=== PATIENT | male | born 1975 | race Caucasian/White ===

== ENCOUNTER 2017-06-30 03:14 | Emergency (ER) | payer OTHER, SELFPAY ==
[2017-06-30 03:15] VITALS: BP 129/91; PULSE 132; RESP 16; TEMP 39.4; O2SAT 99; BMI 33.5
[2017-06-30] MEDS: Ibuprofen 200 MG Tablet 400 MG PO (03:45)
--- NOTE | 2017-06-30 04:11 | NURSING ---
TOOK LAB RESULT. THE PT IS FLU A POSITIVE AND STREP POSITIVE.
--- NOTE | 2017-06-30 04:28 | ED.DCSUM_ITS ---
- ER Visit Summary Date of Service: 06/30/17 Chief Complaint: Flu History of Present Illness: The patient is a 42 M with flulike symptoms for 3 days. His family has had similar symptoms. He has been exposed to influenza and strep pharyngitis. His main concern is his difficulty with sleeping. He has a lot of nasal congestion. He tried a humidifier, but continues to be congested. This causes him difficulty with sleeping. He is only slept a couple hours in the last few days. He is requesting something to help him sleep. Physical Examination: Temperature 103. Heart rate 132. Respiratory rate 16. Blood pressure normal. Pulse ox normal. Patient appears ill but not toxic or in distress. Skin appears normal. HEENT exam is fairly unremarkable. He has some oral pharyngeal erythema, but no exudates. Ears normal. No lymphadenopathy. Heart tachycardic but regular. Lungs clear. Abdomen soft. Skin appears normal. Test Results: Strep testing positive. Influenza testing positive. Emergency Department Course and Treatment: I checked a strep and flu test. I suggested nasal decongestants, but because rebound congestion in the patient and he declined. Will also try prednisone. He received a dose here. He also received ibuprofen. I reassessed him, his fever had broke and his temp was 99.3. Heart rate in the low 100s. He looked better objectively. Will treat with azithromycin and Tamiflu. Risks and benefits were discussed. We will also treat with prednisone. He received a dose of Vistaril here to help him sleep. The risks and complications of influenza were discussed. The patient will monitor for worsening signs and symptoms, chest pain, shortness of breath. He will increase his fluid intake. Return if worse. Treatment Plan: As above Disposition: Discharged Impression: 1. Influenza 2. Strep pharyngitis This note was generated with mTraksation software. It may contain incorrect words, spelling, and punctuation that were not noted in review of the chart prior to signing ED Disposition - Plan for ED Patient: Chief Complaint: Cold Sx Referrals: Naheed Cedillo MD [Primary Care Provider] -
--- NOTE | 2017-06-30 04:28 | ED.DEP ---
ED Disposition - Plan for ED Patient: Chief Complaint: Cold Sx Instructions: ED Strep Pharyngitis Conf, ED Flu Prescriptions: Azithromycin [Zithromax Tri-Ben] 500 mg PO DAILY 4 Days #4 tab Prednisone 40 mg PO DAILY 4 Days #16 tab Oseltamivir Phosphate [Tamiflu] 75 mg PO BID 5 Days #9 cap Referrals: Naheed Cedillo MD [Primary Care Provider] -
[2017-06-30] MEDS: Azithromycin 250 MG Tablet 500 MG PO (04:38)
[2017-06-30] MEDS: DiphenhydrAMINE 25 MG Capsule 50 MG PO (04:44)
[2017-06-30 04:48] VITALS: TEMP 38.2
--- NOTE | 2017-06-30 04:48 | ED.RN ---
DISCHARGE INSTRUCTIONS GIVEN TO AND REVIEWED WITH PATIENT, PATIENT DENIES QUESTIONS OR CONCERNS AND VOICES UNDERSTANDING OF DISCHARGE INSTRUCTIONS. PT AMBULATES OUT OF ROOM WITHOUT DIFFICULTY.
== END 2017-06-30 04:49 | disposition home or self-care (01) ==
LOC: ED 03:50
PROVIDERS: Emergency Provider Emergency Medicine; Family Provider Internal Medicine; PCP Internal Medicine
DX: J11.1 Influenza due to unidentified influenza virus with other respiratory manifestations (principal); J02.0 Streptococcal pharyngitis
CPT/HCPCS: 87804; 87880; 99283

== ENCOUNTER → 2017-07-28 17:03 | Outpatient (CLI) | payer OTHER, SELFPAY ==
--- NOTE | 2017-07-28 17:05 | MRI_ITS ---
STUDY: MRI BRAIN WITHOUT CONTRAST REASON FOR EXAM: Male, 42 years old. H/A. alteration of awareness. Symptoms began about 3 weeks ago. TECHNIQUE: Standardized multiplanar fat and water weighted pulse sequences were obtained. COMPARISON: June 26, 2006 FINDINGS: Normal size of the ventricles and extra-axial spaces for the patient's age. Again noted are the multiple nonspecific subcortical white matter hyperintensities most prominent along the frontal lobes and grossly unchanged since prior examination in 2006. Normal bilateral basal ganglia. Normal thalami. There is no extra-axial fluid accumulation. Normal flow voids within the major intracranial circulation suggesting patency by spin echo criteria. Normal sella turcica, pituitary gland, infundibular stalk, optic chiasm and hypothalamus. Normal tectal plate and pineal gland. Normal midbrain, serena and medulla. Normal cerebellum. Normal basal cisterns. Normal bilateral temporal bones. Normal bilateral internal auditory canals. No demonstrated orbital abnormality, within the constraints of a routine brain study. Normal visualized paranasal sinuses. Normal calvarium and skull base. Normal visualized soft tissue structures. Normal visualized upper cervical spine. MRI/Brain without Contrast IMPRESSION: No acute intracranial abnormality. Electronically Signed: Francine Solis MD at 9:18 EST Tel , Service support ,
== END ==
PROVIDERS: Family Provider Internal Medicine; PCP Internal Medicine; Visit Provider Family Medicine
DX: R40.4 Transient alteration of awareness (principal); R51 Headache; H53.9 Unspecified visual disturbance
CPT/HCPCS: 70551

== ENCOUNTER → 2019-01-24 | Outpatient (CLI) | payer OTHER, SELFPAY ==
--- NOTE | 2019-01-24 09:27 | MRI_ITS ---
STUDY: MRA OF THE HEAD WITHOUT CONTRAST REASON FOR EXAM: Male, 43 years old. Headache, vision change and dizziness. TECHNIQUE: 3-D [id number] (TOF) imaging was performed with MIPs. The study was performed unenhanced. COMPARISON: None. FINDINGS: Normal bilateral petrous carotid arteries. Normal right cavernous carotid artery with a normal supraclinoid bifurcation. Normal left cavernous carotid artery with a normal supraclinoid bifurcation. Normal right A1 segments of the anterior cerebral artery. Normal left A1 segments of the anterior cerebral artery. Normal intact anterior communicating artery (ACOM). Normal bilateral A2 segments of the anterior cerebral arteries. Normal right M1 and M2 segments of the middle cerebral arteries, with a normal M1 bifurcation. Normal left M1 and M2 segments of the middle cerebral arteries, with a normal M1 bifurcation. No visible right posterior communicating artery (PCOM). No visible left posterior communicating artery (PCOM). Normal bilateral vertebral arteries. Normal basilar artery with a normal basilar bifurcation. The visualized bilateral superior cerebellar (SCA) arteries are normal. Normal bilateral P1, P2 and visualized P3 segments of the posterior cerebral arteries. There is no demonstrated aneurysm of the [place] of [place]. There is no major vessel occlusion or hemodynamically significant stenosis. There is no demonstrated abnormality of the visualized brain. MRI/MRA Head ONLY without Contrast IMPRESSION: Normal MRA of the head Electronically Signed: Balta Avina MD at 13:07 EDT , Service support ,
== END | disposition home or self-care (01) ==
LOC: MRI 09:14
PROVIDERS: Family Provider Family Medicine; PCP Family Medicine; Referring Provider Family Medicine; Visit Provider Family Medicine
DX: R51 Headache (principal)
CPT/HCPCS: 70544

== ENCOUNTER → 2019-08-07 10:41 | Outpatient (CLI) | payer OTHER, SELFPAY ==
--- NOTE | 2019-08-07 10:44 | RAD_ITS ---
STUDY: X-RAY - PARANASAL SINUSES REASON FOR EXAM: Male, 44 years old. Sinus pain, mid forehead in between eyes, feels it more the more he talks, dizziness TECHNIQUE: 3 view(s) of the paranasal sinuses were obtained. COMPARISON: None. FINDINGS: Normal visualized frontal, maxillary, ethmoidal and sphenoid sinuses. Normal visualized facial bones. Normal soft tissue structures. RAD/Sinuses min 3 Views IMPRESSION: Normal paranasal sinuses Electronically Signed: Tom Salazar DO at 8:40 EDT Tel , Service support ,
== END ==
PROVIDERS: PCP Family Medicine; Referring Provider Family Medicine; Visit Provider Family Medicine
DX: J34.89 Other specified disorders of nose and nasal sinuses (principal)
CPT/HCPCS: 70220

== ENCOUNTER → 2019-08-16 12:42 | Outpatient (CLI) | payer OTHER, SELFPAY ==
--- NOTE | 2019-08-16 12:46 | CT_ITS ---
STUDY: CT FACIAL BONES WITHOUT CONTRAST REASON FOR EXAM: Male, 44 years old. SINUSITIS RADIATION DOSAGE (If Supplied By Facility): CTDIvol = ( 33.06 ) mGy, DLP = ( 788.40 ) mGycm TECHNIQUE: The patient was scanned in a multi detector CT scanner. Sagittal and coronal images were reconstructed. Individualized dose optimization techniques were used for this CT. COMPARISON: None. FINDINGS: Small benign-appearing bilateral submental lymph nodes. Normal orbital trujillo and orbital contents. Normal nasal bones and anterior nasal spine. Normal facial bones. There is no demonstrated fracture. Mild degree of nasal septal deviation towards the right side of the midline. Normal visualized paranasal sinuses. CT/Sinus/Facial Bone IMPRESSION: Mild degree of nasal septal deviation toward the right side of the midline. Electronically Signed: Charlie Duncan, at 14:44 EDT , Service support ,
== END ==
PROVIDERS: PCP Family Medicine; Referring Provider Otolaryngology; Visit Provider Otolaryngology
DX: R51 Headache (principal); R09.81 Nasal congestion
CPT/HCPCS: 70486

== ENCOUNTER → 2019-08-17 07:14 | Outpatient (CLI) | payer OTHER, SELFPAY ==
--- NOTE | 2019-08-17 07:31 | MRI_ITS ---
ACR Level 3 findings have been noted. An addendum which confirms receipt of the report will follow. STUDY: MRI BRAIN WITHOUT CONTRAST REASON FOR EXAM: Male, 44 years old patient with sinus pain, dizziness, and confusion. TECHNIQUE: Standardized multiplanar fat and water weighted pulse sequences were obtained. COMPARISON: MRI of the brain dated July 28, 2017. FINDINGS: There is mild cerebral atrophy with widening of the extra-axial spaces and ventricular dilatation. There tiny foci of abnormal T2 hyperintensity within the subcortical white matter of bilateral frontal lobes, unchanged compared to the previous study. The white matter otherwise has a normal appearance. Sagittal midline structures are within normal limits. There are tiny foci of restricted diffusion present within the left parietal lobe and within the central serena that may represent a sequela of acute infarcts. This is best seen on diffusion weighted imaging #9 and image #19. There is additional focus of restricted diffusion in the right paramedian medulla best seen on diffusion weighted image #7. There is also questionable restricted diffusion present within the posterior right frontal lobe white matter on image #19. Normal T2* images of the brain without demonstrated susceptibility artifact. There is no demonstrated hemosiderin stain. Normal bilateral basal ganglia. Normal thalami. There is no extra-axial fluid accumulation. Normal flow voids within the major intracranial circulation suggesting patency by spin echo criteria. Normal sella turcica, pituitary gland, infundibular stalk, optic chiasm and hypothalamus. Normal tectal plate and pineal gland. Normal midbrain, serena and medulla. Normal cerebellum. Normal basal cisterns. Normal bilateral temporal bones. Normal bilateral internal auditory canals. No demonstrated orbital abnormality, within the constraints of a routine brain study. Normal visualized paranasal sinuses. Normal calvarium and skull base. Normal visualized soft tissue structures. Normal visualized upper cervical spine. MRI/Brain without Contrast IMPRESSION: 1. Multiple foci of restricted diffusion, as described, possibly related either to acute infarcts and/or pontine myelinolysis. 2. Unchanged appearance to scattered foci of abnormal signal within the subcortical white matter of bilateral frontal lobes since previous MRI. Electronically Signed: Keesha Smith MD at 8:48 EDT , Service support ,
[2019-08-17 09:05] LABS: Hematocrit 46.7 % (40-54); Hemoglobin 15.5 g/dL (13.0-16.5); Mean Corp Hgb Conc 33.2 g/dL (32-36); Mean Corpuscular Hgb 31.4 pg (27.0-32.0); Mean Corpuscular Volume 94.5 fL (80-94); Mean Platelet Vol. 11.1 fl (6.2-12.0); Platelet Count 154 K/mm3 (150-450); RBC Distribution Width CV 13.1 % (11.6-14.6); RBC Distribution Width SD 44.6 fl (35.1-43.9); Red Blood Count 4.94 M/mm3 (4.6-6.2); White Blood Count 6.7 K/mm3 (4.4-11.0)
[2019-08-17 09:50] LABS: ALB/GLOB Ratio 0.9 RATIO (0.9-2.4); AST(SGOT) 18 U/L (15-37); Alanine Aminotransfer ALT/SGPT 25 U/L (16-61); Albumin, Serum 3.8 g/dL (3.2-5.0); Alkaline Phosphatase 85 U/L (45-117); Anion Gap 5 (5-15); BUN 16 mg/dL (7-18); BUN/Creat Ratio 15.2 RATIO (10-20); Calcium,Total 8.6 mg/dL (8.5-10.1); Chloride 106 mmol/L (98-107); Cholesterol 128 mg/dL (200); Creatinine, Serum 1.05 mg/dL (0.70-1.30); EST Glomerular Filtration Rate 81 mL/min (>60); Est Glom Filt Rate - Afr Amer 98 mL/min (>60); Ferritin 119 ng/mL (26-388); Globulin 4.3 g/dL (2.2-4.2); Glucose 105 mg/dL (74-106); High Density Lipoprotein 38 mg/dL; Iron 87 ug/dL (65-175); PSA,Total - Annual Screen 0.78 ng/mL (0.00-4.00); Potassium 4.2 mmol/L (3.5-5.1); Prolactin 11.9 ng/mL; Protein, Total 8.1 g/dL (6.4-8.2); Sodium Level 141 mmol/L (136-145); Thyroid Stim Hormone (TSH) 1.78 uIU/mL (0.358-3.74); Triglycerides 186 mg/dL; Very Low Density Lipoprotein 37 mg/dL (5-40)
[2019-08-19 10:39] LABS: Vitamin B12 375 pg/mL (211-911); Vitamin D,25 Hydroxy 10.8 ng/mL
== END ==
PROVIDERS: PCP Family Medicine; Referring Provider Family Medicine; Visit Provider Family Medicine
DX: J34.89 Other specified disorders of nose and nasal sinuses (principal); I10 Essential (primary) hypertension; N48.89 Other specified disorders of penis; R53.83 Other fatigue
CPT/HCPCS: 36415; 70551; 80053; 80061; 82306; 82533; 82607; 82728; 83540; 84146; 84153; 84403; 84443; 85027; G0103

== ENCOUNTER 2019-08-17 09:05 | Emergency (ER) | payer OTHER, SELFPAY ==
[2019-08-17 09:06] VITALS: BP 159/103; PULSE 84; RESP 16; TEMP 36.4; O2SAT 98; BMI 30.5
--- NOTE | 2019-08-17 09:14 | EKG12_ITS ---
Test Reason : HEADACHE Blood Pressure : / mmHG Vent. Rate : 076 BPM Atrial Rate : 076 BPM P-R Int : 148 ms QRS Dur : 084 ms QT Int : 380 ms P-R-T Axes : 026 027 045 degrees QTc Int : 427 ms Normal sinus rhythm Normal ECG Confirmed by LUISA FLETCHER, LUIS ([id number]), script editor DORIAN ZAVALA ([id number]) on 08/20/2019 8:36:35 AM Referred By: GRACE Confirmed By:LUIS MORAN MD
[2019-08-17 09:32] LABS: Hematocrit 46.7 % (40-54); Hemoglobin 15.5 g/dL (13.0-16.5); Mean Corp Hgb Conc 33.2 g/dL (32-36); Mean Corpuscular Hgb 31.4 pg (27.0-32.0); Mean Corpuscular Volume 94.5 fL (80-94); Mean Platelet Vol. 11.1 fl (6.2-12.0); Platelet Count 154 K/mm3 (150-450); RBC Distribution Width CV 13.1 % (11.6-14.6); RBC Distribution Width SD 44.6 fl (35.1-43.9); Red Blood Count 4.94 M/mm3 (4.6-6.2); White Blood Count 6.7 K/mm3 (4.4-11.0)
[2019-08-17 09:33] LABS: Absolute Lymphocyte Count 1.11 X10^3/uL (0.83-4.51); Absolute Neutrophil Count 4.6 X10^3/uL (2.0-7.7); Basophil# 0.02 X10^3/uL; Basophil% 0.3 % (0-1); Eosinophil# 0.05 X10^3/uL; Eosinophils% 0.8 % (0-5); Lymphocyte # 1.11 X10^3/ul (4.0); Lymphocyte % 17.3 % (19-41); Monocyte# 0.62 X10^3/uL; Monocyte% 9.7 % (0-10); Neutrophil # 4.59 X10^3/uL (2.7-7.7); Neutrophil % 71.4 % (47-70)
--- NOTE | 2019-08-17 09:38 | ED.DCSUM_ITS ---
History of Present Illness Chief Complaint: Headache Informant: Patient Onset: - Maximum Severity: Mild - Years Narrative: The patient presents after having MRI scan this morning of brain, Coronavirus/emergency no exposures Patient relates that for the last 2 years he been having a pressure sensation involving the frontal sinus area, he has had extensive evaluation for this including evaluation with MRI CT scan ENT neurology work-up has been nondiagnostic no definitive cause. Symptoms basically improved to almost resolved he intermittently has been having pressure in this area occasional sense of confusion mental cloudiness but for th e most part he has been doing well, he indicates the symptoms are clearly triggered by singing speaking for long time as he feels that the sound resonates in the area of his frontal sinuses he has no history of stroke seizure neurologic disorder, no history of any type of neurologic deficits other than occasional dizziness and blurry vision when the sound is resonating as above About 2 weeks ago had recurrence of the pressure to the central facial area sinuses frontal he had work-up recently with ENT CT scan negative and this morning was scheduled for outpatient MRI of the brain the MRI was done and it showed chronic changes and please see the note Restricted diffusion within the left parietal lobe and within the central serena that may be a sequela of acute infarct the final impression also mention the possibility of acute infarct or pontine myelinolysis, Dr. Truong who was on-call for that service, was contacted this result and sent the patient to the emergency department for evaluation Past Medical History - Allergies and Home Meds Allergies/Adverse Reactions: Allergies amoxicillin Allergy (Verified 08/17/19 09:08) Other prednisone Allergy (Verified 08/17/19 09:08) PT UNSURE OF REACTION Sulfa (Sulfonamide Antibiotics) Allergy (Verified 08/17/19 09:08) Rash caffeine Adverse Reaction (Verified 08/17/19 09:08) Other Primary Care Physician: Brett Thakur MD [Primary Care Provider] - Past Medical History: - - Facial pain pressure as above Smoking Status: Never smoker Review of Systems General: Reports: - - Currently resting comfortably in the bed with no symptoms he basically points to the frontal sinus area as the focus of his pain when he gets that but his physical exam and current negative symptoms. Denies: Chills, Fever, Sweats Eyes: Denies: Visual changes - bilaterally, Diplopia ENT: Denies: Rhinorrhea, Sore throat Cardiovascular: Denies: Chest pain, Palpitations Respiratory: Denies: Dyspnea, Cough, Dyspnea on exertion Gastrointestinal: Denies: Abdominal pain, Nausea, Vomiting, Diarrhea, Melena, Hematochezia Genitourinary: Denies: Dysuria, Hematuria, Frequency Musculoskeletal: Denies: Back pain, Extremity Pain Skin: Denies: Rash, Wounds Neurological: Denies: Headache, Weakness, Numbness Physical Exam Vital Signs/Narrative: Vital Signs Temp Pulse Resp BP Pulse Ox 08/17/19 09:06 97.6 F L 84 16 159/103 H 98 General: Well nourished, Well developed, No Acute Distress Head: Normocephalic, Atraumatic Eyes: Perrl, EOMI ENT: Moist mucous membranes, No rhinorrhea Neck: Supple, Nontender Cardiovascular: Regular rate, Regular rhythm, No murmurs Respiratory: No distress, CTA bilaterally, Chest nontender Abdomen: Soft, Nontender, Nondistended, Normal bowel sounds Back: Nontender, Normal Inspection Extremities: Nontender, No edema Skin: Normal color, No rash Neurological: Alert, Oriented x3, Cranial nerves II-XII grossly intact, Normal Strength, Normal Sensation, - - His HEENT exam is negative his cranial nerve exam is negative, his neurologic exam is negative his NIH is 0 Psychological: Normal affect, Normal Mood Diagnostic/Tx/Re-eval - Medical Decision Making Spoke with his physician Dr. Guerrero, EKG screening labs are obtained these are generally unremarkable EKG shows a sinus rhythm nothing acute, now after long conversation with the patient and Dr. Guerrero the symptoms are ongoing outpatient describes clear exacerbation when he tries to sing or speak for extended period time as he feels that the sound resonates in his frontal sinus area he has no neurologic symptoms he has had these for over 2 years he has had prior evaluation by 2 different neurologists. We discussed with the patient inpatient versus outpatient management given all the above he prefers outpatient management he will follow-up with his outpatient providers for referral to other specialist for further management of the above and return for change in symptoms Home stable Final impression frontal head pain pressure intermittently for a few years etiology unclear ED Disposition - Plan for ED Patient: Diagnosis: Head and face pain Instructions: HEADACHE, Unspecified Referrals: Brett Thakur MD [Primary Care Provider] -
[2019-08-17 09:48] VITALS: O2SAT 97
== END 2019-08-17 10:55 | disposition home or self-care (01) ==
LOC: ED 09:31
PROVIDERS: Emergency Provider Emergency Medicine; PCP Family Medicine
DX: R51 Headache (principal); R41.0 Disorientation, unspecified
CPT/HCPCS: 84484; 85025; 93005; 99283

== ENCOUNTER → 2020-04-14 16:25 | Outpatient (CLI) | payer OTHER, SELFPAY ==
[2020-04-14 18:30] LABS: Anion Gap 7 (5-15); BUN 13 mg/dL (7-18); BUN/Creat Ratio 11.9 RATIO (10-20); Calcium,Total 8.4 mg/dL (8.5-10.1); Chloride 105 mmol/L (98-107); Creatinine, Serum 1.09 mg/dL (0.70-1.30); EST Glomerular Filtration Rate 77 mL/min (>60); Est Glom Filt Rate - Afr Amer 93 mL/min (>60); Glucose 88 mg/dL (74-106); Potassium 3.8 mmol/L (3.5-5.1); Sodium Level 139 mmol/L (136-145)
[2020-04-14 18:31] LABS: Vitamin B12 992 pg/mL (211-911); Vitamin D,25 Hydroxy 59.6 ng/mL
== END ==
PROVIDERS: PCP Family Medicine; Referring Provider Family Medicine; Visit Provider Family Medicine
DX: I10 Essential (primary) hypertension (principal); E53.8 Deficiency of other specified B group vitamins; E55.9 Vitamin D deficiency, unspecified
CPT/HCPCS: 36415; 80048; 82306; 82607

== ENCOUNTER → 2020-11-13 14:55 | Outpatient (CLI) | payer OTHER, SELFPAY ==
--- NOTE | 2020-11-13 15:07 | CT_ITS ---
INDICATION: ABD PAIN EXAMINATION: CT Abdomen And Pelvis W/ Contrast Injection TECHNIQUE: Helically acquired images were obtained of the abdomen and pelvis after IV contrast. A radiation dose optimization technique was used for this scan. IV Contrast dosage and agent: Oral and amp; IV Gastrografin and amp; 100mL Isovue-300 Oral contrast: Yes. COMPARISON: None. FINDINGS: Visualized lung bases: Unremarkable Liver: Unremarkable Gallbladder: Unremarkable Spleen: Unremarkable Pancreas: Unremarkable Adrenal Glands: Unremarkable Kidneys: Unremarkable Vasculature: Unremarkable GI Tract: Unremarkable Lymphadenopathy: None Peritoneum: No ascites. Bladder: Unremarkable Reproductive organs: Unremarkable Bones/Soft tissues: No suspicious osseous or soft tissue lesions CT/Abdomen/Pelvis WITH Contrast IMPRESSION: No acute abnormalities in the abdomen or pelvis. Electronically Signed: Benjamin Barksdale MD at 17:55 EDT Tel , Service support ,
[2020-11-13 15:31] LABS: ALB/GLOB Ratio 1.1 RATIO (0.9-2.4); AST(SGOT) 20 U/L (15-37); Alanine Aminotransfer ALT/SGPT 29 U/L (16-61); Albumin, Serum 3.8 g/dL (3.2-5.0); Alkaline Phosphatase 69 U/L (45-117); Anion Gap 6 (5-15); BUN 12 mg/dL (7-18); BUN/Creat Ratio 11.2 RATIO (10-20); Calcium,Total 8.2 mg/dL (8.5-10.1); Chloride 108 mmol/L (98-107); Creatinine, Serum 1.07 mg/dL (0.70-1.30); EST Glomerular Filtration Rate 79 mL/min (>60); Est Glom Filt Rate - Afr Amer 95 mL/min (>60); Globulin 3.4 g/dL (2.2-4.2); Glucose 88 mg/dL (74-106); Lipase 113 U/L (73-393); Potassium 4.1 mmol/L (3.5-5.1); Protein, Total 7.2 g/dL (6.4-8.2); Sodium Level 143 mmol/L (136-145)
[2020-11-13 15:40] LABS: Absolute Lymphocyte Count 1.53 X10^3/uL (0.83-4.51); Absolute Neutrophil Count 3.1 X10^3/uL (2.0-7.7); Basophil# 0.02 X10^3/uL; Basophil% 0.4 % (0-1); Eosinophil# 0.08 X10^3/uL; Eosinophils% 1.5 % (0-5); Hematocrit 48.2 % (40-54); Hemoglobin 15.6 g/dL (13.0-16.5); Lymphocyte # 1.53 X10^3/ul (0.83-4.51); Mean Corp Hgb Conc 32.4 g/dL (32-36); Mean Corpuscular Volume 95.6 fL (80-94); Mean Platelet Vol. 11.2 fl (6.2-12.0); Monocyte# 0.56 X10^3/uL; Monocyte% 10.6 % (0-10); NRBC Flagged by Analyzer 0 % (0-5); Neutrophil # 3.06 X10^3/uL (2.7-7.7); Neutrophil % 58.1 % (47-70); Platelet Count 177 K/mm3 (150-450); RBC Distribution Width CV 12.9 % (11.6-14.6); RBC Distribution Width SD 45.1 fl (35.1-43.9); Red Blood Count 5.04 M/mm3 (4.6-6.2); White Blood Count 5.3 K/mm3 (4.4-11.0)
== END ==
PROVIDERS: PCP Family Medicine; Referring Provider Family Medicine; Visit Provider Family Medicine
DX: R10.9 Unspecified abdominal pain (principal)
CPT/HCPCS: 36415; 74177; 80053; 83690; 85025; Q9967

== ENCOUNTER → 2020-11-20 09:28 | Outpatient (CLI) | payer OTHER, SELFPAY ==
[2020-11-18 09:17] VITALS: BMI 30.5
--- NOTE | 2020-11-20 09:30 | US_ITS ---
STUDY: ABDOMINAL ULTRASOUND - RIGHT UPPER QUADRANT REASON FOR VISIT: Male, 45 years old right abdominal pain TECHNIQUE: Ultrasound evaluation of the right upper quadrant was performed with real-time and static rod-scale imaging. TECHNICAL QUALITY: Adequate. COMPARISON: None. FINDINGS: Visualized liver parenchyma shows mildly increased echogenicity with no sonographic evidence of a focal lesion. There is no gallbladder stone or polyp. No gallbladder wall thickening or pericholecystic fluid is seen. Sonographic Camarena''s sign has been reported negative. Common bile duct measures 0.3 cm in diameter. Visualized pancreatic head and neck, portal vein, and right kidney are unremarkable. There is no free fluid in the Holcomb''s pouch. US/Gallbladder IMPRESSION: Mild diffuse hepatic steatosis. No cholelithiasis. No biliary dilatation. No right-sided hydronephrosis. Electronically Signed: Kayden Champion MD at 20:58 EDT Tel , Service support ,
== END ==
LOC: US 09:28
PROVIDERS: PCP Family Medicine; Referring Provider Surgery; Visit Provider Surgery
DX: R10.9 Unspecified abdominal pain (principal)
CPT/HCPCS: 76705

== ENCOUNTER 2021-02-08 10:20 | Emergency (ER) | payer OTHER, SELFPAY ==
[2021-02-08] VITALS (11 sets, daily range): BP systolic 123–163; BP diastolic 85–144; PULSE 110–139; RESP 18–23; TEMP 36.4–37.1; O2SAT 88–97; BMI 31.3
--- NOTE | 2021-02-08 10:36 | EKG12_ITS ---
Test Reason : Blood Pressure : / mmHG Vent. Rate : 131 BPM Atrial Rate : 131 BPM P-R Int : 154 ms QRS Dur : 084 ms QT Int : 286 ms P-R-T Axes : 028 030 012 degrees QTc Int : 422 ms Sinus tachycardia Nonspecific T wave abnormality Abnormal ECG Confirmed by PATRICIA FLETCHER, ZACKARY ([id number]), fan mail editor DORIAN ZAVALA ([id number]) on 02/12/2021 7:08:13 AM Referred By: ZAINAB Confirmed By:ZACKARY GOMEZ MD
--- NOTE | 2021-02-08 10:43 | EDS_ITS ---
HPI History of Present Illness Chief Complaint: Shortness of Breath Informant: patient Narrative Narrative: 45-year-old male presenting with shortness of breath. Patient started having Covid symptoms on January 27. His tested positive for Covid. He has not yet been tested. He was initially on doxycycline for possible sinus infection but discontinued use of doxycycline after 5 days. He states he has been monitoring his pulse ox at home and has been running in the 80s. Shortness of breath is worsened with exertion. Denies chest pain. Denies abdominal pain or diarrhea. He is not vaccinated for Covid. Prior similar symptoms: No Recent Illness/Hospitalization: No [facility] Medical History (Updated 02/08/21 @ 16:[address] Lilian Thakkar MD) HTN (hypertension) Sleep apnea Home Medications acetaminophen 500 mg PO Q6H PRN PRN 06/30/17 [History Last Taken 02/06/21] ascorbate calcium (vitamin C) 500 mg tablet 500 mg PO DAILY 11/18/20 [History Last Taken 02/07/21] cholecalciferol (vitamin D3) 25 mcg (1,000 unit) capsule 25 mcg PO DAILY 11/18/20 [History Last Taken 02/06/21] vitamin B12 500 mcg-folic acid 400 mcg tablet 1 tab PO DAILY 11/18/20 [History Last Taken 02/06/21] dexamethasone [Decadron] 6 mg PO DAILY #7 tab 02/08/21 [Rx Last Taken Unknown] Allergy/AdvReac Type Severity Reaction Status Date / Time azithromycin Allergy Mild PT UNSURE Verified 02/08/21 10:21 OF REACTION lorazepam [From Ativan] Allergy Mild Other Verified 02/08/21 10:21 omeprazole [From Prilosec] Allergy Mild Other Verified 02/08/21 10:21 Penicillins Allergy Mild Other Verified 02/08/21 10:21 amoxicillin Allergy Other Verified 02/08/21 10:21 prednisone Allergy PT UNSURE Verified 02/08/21 10:21 OF REACTION Sulfa (Sulfonamide Allergy Rash Verified 02/08/21 10:21 Antibiotics) caffeine AdvReac Other Verified 02/08/21 10:21 doxycycline AdvReac Other Verified 02/08/21 10:21 Family History (Updated 11/18/20 @ 09:13 by Kerrie Curry) Mother Colon cancer CAD (coronary artery disease) Hypertension Diabetes Breast cancer Grandfather CAD (coronary artery disease) Grandmother Colon cancer Uncle Colon cancer Social History (Updated 11/18/20 @ 09:13 by Kerrie Curry) Smoking Status: Never smoker alcohol intake: never ROS ROS ED Constitutional Constitutional ED: Reports fever(s) Eyes Eyes: Denies change in vision ENT ENT ED: Reports rhinorrhea; Denies sore throat Cardiovascular Cardiovascular: Denies chest pain or palpitations Respiratory/Chest Respiratory/Chest: Reports cough and dyspnea Gastrointestinal Gastrointestinal: Denies abdominal pain, diarrhea, nausea or vomiting Genitourinary Genitourinary ED: Denies dysuria Musculoskeletal Musculoskeletal: Reports myalgias Integumentary Denies rash Neurologic Neurologic: Denies headache(s) Psychiatric Psychiatric: Denies suicidal thoughts EXAM Physical Exam Const Vital Signs: 02/08/21 10:21 02/08/21 10:23 02/08/21 11:01 Temperature 97.6 F L 97.6 F L Temperature Source Temporal Temporal Pulse Rate 139 H 139 H Respiratory Rate 23 H 23 H Respiratory Effort Short of Breath Blood Pressure 163/144 H 163/144 H Blood Pressure Mean 150 150 Pulse Ox 88 88 97 Oxygen Delivery Method Room Air Room Air Nasal Cannula Oxygen Flow Rate (L/min) 2 02/08/21 11:23 02/08/21 12:00 02/08/21 12:20 Temperature 97.6 F L 97.6 F L Temperature Source Temporal Temporal Pulse Rate 119 H 119 H 119 H Respiratory Rate 19 H 18 18 Respiratory Effort Blood Pressure 134/91 H 130/94 H 130/94 H Blood Pressure Mean 105 106 106 Pulse Ox 97 97 97 Oxygen Delivery Method Nasal Cannula Nasal Cannula Nasal Cannula Oxygen Flow Rate (L/min) 2 2 2 02/08/21 13:00 02/08/21 15:00 Temperature 98.7 F Temperature Source Temporal Pulse Rate 121 H 112 H Respiratory Rate 20 H 18 Respiratory Effort Blood Pressure 123/95 H 135/95 H Blood Pressure Mean 104 108 Pulse Ox 97 95 Oxygen Delivery Method Nasal Cannula Nasal Cannula Oxygen Flow Rate (L/min) 2 2 Positive well nourished and well developed General Appearance ED: well developed HEENT Reports normocephalic and head/scalp atraumatic Eyes PERRL and EOMs intact bilaterally Neck supple General: Negative for tenderness Chest Wall inspection of chest normal Resp normal respiratory effort Auscultation: diminished lung sounds Cardio regular rate and regular rhythm GI non-tender and non-distended Palpation: soft; Negative for guarding or rebound tenderness present no CVA tenderness Extremity normal to inspection Neuro oriented x3 Sensorium / Orientation: alert Psych mental status grossly normal Skin no rashes or lesions noted MDM MDM MDM Narrative Medical decision making narrative: D-dimer is elevated. CTA chest was obtained and shows no evidence of PE. Bilateral infiltrates. Chemistries unremarkable. AST 139, ALT 162, alk phos 125. Chest x-ray read by myself and radiology shows patchy infiltrates bilateral lungs. Rapid Covid was negative. Patient's symptoms started over 5 days ago. Covid PCR was ordered. Covid PCR is positive. Patient has had side effects with steroids in the past and is unsure if he wants to be treated with steroids. Discussed with hospitalist who recommends discharge on home oxygen. Discussed with social work and home oxygen was arranged. Discussed with Dr. Thakur patient's primary care physician. Anjel griffith will follow-up as an outpatient. Patient is agreeable to this plan. Advised to take Decadron. Patient is unsure if he wants to take steroids. Prescription was sent to his pharmacy. Advised signs and symptoms for which to return to the ED. Lab Data Attestation: I reviewed the patient's lab results. Labs: Laboratory Results - last 24 hr 02/08/21 02/08/21 02/08/21 10:57 10:57 10:57 WBC 6.8 RBC 4.76 Hgb 14.7 Hct 44.9 MCV 94.3 H MCH 30.9 MCHC 32.7 RDW Std Deviation 43.4 RDW Coeff of Tim 12.4 Plt Count 264 MPV 11.0 Immature Gran % (Auto) 2.100 H Neut % (Auto) 72.6 H Lymph % (Auto) 12.4 L [place] % (Auto) 12.4 H Eos % (Auto) 0.1 Baso % (Auto) 0.4 Absolute Neuts (auto) 4.9 Absolute Lymphs (auto) 0.84 Nucleated RBC % 0 Reactive Lymphocytes 1+ D-Dimer Quant (PE/DVT) 0.77 H* Sodium 138 Potassium 3.2 L Chloride 102 Carbon Dioxide 29.0 Anion Gap 7 BUN 12 Creatinine 1.02 Estim Creat Clear Calc 83.71 Est GFR (MDRD) Af Amer 100 Est GFR (MDRD) Non-Af 83 BUN/Creatinine Ratio 11.8 Glucose 123 H Calcium 8.5 Total Bilirubin 0.70 AST 139 H ALT 162 H Alkaline Phosphatase 125 H Troponin I High Sens 6 Total Protein 8.0 Albumin 2.6 L Globulin 5.4 H Albumin/Globulin Ratio 0.5 L COVID-19 (MARC) 02/08/21 11:40 WBC RBC Hgb Hct MCV MCH MCHC RDW Std Deviation RDW Coeff of Tim Plt Count MPV Immature Gran % (Auto) Neut % (Auto) Lymph % (Auto) [place] % (Auto) Eos % (Auto) Baso % (Auto) Absolute Neuts (auto) Absolute Lymphs (auto) Nucleated RBC % Reactive Lymphocytes D-Dimer Quant (PE/DVT) Sodium Potassium Chloride Carbon Dioxide Anion Gap BUN Creatinine Estim Creat Clear Calc Est GFR (MDRD) Af Amer Est GFR (MDRD) Non-Af BUN/Creatinine Ratio Glucose Calcium Total Bilirubin AST ALT Alkaline Phosphatase Troponin I High Sens Total Protein Albumin Globulin Albumin/Globulin Ratio COVID-19 (M[facility]) Detected Radiography Chest X-Ray - ED: 1 View, Read by ED Physician and Read by Radiologist Diagnostic Testing: Radiology Impression Chest X-Ray 02/08/21 10:48 IMPRESSION: Patchy infiltrates in both lungs. Follow-up is recommended. Electronically Signed: Charlie Duncan MD at 11:09 EDT , Service support , Chest CTA 02/08/21 11:43 IMPRESSION: No demonstrated PE, or thoracic aortic aneurysm or dissection Patchy interstitial and airspace opacifications in the periphery of both lung zarco without effusions. Findings most consistent with Covid pneumonia. Electronically Signed: Harish Mclain MD at 12:29 EDT , Service support , Discharge Plan Triage Chief Complaint: Shortness of Breath ED Provider: Lilian Thakkar Dx/Rx/DC Orders Clinical Impression: Pneumonia due to COVID-19 virus Instructions: Coronavirus Disease 2019 (COVID-19): Overview Prescriptions: New dexamethasone [Decadron] 6 mg tablet 6 mg PO DAILY Qty: 7 RF: 0 No Action ascorbate calcium (vitamin C) 500 mg tablet 500 mg PO DAILY RF: 0 vitamin [id number] acid 500-400 mcg tablet 1 tab PO DAILY RF: 0 cholecalciferol (vitamin D3) 25 mcg (1,000 unit) capsule 25 mcg PO DAILY RF: 0 acetaminophen 500 MG tablet 500 mg PO Q6H PRN PRN (Reason: Fever) RF: 0 Primary Care Provider: Brett Thakur Referrals: Brett Thakur MD [Primary Care Provider] - Disposition Disposition: Home, Self Care
--- NOTE | 2021-02-08 10:48 | RAD_ITS ---
STUDY: X-RAY CHEST REASON FOR EXAM: Male, 45 years old. Sob TECHNIQUE: Single AP portable view of the chest. COMPARISON: None. FINDINGS: Focal areas of patchy infiltrates in both lungs. There is no demonstrated pleural abnormality. Normal size heart. Normal mediastinum and ron. Normal visualized pulmonary arteries. Normal visualized aortic arch and descending thoracic aorta. Normal visualized thoracic spine. Normal visualized ribs, clavicles, and shoulders. There is no demonstrated abnormality of the visualized soft tissue structures of the upper abdomen. RAD/Chest 1 View (Portable) IMPRESSION: Patchy infiltrates in both lungs. Follow-up is recommended. Electronically Signed: Charlie Duncan MD at 11:09 EDT , Service support ,
[2021-02-08 11:13] LABS: Absolute Lymphocyte Count 0.84 X10^3/uL (0.83-4.51); Absolute Neutrophil Count 4.9 X10^3/uL (2.0-7.7); Basophil# 0.03 X10^3/uL; Basophil% 0.4 % (0-1); Eosinophil# 0.01 X10^3/uL; Eosinophils% 0.1 % (0-5); Hematocrit 44.9 % (40-54); Hemoglobin 14.7 g/dL (13.0-16.5); Lymphocyte # 0.84 X10^3/ul (0.83-4.51); Lymphocyte % 12.4 % (19-41); Mean Corp Hgb Conc 32.7 g/dL (32-36); Mean Corpuscular Hgb 30.9 pg (27.0-32.0); Mean Corpuscular Volume 94.3 fL (80-94); Monocyte# 0.84 X10^3/uL; Monocyte% 12.4 % (0-10); NRBC Flagged by Analyzer 0 % (0-5); Neutrophil # 4.94 X10^3/uL (2.7-7.7); Neutrophil % 72.6 % (47-70); POSITIVE MORPHOLOGY YES; Platelet Count 264 K/mm3 (150-450); RBC Distribution Width CV 12.4 % (11.6-14.6); RBC Distribution Width SD 43.4 fl (35.1-43.9); Red Blood Count 4.76 M/mm3 (4.6-6.2); White Blood Count 6.8 K/mm3 (4.4-11.0)
[2021-02-08 11:15] LABS: Differential Indicated SCAN CRITERIA MET
[2021-02-08 11:30] LABS: ALB/GLOB Ratio 0.5 RATIO (0.9-2.4); AST(SGOT) 139 U/L (15-37); Alanine Aminotransfer ALT/SGPT 162 U/L (16-61); Albumin, Serum 2.6 g/dL (3.2-5.0); Alkaline Phosphatase 125 U/L (45-117); Anion Gap 7 (5-15); BUN 12 mg/dL (7-18); BUN/Creat Ratio 11.8 RATIO (10-20); Calcium,Total 8.5 mg/dL (8.5-10.1); Chloride 102 mmol/L (98-107); Creatinine, Serum 1.02 mg/dL (0.70-1.30); EST Glomerular Filtration Rate 83 mL/min (>60); Est Glom Filt Rate - Afr Amer 100 mL/min (>60); Estimated Creatinine Clearance 83.71 ml/min; Globulin 5.4 g/dL (2.2-4.2); Glucose 123 mg/dL (74-106); Potassium 3.2 mmol/L (3.5-5.1); Sodium Level 138 mmol/L (136-145); Troponin-I HS 6 pg/mL (3.0-78.0)
[2021-02-08 11:41] LABS: D-Dimer Quantitative (DVT/PE) 0.77 FEU/ug/m (0.27-0.49)
--- NOTE | 2021-02-08 11:43 | CT_ITS ---
STUDY: CTA CHEST REASON FOR EXAM: Male, 45 years old. Chest pain/pressure, elevated d-dimer RADIATION DOSAGE (If Supplied By Facility): CTDIvol = ( 11.35 ) mGy, DLP = ( 517.75 ) mGycm TECHNIQUE: The examination was performed with the intravenous administration of IV 100mL Isovue-370. Post-processing of the angiographic images was performed, with multiplanar reformation and 3D reconstruction. Individualized dose optimization techniques were used for this CT. COMPARISON: None. FINDINGS: Normal enhancement of the main pulmonary artery and right and left pulmonary arteries. Normal enhancement of the bilateral peripheral pulmonary arteries. There is no demonstrated pulmonary embolism. Normal thoracic aorta and visualized great vessels. There is no demonstrated aortic dissection. Normal heart and pericardium. Normal mediastinum. Normal hilar regions. Normal visualized trachea and bronchi. The lungs are well expanded. Patchy interstitial and airspace opacifications predominantly in the periphery of both lung zarco noted without evidence of effusions. This pattern of opacification most consistent with and suspicious for Covid pneumonia. Normal pleura. Normal chest wall structures. Normal osseous structures. Normal visualized upper abdomen. CT/CTA Chest W/WO Contrast IMPRESSION: No demonstrated PE, or thoracic aortic aneurysm or dissection Patchy interstitial and airspace opacifications in the periphery of both lung zarco without effusions. Findings most consistent with Covid pneumonia. Electronically Signed: Harish Mclain MD at 12:29 EDT , Service support ,
[2021-02-08 11:45] LABS: Reactive Lymphocyte 1+
--- NOTE | 2021-02-08 16:30 | CM.ED ---
CLAUDIA Note Referral Source: MD Referral Reason: Home oxygen CLAUDIA faxed [employer], face to face, insurance verification and demographics to [facility]. CLAUDIA spoke to Thuy in customer service and said to send patient home with oxygen tank from the ED. CLAUDIA left 3 messages for Priya advising of patient's discharge from the ED and then advising of his address. CLAUDIA spoke to RN and gave the phone number for [facility]. Advised RN to call [facility] [place] they get home. CLAUDIA called Shelbie at [facility]. Advised patient was sent home with oxygen tank. She will try to provide the hospital with as many tanks as she can. Staff updated. CLAUDIA sent email to group at [facility] advising of discharge with oxygen. Plan: Home with oxygen Frannie OTT
--- NOTE | 2021-02-09 15:15 | CASEMGMT ---
[facility] ED COVID Home O2 Follow-up: This [facility] phone patient to follow-up s/p discharge from the ED with home O2. Pt states he just woke up from a nap and states he has been doing ok. Noted pt to be speaking in short sentences. Pt reports his PO to be 97% and states it maintains in the 90's with light exertion such as standing in the kitchen to prepare lunch but has decreased to 88% with heavier exertion. States the PO does return to the 90's promptly. Pt continues to wear his O2 at 2l/min. Pt states he has been eating and drinking well without difficulty and that his children have been assisting with meal preparation. Pt describes doing deep breathing exercises and stretching his lungs until they itch and elicits a productive cough. Pt states he did not fill the decadron prescription but states that he had a reaction many years ago while taking a steroid and an antibiotic and they were not sure which medication caused the reaction so he is hesitant to try it. Encouraged pt to contact his PCP to discuss. Pt has not scheduled a follow-up appointment with his PCP which he was encouraged to do also. Pt states he has been trying to stay up in the chair but states he did take two naps today. Pt asked if taking naps was ok. Instructed pt that naps are appropriate and also encouraged him to try lying on this stomach (prone position) when doing so. Pt expressed understanding. Pt instructed to contact his doctor or call 911 if an emergency. Pt agreeable to a follow-up call tomorrow. Kalpana Arrieta RN CM
--- NOTE | 2021-02-10 16:04 | CASEMGMT ---
[facility] ED Home O2 Follow-up: This [facility] phoned patient in continued follow-up to home O2. Pt states he is continuing to wear the O2 at 2l/min. States it did come out of his nose overnight and his PO remained 92%. Pt reports his PO to be 98-99% on 2l/min at rest and is currently 96%. Pt states his PO did decrease to 84% after walking downstairs but states he found a leak in his O2 tubing and since fixing that he has not had any further hypoxia. Pt states he is continuing to do deep breathing exercises and eating and drinking without difficulty. Pt states he did fill his prescription for the decadron and has called his PCP Dr. Thakur to discuss whether to take it or not. He has not yet received a return call and is waiting to start the medication. Pt denies any questions or concerns at this time. Kalpana Arrieta RN CM
--- NOTE | 2021-02-12 14:56 | CASEMGMT ---
[facility] ED COVID Home O2 Follow-up: Call placed to pt who states he is doing well. Pt reports to not be wearing his O2 and is maintaining a PO in the 90's. Reports current PO to be 99-100% after going up the stairs to get the phone. Pt does sound SOB on the phone but pt denies difficulty breathing. Pt states he was able to walk a half mile last evening. Pt denies further questions or concerns. Will discontinue follow-up calls at this time. Kalpana Arrieta RN CM
== END 2021-02-08 16:31 | disposition home or self-care (01) ==
PROVIDERS: Emergency Provider Emergency Medicine; PCP Family Medicine
DX: U07.1 COVID-19 (principal); J12.82 Pneumonia due to coronavirus disease 2019; R79.89 Other specified abnormal findings of blood chemistry; I10 Essential (primary) hypertension; Z79.52 Long term (current) use of systemic steroids; Z79.899 Other long term (current) drug therapy
CPT/HCPCS: 71045; 71275; 80053; 84484; 85025; 85379; 87426; 87635; 93005; 99284; Q9967; U0005; A4216; U0003

== ENCOUNTER → 2024-09-04 | Outpatient (CLI) | payer OTHER, SELFPAY ==
[2024-09-04 17:57] LABS: Hematocrit 45.3 % (40-54); Hemoglobin 15.1 g/dL (13.0-16.5); Mean Corp Hgb Conc 33.3 g/dL (32-36); Mean Corpuscular Hgb 31.5 pg (27.0-32.0); Mean Corpuscular Volume 94.6 fL (80-94); Mean Platelet Vol. 11.5 fl (6.2-12.0); Platelet Count 174 K/mm3 (150-450); RBC Distribution Width CV 12.9 % (11.6-14.6); RBC Distribution Width SD 45.1 fl (35.1-43.9); Red Blood Count 4.79 M/mm3 (4.6-6.2); White Blood Count 6.2 K/mm3 (4.4-11.0)
[2024-09-04 18:28] LABS: ALB/GLOB Ratio 1.2 RATIO (0.9-2.4); AST(SGOT) 26 U/L (<=37); Alanine Aminotransfer ALT/SGPT 29 U/L (<=46); Albumin, Serum 4.2 g/dL (3.5-5.0); Alkaline Phosphatase 70 U/L (40-129); Anion Gap 13 (5-15); BUN 16 mg/dL (4-19); BUN/Creat Ratio 12.7 RATIO (10-20); Calcium,Total 8.9 mg/dL (7.6-11.0); Carbon Dioxide 23.8 mmol/L (21.0-32.0); Chloride 99 mmol/L (98-108); Creatinine, Serum 1.26 mg/dL (0.70-1.20); EST Glomerular Filtration Rate 69 (>60); Globulin 3.4 g/dL (2.2-4.2); Glucose 99 mg/dL (70-99); PSA,Total - Annual Screen 1.08 ng/mL (0.02-4.00); Potassium 3.6 mmol/L (3.3-5.1); Protein, Total 7.6 g/dL (5.9-8.4); Sodium Level 136 mmol/L (133-145); Total Bilirubin 0.48 mg/dL (0.00-1.30)
== END | disposition home or self-care (01) ==
LOC: MFPLAB 15:21
PROVIDERS: PCP Family Medicine; Referring Provider Family Medicine; Visit Provider Family Medicine
DX: R10.13 Epigastric pain (principal); Z12.5 Encounter for screening for malignant neoplasm of prostate
CPT/HCPCS: 36415; 80053; 84153; 85027; G0103

== ENCOUNTER → 2024-10-03 | Outpatient (CLI) | payer OTHER, SELFPAY ==
--- NOTE | 2024-10-03 10:00 | RAD_ITS ---
EXAM: Single and double contrast esophagram: CLINICAL HISTORY: Dyspepsia, dysphagia. COMPARISON: None. TECHNIQUE: Single and double contrast esophagram. FINDINGS: A small sliding-type hiatal hernia is noted. No area of persistent narrowing of the esophagus is seen. A widely patent gastroesophageal junction is noted. Gastroesophageal reflux to at least the mid esophagus was noted. Also, intermittent mid to distal esophageal spasm was seen. Limited imaging of the stomach and duodenum demonstrates no abnormality. RAD/Esophagus Dual Contrast IMPRESSION: 1. Small sliding-type hiatal hernia. 2. Gastroesophageal reflux. 3. Intermittent mid to distal esophageal spasm. Reading Location: [place] [id number]
== END | disposition home or self-care (01) ==
LOC: RAD 09:42
PROVIDERS: PCP Family Medicine; Referring Provider Family Medicine; Visit Provider Family Medicine
DX: R13.10 Dysphagia, unspecified (principal); R10.13 Epigastric pain
CPT/HCPCS: 74221

== ENCOUNTER 2024-12-13 10:14 | Emergency (ER) | payer OTHER, SELFPAY ==
[2024-12-13 10:14] VITALS: BP 173/92; PULSE 115; PULSE 117; RESP 20; TEMP 36.7; O2SAT 100; BMI 31.4
[2024-12-13 10:50] LABS: Hematocrit 44.9 % (40-54); Hemoglobin 15.8 g/dL (13.0-16.5); Immature Granulocytes Count 0.020 X10^3/uL (0.0-0.0); Mean Corp Hgb Conc 35.2 g/dL (32-36); Mean Corpuscular Volume 90.3 fL (80-94); Mean Platelet Vol. 11.1 fl (6.2-12.0); NRBC Flagged by Analyzer 0 % (0-5); Platelet Count 152 K/mm3 (150-450); RBC Distribution Width CV 12.2 % (11.6-14.6); RBC Distribution Width SD 40.2 fl (35.1-43.9); Red Blood Count 4.97 M/mm3 (4.6-6.2); White Blood Count 6.2 K/mm3 (4.4-11.0)
[2024-12-13 11:06] LABS: D-Dimer Quantitative (DVT/PE) 0.27 FEU/ug/m (0.27-0.49)
--- NOTE | 2024-12-13 11:06 | EX.ED.DYSGE1 ---
HPI History of Present Illness Chief Complaint: Chest Pain Informant: patient Narrative Narrative: 49-year-old male with history of sleep apnea (previously treated with mouthguard and weight loss, white coat hypertension and reflux presenting for increasing anxiety, shortness of breath and insomnia. Patient notes for the past month that he has noticed that he is having a harder time sleeping and waking up short of breath. He had gained some weight and thought that his sleep apnea was coming back. He started exercising again. He has intermittently felt short of breath. He states about 2 weeks ago with his shortness of breath he was seen at [facility] and observed overnight. He had an echocardiogram which he states was largely normal with an EF of around 70% and EKG as well as cardiac markers trended. He states he has an outpatient stress test and tells like a coronary calcium score ordered. He states that he has not been able to sleep the last few nights and gets discomfort in his chest. Described as a burning sensation. He also notes his heart rate is elevated. He is sleeping with a home pulse oximeter and notes that his oxygen is dropping below 90% when he sleeping. He states he is getting more anxious about this and feels that he is just running on adrenaline at this point. He came in for further evaluation. He also notes that he had been started on Norvasc 10 mg at outside hospital and taking that his blood pressures dropped in the 90s he was getting lightheaded so he stopped taking it. He states he always has high blood pressures in healthcare settings but when he takes his blood pressure at home it is always normal around 120. He denies any swelling of his legs. He denies any history of DVT or PE. Came in for further evaluation. Notes remotely he did have some issues with anxiety and was on a short course of citalopram and that helped and then got off of it. [facility] Medical History HTN (hypertension) Sleep apnea Home Medications ?Medication ?Instructions ?Recorded ?Last Taken ?Type acetaminophen 500 mg tablet 500 mg PO Q6H PRN PRN Fever 06/30/17 02/06/21 History ascorbate calcium (vitamin C) 500 500 mg PO DAILY 11/18/20 02/07/21 History mg tablet cholecalciferol (vitamin D3) 25 25 mcg PO DAILY 11/18/20 02/06/21 History mcg (1,000 unit) capsule vitamin B12 500 mcg-folic acid 400 1 tab PO DAILY 11/18/20 02/06/21 History mcg tablet dexamethasone 6 mg tablet 6 mg PO DAILY #7 tabs 02/08/21 Unknown Rx (Decadron) hydroxyzine HCl 25 mg tablet 25 mg PO TID PRN anxiety or sleep 12/13/24 Unknown Rx #20 tabs Allergy/AdvReac Type Severity Reaction Status Date / Time azithromycin Allergy Mild PT UNSURE Verified 02/08/21 10:21 OF REACTION lorazepam (From Ativan) Allergy Mild Other Verified 02/08/21 10:21 omeprazole (From Prilosec) Allergy Mild Other Verified 02/08/21 10:21 Penicillins Allergy Mild Other Verified 02/08/21 10:21 amoxicillin Allergy Other Verified 02/08/21 10:21 prednisone Allergy PT UNSURE Verified 02/08/21 10:21 OF REACTION Sulfa (Sulfonamide Allergy Rash Verified 02/08/21 10:21 Antibiotics) caffeine AdvReac Other Verified 02/08/21 10:21 doxycycline AdvReac Other Verified 02/08/21 10:21 Family History Mother Colon cancer CAD (coronary artery disease) Hypertension Diabetes Breast cancer Grandfather CAD (coronary artery disease) Grandmother Colon cancer Uncle Colon cancer Social History Smoking Status: Never smoker alcohol intake: never ROS ROS ED Constitutional Constitutional ED: Denies chills or fever(s) ENT ENT ED: Denies rhinorrhea or sore throat Cardiovascular Cardiovascular: Reports chest pain Respiratory/Chest Respiratory/Chest: Reports dyspnea; Denies cough or dyspnea on exertion Gastrointestinal Gastrointestinal: Denies abdominal pain, nausea or vomiting Musculoskeletal Musculoskeletal: Denies arthralgias or myalgias Integumentary Denies rash Neurologic Neurologic: Denies headache(s), paresthesias or weakness Psychiatric Psychiatric: Reports anxiety; Denies suicidal ideation or suicidal thoughts Hematologic/Lymphatic Hematologic/Lymphatic: Denies easy bleeding or easy bruising EXAM Physical Exam Const Vital Signs: 12/13/24 10:14 12/13/24 10:14 12/13/24 10:29 Temperature 98.1 F Temperature Source Temporal Pulse Rate 117 H 115 H Respiratory Rate 20 H Blood Pressure 173/92 H Blood Pressure Mean 119 Pulse Ox 100 Oxygen Delivery Method Room Air Room Air 12/13/24 12:25 12/13/24 14:22 12/13/24 15:06 Temperature 98.0 F Temperature Source Pulse Rate 96 92 53 L Respiratory Rate 18 18 18 Blood Pressure 115/85 H 124/94 H Blood Pressure Mean 95 104 Pulse Ox 98 98 97 Oxygen Delivery Method Room Air Room Air Positive well nourished and well developed General Appearance ED: well developed and NAD HEENT Reports moist mucous membranes Negative for trauma Eyes PERRL and EOMs intact bilaterally General Eye ED: Negative for scleral icterus Neck supple and no JVD Chest Wall inspection of chest normal and palpation of chest normal Resp normal respiratory effort and clear to auscultation bilaterally Cardio regular rhythm and no murmurs Rate: tachycardic GI normal to inspection, nondistended, normoactive bowel sounds, non-tender and non-distended Palpation: soft; Negative for tender or guarding Extremity normal to inspection General Extremety ED: Negative for edema General Extremity: Negative for edema Neuro oriented x3 Sensorium / Orientation: alert Motor Exam: Negative for general weakness Psych mental status grossly normal Mood & Affect: anxious Skin no rashes or lesions noted and no wounds MDM MDM MDM Narrative Medical decision making narrative: Patient evaluated for a substernal chest pain described as a burning sensation as well as difficulty sleeping. Is a lot of associated anxiety. Differential includes is not limited to obstructive sleep apnea, asthma, PE, ACS and anxiety reaction. Patient is tachycardic and hypertensive upon arrival but vital signs normalized without any further intervention while in the emergency room. He is not hypoxic while in the emergency room. CBC is normal with no signs of leukocytosis suggestive of infectious etiology or anemia (low suspicion for acute anemia as a cause of his symptoms). His D-dimer is normal at 0.27. He is low risk for Wells criteria (only risk factor is his tachycardia). I do not think he needs a CTA for workup of PE. High-sensitivity troponin less than 6 and 6 on repeat. Low suspicion for ACS. In addition patient just had an observation stay at outside hospital for chest pain and ultimately discharged home. He had a recent echocardiogram which she states was normal. His CMP shows a mild elevation of his creatinine 1.29 but appears stable compared to earlier this year. TSH is normal so suspicion of acute thyroid abnormality is a cause of his symptoms. Chest x-ray viewed by myself as well as radiology does not show any acute process. Low sufficient for pneumonia, pneumothorax or pleural effusion as a cause of his symptoms. Patient ambulated emergency room with no exertional hypoxia. Discussed it is possible he could have untreated sleep apnea but this is more chronic and does not require admission to the hospital. He will follow-up outpatient with his primary care doctor. I did discuss the case with his PCP, Dr. Almaguer who has an appointment to see him this coming Monday and will discuss further outpatient testing including CT coronary and possible anxiety medicines. Will give the patient a short course of hydroxyzine for anxiety and insomnia to help him get through the weekend. He does not want benzodiazepine as he states he does not like the way he feels on that. Discussed with patient that his 30-day mortality associated with any major cardiac event is less than 1% based on his heart score and I do think he is safe to follow-up. I do not think that he will stop breathing in his sleep and he is safe to sleep. Counseled on return precautions. Discussed that he may also try [id number] ZzzQuil but not to mix with hydroxyzine and he may also try [id number] melatonin. Patient and verbalized agreement understand this plan. Discharged home in stable condition. Lab Data Attestation: I reviewed the patient's lab results. Labs: Laboratory Results - last 24 hr 12/13/24 12/13/24 10:38 12:24 WBC 6.2 RBC 4.97 Hgb 15.8 Hct 44.9 MCV 90.3 MCH 31.8 MCHC 35.2 RDW Std Deviation 40.2 RDW Coeff of Tim 12.2 Plt Count 152 MPV 11.1 Immature Gran % (Auto) 0.300 Neut % (Auto) 71.5 H Lymph % (Auto) 17.1 L [place] % (Auto) 10.4 H Eos % (Auto) 0.5 Baso % (Auto) 0.2 Absolute Neuts (auto) 4.4 Absolute Lymphs (auto) 1.05 Nucleated RBC % 0 D-Dimer Quant (PE/DVT) 0.27 Sodium 139 Potassium 3.9 Chloride 102 Carbon Dioxide 22.5 Anion Gap 14 BUN 16 Creatinine 1.29 H Estim Creat Clear Calc 72.88 Est GFR (MDRD) Non-Af 67 BUN/Creatinine Ratio 12.1 Glucose 113 H Calcium 8.8 Total Bilirubin 0.56 Direct Bilirubin 0.17 AST 29 ALT 27 Alkaline Phosphatase 64 Troponin T High Sens < 6 Troponin T Hi Sens 2 Hr 6 Total Protein 7.7 Albumin 4.4 Globulin 3.3 Lipase 43 TSH 1.550 Radiography Diagnostic Testing: Clinical Impression(s) from Imaging Studies Chest X-Ray 12/13/24 11:12 IMPRESSION: No acute cardiopulmonary process. Reading Location: [facility] Rhythm Strip Rhythm Strip: Sinus Tach Rate: 106 Ectopy: None EKG Initial EKG: Attestation: I personally reviewed and interpreted this EKG as follows: Interpretation: Sinus Tachycardia Comments: Sinus tachycardia rate 106 bpm Normal intervals Normal ST segments with nonspecific changes in lead II, no reciprocal change Prior EKG tracings: available for review Prior: Unchanged Management Discussion w/another healthcare provider: PCP Discharge Plan Triage Chief Complaint: Chest Pain ED Provider: Syeda Blake Dx/Rx/DC Orders Clinical Impression: Sleep apnea, Chest pain Instructions: ED Chest Pain, Uncertain Cause, ED Dyspnea, ED Sleep Apnea, Obstructive Prescriptions: New hydroxyzine HCl 25 mg tablet 25 mg PO TID PRN (Reason: anxiety or sleep) Qty: 20 0RF No Action ascorbate calcium (vitamin C) 500 mg tablet 500 mg PO DAILY vitamin [id number] acid 500-400 mcg tablet 1 tab PO DAILY Rx Instructions: administer with a meal cholecalciferol (vitamin D3) 25 mcg (1,000 unit) capsule 25 mcg PO DAILY acetaminophen 500 MG tablet 500 mg PO Q6H PRN PRN (Reason: Fever) dexamethasone [Decadron] 6 mg tablet 6 mg PO DAILY Qty: 7 0RF Primary Care Provider: Benjamin Thakur Referrals: Benjamin Thakur MD [Primary Care Provider] - Activity Restrictions/Additional Instructions: Your workup today was largely normal and reassuring. There is no signs of any acute cardiac abnormalities on your EKG or troponin. Your D-dimer was normal several low special for pulmonary emboli. The exact cause of your symptoms is not clear but this time I do think it safe for you to continue to follow-up outpatient with your primary care doctor for further outpatient testing. Please discuss your associated insomnia and anxiety with them as well. You were given a prescription for hydroxyzine to take as needed for anxiety and at night before bed. The maximum dose is 50 mg. These, is a 25 mg tablet. If you do not have a good effect with the first pill you may take a second pill or 1 dose of 25 mg Benadryl. Hydroxyzine and Benadryl. You may take are similar medications melatonin as well. You may also try ZzzQuil if you do not want to take the hydroxyzine to help with your sleep. Do not recommend mixing ZzzQuil with Benadryl/hydroxyzine. Print Language: Citizen Of [place] Disposition Disposition: Home, Self Care Discharge Date/Time: 12/13/24 15:31
--- NOTE | 2024-12-13 11:12 | RAD_ITS ---
EXAM: XR Chest, 2 Views CLINICAL INDICATION: CHEST PAIN TECHNIQUE: Frontal and lateral views of the chest. COMPARISON: No relevant prior studies available. FINDINGS: LUNGS AND PLEURAL SPACES: Unremarkable. No consolidation. No pneumothorax. HEART: Unremarkable. No cardiomegaly. MEDIASTINUM: Unremarkable. Normal mediastinal contour. BONES/JOINTS: Unremarkable. No acute fracture. RAD/Chest PA and Lateral IMPRESSION: No acute cardiopulmonary process. Reading Location: [facility]
[2024-12-13 11:14] LABS: Troponin T High Sensitivity < 6 ng/L (<=22)
[2024-12-13 11:22] LABS: Lipase 43 U/L (13-75)
[2024-12-13 11:31] LABS: AST(SGOT) 29 U/L (<=37); Alanine Aminotransfer ALT/SGPT 27 U/L (<=46); Albumin, Serum 4.4 g/dL (3.5-5.0); Alkaline Phosphatase 64 U/L (40-129); Anion Gap 14 (5-15); BUN 16 mg/dL (4-19); BUN/Creat Ratio 12.1 RATIO (10-20); Bilirubin, Direct 0.17 mg/dL (0.00-0.30); Calcium,Total 8.8 mg/dL (7.6-11.0); Carbon Dioxide 22.5 mmol/L (21.0-32.0); Chloride 102 mmol/L (98-108); Estimated Creatinine Clearance 72.88 ml/min (50-250); Globulin 3.3 g/dL (2.2-4.2); Glucose 113 mg/dL (70-99); Potassium 3.9 mmol/L (3.3-5.1)
[2024-12-13 12:25] VITALS: BP 115/85; PULSE 96; RESP 18; O2SAT 98
[2024-12-13 12:52] LABS: Troponin T High Sens 2 HR 6 ng/L (<=22)
[2024-12-13 13:19] VITALS: O2SAT 98
[2024-12-13 14:22] VITALS: PULSE 92; RESP 18; O2SAT 98
[2024-12-13 15:06] VITALS: BP 124/94; PULSE 53; RESP 18; TEMP 36.7; O2SAT 97
--- OUTSIDE RECORDS SUMMARY | 2024-12-13 15:11 | XMS RPT_ITS | CCD ---
Author Organization [facility] Care Team Providers Care Bundle Shaker Name Role Phone Bigg Mcgee Unavailable Unavailable Misty Thakur Unavailable Unavailabl e Misty Thakur Unavailable Unavailable Unavailable Jayy Grant MD Primary Care Provider Misty Thakur MD Unavailable Misty Thakur MD Unavailable LEILANI ROSARIO Referring Unavailable ALANA NOWAK Attending Unavailable JAYY GRANT Primary Care Unavailable LEILANI ROSARIO Attending Unavailable JAYY GRANT Primary Care Unavailable Blaze FLETCHER, Dr. Alexander Primary Care Provider Blaze FLETCHER, Dr. Alexander Attending Provider Blaze FLETCHER, Dr. Alexander Referring Provider Misty Thakur MD Primary Care Provide r MISTY THAKUR Primary Care Unavail able MIKE THOMPSON Referring Unava ilable TONY GALEANA Admitting Unavailable SEJAL HUGGINS Attending Unavailab KACI Schilling Referring Unavailable KACI ADAME Admitting Unavailable MISTY THAKUR Primary Care Unavail able MIKE THOMPSON Attending Unava ilable MISTY THAKUR Primary Care Unavail able Misty Thakur Attending Unavailable Misty Thakur Referring Unavailable Misty Thakur Primary Care Unavailable Tom Benton Attending Unavailable Tom Benton Referring Unavailable Misty Thakur Primary Care Unavailable Misty Thakur Primary Care Unavailable Syeda Blake Attending Unavailable Misty Thakur Primary Care Unavailable Misty Thakur Attending Unavailable Misty Thakur Referring Unavailable Allergies Allergy Classification Reported Allergen(s) Allergy Type Date of Onset Reaction(s) Facility Benzodiazepines (1 source) LORazepam; Translations: [Ativan] Drug Allergy [facility] Work Phone: Caffeine (1 source) Caffeine; Translations: [Caffeine] Drug Allergy [facility] Work Phone: Corticosteroids (1 source) predniSONE; Translations: [predniSONE] Drug Allergy [facility] Work Phone: Penicillins (antibiotic) (1 source) Penicillins; Translations: [Penicillins] Drug Allergy [facility] Work Phone: Proton Pump Inhibitors (1 source) Omeprazole; Translations: [PriLOSEC PACK] Drug Allergy [facility] Work Phone: Sulfonamides (antibiotic) (1 source) Sulfonamides (Antibiotic); Translations: [Sulfa Drugs] Drug Allergy [facility] Work Phone: (8 sources) Caffeine; Translations: [CAFFEINE] Drug Allergy 07-02-19 15 Other: See Comments [facility] Work Phone: (1 source) LORazepam Drug Allergy [facility] Work Phone: (3 sources) Omeprazole Drug Allergy 02-09-20 21 Other [facility] (1 source) Penicillins; Translations: [Penicillins] Allergy to drug (finding) [facility] [employer] Work Phone: (8 sources) predniSONE; Translations: [PREDNISONE] Drug Allergy 10-14-19 18 Other: See Comments [facility] (1 source) Sulfonamides (Antibiotic) Allergy to drug (finding) [facility] [employer] Work Phone: (6 sources) Amoxicillin; Translations: [AMOXICILLIN] Drug Allergy 04-01-20 15 Intolerance [facility] Work Phone: (6 sources) Azithromycin; Translations: [AZITHROMYCIN] Drug Allergy 07-10-19 18 Other: See Comments [facility] Work Phone: (6 sources) LORazepam; Translations: [LORAZEPAM] Drug Allergy 07-02-19 15 Mental Status Change [facility] Work Phone: (4 sources) Omeprazole; Translations: [OMEPRAZOLE MAGNESIUM] Drug Allergy 07-02-19 15 Mental Status Change [facility] Work Phone: (4 sources) Sulfamethoxazole / Trimethoprim; Translations: [SULFAMETHOXAZOLE-T RIMETHOPRIM] Drug Allergy 11-29-19 08 Rash [facility] Work Phone: (2 sources) Doxycycline Drug Allergy 02-09-20 21 Other [facility] (2 sources) Penicillins Allergy to substance 02-09-20 Other [facility] (5 sources) Sulfonamides (Antibiotic); Translations: [SULFA (SULFONAMIDE ANTIBIOTICS)] Allergy to substance 02-09-20 [facility] (4 sources) Glucocorticoid preparation; Translations: [CORTICOSTEROIDS (GLUCOCORTICOIDS)] Propensity to adverse reactions to drug 12-02-19 25 Other (See Comments) [facility] (1 source) Sulfonamides (Antibiotic) Propensity to adverse reactions to drug 12-02-19 25 Other (See Comments) [facility] (1 source) Amoxicillin Drug Allergy 02-09-20 [facility] (1 source) Azithromycin Drug Allergy 02-09-20 [facility] (1 source) Doxycycline Drug Allergy 02-09-20 [facility] (1 source) LORazepam Drug Allergy 02-09-20 [facility] (1 source) Omeprazole Drug Allergy 02-09-20 [facility] (1 source) Penicillins Drug allergy (disorder) 02-09-20 [facility] (1 source) Sulfonamides (Antibiotic) Drug allergy (disorder) 02-09-20 [facility] Medications Current Medications Medication Drug Class(es) Dates Sig (Normalized) Sig (Original) amLODIPine 10 mg oral tablet (3 sources) Dihydropyridine Calcium Channel Kalyn Start: 12-03-2024 End: 01-02-2025 take 1 tablet by mouth once daily in the evening amLODIPine (NORVASC) 10 MG tablet Take 1 (one) tablet (10 mg total) by mouth daily Start: 12/03/24. 30 tablet 12/02/2024 3:16 PM EDT 12/03/2024 01/02/2025 Active Start: 12-01-2024 End: 12-02-2024 take 10 mg by mouth once daily 10 mg, Oral, Daily, Fir st dose on 12/01/24 at 2200 calcium ascorbate 500 mg oral tablet (2 sources) Start: 11-18-2020 take 1 tablet by mouth once daily Ascorbate Calcium (Vitamin C) 500 mg tablet Active 500 mg PO DAILY November 18, 2020 12:00am cholecalciferol 0.025 mg oral capsule (2 sources) Vitamin D Start: 11-18-2020 take 1 capsule by mouth once daily Cholecalciferol (Vitamin D3) 25 mcg (1,000 unit) capsule Active 25 ug PO DAILY November 18, 2020 12:00am dexamethasone 6 mg oral tablet (2 sources) Corticosteroid Start: 02-08-2021 take 1 tablet by mouth once daily Dexamethasone (Decadron) 6 mg tablet Active 6 mg PO DAILY February 08, 2021 12:00am folic acid 0.4 mg / vitamin b12 0.5 mg oral tablet (2 sources) Vitamin B12 Start: 11-18-2020 Vitamin G24-Fuwca Acid 500-400 mcg tablet Active 1 {tbl} PO DAILY November 18, 2020 12:00am administer with a meal Completed/Discontinued Medications Medication Drug Class(es) Dates Sig (Normalized) Sig (Original) acetaminophen 325 mg oral tablet (4 sources) Start: 12-01-2024 End: 12-02-2024 take 1 tablet by mouth every four hours as needed for pain and headache Start: 06-30-2017 End: 03-22-2023 take 1 tablet by mouth every six hours as needed for fever Acetaminophen 500 MG tablet Active 500 mg PO EVERY 6 HOURS NEEDED as needed for Fever June 30, 2017 1:00am Comment on above: 500 mg as needed. aluminum hydroxide 40 mg/ml / magnesium hydroxide 40 mg/ml / simethicone 4 mg/ml oral suspension (1 source) Start : 12-01 End: 12-02 take 30 mL by mouth every four hours as needed ascorbic acid 500 mg oral capsule (2 sources) Vitamin C Start : 07-01 take 1 capsule by mouth once daily Vitamin C 500 MG Oral Capsule TAKE 1 CAPSULE BY MOUTH DAILY. Quantity: 0 Refills: 0 Ordered: 01-Jul-2020 DO Start : 01-Jul-2020 Active azithromycin 500 mg oral tablet (2 sources) Macrolide Antimicrobial Start : 06-30 End: 11-18 take 1 tablet by mouth once daily Azithromycin 500 MG tablet Discontinued 500 mg PO DAILY 4 4 June 30, 2017 1:00am November 18, 2020 9:15am calcium carbonate 500 mg chewable tablet (1 source) Start : 12-01 End: 12-02 take 500 mg by mouth once daily as needed for gastroesophageal reflux disease 500 mg, Oral, Daily PRN, indigestion, heartburn, Starting on 12/01/24 at 2330, Give with Food diphenhydrAMINE hydrochloride 25 mg oral capsule (2 sources) Histamine-1 Receptor Antagonist Start : 06-30 End: 11-18 take 1 capsule by mouth twice daily as needed for congestion Diphenhydramine Hcl (Benadryl) 25 MG capsule Discontinued 25 mg PO TWICE DAILY NEEDED as needed for Congestion June 30, 2017 1:00am November 18, 2020 9:15am 1 ml heparin sodium, porcine 5000 unt/ml injection (1 source) Unfractionated Heparin, Anti-coagulant Start : 12-01 End: 12-02 oseltamivir 75 mg oral capsule (2 sources) Neuraminidase Inhibitor Start : 06-30 End: 11-18 take 1 capsule by mouth twice daily Oseltamivir 75 MG capsule Discontinued 75 mg PO TWICE A DAY 9 5 June 30, 2017 1:00am November 18, 2020 9:15am perflutren lipid microspheres (DEFINITY) 0.143 mg/mL solution 0-10 mL of mixture (1 source) Start : 12-01 End: 12-02 0-10 mL of mixture, Intravenous, Once in imaging, contrast, IF suboptimal echo, Starting on 12/01/24 at 2109, For 48 hours, Prepare syringe by withdrawing 1.3 mL of perflutren (DEFINITY) from the 2ml vial. Further dilute the 1.3 mL of perflutren with Sodium Chloride (NS) 0.9% to total volume of 10 ml. Chart total ML OF MIXTURE given to patient. polyethylene glycol 3350 374320 mg / potassium chloride 2970 mg / sodium bicarbonate 6740 mg / sodium chloride 5860 mg / sodium sulfate 12875 mg powder for oral solution (1 source) Osmotic Laxative Start : 03-21 End: 03-21 peg 3350-Electrolytes (GOLYTELY) 236-22.74-6.74 -5.86 gram suspension Take 4,000 mL by mouth one time only for 1 dose. 1 Each 0 03/21/2023 03/21/2023 Comment on above: Take 4,000 mL by ronan th one time only for 1 dose. predniSONE 10 mg oral tablet (2 sources) Start : 06-30 End: 11-18 take 4 tablets by mouth once daily Prednisone 10 MG tablet Discontinued 40 mg PO DAILY 16 4 June 30, 2017 1:00am November 18, 2020 9:15am vitamin b12 0.5 mg oral tablet (2 sources) Vitamin B12 Start : 07-01 take 1 tablet by mouth once daily Vitamin B 12 500 MCG Oral Tablet TAKE 1 TABLET DAILY. Quantity: 0 Refills: 0 Ordered: 01-Jul-2020 DO Start : 01-Jul-2020 Active Problems Active Problems Problem Classification Problem Date Documented Da te Episodic/Chronic Abdominal pain (8 sources) Right lower quadrant pain; Translations: [Right lower quadrant pain] Onset: 8 04-03-2008 Episodic Anxiety disorders (3 sources) Panic disorder without agoraphobia; Translations: [Panic disorder [episodic paroxysmal anxiety]] Onset: 7 12-13-2006 Chronic Esophageal disorders (3 sources) Gastroesophageal reflux disease; Translations: [Gastro-esophageal reflux disease without esophagitis] Onset: 9 03-04-2009 Chronic Essential hypertension (2 sources) Hypertensive disorder; Translations: [Essential (primary) hypertension] 11-18-2020 Chronic Headache; including migraine (4 sources) Headache; Translations: [Headache] 08-18-2019 Episodic Nonspecific chest pain (14 sources) Chest pain; Translations: [Chest pain, unspecified] Onset: 7 12-13-2006 Episodic Other gastrointestinal disorders (2 sources) H/O: colitis; Translations: [Personal history of other diseases of the digestive system] 03-22-2023 Episodic Other gastrointestinal disorders (1 source) Altered bowel function; Translations: [Change in bowel habit] 04-25-2023 Episodic Other gastrointestinal disorders (1 source) Personal history of other diseases of the digestive system; Translations: [History of colitis] Onset: 3 Episodic Other gastrointestinal disorders (1 source) Change in bowel habit; Translations: [Change in bowel habits] Onset: 3 Episodic Other gastrointestinal disorders (1 source) Dysphagia, unspecified; Translations: [Dysphagia, unspecified] Onset: 5 Episodic Other lower respiratory disease (1 source) Shortness of breath; Translations: [Shortness of breath] Onset: 5 Episodic Other nervous system disorders (1 source) Cerebrospinal fluid rhinorrhea; Translations: [Cerebrospinal fluid rhinorrhea] Episodic Other screening for suspected conditions (not mental disorders or infectious disease) (2 sources) Patient encounter status; Translations: [Encounter for screening for malignant neoplasm of colon] Onset: 3 04-25-2023 Episodic Residual codes; unclassified (2 sources) Sleep apnea; Translations: [Sleep apnea, unspecified] 11-18-2020 Chronic Residual codes; unclassified (1 source) Family history of cancer of colon; Translations: [Family history of malignant neoplasm of digestive organs] 03-22-2023 Episodic Residual codes; unclassified (1 source) Family history of malignant neoplasm of digestive organs; Translations: [Family history of colon cancer] Onset: 3 Episodic Viral infection (2 sources) COVID-19; Translations: [Pneumonia due to COVID-19 virus] 02-08-2021 Episodic Past or Other Problems Problem Classification Problem Date Documented Date Episodic/Chronic Abdominal hernia (3 sources) Diaphragmatic hernia; Translations: [Diaphragmatic hernia without obstruction or gangrene] Onset: 07-14-2011 07-14-2011 Episodic Cardiac dysrhythmias (3 sources) Palpitations; Translations: [Palpitations] Onset: 12-23-2006 12-23-2006 Episodic Conditions associated with dizziness or vertigo (3 sources) Vertigo; Translations: [Dizziness and giddiness] Onset: 10-13-2017 10-13-2017 Episodic Esophageal disorders (3 sources) Esophagitis; Translations: [Esophagitis, unspecified] Onset: 07-14-2011 07-14-2011 Episodic Hemorrhoids (3 sources) Internal hemorrhoids; Translations: [Other hemorrhoids] Onset: 04-03-2008 04-03-2008 Episodic Other diseases of veins and lymphatics (3 sources) Varicocele; Translations: [Scrotal varices] Onset: 01-22-2008 01-22-2008 Episodic Other nervous system disorders (3 sources) Skin sensation disturbance; Translations: [Unspecified disturbances of skin sensation] Onset: 12-13-2006 12-13-2006 Episodic Residual codes; unclassified (3 sources) Memory impairment; Translations: [Other amnesia] Onset: 10-13-2017 10-13-2017 Episodic NEGATED: Highlighted row has not occurred!Residual codes; unclassified (2 sources) Disease Episodic Results Test Name Value Interpretation Reference Range Facility CBC Auto Differentialon Basophils (Bld) [#/Vol] 0.02 10*3/uL [facility] Basophils/100 WBC (Bld) 0.3 % [facility] Eosinophils (Bld) [#/Vol] 0.07 10*3/uL [facility] Eosinophils/100 WBC (Bld) 1 % [facility] Erythrocyte distribution width (RBC) [Entitic vol] 12.5 % 11.6 - 14.8 % [facility] Hematocrit (Bld) [Volume fraction] 44.3 % 41.0 - 53.0 % [facility] Hemoglobin (Bld) [Mass/Vol] 14.8 g/dL 13.5 - 17.5 g/dL [facility] Immature granulocytes (Bld) [#/Vol] 0.01 10*3/uL [facility] Immature granulocytes/100 WBC (Bld) 0.1 % [facility] Comment on above: The IG parameter is the percentage of metamyelocytes, myelocytes and promyelocytes. An immature granulocyte count (IG) of 1% or more suggests the possibility of infection, an IG count of 3% is very likely related to an infection. Lymphocytes (Bld) [#/Vol] 1.6 10*3/uL [facility] Lymphocytes/100 WBC (Bld) 23.3 % [facility] MCH (RBC) [Entitic mass] 31.5 pg 26.0 - 34.0 pg [facility] MCHC (RBC) [Mass/Vol] 33.4 g/dL 31.0 - 37.0 g/dL [facility] MCV (RBC) [Entitic vol] 94.3 fL 80.0 - 100.0 fL [facility] Monocytes (Bld) [#/Vol] 0.84 10*3/uL [facility] Monocytes/100 WBC (Bld) 12.2 % [facility] Neutrophils (Bld) [#/Vol] 4.34 10*3/uL [facility] Neutrophils/100 WBC (Bld) 63.1 % [facility] Nucleated RBC (Bld) [#/Vol] 0 10*3/uL [facility] Nucleated RBC/100 WBC (Bld) [Ratio] 0 % [facility] Platelet mean volume (Bld) [Entitic vol] 11.6 fL 9.4 - 12.4 fL [facility] Platelets (Bld) [#/Vol] 158 10*3/uL [facility] RBC (Bld) [#/Vol] 4.7 10*6/uL [facility] WBC (Bld) [#/Vol] 6.88 10*3/uL [facility] CBC WITH AUTO DIFFERENTIALon 12-02-2024 AUTO NRBC 0.0 % [facility] Comment on above: Performed By: #### L [id number] #### LAB [address] [address] Jaime Smith M.D. [id number] AUTO NRBC ABS COUNT 0.00 K/mcL Normal 0.00-0.00 [facility] Comment on above: Performed By: #### L [id number] #### LAB [address] [place], [place] [address] Jaime Smith M.D. [id number] BASOPHILS ABSOLUTE COUNT 0.02 K/mcL Normal 0.00-0.30 [facility] Comment on above: Performed By: #### L [id number] #### LAB [address] [place], [place] [address] Jaime Smith M.D. [id number] Basophils/100 WBC (Bld) 0.3 % [facility] Comment on above: Performed By: #### L [id number] #### LAB [address] [address] Jaime Smith M.D. [id number] Eosinophils (Bld) [#/Vol] 0.07 10*3/uL Normal 0.00-0.50 [facility] Comment on above: Performed By: #### L [id number] #### LAB [address] [address] Jaime Smith M.D. [id number] Eosinophils/100 WBC (Bld) 1.0 % Normal [facility] Comment on above: Performed By: #### L [id number] #### LAB [address] [address] Jaime Smith M.D. [id number] Erythrocyte distribution width (RBC) [Ratio] 12.5 % Normal 11.6-14.8 [facility] Comment on above: Performed By: #### L [id number] #### LAB [address] [address] Jaime Smith M.D. [id number] Hematocrit (Bld) [Volume fraction] 44.3 % Normal 41.0-53.0 [facility] Comment on above: Performed By: #### L [id number] #### LAB [address] [place] [address] Jaime Smith M.D. [id number] Hemoglobin (Bld) [Mass/Vol] 14.8 g/dL Normal 13.5-17.5 [facility] Comment on above: Performed By: #### L [id number] #### LAB [address] [place] [address] Jaime Smith M.D. [id number] IG ABSOLUTE 0.01 K/mcL Normal 0.00-0.30 [facility] Comment on above: Performed By: #### L [id number] #### LAB [address] [place] [address] Jaime Smith M.D. [id number] IG PERCENT 0.10 % Normal [facility] Comment on above: Result Comment: The IG parameter is the percentage of metamyelocytes, myelocytes and promyelocytes. An immature granulocyte count (IG) of 1% or more suggests the possibility of infection, an IG count of 3% is very likely related to an infection. Performed By: #### L [id number] #### LAB [address] [address] Jaime Smith M.D. [id number] Lymphocytes (Bld) [#/Vol] 1.60 10*3/uL Normal 0.90-4.00 [facility] Comment on above: Performed By: #### L [id number] #### LAB [address] [address] Jaime Smith M.D. [id number] Lymphocytes/100 WBC (Bld) 23.3 % Normal [facility] Comment on above: Performed By: #### L [id number] #### LAB [address] [address] Jaime Smith M.D. [id number] MCH (RBC) [Entitic mass] 31.5 pg Normal 26.0-34.0 [facility] Comment on above: Performed By: #### L [id number] #### LAB [address] [address] Jaime Smith M.D. [id number] MCV (RBC) [Entitic vol] 94.3 fL Normal 80.0-100.0 [facility] Comment on above: Performed By: #### L [id number] #### LAB [address] [place] [address] Jaime Smith M.D. [id number] MEAN CORPUSCULAR HEMOGLOBIN CONC 33.4 g/dL Normal 31.0-37.0 [facility] Comment on above: Performed By: #### L [id number] #### LAB [address] [place] [address] Jaime Smith M.D. [id number] Monocytes (Bld) [#/Vol] 0.84 10*3/uL Normal 0.30-0.90 [facility] Comment on above: Performed By: #### L [id number] #### LAB [address] [address] Jaime Smith M.D. [id number] Monocytes/100 WBC (Bld) 12.2 % Normal [facility] Comment on above: Performed By: #### L [id number] #### LAB [address] [address] Jaime Smith M.D. [id number] NEUTROPHILS ABSOLUTE COUNT 4.34 K/mcL Normal 1.70-7.00 [facility] Comment on above: Performed By: #### L [id number] #### LAB [address] [address] Jaime Smith M.D. [id number] Neutrophils/100 WBC (Bld) 63.1 % Normal [facility] Comment on above: Performed By: #### L [id number] #### LAB [address] [address] Jaime Smith M.D. [id number] Platelet mean volume (Bld) [Entitic vol] 11.6 fL Normal 9.4-12.4 [facility] Comment on above: Performed By: #### L [id number] #### LAB [address] [address] Jaime Smith M.D. [id number] Platelets (Bld) [#/Vol] 158 10*3/uL Normal 150-400 [facility] Comment on above: Performed By: #### L [id number] #### LAB [address] [address] Jaime Smith M.D. [id number] RBC (Bld) [#/Vol] 4.70 10*6/uL Normal 4.50-5.90 [facility] Comment on above: Performed By: #### L [id number] #### LAB [address] [address] Jaime Smith M.D. [id number] WBC (Bld) [#/Vol] 6.88 10*3/uL Normal 4.50-11.00 [facility] Comment on above: Performed By: #### L [id number] #### LAB [address] [place], [place] [address] Jaime Smith M.D. [id number] COMPREHENSIVE METABOLIC PANE [place] 12-02-2024 Albumin [Mass/Vol] 4.1 g/dL Normal 3.2-5.2 [facility] Comment on above: Order Comment: [facility] has implemented the eGFR calculation approach that does not have a coefficient for race that conforms to the NKF-ASN Task Force Recommendations. Performed By: #### [id number] #### LAB [address] [address] Jaime mSith M.D. [id number] ALP [Catalytic activity/Vol] 54 U/L Normal 40-150 [facility] Comment on above: Order Comment: [facility] has implemented the eGFR calculation approach that does not have a coefficient for race that conforms to the NKF-ASN Task Force Recommendations. Performed By: #### [id number] #### LAB [address] [address] Jaime Smith M.D. [id number] ALT [Catalytic activity/Vol] 19 U/L Normal 0-50 U/L [facility] Comment on above: Order Comment: [facility] has implemented the eGFR calculation approach that does not have a coefficient for race that conforms to the NKF-ASN Task Force Recommendations. Performed By: #### [id number] #### LAB [address] [address] Jaime Smith M.D. [id number] Anion gap [Moles/Vol] 16 mmol/L Normal 10-20 [facility] Comment on above: Order Comment: [facility] has implemented the eGFR calculation approach that does not have a coefficient for race that conforms to the NKF-ASN Task Force Recommendations. Performed By: #### [id number] #### LAB [address] [id number] Jaime Smith M.D. [id number] AST [Catalytic activity/Vol] 24 U/L Normal 0-50 U/L [facility] Comment on above: Order Comment: [facility] has implemented the eGFR calculation approach that does not have a coefficient for race that conforms to the NKF-ASN Task Force Recommendations. Performed By: #### [id number] #### LAB [address] [address] Jaime Smith M.D. [id number] Bilirubin [Mass/Vol] 0.4 mg/dL Normal 0.0-1.3 [facility] Comment on above: Order Comment: [facility] has implemented the eGFR calculation approach that does not have a coefficient for race that conforms to the NKF-ASN Task Force Recommendations. Performed By: #### [id number] #### LAB [address] [address] Jaime Smith M.D. [id number] Calcium [Mass/Vol] 9.0 mg/dL Normal 8.4-10.2 [facility] Comment on above: Order Comment: [facility] has implemented the eGFR calculation approach that does not have a coefficient for race that conforms to the NKF-ASN Task Force Recommendations. Performed By: #### [id number] #### LAB [address] [address] aJime Smith M.D. [id number] Chloride [Moles/Vol] 105 mmol/L Normal 98-108 [facility] Comment on above: Order Comment: [facility] has implemented the eGFR calculation approach that does not have a coefficient for race that conforms to the NKF-ASN Task Force Recommendations. Performed By: #### [id number] #### LAB [address] [address] Jaime Smith M.D. [id number] Creatinine [Mass/Vol] 1.28 mg/dL Normal 0.50-1.30 [facility] Comment on above: Order Comment: [facility] has implemented the eGFR calculation approach that does not have a coefficient for race that conforms to the NKF-ASN Task Force Recommendations. Performed By: #### [id number] #### LAB [address] [address] Jaime Smith M.D. [id number] EGFR 68 mL/min/1.73 m2 Normal >=60 [facility] Comment on above: Order Comment: [facility] has implemented the eGFR calculation approach that does not have a coefficient for race that conforms to the NKF-ASN Task Force Recommendations. Result Comment: Alison mated GFR was calculated using the 2020 CKD-EPI creatinine equation. Performed By: #### [id number] #### LAB [address] [address] Jaime Smith M.D. [id number] Glucose [Mass/Vol] 96 mg/dL Normal 65-99 [facility] Comment on above: Order Comment: [facility] has implemented the eGFR calculation approach that does not have a coefficient for race that conforms to the NKF-ASN Task Force Recommendations. Performed By: #### [id number] #### LAB [address] [address] Jaime Smith M.D. [id number] HCO3 (Bld) [Moles/Vol] 24 mmol/L Normal 21-32 [facility] Comment on above: Order Comment: [facility] has implemented the eGFR calculation approach that does not have a coefficient for race that conforms to the NKF-ASN Task Force Recommendations. Performed By: #### [id number] #### LAB [address] [address] Jaime Smith M.D. [id number] Potassium [Moles/Vol] 4.2 mmol/L Normal 3.5-5.1 [facility] Comment on above: Order Comment: [facility] has implemented the eGFR calculation approach that does not have a coefficient for race that conforms to the NKF-ASN Task Force Recommendations. Performed By: #### [id number] #### LAB [address] [address] Jaime Smith M.D. [id number] Protein [Mass/Vol] 7.1 g/dL Normal 6.0-8.0 [facility] Comment on above: Order Comment: [facility] has implemented the eGFR calculation approach that does not have a coefficient for race that conforms to the NKF-ASN Task Force Recommendations. Performed By: #### [id number] #### LAB [address] [place], [place] [address] Jaime Smith M.D. [id number] Sodium [Moles/Vol] 141 mmol/L Normal 135-145 [facility] Comment on above: Order Comment: [facility] has implemented the eGFR calculation approach that does not have a coefficient for race that conforms to the NKF-ASN Task Force Recommendations. Performed By: #### [id number] #### LAB [address] [place], [place] [address] Jaime Smith M.D. [id number] Urea nitrogen [Mass/Vol] 13 mg/dL Normal 8-25 [facility] Comment on above: Order Comment: [facility] has implemented the eGFR calculation approach that does not have a coefficient for race that conforms to the NKF-ASN Task Force Recommendations. Performed By: #### 4 [id number] #### LAB [address] [place], [place] [address] Jaime Smith M.D. [id number] Urea nitrogen/Creatinine [Mass ratio] 10.2 mg/mg Normal 10.0-20.0 [facility] Comment on above: Order Comment: [facility] has implemented the eGFR calculation approach that does not have a coefficient for race that conforms to the NKF-ASN Task Force Recommendations. Performed By: #### [id number] #### LAB [address] [place], [place] [address] Jaime Smith M.D. [id number] Comprehensive metabolic 2000 panelon 12-02-2024 Albumin [Mass/Vol] 4.1 g/dL 3.2 - 5.2 g/dL [facility] ALP [Catalytic activity/Vol] 54 U/L 40 - 150 U/L [facility] ALT [Catalytic activity/Vol] 19 U/L 0 - 50 U/L [facility] Anion gap [Moles/Vol] 16 mmol/L 10 - 2 0 mmol/L [facility] AST [Catalytic activity/Vol] 24 U/L 0 - 50 U/L [facility] Bilirubin [Mass/Vol] 0.4 mg/dL 0.0 - 1 .3 mg/dL [facility] Calcium [Mass/Vol] 9 mg/dL 8.4 - 10. 2 mg/dL [facility] Chloride [Moles/Vol] 105 mmol/L 98 - 10 8 mmol/L [facility] Creatinine [Mass/Vol] 1.28 mg/dL 0.50 - 1.30 mg/dL [facility] GFR/1.73 sq M.predicted CKD-EPI (S/P/Bld) [Vol rate/Area] 68 - PINF [facility] Comment on above: Estimated GFR was ca lculated using the 2020 CKD-EPI creatinine equation. Glucose [Mass/Vol] 96 mg/dL 65 - 99 mg/dL [facility] HCO3 [Moles/Vol] 24 mmol/L 21 - 32 mmol/L [facility] Potassium [Moles/Vol] 4.2 mmol/L 3.5 - 5.1 mmol/L [facility] Protein [Mass/Vol] 7.1 g/dL 6.0 - 8.0 g/dL [facility] Sodium [Moles/Vol] 141 mmol/L 135 - 145 mmol/L [facility] Urea nitrogen [Mass/Vol] 13 mg/dL 8 - 25 mg/dL [facility] Urea nitrogen/Creatinine [Mass ratio] 10.2 mg/mg 10.0 - 20.0 [facility] has implemented the eGFR calculation approach that does not have a coefficient for race that conforms to the NKF-ASN Task Force Recommendations. [facility] ECHOCARDIOGRAM COMPLETE W CO NTRASTon 12-02-2024 ECHOCARDIOGRAM COMPLETE W CONTRAST Patient Info Name: CARLOS MAHER Age: 49 years : 1975 Gender: Male Ht: 170 cm Wt: 96 kg BSA: 2.17 m2 HR: 96 bpm BP: 130 / 79 mmHg Heart Rhythm: Sinus Rhythm Technical Quality: Fair Exam Date: 12/02/2024 8:55 AM Patient Status: Inpatient Laborer General: Shadi Mahan RCDS Exam Type: ECHOCARDIOGRAM COMPLETE W CONTRAST Study Info Indications - Chest pain R07.9 - Chest pain, unspecified Referring Physician: MIKE THOMPSON ; [id number] BMI: 33.20 kg/m2 Summary 1. This study was technically limited, Definity IV contrast was used to enhance endocardial definition. 2. Left ventricular systolic function is normal with an ejection fraction by Biplane Method of Discs of 67 %. 3. Right ventricular size and systolic function are normal. 4. The left ventricular diastolic function is normal. 5. No hemodynamically significant valvular disease. History/Risk Factors Tobacco Use: Never Procedure(s): Complete two-dimensional, color flow and Doppler transthoracic echocardiogram is performed with contrast. Definity explained to patient. Patient verbalizes understanding and agrees to proceed. Definity 1.3ml/8.7ml normal sterile saline 2 ml total given IV over 30-60 seconds. Left Ventricle Left ventricular chamber dimension is normal. Left ventricular systolic function is normal with an ejection fraction by Biplane Method of Discs of 67 %. Normal left ventricular mass. Left ventricular segmental wall motion is normal. The left ventricular diastolic function is normal. Right Ventricle Right ventricular size and systolic function are normal. Left Atria Left atrial chamber is normal with a left atrial volume index of 13 ml/m2 by BP MOD. Right Atria Right atrial chamber dimension is normal. Aortic Valve The aortic valve is trileaflet. There is no aortic valve sclerosis. There is no aortic valve stenosis. There is no aortic valve regurgitation. Pulmonic Valve The pulmonic valve is normal. There is no pulmonic valve stenosis. There is trace pulmonic regurgitation. Mitral Valve The mitral valve has normal leaflets. There is no mitral valve stenosis. There is no mitral valve regurgitation. Tricuspid Valve The tricuspid valve leaflets are normal. There is no significant tricuspid valve stenosis. There is trace tricuspid valve regurgitation. There is no pulmonary hypertension, estimated right ventricle systolic pressure is 31 mmHg. Pericardium/Pleural There is no pericardial effusion. Inferior Vena Cava Normal inferior vena cava with >50% collapse upon inspiration consistent with normal right atrial pressure. Aorta The aortic measurements are indexed to age and body surface area. The aortic root is normal measuring 3.4 cm with an index of 1.6 cm/m2. The proximal ascending aorta is normal measuring 3.6 cm with an index of 1.7 cm/m2. Wall Motion Scoring Wall Motion Scoring Index: 1.00 Left Ventricular Outflow Tract Name Value Normal LVOT 2D LVOT Diameter 2.5 cm LVOT Doppler LVOT Peak Velocity 0.9 m/s LVOT Peak Gradient 3 mmHg LVOT Mean Gradient 2 mmHg LVOT VTI 16 cm LVOT VTI/AV VTI Ratio 0.8 LVOT Stroke Volume 74 ml LVOT Stroke Index 33.99 ml/m2 Pulmonic Valve Name Value Normal RVOT Doppler RVOT Peak Velocity 84 cm/s RVOT Peak Gradient 2 mmHg RVOT Mean Gradient 1 mmHg RVOT VTI 16 cm PV Doppler PV Peak Velocity 1.10 m/s PV Peak Gradient 5 mmHg PV Mean Gradient 2 mmHg PV VTI 20 cm Mitral Valve Name Value Normal MV Doppler MV Peak Velocity 0.92 m/s MV Peak Gradient 4 mmHg MV Mean Gradient 2 mmHg MV VTI 22 cm MV Decel Travis 332 cm/s2 MV PHT 49 ms MV Area (PHT) 4.5 cm2 4.0-5.0 MV Area (Cont Eq VTI) 3.4 cm2 MV Area Index (Cont Eq VTI) 1.57 cm2/m2 MV DVI 1.39 MV Diastolic Function MV E Peak Velocity 0.72 m/s MV A Peak Velocity 0.92 m/s MV E/A 0.8 MV Decel Time 169 ms MV Annular TDI MV Septal e' Velocity 7.3 c (more content not included)... Normal [facility] Echocardiogram complete w co ntrastOrdered By: Kaci Victor on 12-02-2024 Aortic valve area 3.64156 cm [facility] Work Phone: AV mean gradient 2 mmHg [facility] Work Phone: [phone] AV peak gradient 3.17353 mmHg [facility] Work Phone: EF 67.4054 % [facility] Work Phone: [facility] Work Phone: Echocardiogram complete w co ntraston 12-02-2024 Patient Info Name: CARLOS MAHER Age: 49 years : 1975 Gender: Male Ht: 170 cm Wt: 96 kg BSA: 2.17 m2 HR: 96 bpm BP: 130 / 79 mmHg Heart Rhythm: Sinus Rhythm Technical Quality: Fair Exam Date: 12/02/2024 8:55 AM Patient Status: Inpatient Laborer General: Shadi Mahan RCDS Exam Type: ECHOCARDIOGRAM COMPLETE W CONTRAST Study Info Indications - Chest pain R07.9 - Chest pain, unspecified Referring Physician: MIKE THOMPSON ; [id number] BMI: 33.20 kg/m2 Summary 1. This study was technically limited, Definity IV contrast was used to enhance endocardial definition. 2. Left ventricular systolic function is normal with an ejection fraction by Biplane Method of Discs of 67 %. 3. Right ventricular size and systolic function are normal. 4. The left ventricular diastolic function is normal. 5. No hemodynamically significant valvular disease. History/Risk Factors Tobacco Use: Never Procedure(s): Complete two-dimensional, color flow and Doppler transthoracic echocardiogram is performed with contrast. Definity explained to patient. Patient verbalizes understanding and agrees to proceed. Definity 1.3ml/8.7ml normal sterile saline 2 ml total given IV over 30-60 seconds. Left Ventricle Left ventricular chamber dimension is normal. Left ventricular systolic function is normal with an ejection fraction by Biplane Method of Discs of 67 %. Normal left ventricular mass. Left ventricular segmental wall motion is normal. The left ventricular diastolic function is normal. Right Ventricle Right ventricular size and systolic function are normal. Left Atria Left atrial chamber is normal with a left atrial volume index of 13 ml/m2 by BP MOD. Right Atria Right atrial chamber dimension is normal. Aortic Valve The aortic valve is trileaflet. There is no aortic valve sclerosis. There is no aortic valve stenosis. There is no aortic valve regurgitation. Pulmonic Valve The pulmonic valve is normal. There is no pulmonic valve stenosis. There is trace pulmonic regurgitation. Mitral Valve The mitral valve has normal leaflets. There is no mitral valve stenosis. There is no mitral valve regurgitation. Tricuspid Valve The tricuspid valve leaflets are normal. There is no significant tricuspid valve stenosis. There is trace tricuspid valve regurgitation. There is no pulmonary hypertension, estimated right ventricle systolic pressure is 31 mmHg. Pericardium/Pleural There is no pericardial effusion. Inferior Vena Cava Normal inferior vena cava with >50% collapse upon inspiration consistent with normal right atrial pressure. Aorta The aortic measurements are indexed to age and body surface area. The aortic root is normal measuring 3.4 cm with an index of 1.6 cm/m2. The proximal ascending aorta is normal measuring 3.6 cm with an index of 1.7 cm/m2. Wall Motion Scoring Wall Motion Scoring Index: 1.00 Left Ventricular Outflow Tract Name Value Normal LVOT 2D LVOT Diameter 2.5 cm LVOT Doppler LVOT Peak Velocity 0.9 m/s LVOT Peak Gradient 3 mmHg LVOT Mean Gradient 2 mmHg LVOT VTI 16 cm LVOT VTI/AV VTI Ratio 0.8 LVOT Stroke Volume 74 ml LVOT Stroke Index 33.99 ml/m2 Pulmonic Valve Name Value Normal RVOT Doppler RVOT Peak Velocity 84 cm/s RVOT Peak Gradient 2 mmHg RVOT Mean Gradient 1 mmHg RVOT VTI 16 cm PV Doppler PV Peak Velocity 1.10 m/s PV Peak Gradient 5 mmHg PV Mean Gradient 2 mmHg PV VTI 20 cm Mitral Valve (more content not included)... FUJI SYNAPSE CV Kaci Victor MD - 12/02/2024 Patient Info Name: CARLOS MAHER Age: 49 years : 1975 Gender: Male Ht: 170 cm Wt: 96 kg BSA: 2.17 m2 HR: 96 bpm BP: 130 / 79 mmHg Heart Rhythm: Sinus Rhythm Technical Quality: Fair Exam Date: 12/02/2024 8:55 AM Patient Status: Inpatient Laborer General: Shadi Mahan RCDS Exam Type: ECHOCARDIOGRAM COMPLETE W CONTRAST Study Info Indications - Chest pain R07.9 - Chest pain, unspecified Referring Physician: MIKE THOMPSON ; [id number] BMI: 33.20 kg/m2 Summary 1. This study was technically limited, Definity IV contrast was used to enhance endocardial definition. 2. Left ventricular systolic function is normal with an ejection fraction by Biplane Method of Discs of 67 %. 3. Right ventricular size and systolic function are normal. 4. The left ventricular diastolic function is normal. 5. No hemodynamically significant valvular disease. History/Risk Factors Tobacco Use: Never Procedure(s): Complete two-dimensional, color flow and Doppler transthoracic echocardiogram is performed with contrast. Definity explained to patient. Patient verbalizes understanding and agrees to proceed. Definity 1.3ml/8.7ml normal sterile saline 2 ml total given IV over 30-60 seconds. Left Ventricle Left ventricular chamber dimension is normal. Left ventricular systolic function is normal with an ejection fraction by Biplane Method of Discs of 67 %. Normal left ventricular mass. Left ventricular segmental wall motion is normal. The left ventricular diastolic function is normal. Right Ventricle Right ventricular size and systolic function are normal. Left Atria Left atrial chamber is normal with a left atrial volume index of 13 ml/m2 by BP MOD. Right Atria Right atrial chamber dimension is normal. Aortic Valve The aortic valve is trileaflet. There is no aortic valve sclerosis. There is no aortic valve stenosis. There is no aortic valve regurgitation. Pulmonic Valve The pulmonic valve is normal. There is no pulmonic valve stenosis. There is trace pulmonic regurgitation. Mitral Valve The mitral valve has normal leaflets. There is no mitral valve stenosis. There is no mitral valve regurgitation. Tricuspid Valve The tricuspid valve leaflets are normal. There is no significant tricuspid valve stenosis. There is trace tricuspid valve regurgitation. There is no pulmonary hypertension, estimated right ventricle systolic pressure is 31 mmHg. Pericardium/Pleural There is no pericardial effusion. Inferior Vena Cava Normal inferior vena cava with >50% collapse upon inspiration consistent with normal right atrial pressure. Aorta The aortic measurements are indexed to age and body surface area. The aortic root is normal measuring 3.4 cm with an index of 1.6 cm/m2. The proximal ascending aorta is normal measuring 3.6 cm with an index of 1.7 cm/m2. Wall Motion Scoring Wall Motion Scoring Index: 1.00 Left Ventricular Outflow Tract Name Value Normal LVOT 2D LVOT Diameter 2.5 cm LVOT Doppler LVOT Peak Velocity 0.9 m/s LVOT Peak Gradient 3 mmHg LVOT Mean Gradient 2 mmHg LVOT VTI 16 cm LVOT VTI/AV VTI Ratio 0.8 LVOT Stroke Volume 74 ml LVOT Stroke Index 33.99 ml/m2 Pulmonic Valve Name Value Normal RVOT Doppler RVOT Peak Velocity 84 cm/s RVOT Peak Gradient 2 mmHg RVOT Mean Gradient 1 mmHg RVOT VTI 16 cm PV Doppler PV Peak Velocity 1.10 m/s PV Peak Gradient 5 mmHg PV Mean Gradient 2 mmHg PV VTI 20 cm Mitral Valve Name Value Normal MV Doppler MV Peak Velocity 0.92 m/s MV Peak Gradient 4 mmHg MV Mean Gradient 2 mmHg MV VTI 22 cm MV Decel Travis 332 cm/s2 MV PHT 49 ms MV Area (PHT) 4.5 cm2 4.0-5.0 MV Area (Cont Eq VTI) 3.4 cm2 MV Area Index (Cont Eq VTI) 1.57 cm2/m2 MV DVI 1.39 MV Diastolic Function MV E Peak Velocity 0.72 m/s MV A Peak Velocity 0.92 m/s MV E/A 0.8 MV Decel Time (more content not included)... [facility] MAGNESIUM LEVELon 12-02-2024 Magnesium [Mass/Vol] 2.1 mg/dL Normal 1.6-2.4 [facility] Comment on above: Performed By: #### [id number] #### [address] [address] [place] [id number] Jaime Smith M.D. [id number] Magnesiumon 12-02-2024 Magnesium [Mass/Vol] 2.1 mg/dL 1.6 - 2 .4 mg/dL [facility] NT PRO BNPon 12-02-2024 NT-PRO BNP < Normal 0-300 [facility] Comment on above: Order Comment: [facility] has implemented the eGFR calculation approach that does not have a coefficient for race that conforms to the NKF-ASN Task Force Recommendations. Performed By: #### [id number] #### LAB [address] [address] Jaime Smith M.D. [id number] NT Pro BNPon 12-02-2024 Natriuretic peptide.B prohormone N-Terminal [Mass/Vol] pg/mL 0 - 300 pg/mL [facility] Natriuretic peptide.B prohor elisha N-Terminal [Mass/Vol]on 12-02-2024 Interpretation and review of laboratory results Normal [facility] Pride Study Cut-offs Rule In: < /= 50 Years >450 pg/mL 51 Years - 75 Years >900 pg/mL 76 Years - 99 Years >1800 pg/mL Rule Out: All patients <300 pg/mL [facility] No Panel Informationon 12-02 Interpretation and review of laboratory results Normal [facility] PHOSPHORUSon 12-02-2024 Phosphate [Mass/Vol] 4.4 mg/dL Normal 2.7-4.5 [facility] Comment on above: Performed By: #### [id number] #### LAB [address] [address] Jaime Smith M.D. [id number] Phosphoruson 12-02-2024 Phosphate [Mass/Vol] 4.4 mg/dL 2.7 - 4 .5 mg/dL [facility] Troponin x 2 (Now and Repeat in 2 Hours)on 12-02-2024 Interp Troponin T Delta Change No biomarker evidence of cardiac injury. [facility] Troponin T.cardiac High sensitivity method [Mass/Vol] ng/L NINF - 22 ng/L [facility] CBC Auto Differentialon Basophils (Bld) [#/Vol] 0.01 10*3/uL [facility] Basophils/100 WBC (Bld) 0.2 % [facility] Eosinophils (Bld) [#/Vol] 0.01 10*3/uL [facility] Eosinophils/100 WBC (Bld) 0.2 % [facility] Erythrocyte distribution width (RBC) [Entitic vol] 12.7 % 11.6 - 14.8 % [facility] Hematocrit (Bld) [Volume fraction] 47.3 % 41.0 - 53.0 % [facility] Hemoglobin (Bld) [Mass/Vol] 15.7 g/dL 13.5 - 17.5 g/dL [facility] Immature granulocytes (Bld) [#/Vol] 0.03 10*3/uL [facility] Immature granulocytes/100 WBC (Bld) 0.5 % [facility] Comment on above: The IG parameter is the percentage of metamyelocytes, myelocytes and promyelocytes. An immature granulocyte count (IG) of 1% or more suggests the possibility of infection, an IG count of 3% is very likely related to an infection. Lymphocytes (Bld) [#/Vol] 0.9 10*3/uL [facility] Lymphocytes/100 WBC (Bld) 14.3 % [facility] MCH (RBC) [Entitic mass] 31.1 pg 26.0 - 34.0 pg [facility] MCHC (RBC) [Mass/Vol] 33.2 g/dL 31.0 - 37.0 g/dL [facility] MCV (RBC) [Entitic vol] 93.7 fL 80.0 - 100.0 fL [facility] Monocytes (Bld) [#/Vol] 0.56 10*3/uL [facility] Monocytes/100 WBC (Bld) 8.9 % [facility] Neutrophils (Bld) [#/Vol] 4.77 10*3/uL [facility] Neutrophils/100 WBC (Bld) 75.9 % [facility] Nucleated RBC (Bld) [#/Vol] 0 10*3/uL [facility] Nucleated RBC/100 WBC (Bld) [Ratio] 0 % [facility] Platelet mean volume (Bld) [Entitic vol] 11.1 fL 9.4 - 12.4 fL [facility] Platelets (Bld) [#/Vol] 162 10*3/uL [facility] RBC (Bld) [#/Vol] 5.05 10*6/uL [facility] WBC (Bld) [#/Vol] 6.28 10*3/uL [facility] CBC WITH AUTO DIFFERENTIALon 12-01-2024 AUTO NRBC 0.0 % Normal [facility] Comment on above: Performed By: #### L [id number] #### LAB [address] [place] [address] Jaime Smith M.D. [id number] AUTO NRBC ABS COUNT 0.00 K/mcL Normal 0.00-0.00 [facility] Comment on above: Performed By: #### L [id number] #### LAB [address] [address] Jaime Smith M.D. [id number] BASOPHILS ABSOLUTE COUNT 0.01 K/mcL Normal 0.00-0.30 [facility] Comment on above: Performed By: #### L [id number] #### LAB [address] [place] [address] Jaime Smith M.D. [id number] Basophils/100 WBC (Bld) 0.2 % Normal [facility] Comment on above: Performed By: #### L [id number] #### LAB [address] [place] [address] Jaime Smith M.D. [id number] Eosinophils (Bld) [#/Vol] 0.01 10*3/uL Normal 0.00-0.50 [facility] Comment on above: Performed By: #### L [id number] #### LAB [address] [place] [address] Jaime Smith M.D. [id number] Eosinophils/100 WBC (Bld) 0.2 % [facility] Comment on above: Performed By: #### L [id number] #### LAB [address] [place] [address] Jaime Smith M.D. [id number] Erythrocyte distribution width (RBC) [Ratio] 12.7 % Normal 11.6-14.8 [facility] Comment on above: Performed By: #### L [id number] #### LAB [address] [address] Jaime Smith M.D. [id number] Hematocrit (Bld) [Volume fraction] 47.3 % Normal 41.0-53.0 [facility] Comment on above: Performed By: #### L [id number] #### LAB [address] [address] Jaime Smith M.D. [id number] Hemoglobin (Bld) [Mass/Vol] 15.7 g/dL Normal 13.5-17.5 [facility] Comment on above: Performed By: #### L [id number] #### LAB [address] [address] Jaime Smith M.D. [id number] IG ABSOLUTE 0.03 K/mcL Normal 0.00-0.30 [facility] Comment on above: Performed By: #### L [id number] #### LAB [address] [place] [address] Jaime Smith M.D. [id number] IG PERCENT 0.50 % Normal [facility] Comment on above: Result Comment: The IG parameter is the percentage of metamyelocytes, myelocytes and promyelocytes. An immature granulocyte count (IG) of 1% or more suggests the possibility of infection, an IG count of 3% is very likely related to an infection. Performed By: #### L [id number] #### LAB [address] [place] [address] Jaime Smith M.D. [id number] Lymphocytes (Bld) [#/Vol] 0.90 10*3/uL Normal 0.90-4.00 [facility] Comment on above: Performed By: #### L [id number] #### LAB [address] [place] [address] Jaime Smith M.D. [id number] Lymphocytes/100 WBC (Bld) 14.3 % Normal [facility] Comment on above: Performed By: #### L [id number] #### LAB [address] [place] [address] Jaime Smith M.D. [id number] MCH (RBC) [Entitic mass] 31.1 pg Normal 26.0-34.0 [facility] Comment on above: Performed By: #### L [id number] #### LAB [address] [address] Jaime Smith M.D. [id number] MCV (RBC) [Entitic vol] 93.7 fL Normal 80.0-100.0 [facility] Comment on above: Performed By: #### L [id number] #### LAB [address] [address] Jaime Smith M.D. [id number] MEAN CORPUSCULAR HEMOGLOBIN CONC 33.2 g/dL Normal 31.0-37.0 [facility] Comment on above: Performed By: #### L [id number] #### LAB [address] [address] Jaime Smith M.D. [id number] Monocytes (Bld) [#/Vol] 0.56 10*3/uL Normal 0.30-0.90 [facility] Comment on above: Performed By: #### L [id number] #### LAB [address] [address] Jaime Smith M.D. [id number] Monocytes/100 WBC (Bld) 8.9 % Normal [facility] Comment on above: Performed By: #### L [id number] #### LAB [address] [address] Jaime Smith M.D. [id number] NEUTROPHILS ABSOLUTE COUNT 4.77 K/mcL Normal 1.70-7.00 [facility] Comment on above: Performed By: #### L [id number] #### LAB [address] [address] Jaime Smith M.D. [id number] Neutrophils/100 WBC (Bld) 75.9 % Normal [facility] Comment on above: Performed By: #### L [id number] #### LAB [address] [address] Jaime Smith M.D. [id number] Platelet mean volume (Bld) [Entitic vol] 11.1 fL Normal 9.4-12.4 [facility] Comment on above: Performed By: #### L [id number] #### MH LAB [address] [address] Jaime Smith M.D. [id number] Platelets (Bld) [#/Vol] 162 10*3/uL Normal 150-400 [facility] Comment on above: Performed By: #### L [id number] #### MH LAB [address] [address] Jaime Smith M.D. [id number] RBC (Bld) [#/Vol] 5.05 10*6/uL Normal 4.50-5.90 [facility] Comment on above: Performed By: #### L [id number] #### MH LAB [address] [address] Jaime Smith M.D. [id number] WBC (Bld) [#/Vol] 6.28 10*3/uL Normal 4.50-11.00 [facility] Comment on above: Performed By: #### L [id number] #### LAB [address] [address] Jaime Smith M.D. [id number] COMPREHENSIVE METABOLIC PANE [place] 12-01-2024 Albumin [Mass/Vol] 4.3 g/dL Normal 3.2-5.2 [facility] Comment on above: Order Comment: [facility] has implemented the eGFR calculation approach that does not have a coefficient for race that conforms to the NKF-ASN Task Force Recommendations. Performed By: #### 4 [id number] #### MH LAB [address] [address] Jaime Smith M.D. [id number] ALP [Catalytic activity/Vol] 59 U/L Normal 40-150 [facility] Comment on above: Order Comment: [facility] has implemented the eGFR calculation approach that does not have a coefficient for race that conforms to the NKF-ASN Task Force Recommendations. Performed By: #### 4 [id number] #### LAB [address] [address] Jaime Smith M.D. [id number] ALT [Catalytic activity/Vol] 21 U/L Normal 0-50 U/L [facility] Comment on above: Order Comment: [facility] has implemented the eGFR calculation approach that does not have a coefficient for race that conforms to the NKF-ASN Task Force Recommendations. Performed By: #### 4 [id number] #### LAB [address] [address] Jaime Smith M.D. [id number] Anion gap [Moles/Vol] 19 mmol/L Normal 10-20 [facility] Comment on above: Order Comment: [facility] has implemented the eGFR calculation approach that does not have a coefficient for race that conforms to the NKF-ASN Task Force Recommendations. Performed By: #### 4 [id number] #### LAB [address] [address] Jaime Smith M.D. [id number] AST [Catalytic activity/Vol] 27 U/L Normal 0-50 U/L [facility] Comment on above: Order Comment: [facility] has implemented the eGFR calculation approach that does not have a coefficient for race that conforms to the NKF-ASN Task Force Recommendations. Performed By: #### 4 [id number] #### LAB [address] [address] Jaime Smith M.D. [id number] Bilirubin [Mass/Vol] 0.4 mg/dL Normal 0.0-1.3 [facility] Comment on above: Order Comment: [facility] has implemented the eGFR calculation approach that does not have a coefficient for race that conforms to the NKF-ASN Task Force Recommendations. Performed By: #### 4 [id number] #### LAB [address] [address] Jaime Smith M.D. [id number] Calcium [Mass/Vol] 9.3 mg/dL Normal 8.4-10.2 [facility] Comment on above: Order Comment: [facility] has implemented the eGFR calculation approach that does not have a coefficient for race that conforms to the NKF-ASN Task Force Recommendations. Performed By: #### 4 6126 #### LAB [address] [place], [place] [address] Jaime Smith M.D. [id number] Chloride [Moles/Vol] 102 mmol/L Normal 98-108 [facility] Comment on above: Order Comment: [facility] has implemented the eGFR calculation approach that does not have a coefficient for race that conforms to the NKF-ASN Task Force Recommendations. Performed By: #### 4 6126 #### MH LAB [address] [address] Jaime Smith M.D. [id number] Creatinine [Mass/Vol] 1.26 mg/dL Normal 0.50-1.30 [facility] Comment on above: Order Comment: [facility] has implemented the eGFR calculation approach that does not have a coefficient for race that conforms to the NKF-ASN Task Force Recommendations. Performed By: #### 4 [id number] #### LAB [address] [address] Jaime Smith M.D. [id number] EGFR 69 mL/min/1.73 m2 Normal >=60 [facility] Comment on above: Order Comment: [facility] has implemented the eGFR calculation approach that does not have a coefficient for race that conforms to the NKF-ASN Task Force Recommendations. Result Comment: Alison mated GFR was calculated using the 2020 CKD-EPI creatinine equation. Performed By: #### 4 6140 #### MH LAB [address] [place], [place] [address] Jaime Smith M.D. [id number] Glucose [Mass/Vol] 104 mg/dL High 65-99 [facility] Comment on above: Order Comment: [facility] has implemented the eGFR calculation approach that does not have a coefficient for race that conforms to the NKF-ASN Task Force Recommendations. Performed By: #### 4 6126 #### MH LAB [address] [address] Jaime Smith M.D. [id number] HCO3 (Bld) [Moles/Vol] 22 mmol/L Normal 21-32 [facility] Comment on above: Order Comment: [facility] has implemented the eGFR calculation approach that does not have a coefficient for race that conforms to the NKF-ASN Task Force Recommendations. Performed By: #### 4 [id number] #### LAB [address] [address] Jaime Smith M.D. [id number] Potassium [Moles/Vol] 4.3 mmol/L Normal 3.5-5.1 [facility] Comment on above: Order Comment: [facility] has implemented the eGFR calculation approach that does not have a coefficient for race that conforms to the NKF-ASN Task Force Recommendations. Performed By: #### 4 [id number] #### LAB [address] [address] Jaime Smith M.D. [id number] Protein [Mass/Vol] 7.6 g/dL Normal 6.0-8.0 [facility] Comment on above: Order Comment: [facility] has implemented the eGFR calculation approach that does not have a coefficient for race that conforms to the NKF-ASN Task Force Recommendations. Performed By: #### 4 6126 #### LAB [address] [address] Jaime Smith M.D. [id number] Sodium [Moles/Vol] 139 mmol/L Normal 135-145 [facility] Comment on above: Order Comment: [facility] has implemented the eGFR calculation approach that does not have a coefficient for race that conforms to the NKF-ASN Task Force Recommendations. Performed By: #### 4 [id number] #### LAB [address] [address] Jaime Smith M.D. [id number] Urea nitrogen [Mass/Vol] 14 mg/dL Normal 8-25 [facility] Comment on above: Order Comment: [facility] has implemented the eGFR calculation approach that does not have a coefficient for race that conforms to the NKF-ASN Task Force Recommendations. Performed By: #### 4 6126 #### LAB [address] [place], [place] [address] Jaime Smith M.D. [id number] Urea nitrogen/Creatinine [Mass ratio] 11.1 mg/mg Normal 10.0-20.0 [facility] Comment on above: Order Comment: [facility] has implemented the eGFR calculation approach that does not have a coefficient for race that conforms to the NKF-ASN Task Force Recommendations. Performed By: #### 4 [id number] #### LAB [address] [place], [place] [address] Jaime Smith M.D. [id number] Comprehensive metabolic 2000 panelon 12-01-2024 Albumin [Mass/Vol] 4.3 g/dL 3.2 - 5.2 g/dL [facility] ALP [Catalytic activity/Vol] 59 U/L 40 - 150 U/L [facility] ALT [Catalytic activity/Vol] 21 U/L 0 - 50 U/L [facility] Anion gap [Moles/Vol] 19 mmol/L 10 - 2 0 mmol/L [facility] AST [Catalytic activity/Vol] 27 U/L 0 - 50 U/L [facility] Bilirubin [Mass/Vol] 0.4 mg/dL 0.0 - 1 .3 mg/dL [facility] Calcium [Mass/Vol] 9.3 mg/dL 8.4 - 10. 2 mg/dL [facility] Chloride [Moles/Vol] 102 mmol/L 98 - 10 8 mmol/L [facility] Creatinine [Mass/Vol] 1.26 mg/dL 0.50 - 1.30 mg/dL [facility] GFR/1.73 sq M.predicted CKD-EPI (S/P/Bld) [Vol rate/Area] 69 - PINF [facility] Comment on above: Estimated GFR was ca lculated using the 2020 CKD-EPI creatinine equation. Glucose [Mass/Vol] 104 mg/dL High 65 - 99 mg/dL [facility] HCO3 [Moles/Vol] 22 mmol/L 21 - 32 mmol/L [facility] Interpretation and review of laboratory results Abnormal [facility] Potassium [Moles/Vol] 4.3 mmol/L 3.5 - 5.1 mmol/L [facility] Protein [Mass/Vol] 7.6 g/dL 6.0 - 8.0 g/dL [facility] Sodium [Moles/Vol] 139 mmol/L 135 - 145 mmol/L [facility] Urea nitrogen [Mass/Vol] 14 mg/dL 8 - 25 mg/dL [facility] Urea nitrogen/Creatinine [Mass ratio] 11.1 mg/mg 10.0 - 20.0 [facility] has implemented the eGFR calculation approach that does not have a coefficient for race that conforms to the NKF-ASN Task Force Recommendations. [facility] ED Prov Noteon 12-01-2024 ED Prov Note ED PROVIDER NOTE [facility] NAME: Carlos Maher AGE: 49 y.o. : 1975 VISIT DATE: 12/01/2024 CSN: [id number] PCP: Misty Thakur MD Chief Complaint Patient presents with Shortness of Breath Patient is a 49-year-old male with no known significant past medical history who presents today for concern of shortness of breath shoulder and jaw pain. Patient states last 2 weeks he has had an intermittent episodes of shortness of breath chest pressure with intermittent episodes of right jaw pain and left shoulder pain. Patient states his symptoms are worse with exertion. Patient states today he was pushing a grocery cart at the store when he developed shortness of breath with mild pressure and difficulty breathing and presented to the emergency department. Patient denies any previous history of cardiac evaluation or stress test. Patient states he recently switched to a healthy diet and is exercising more. Patient states frequently while he exercises he gets significant shortness of breath and chest pressure which he did not previously get before the last 2 weeks. Patient [place] any previous history of heart failure, history of IN, history of DVT/PE, lightheadedness, dizziness or syncope. Patient denies any fevers productive cough No past medical history on file. No past surgical history on file. No family history on file. Social History [1] No current outpatient medications on file prior to encounter. Allergies[2] Review of Systems Constitutional: Negative for chills and fever. Eyes: Negative for pain. Respiratory: Positive for chest tightness and shortness of breath. Negative for cough. Cardiovascular: Positive for chest pain. Negative for palpitations. Gastrointestinal: Negative for abdominal pain, nausea and vomiting. Genitourinary: Negative for flank pain. Musculoskeletal: Negative for arthralgias and myalgias. Jaw and shoulder pain Skin: Negative for rash. Neurological: Negative for dizziness, syncope, light-headedness and headaches. Psychiatric/Behavioral: Negative for agitation. All other systems reviewed and are negative. Patient Vitals for the past 24 hrs: BP Temp Temp src Pulse Resp SpO2 Height Weight 12/01/24 1615 (!) 154/97 -- -- 93 13 98 % -- -- 12/01/24 1539 (!) 150/84 97.7 degrees F (36.5 degrees C) Temporal (!) 113 18 98 % 5' 7 95.3 kg (210 lb) Physical Exam Vitals and nursing note reviewed. Constitutional: Appearance: Normal appearance. Interventions: He is not intubated. HENT: Head: Normocephalic. Eyes: Pupils: Pupils are equal, round, and reactive to light. Cardiovascular: Rate and Rhythm: Normal rate and regular rhythm. Pulses: Normal pulses. Heart sounds: Normal heart sounds. Musculoskeletal: Cervical back: Normal range of motion. Pulmonary: Effort: Pulmonary effort is normal. No tachypnea or accessory muscle usage. He is not intubated. Breath sounds: Normal breath sounds. No decreased breath sounds, wheezing, rhonchi or rales. Chest: Chest wall: No mass, tenderness or edema. Abdominal: Palpations: Abdomen is soft. There is no hepatomegaly or mass. Tenderness: There is no guarding. Skin: General: Skin is warm. Capillary Refill: Capillary refill takes less than 2 seconds. Neurological: General: No focal deficit present. Mental Status: He is alert. Psychiatric: Mood and Affect: Mood normal. Laboratory & Radiographic Imaging (if done): Results for orders placed or performed during the hospital encounter of 12/01/24 POC CBC and Differential Result Value Ref Range WBC 5.83 4.50 - 11.00 K/mcL RBC 4.89 4.50 - 5.90 M/mcL Hemoglobin 15.4 13.5 - 17.5 g/dL Hematocrit 45.2 41.0 - 53.0 % MCV 92.4 80.0 - 100.0 fL MCH 31.5 26.0 - 34.0 pg MCHC 34.1 31.0 - 37.0 g/dL RDW - CV 12.6 11.6 - 14.8 % Platelets 156 150 - 400 K/mcL MPV 11.1 9.4 - 12.4 fL Neutrophils 54.9 % Lymphocytes 30.4 % Monocytes 13.6 % Eosinophils 0.7 % Basophils 0.2 % IG Percent 0.20 % Neutrophils Abs 3.21 1.70 - 7.00 K/mcL Lymphocytes Abs 1.77 0.90 - 4.00 K/mcL Monocytes Abs 0.79 0.30 - 0.90 K/mcL Eosinophils Abs 0.04 0.00 - 0.50 K/mcL Basophils Abs 0.01 0.00 - 0.30 K/mcL IG Absolute 0.01 0.00 - 0.30 K/mcL POC Basic Metabolic Panel Result Value Ref Range Glucose 128 (H) 65 - 99 mg/dL BUN 15 8 - 25 mg/dL Creatinine 1.34 (H) 0.50 - 1.30 mg/dL GFR 64 >=60 mL/min/1.73 m2 Sodium 141 135 - 145 mmol/L Potassium 3.6 3.5 - 5.1 mmol/L Chloride 104 98 - 108 mmol/L TCO2 25 21 - 32 mmol/L Ionized Calcium 4.8 4.5 - 5.3 mg/dL POC Troponin I Result Value Ref Range Troponin I <0.05 <0.05 ng/mL POC D-dimer Result Value Ref Range POC D-Dimer 166 <350 ng/mL DDU XR Chest 1 View Final Result No active disease. Workstation ID: [id number] Procedures Medical Decision Making Patient seen and evaluated for concern of shortness of breath. Patient with 324 chewab (more content not included)... Normal [facility] HEMOGLOBIN A1Con 12-01-2024 Glucose [Mass/Vol] 111 mg/dL Normal 74-114 [facility] Comment on above: Performed By: #### 4 [id number] #### MH LAB [address] [place], [place] [address] Jaime Smith M.D. [id number] HbA1c (Bld) [Mass fraction] 5.5 % Normal 4.2-5.6 [facility] Comment on above: Performed By: #### 4 8202 #### MH LAB [address] [place], [place] [address] Jaime Smith M.D. [id number] HbA1c (Bld) [Mass fraction]o n 12-01-2024 Average glucose Estimated from glycated hemoglobin (Bld) [Mass/Vol] 111 mg/dL 74 - 114 mg/dL [facility] Interpretation and review of laboratory results Normal [facility] Hemoglobin A1con 12-01-2024 HbA1c (Bld) [Mass fraction] 5.5 % 4.2 - 5.6 % [facility] LIPID PANELon 12-01-2024 Cholesterol [Mass/Vol] 130 mg/dL Normal 100-199 [facility] Comment on above: Performed By: #### 4 [id number] #### MH LAB [address] [address] Jaime Smith M.D. [id number] Cholesterol in HDL [Mass/Vol] 41 mg/dL Normal 40-59 [facility] Comment on above: Performed By: #### 4 6087 #### LAB [address] [address] Jaime Smith M.D. [id number] Cholesterol.total/Chol esterol in HDL [Mass ratio] 3.2 {ratio} [facility] Comment on above: Result Comment: Male s Cholesterol/HDL Ratio: Average risk: 5.0 1/2 average risk: 3.4 2 x average risk: 9.6 Performed By: #### 4 6087 #### LAB [address] [address] Jaime Smith M.D. [id number] LDL CHOLESTEROL CALCULATED 70 mg/dL Normal 10-130 [facility] Comment on above: Result Comment: [place] Cholesterol Education Program Guidelines: LDL Cholesterol Optimal: <100 mg/dL Near Optimal/above Optimal: 100-129 mg/dL Borderline High: 130-159 mg/dL High: 160-189 mg/dL Very High: greater than or equal to 190 mg/dL Performed By: #### 4 6096 #### MH LAB [address] [address] Jaime Smith M.D. [id number] NON HDL CHOL 89 mg/dL [facility] Comment on above: Result Comment: [place] [employer] [employer]olesterol Education [employer] Guidelines: NON HDL Cholesterol Desirable: <130 mg/dL Borderline High: 130-159 mg/dL High: 160-189 mg/dL Very High: > or = 190 mg/dL Performed By: #### 4 [id number] #### LAB [address] [place], [place] [address] Jaime Smith M.D. [id number] Triglyceride [Mass/Vol] 94 mg/dL Normal 30-150 [facility] Comment on above: Performed By: #### 4 6087 #### LAB [address] [place], [place] [address] Jaime Smith M.D. [id number] Lipid 1996 panelon Cholesterol [Mass/Vol] 130 mg/dL 100 - 199 mg/dL [facility] Cholesterol in HDL [Mass/Vol] 41 mg/dL 40 - 59 mg/dL [facility] Cholesterol in LDL [Mass/Vol] 70 mg/dL 10 - 130 mg/dL [facility] Comment on above: National Cholesterol Education Program Guidelines: LDL Cholesterol Optimal: <100 mg/dL Near Optimal/above Optimal: 100-129 mg/dL Borderline High: 130-159 mg/dL High: 160-189 mg/dL Very High: greater than or equal to 190 mg/dL Cholesterol non HDL [Mass/Vol] 89 mg/dL [facility] Comment on above: National Cholesterol Education Program Guidelines: NON HDL Cholesterol Desirable: <130 mg/dL Borderline High: 130-159 mg/dL High: 160-189 mg/dL Very High: > or = 190 mg/dL Cholesterol.total/Chol esterol in HDL [Mass ratio] 3.2 {ratio} ratio [facility] Comment on above: Males Cholesterol/HD L Ratio: Average risk: 5.0 1/2 average risk: 3.4 2 x average risk: 9.6 Triglyceride [Mass/Vol] 94 mg/dL 30 - 150 mg/dL [facility] MAGNESIUM LEVELon 12-01-2024 Magnesium [Mass/Vol] 1.9 mg/dL Normal 1.6-2.4 [facility] Comment on above: Performed By: #### 4 6109 #### LAB [address] [place], [place] [address] Jaiem Smith M.D. [id number] Magnesiumon 12-01-2024 Magnesium [Mass/Vol] 1.9 mg/dL 1.6 - 2 .4 mg/dL [facility] No Panel Informationon 12-01 Interpretation and review of laboratory results Normal [facility] PHOSPHORUSon 12-01-2024 Phosphate [Mass/Vol] 3.5 mg/dL Normal 2.7-4.5 [facility] Comment on above: Performed By: #### 4 [id number] #### LAB [address] [place] [address] Jaime Smith M.D. [id number] POC BASIC METABOLIC PANEL - [facility] 12-01-2024 Chloride [Moles/Vol] 104 mmol/L Normal 98-108 [facility] Comment on above: Order Comment: [facility] has implemented the eGFR calculation approach that does not have a coefficient for race that conforms to the NKF-ASN Task Force Recommendations. CO2 [Moles/Vol] 25 mmol/L Normal 21-32 [facility] Comment on above: Order Comment: [facility] has implemented the eGFR calculation approach that does not have a coefficient for race that conforms to the NKF-ASN Task Force Recommendations. Creatinine [Mass/Vol] 1.34 mg/dL High 0.50-1.30 [facility] Comment on above: Order Comment: [facility] has implemented the eGFR calculation approach that does not have a coefficient for race that conforms to the NKF-ASN Task Force Recommendations. Glucose [Mass/Vol] 128 mg/dL High 65-99 [facility] Comment on above: Order Comment: [facility] has implemented the eGFR calculation approach that does not have a coefficient for race that conforms to the NKF-ASN Task Force Recommendations. POC GFR 64 mL/min/1.73 m2 Normal >=60 [facility] Comment on above: Order Comment: [facility] has implemented the eGFR calculation approach that does not have a coefficient for race that conforms to the NKF-ASN Task Force Recommendations. Result Comment: Alison mated GFR was calculated using the 2020 CKD-EPI creatinine equation. POC IONIZED CALCIUM 4.8 mg/dL Normal 4.5-5.3 [facility] Comment on above: Order Comment: [facility] has implemented the eGFR calculation approach that does not have a coefficient for race that conforms to the NKF-ASN Task Force Recommendations. Potassium [Moles/Vol] 3.6 mmol/L Normal 3.5-5.1 [facility] Comment on above: Order Comment: [facility] has implemented the eGFR calculation approach that does not have a coefficient for race that conforms to the NKF-ASN Task Force Recommendations. Sodium [Moles/Vol] 141 mmol/L Normal 135-145 [facility] Comment on above: Order Comment: [facility] has implemented the eGFR calculation approach that does not have a coefficient for race that conforms to the NKF-ASN Task Force Recommendations. Urea nitrogen [Mass/Vol] 15 mg/dL Normal 8-25 [facility] Comment on above: Order Comment: [facility] has implemented the eGFR calculation approach that does not have a coefficient for race that conforms to the NKF-ASN Task Force Recommendations. POC CBC AND DIFFERENTIALon 0 12-01-2024 BASOPHILS ABSOLUTE COUNT 0.01 K/mcL Normal 0.00-0.30 [facility] Basophils/100 WBC (Bld) 0.2 % Normal [facility] Eosinophils (Bld) [#/Vol] 0.04 10*3/uL Normal 0.00-0.50 [facility] Eosinophils/100 WBC (Bld) 0.7 % Normal [facility] Erythrocyte distribution width (RBC) [Ratio] 12.6 % Normal 11.6-14.8 [facility] Hematocrit (Bld) [Volume fraction] 45.2 % Normal 41.0-53.0 [facility] Hemoglobin (Bld) [Mass/Vol] 15.4 g/dL Normal 13.5-17.5 [facility] IG ABSOLUTE 0.01 K/mcL Normal 0.00-0.30 [facility] IG PERCENT 0.20 % Normal [facility] Comment on above: Result Comment: The IG parameter is the percentage of metamyelocytes, myelocytes and promyelocytes. An immature granulocyte count (IG) of 1% or more suggests the possibility of infection, an IG count of 3% is very likely related to an infection. Lymphocytes (Bld) [#/Vol] 1.77 10*3/uL Normal 0.90-4.00 [facility] Lymphocytes/100 WBC (Bld) 30.4 % Normal [facility] MCH (RBC) [Entitic mass] 31.5 pg Normal 26.0-34.0 [facility] MCV (RBC) [Entitic vol] 92.4 fL Normal 80.0-100.0 [facility] MEAN CORPUSCULAR HEMOGLOBIN CONC 34.1 g/dL Normal 31.0-37.0 [facility] Monocytes (Bld) [#/Vol] 0.79 10*3/uL Normal 0.30-0.90 [facility] Monocytes/100 WBC (Bld) 13.6 % Normal [facility] NEUTROPHILS ABSOLUTE COUNT 3.21 K/mcL Normal 1.70-7.00 [facility] Neutrophils/100 WBC (Bld) 54.9 % Normal [facility] Platelet mean volume (Bld) [Entitic vol] 11.1 fL Normal 9.4-12.4 [facility] Platelets (Bld) [#/Vol] 156 10*3/uL Normal 150-400 [facility] RBC (Bld) [#/Vol] 4.89 10*6/uL Normal 4.50-5.90 [facility] WBC (Bld) [#/Vol] 5.83 10*3/uL Normal 4.50-11.00 [facility] POC D-DIMER [facility] 5 POC D-DIMER 166 ng/mL DDU Normal <350 [facility] Comment on above: Order Comment: A D-D jocy concentration of <350 ng/mL DDU is considered a low probability for pulmonary embolism (PE) and deep venous thrombosis (DVT). Results of this test should always be interpreted in conjunction with the patient's medical history, clinical presentation, and other findings. Clinical diagnosis should not be based on the results of the D-dimer alone. The above D-dimer cutoff pertains to its use for the exclusion of DVT or PE. The range associated with other clinical conditions (e.g. sepsis) has not been validated for this method. 90% of normal patients are less than 400 ng/ml. POC TROPONIN I [facility] 2024 POC TROPONIN I < Normal <0.05 [facility] Phosphoruson 12-01-2024 Phosphate [Mass/Vol] 3.5 mg/dL 2.7 - 4 .5 mg/dL [facility] TROPONIN X 2 (NOW AND REPEAT IN 2 HOURS)on 12-01-2024 TROPONIN T DELTA CHANGE INTERPRETATION No biomarker evidence of cardiac injury. Normal [facility] Comment on above: Performed By: #### [id number] #### LAB [address] [address] Jaime Smith M.D. [id number] TROPONIN T NG/L < Normal <=22 [facility] Comment on above: Performed By: #### 4 [id number] #### LAB [address] [address] Jaime Smith M.D. [id number] BASELINE TROPONIN T NG/L < Normal <=22 [facility] Comment on above: Performed By: #### 4 [id number] #### LAB [address] [address] Jaime Smith M.D. [id number] TROPONIN T INTERPRETATION Normal Normal [facility] Comment on above: Performed By: #### 4 [id number] #### LAB [address] [address] Jaime Smith M.D. [id number] TSH DL <= 0.005 mIU/L Qnon 0 12-01-2024 TSH Qn 1.23 m[IU]/L [facility] TSH WITH REFLEX FREE T4on TSH Qn 1.23 m[IU]/L Normal 0.27-4.20 [facility] Comment on above: Performed By: #### 4 [id number] #### LAB [address] [address] Jaime Smith M.D. [id number] Troponin x 2 (Now and Repeat in 2 Hours)on 12-01-2024 Troponin T ng/L NINF - 22 ng/L [facility] Troponin T Interpretation Normal [facility] XR CHEST PA/APon 12-01-2024 XR CHEST PA/AP EXAMINATION: XR CHEST PA/AP 12/01/2024 4:21 pm HISTORY: ORDERING SYSTEM PROVIDED HISTORY: short of breath, TECHNOLOGIST PROVIDED HISTORY: Illness/Other Reason for exam: short of breath Cancer History: n Surgery, RadiationHistory: n Encounter Type: Initial Additional signs and symptoms: none ORDERING SYSTEM PROVIDED DIAGNOSIS CODES: COMPARISON: None FINDINGS: Heart size and pulmonary vasculature are normal. The lungs are clear. No pleural fluid or pneumothorax. No bony abnormality. IMPRESSION: No active disease. Workstation ID: [id number] Dictated by: TOMMY VENTURA on [place] Dec 01, 2024 4:29:03 PM EDT Transcribed by: TOMMY VENTURA on [place] Dec 01, 2024 4:29:03 PM EDT Finalized by: TOMMY VENTURA on [place] Dec 01, 2024 4:29:03 PM EDT [facility] Comment on above: Order Comment: Injur y/Trauma or Illness?:Illness/Other How long have you had these symptoms (acute/chronic)?:Acute Reason for exam?:short of breath History of cancer?:n Surgeries, chemotherapy, or radiation?:n Type of Exam?:Initial Additional signs and symptoms?:none Esophagus Dual Contraston Esophagus Dual Contrast [facility] [address] [place] [address] [id number] Esophagus Dual Contrast MR#: [id number] Acct: [id number] Name: CARLOS MAHER Rep #: [id number] : 1975 M 49 From: Tommy Owusu PCP: Dr. Misty Thakur MD Status: REG CLI Study: Esophagus Dual Contrast Date of Exam: 10/03/24 Exam# [id number] Ordering Dr: Misty Thakur EXAM: Single and double contrast esophagram: CLINICAL HISTORY: Dyspepsia, dysphagia. COMPARISON: None. TECHNIQUE: Single and double contrast esophagram. FINDINGS: A small sliding-type hiatal hernia is noted. No area of persistent narrowing of the esophagus is seen. A widely patent gastroesophageal junction is noted. Gastroesophageal reflux to at least the mid esophagus was noted. Also, intermittent mid to distal esophageal spasm was seen. Limited imaging of the stomach and duodenum demonstrates no abnormality. RAD/Esophagus Dual Contrast IMPRESSION: 1. Small sliding-type hiatal hernia. 2. Gastroesophageal reflux. 3. Intermittent mid to distal esophageal spasm. Reading Location: [place] [address] CC: Dr. Misty Thakur MD Team Assembler: Signed Normal [facility] Anion gap in Serum or Plasma Ordered By: Misty Thakur on 09-04-2024 Anion gap [Moles/Vol] 13 mmol/L 5-15 [facility] BUN/creatinine ratioOrdered By: Misty Thakur on 09-04-2024 Urea nitrogen/Creatinine [Mass ratio] 12.7 mg/mg 10-20 [facility] Bilirubin, totalOrdered By: Misty Thakur on 09-04-2024 Bilirubin [Mass/Vol] 0.48 mg/dL 0.00-1.30 [facility] CBC-Complete Blood Cnt No Di ffon 09-04-2024 Erythrocyte distribution width (RBC) [Ratio] 12.9 % Normal 11.6-14.6 [facility] Comment on above: Order Comment: Order Date: 09/04/24 Order Info: [id number] - CBC Performed By: #### L 500.4050, L100.0500, L501.9910 #### [facility] [address] [place], [address] Hematocrit (Bld) [Volume fraction] 45.3 % Normal 40-54 [facility] Comment on above: Order Comment: Order Date: 09/04/24 Order Info: [id number] - CBC Performed By: #### L 500.4050, L100.0500, L501.9910 #### [facility] [address] [place], [address] Hemoglobin (Bld) [Mass/Vol] 15.1 g/dL Normal 13.0-16.5 [facility] Comment on above: Order Comment: Order Date: 09/04/24 Order Info: [id number] - CBC Performed By: #### L 500.4050, L100.0500, L501.9910 #### [facility] [address] [place], [address] MCH (RBC) [Entitic mass] 31.5 pg Normal 27.0-32.0 [facility] Comment on above: Order Comment: Order Date: 09/04/24 Order Info: [id number] - CBC Performed By: #### L 500.4050, L100.0500, L501.9910 #### [facility] [address] [place], [address] MCHC (RBC) [Mass/Vol] 33.3 g/dL Normal 32-36 [facility] Comment on above: Order Comment: Order Date: 09/04/24 Order Info: [id number] - CBC Performed By: #### L 500.4050, L100.0500, L501.9910 #### [facility] [address] [place], [address] MCV (RBC) [Entitic vol] 94.6 fL High 80-94 [facility] Comment on above: Order Comment: Order Date: 09/04/24 Order Info: [id number] - CBC Performed By: #### L 500.4050, L100.0500, L501.9910 #### [facility] [address] [place], [address] Platelet mean volume (Bld) [Entitic vol] 11.5 fL Normal 6.2-12.0 [facility] Comment on above: Order Comment: Order Date: 09/04/24 Order Info: [id number] - CBC Performed By: #### L 500.4050, L100.0500, L501.9910 #### [facility] [address] [place], [address] Platelets (Bld) [#/Vol] 174 10*3/uL Normal 150-450 [facility] Comment on above: Order Comment: Order Date: 09/04/24 Order Info: [id number] - CBC Performed By: #### L 500.4050, L100.0500, L501.9910 #### [facility] [address] [place], [address] RBC (Bld) [#/Vol] 4.79 10*6/uL Normal 4.6-6.2 [facility] Comment on above: Order Comment: Order Date: 09/04/24 Order Info: [id number] - CBC Performed By: #### L 500.4050, L100.0500, L501.9910 #### [facility] [address] [place], [address] RDW SD 45.1 fl High 35.1-43.9 [facility] Comment on above: Order Comment: Order Date: 09/04/24 Order Info: [id number] - CBC Performed By: #### L 500.4050, L100.0500, L501.9910 #### [facility] [address] [place], [address] WBC (Bld) [#/Vol] 6.2 10*3/uL Normal 4.4-11.0 [facility] Comment on above: Order Comment: Order Date: 09/04/24 Order Info: [id number] - CBC Performed By: #### L 500.4050, L100.0500, L501.9910 #### [facility] [address] [place], [address] Carbon dioxide, total [Moles /volume] in Central venous bloodOrdered By: Misty Thakur on 09-04-2024 CO2 [Moles/Vol] 23.8 mmol/L 21.0-32.0 [facility] Chloride assayOrdered By: Sidney Thakur on 09-04-2024 Chloride [Moles/Vol] 99 mmol/L 98-108 [facility] Comprehensive Metabolic Prof ilon 09-04-2024 Albumin [Mass/Vol] 4.2 g/dL Normal 3.5-5.0 [facility] Comment on above: Order Comment: Order Date: 09/04/24 Order Info: [id number] - CMP Order Info: [id number] - PSA Performed By: #### L 500.4050, L100.0500, L501.9910 #### [facility] [address] [place], [address] Albumin/Globulin [Mass ratio] 1.2 {ratio} Normal 0.9-2.4 [facility] Comment on above: Order Comment: Order Date: 09/04/24 Order Info: [id number] - CMP Order Info: 285-1 - PSA Performed By: #### L 500.4050, L100.0500, L501.9910 #### [facility] [address] [place], [address] ALK PHOS 70 U/L Normal 40-129 [facility] Comment on above: Order Comment: Order Date: 09/04/24 Order Info: [id number] - CMP Order Info: 285- - PSA Performed By: #### L 500.4050, L100.0500, L501.9910 #### [facility] [address] [place], [address] ALT [Catalytic activity/Vol] 29 U/L Normal <=46 [facility] Comment on above: Order Comment: Order Date: 09/04/24 Order Info: [id number] - CMP Order Info: 285- - PSA Performed By: #### L 500.4050, L100.0500, L501.9910 #### [facility] [address] [place], [address] AST [Catalytic activity/Vol] 26 U/L Normal <=37 [facility] Comment on above: Order Comment: Order Date: 09/04/24 Order Info: [id number] - CMP Order Info: [id number] - PSA Performed By: #### L 500.4050, L100.0500, L501.9910 #### [facility] [address] [place], [address] Bilirubin [Mass/Vol] 0.48 mg/dL Normal 0.00-1.30 [facility] Comment on above: Order Comment: Order Date: 09/04/24 Order Info: [id number] - CMP Order Info: [id number] - PSA Performed By: #### L 500.4050, L100.0500, L501.9910 #### [facility] [address] [place], [address] BUN/CRE 12.7 RATIO Normal 10-20 [facility] Comment on above: Order Comment: Order Date: 09/04/24 Order Info: 785-1 - CMP Order Info: [id number] - PSA Performed By: #### L 500.4050, L100.0500, L501.9910 #### [facility] [address] [place], [address] Calcium [Mass/Vol] 8.9 mg/dL Normal 7.6-11.0 [facility] Comment on above: Order Comment: Order Date: 09/04/24 Order Info: 07 - CMP Order Info: [id number] - PSA Performed By: #### L 500.4050, L100.0500, L501.9910 #### [facility] [address] [place], [address] Chloride [Moles/Vol] 99 mmol/L Normal 98-108 [facility] Comment on above: Order Comment: Order Date: 09/04/24 Order Info: 0786- - CMP Order Info: [id number] - PSA Performed By: #### L 500.4050, L100.0500, L501.9910 #### [facility] [address] [place], [address] CO2 [Moles/Vol] 23.8 mmol/L Normal 21.0-32.0 [facility] Comment on above: Order Comment: Order Date: 09/04/24 Order Info: [id number] - CMP Order Info: [id number] - PSA Performed By: #### L 500.4050, L100.0500, L501.9910 #### [facility] [address] [place], [address] Creatinine [Mass/Vol] 1.26 mg/dL High 0.70-1.20 [facility] Comment on above: Order Comment: Order Date: 09/04/24 Order Info: 0786-1 - CMP Order Info: [id number] - PSA Performed By: #### L 500.4050, L100.0500, L501.9910 #### [facility] [address] [place], [address] GAP 13 Normal 5-15 [facility] Comment on above: Order Comment: Order Date: 09/04/24 Order Info: 0786-1 - CMP Order Info: [id number] - PSA Performed By: #### L 500.4050, L100.0500, L501.9910 #### [facility] [address] [place], [address] GFR/1.73 sq M.predicted among non-blacks MDRD (S/P/Bld) [Vol rate/Area] 69 mL/min/{1.73_m2} Normal >60 [facility] Comment on above: Order Comment: Order Date: 09/04/24 Order Info: 0786- - CMP Order Info: [id number] - PSA Result Comment: mL/m in/1.73m2 CKD-EPI Creatinine Equation (2020) Performed By: #### L 500.4050, L100.0500, L501.9910 #### [facility] [address] [place], [address] Globulin (S) [Mass/Vol] 3.4 g/dL Normal 2.2-4.2 [facility] Comment on above: Order Comment: Order Date: 09/04/24 Order Info: 0786-1 - CMP Order Info: [id number] - PSA Performed By: #### L 500.4050, L100.0500, L501.9910 #### [facility] [address] [place], [address] Glucose [Mass/Vol] 99 mg/dL Normal 70-99 [facility] Comment on above: Order Comment: Order Date: 09/04/24 Order Info: 0786-1 - CMP Order Info: 2857-1 - PSA Performed By: #### L 500.4050, L100.0500, L501.9910 #### [facility] [address] [place], [address] Potassium [Moles/Vol] 3.6 mmol/L Normal 3.3-5.1 [facility] Comment on above: Order Comment: Order Date: 09/04/24 Order Info: 0786-1 - CMP Order Info: 285-1 - PSA Performed By: #### L 500.4050, L100.0500, L501.9910 #### [facility] [address] [place], [address] Sodium [Moles/Vol] 136 mmol/L Normal 133-145 [facility] Comment on above: Order Comment: Order Date: 09/04/24 Order Info: 0786-1 - CMP Order Info: [id number] - PSA Performed By: #### L 500.4050, L100.0500, L501.9910 #### [facility] [address] [place], [address] T PROT 7.6 g/dL Normal 5.9-8.4 [facility] Comment on above: Order Comment: Order Date: 09/04/24 Order Info: 0786-1 - CMP Order Info: [id number] - PSA Performed By: #### L 500.4050, L100.0500, L501.9910 #### [facility] [address] [place], [address] Urea nitrogen [Mass/Vol] 16 mg/dL Normal 4-19 [facility] Comment on above: Order Comment: Order Date: 09/04/24 Order Info: 0786-1 - CMP Order Info: 2857-1 - PSA Performed By: #### L 500.4050, L100.0500, L501.9910 #### [facility] [address] [place], [address] Erythrocyte distribution wid th (RBC) [Ratio]Ordered By: Misty Thakur on 09-04-2024 Erythrocyte distribution width (RBC) [Entitic vol] 45.1 fL High 35.1-43.9 [facility] Erythrocyte distribution wid th ratioOrdered By: Misty Thakur on 09-04-2024 Erythrocyte distribution width (RBC) [Ratio] 12.9 % 11.6-14.6 [facility] Erythrocyte distribution wid th standard deviationOrdered By: Misty Thakur on 09-04-2024 Erythrocyte distribution width (RBC) [Ratio] 45.1 fl High 35.1-43.9 [facility] GFR/1.73 sq M.predicted abraham g non-blacks MDRD (S/P/Bld) [Vol rate/Area]Ordered By: Misty Thakur on 09-04-2024 Estimated GFR (MDRD) Non-Af Amer 69 >60 [facility] Comment on above: mL/min/1.73m2 CKD-EP I Creatinine Equation (2020) Glomerular filtration rate ( GFR) estimation/1.73 sq m using serum, plasma, or whole bOrdered By: Misty Thakur on 09-04-2024 GFR/1.73 sq M.predicted among non-blacks MDRD (S/P/Bld) [Vol rate/Area] 69 mL/min/{1.73_m2} >60 [facility] Comment on above: mL/min/1.73m2 CKD-EP I Creatinine Equation (2020) Hematocrit Auto (Bld) [Volum e fraction]Ordered By: Misty Thakur on 09-04-2024 Hematocrit (Bld) [Volume fraction] 45.3 % 40-54 [facility] Hemoglobin measurementOrdere d By: Misty Thakur on 09-04-2024 Hemoglobin (Bld) [Mass/Vol] 15.1 g/dL 13.0-16.5 [facility] - Chemistry and C hemistry - challengeOrdered By: Misty Thakur on 09-04-2024 AST [Catalytic activity/Vol] 26 U/L <38 [facility] MCV (mean corpuscular volume ) determinationOrdered By: Misty Thakur on 09-04-2024 MCV (RBC) [Entitic vol] 94.6 fL High 80-94 [facility] Mean corpuscular hemoglobin (MCH) determinationOrdered By: Misty Thakur on 09-04-2024 MCH (RBC) [Entitic mass] 31.5 pg 27.0-32.0 [facility] Mean corpuscular hemoglobin concentration (MCHC) determinationOrdered By: Misty Thakur on 09-04-2024 MCHC (RBC) [Mass/Vol] 33.3 g/dL 32-36 [facility] Mean platelet volume determi nationOrdered By: Misty Thakur on 09-04-2024 Platelet mean volume (Bld) [Entitic vol] 11.5 fL 6.2-12.0 [facility] PSA, total screeningOrdered By: Misty Thakur on 09-04-2024 Prostate Specific Antigen Screen 1.08 ng/mL 0.02-4.00 [facility] Comment on above: This test was perfor med using the [employer] tPSA method. Measured values of a patient sample can vary depending on the testing procedure used. PSA values determined on patient samples by different testing procedures cannot be used interchangeably. If there is a change in PSA assays while monitoring therapy, sequential testing should be performed to confirm baseline values. PSA,Total - Annual Screenon 09-04-2024 PSA,TOT SCREEN 1.08 ng/mL Normal 0.02-4.00 [facility] Comment on above: Order Comment: Order Date: 09/04/24 Order Info: [id number] - CMP Order Info: [id number] - PSA Result Comment: This test was performed using the [employer] tPSA method. Measured values of a patient??sample can vary depending on the testing procedure used. PSA values determined on patient samples by different testing procedures cannot be used interchangeably. If there is a change in PSA assays while monitoring therapy, sequential testing should be performed to confirm baseline values. Performed By: #### L 500.4050, L100.0500, L501.9910 #### [facility] [place], [address] Platelet countOrdered By: Sidney Thakur on 09-04-2024 Platelets (Bld) [#/Vol] 174 10*3/uL 150-450 [facility] Potassium (Unsp spec) [Mass/ Vol]Ordered By: Misty Thakur on 09-04-2024 Potassium [Moles/Vol] 3.6 mmol/L 3.3-5.1 [facility] Potassium measurement (mass/ volume)Ordered By: Misty Thakur on 09-04-2024 Potassium (Unsp spec) [Mass/Vol] 3.6 mmol/L 3.3-5.1 [facility] RBC Auto (Bld) [#/Vol]Ordere d By: Misty Thakur on 09-04-2024 RBC (Bld) [#/Vol] 4.79 10*6/uL 4.6-6.2 [facility] Serum creatinine measurement (mass/volume)Ordered By: Misty Thakur on 09-04-2024 Creatinine [Mass/Vol] 1.26 mg/dL High 0.70-1.20 [facility] Serum globulin measurementOr dered By: Misty Thakur on 09-04-2024 Globulin (S) [Mass/Vol] 3.4 g/dL 2.2-4.2 [facility] Serum glucose measurement (m ass/volume)Ordered By: Misty Thakur on 09-04-2024 Glucose [Mass/Vol] 99 mg/dL 70-99 [facility] Serum or plasma alanine ayala otransferase (ALT) measurementOrdered By: Misty Thakur on 09-04-2024 ALT [Catalytic activity/Vol] 29 U/L <47 [facility] Serum or plasma albumin oralia urement (mass/volume)Ordered By: Misty Thakur on 09-04-2024 Albumin [Mass/Vol] 4.2 g/dL 3.5-5.0 [facility] Serum or plasma albumin/glob ulin mass ratioOrdered By: Misty Thakur on 09-04-2024 Albumin/Globulin [Mass ratio] 1.2 {ratio} 0.9-2.4 [facility] Serum or plasma alkaline batsheva sphatase measurementOrdered By: Misty Thakur on 09-04-2024 ALP [Catalytic activity/Vol] 70 U/L 40-129 [facility] Serum or plasma calcium oralia urement (mass/volume)Ordered By: Misty Thakur on 09-04-2024 Calcium [Mass/Vol] 8.9 mg/dL 7.6-11.0 [facility] Serum or plasma urea nitroge n measurement (mass/volume)Ordered By: Misty Thakur on 09-04-2024 Urea nitrogen [Mass/Vol] 16 mg/dL 4-19 [facility] Sodium levelOrdered By: Regisludy ridley Blaze on 09-04-2024 Sodium [Moles/Vol] 136 mmol/L 133-145 [facility] Total proteinOrdered By: Regis prateektop Blaze on 09-04-2024 Protein [Mass/Vol] 7.6 g/dL 5.9-8.4 [facility] White blood cell (WBC) count Ordered By: Misty Thakur on 09-04-2024 WBC (Bld) [#/Vol] 6.2 10*3/uL 4.4-11.0 [facility] CNPNon 04-28-2023 CNPN Telephone (MEPRAD) CARLOS MAHER ([id number]) 1975 Date Time Provider Department 04/28/23 ALANA NOWAK MEPGUILLERMO During your visit today, we recorded the following information about you: Alana Nowak MD 04/28/2023 4:01 PM Signed FOLLOW UP ENDOSCOPY - RESULTS AND RECOMMENDATIONS NAME: Carlos Maher CLINIC NO.: [id number] : 1975 DATE: April 28, 2023 PRIMARY CARE PROVIDER: Jayy Grant MD REFERRING PHYSICIAN: Leilani Rosario Carlos Maher is a patient referred for endoscopy for a family history of colon cancer. I performed lower endoscopy on April 25, 2023. The patient was found to have: Lower Endoscopy Impression: - One 12 mm polyp at the hepatic flexure, removed with a cold snare. Resected and retrieved. - The entire examined colon is normal. Biopsied. - The examination was otherwise normal on direct and retroflexion views. Pathology demonstrated: FINAL DIAGNOSIS A. Colon, ascending, random, biopsy: -Colonic mucosa with no significant histologic abnormality -Negative for granulomas or dysplasia B. Colon, hepatic flexure, polypectomy: -Tubular adenoma C. Colon, descending, random, biopsy: -Colonic mucosa with no significant histologic abnormality -Negative for granulomas or dysplasia IMPRESSION: Solitary adenomatous polyp, negative random colon biopsies PLAN: INSTRUCTIONS FOLLOWING A POLYP FOUND AT COLONOSCOPY You were found to have an adenomatous colon polyp. I recommend you undergo repeat endoscopy in 5 years. If you note bleeding, change in bowel habits, or other suspicious colon related symptoms before that time, those symptoms should be evaluated as necessary. If you have any difficulties or concerns, you should contact our office immediately. The patient is instructed to follow-up with your primary care provider as needed I have instructed my staff to forward the above information to the patient and to the appropriate providers Lanny Huddleston LPN 05/01/2023 12:04 PM Signed Patient updated via [employer]. History, HM and recall letter done. Lanny Huddleston LPN Allergies As of Date: 04/28/2023 Noted Allergy Reaction AMOXICILLIN 04/01/2015 5 - Intolerance Comments: nasal swelling AZITHROMYCIN 07/10/2017 14 - Other: See Comments Comments: Fatigue, dizziness, felt like in a fog BACTRIM (SULFAMETHOXAZOLE-TRIMETH*0 11/29/2007 2 - Rash CAFFEINE 07/02/2014 14 - Other: See Comments Comments: palpitations LORAZEPAM 07/02/2014 1 - Mental Status Change Comments: major anxiety PREDNISONE 10/13/2017 14 - Other: See Comments Comments: Dizziness, pain AND burning in head, trouble concentrating AND confusion PRILOSEC (OMEPRAZOLE MAGNESIUM) 07/02/2014 1 - Mental Status Change Comments: anxiety Date Reviewed: 04/25/2023 Reviewed by: Peggy Eason RN - Fully Assessed Reason for Visit: Results [95] Problem List As Of Date 04/28/2023 Noted Resolved PANIC DISORDER WITHOUT AGORAPHOBIA [F41.0] 12/13/2006 CHEST PAIN NOS [R07.9] 12/13/2006 Numbness [R20.9] 12/13/2006 PALPITATIONS [R00.2] 12/23/2006 SCROTAL VARICES [I86.1] 01/22/2008 ABDOMINAL PAIN RLQ [R10.31] 04/03/2008 INT HEMORRHOID W/O COMPL [K64.8] 04/03/2008 GERD (Gastroesophageal Reflux Disease) [K21.9] 03/04/2009 Esophagitis, unspecified [K20.90] 07/14/2011 Diaphragmatic hernia without mention of obstruc*07/14/2011 Other and unspecified noninfectious gastroenter*07/02/2014 07/02/2014 Vertigo [R42] 10/13/2017 Memory changes [R41.3] 10/13/2017 Encounter Status:Closed by ALANA NOWAK on 04/28/23 [facility]COPY [facility] Colonoscopyon 04-25-2023 Colonoscopy [place] [facility] Gastrointestinal Endoscopy Patient Name: Carlos Maher Procedure Date: 04/25/2023 11:26 AM Date of : 1975 Admit Type: Outpatient Age: 47 Gender: Male Note Status: Finalized Procedure: Colonoscopy Indications: Screening in patient at increased risk: Family history of 1st-degree relative with colorectal cancer Providers: Alana Nowak MD Patient Profile: This is a 47 year old male. Refer to note in patient chart for documentation of history and physical. Last Colonoscopy: several years ago. Referring Physician: Leilani Rosario (pa) (Referring MD) Dr Sauer Medicines: Midazolam 8 mg IV, Fentanyl 100 micrograms IV, Diphenhydramine 50 mg IV Complications: No immediate complications. Requesting Provider: Procedure: Pre-Anesthesia Assessment: - Prior to the procedure, a History and Physical was performed, and patient medications and allergies were reviewed. The patient is competent. The risks and benefits of the procedure and the sedation options and risks were discussed with the patient. All questions were answered and informed consent was obtained. Patient identification and proposed procedure were verified by the physician and the nurse in the procedure room. Mental Status Examination: alert and oriented. Respiratory Examination: clear to auscultation. Prophylactic Antibiotics: The patient does not require prophylactic antibiotics. Prior Anticoagulants: The patient has taken no anticoagulant or antiplatelet agents. ASA Grade Assessment: II - A patient with mild systemic disease. After reviewing the risks and benefits, the patient was deemed in satisfactory condition to undergo the procedure. The anesthesia plan was to use moderate sedation / analgesia (conscious sedation). Immediately prior to administration of medications, the patient was re-assessed for adequacy to receive sedatives. The heart rate, respiratory rate, oxygen saturations, blood pressure, adequacy of pulmonary ventilation, and response to care were monitored throughout the procedure. The physical status of the patient was re-assessed after the procedure. After I obtained informed consent, the scope was passed under direct vision. Throughout the procedure, the patient's blood pressure, pulse, and oxygen saturations were monitored continuously. The Colonoscope was introduced through the anus and advanced to the cecum, identified by the appendiceal orifice, ileocecal valve and palpation. The colonoscopy was performed without difficulty. The patient tolerated the procedure well. The quality of the bowel preparation was adequate to identify polyps. The ileocecal valve, appendiceal orifice, and rectum were photographed. Moderate Sedation: Moderate (conscious) sedation was personally administered by the endoscopist. The following parameters were monitored: oxygen saturation, heart rate, blood pressure, and response to care. Total physician intraservice time was 25 minutes. The administration of moderate sedation was initiated at 11:42 AM. Findings: The perianal and digital rectal examinations were normal. A 12 mm polyp was found in the hepatic flexure. The polyp was sessile. The polyp was removed with a cold snare. Resection and retrieval were complete. The colon (entire examined portion) appeared normal. Biopsies for histology were taken with a cold forceps from the ascending colon and descending colon for evaluation of microscopic colitis. The exam was otherwise without abnormality on direct and retroflexion views. Impression: - One 12 mm polyp at the hepatic flexure, removed with a cold snare. Resected and retrieved. - The entire examined colon is normal. Biopsied. - The examination was otherwise normal on direct and retroflexion views. Recommendation: - Discharge patient to home. - Resume previous diet. - Continue present medications. - Repeat colonoscopy for surveillance based on pathology results. - Telephone my office for pathology results in 1 week. - Patient has a contact number available for emergencies. The signs and symptoms of potential delayed complications were discussed with the patient. Return to normal activities tomorrow. Written discharge instructions were provided to the patient. Procedure Code(s): --- Professional --- 80230, Colonoscopy, flexible; with removal of tumor(s), polyp(s), or other lesion(s) by snare technique 84855, 59, Colonoscopy, flexible; with biopsy, single or multiple 29311, Moderate sedation; each additional 15 minutes intraservice time G0500, Moderate sedation services provided by the same physician or other qualified health health care coach performing a gastrointestinal endoscopic service that sedation supports, requiring the presence of an independent trained observer to assist in the monitoring of the patient's level of consciousness and physiological (more content not included)... [facility] HISTORY PHYSICALon HISTORY PHYSICAL HNO ID: [id number] Author: Alana Nowak MD Service: General Surgery Author Type: Physician Type: HANDP Filed: 04/25/2023 10:37 AM Note Text: HISTORY AND PHYSICAL Carlos Maher 1975 REFERRING PHYSICIAN: No ref. provider found CHIEF COMPLAINT: Consult (Colonoscopy consult.) HPI: The patient is a 47 year old male referred for endoscopy. Carlos notes a history of intermittent colitis episodes, most recently around a month ago. States will get some pelvic pressure and lower back discomfort when these episodes occur. Patient reports has also been diagnosed with pelvic floor dysfunction. Denies fever or chills. Denies history of diverticulitis. Notes episodes brought on more with stress. Notes multiple family members with colon cancer. Patient denies any blood in stools or black tarry stools. The patient notes no upper GI complaints. Denies any upper abdominal discomfort, nausea or vomiting. Carlos has undergone prior endoscopy, last in [address] Pitt with no concerning findings and no active colitis at that time. Patient has had prior procedures under both conscious sedation and Monitored Anesthetic Care and states has tolerated both without issue. PAST MEDICAL HISTORY PAST MEDICAL HISTORY Diagnosis Date Abdominal pain, unspecified site Diaphragmatic hernia without mention of obstruction or gangrene Esophagitis, unspecified Other forms of migraine Palpitations 12/23/2006 Panic disorder without agoraphobia 12/13/2006 Prediabetes PAST SURGICAL HISTORY PAST SURGICAL HISTORY Procedure Laterality Date COLONOSCOPY FLX DX W/COLLJ SPEC WHEN PFRMD 04/03/2008 Colonoscopy COLONOSCOPY FLX DX W/COLLJ SPEC WHEN PFRMD 07/02/14 Colonoscopy ESOPHAGOGASTRODUODENOSCOPY TRANSORAL DIAGNOSTIC 07/14/2011 EGD CURRENT MEDICATIONS Current Outpatient Medications Medication Sig acetaminophen (TYLENOL) 500 mg tablet 500 mg as needed. No current facility-administered medications for this visit. ALLERGIES: Amoxicillin, Azithromycin, Bactrim [Sulfamethoxazole-Trimethop rim], Caffeine, Lorazepam, Prednisone, and Prilosec [Omeprazole Magnesium] PERSONAL HISTORY: SOCIAL HISTORY Social History Tobacco Use Smoking status: Never Smokeless tobacco: Never Substance Use Topics Alcohol use: No Comment: every few months- couple times Drug use: No FAMILY HISTORY: FAMILY HISTORY FAMILY HISTORY Problem Relation Age of Onset Emphysema Father Heart Father 3 years ago at 58 yo (was a heavy smoker other (Panic disorder) Father Diabetes Mother Alzheimer's Disease Maternal Grandmother Cancer Maternal Grandmother Cancer Maternal Uncle Seizures Sister epileptic Heart Maternal Grandfather in his 50's from IN REVIEW OF SYMPTOMS: The review of systems data was entered by the nurse and reviewed by ct Nursing Notes: Micaela Cespedes RN 03/21/2023 2:45 PM Signed REVIEW OF SYSTEMS: General: The patient denies fatigue, denies weight loss, denies weight gain, denies feeling hot, and denies feelings of cold. Eyes: The patient denies glaucoma, denies eye injury/surgery, does not wear glasses or contacts. Ear/Nose/Throat: The patient NOTES allergies, denies hayfever, denies ear infections, and denies bloody noses. Cardiovascular: The patient denies chest pain, denies heart disease, NOTES high blood pressure,denies cardiac stent, denies prior heart attack, denies irregular heart beat, denies high cholesterol, denies poor circulation, denies heart failure, other cardiac issues, denies claudication, denies cold feet, denies peripheral arterial stent. Respiratory: The patient denies tuberculosis, denies pneumonia, denies frequent cough, denies pulmonary embolism, denies shortness of breath, and denies coughing up blood. Gastrointestinal: The patient denies difficulty swallowing, NOTES acid reflux, denies ulcers, denies vomiting, denies jaundice/hepatitis, denies gallbladder problems, denies black or tarry stools, NOTES hemorrhoids, NOTES bleeding from rectum, denies diverticulitis, denies constipation, denies diarrhea, denies loss of stool control, denies hernias and NOTES colitis. Kidney/Bladder: The patient denies kidney stones, denies urine infections, and denies bloody urine. Skin: The patient denies a history of skin cancer, denies bleeding/changing moles, and denies a history of skin rash. Neurologic: The patient denies a history of epilepsy/convulsions, NOTES headaches, denies head/spinal injuries, and denies stroke/TIA. Psychiatric: The patient denies psychiatric medications, denies depression, and denies voices, denies substance abuse. Endocrine: The patient denies thyroid disorders, denies diabetes, and denies hormonal problems. Hematologic: The patient denies a history of bruising, denies bleeding, and denies anemia, denies blood clots. Infections: The patient NOTES a history of measles and mumps, denies rheumatic fever, (more content not included)... [facility] NURSING PROGon 04-25-2023 NURSING PROG HNO ID: [id number] Author: Peggy Eason RN Service: ? Author Type: Registered Nurse Type: Nursing Progress Note Filed: 04/25/2023 1:14 PM Note Text: Arrived in phase II via cart. Left lateral position. Sedated, but responds to verbal stimuli. Color normal; skin warm and dry. Respirations wnl and unlabored. Abdomen soft and with + bowel sounds in quads X 4. Patient resting comfortably. Family at bedside. Dr. Nowak at bedside to review procedure and recommendations. Peggy Eason RN [facility] SURGICAL PATHOLOGYon 023 CASE REPORT [facility] Comment on above: Order Comment: Speci men Type: TISSUE SPECIMEN Ordering Facility: [facility] Address: [address] [place] [address] Result Comment: Surg ica Pathology Report Case: [id number] Authorizing Provider: Alana Nowak MD Collected: 04/25/2023 12:02 PM Ordering Location: Ambulatory Surgery Received: 04/25/2023 01:24 PM Pathologist: Kris Regalado MD Specimens: A) - ASCENDING COLON BIOPSY, RANDOM bx's of the ascending colon B) - HEPATIC FLEXURE POLYP C) - DESCENDING COLON BIOPSY, RANDOM bx's of the descending colon Performed By: #### S #### [facility] CLIA [id number] [address] [place] [address] [place] [facility] CLIA [id number] [facility] [place] FINAL DIAGNOSIS [facility] Comment on above: Order Comment: Speci men Type: TISSUE SPECIMEN Ordering Facility: [facility] Address: [address] [place] [address] Result Comment: A. C olon, ascending, random, biopsy: -Colonic mucosa with no significant histologic abnormality -Negative for granulomas or dysplasia B. Colon, hepatic flexure, polypectomy: -Tubular adenoma C. Colon, descending, random, biopsy: -Colonic mucosa with no significant histologic abnormality -Negative for granulomas or dysplasia Performed By: #### S #### [facility] CLIA [id number] [address] [place] [address] [place] [facility] CLIA [id number] [address] [place] [address] [place] [facility] Comment on above: Order Comment: Speci men Type: TISSUE SPECIMEN Ordering Facility: [facility] Address: [address] [place] [address] Result Comment: Diag nostic interpretation performed at [facility], [address] [place] [address] CLIA# [id number] Vrt Mechanic: aCrisa Fernando M.D. Performed By: #### S #### [facility] CLIA [id number] [address] [place] [address] [place] [facility] CLIA [id number] [address] [place] [address] [place] GROSS DESCRIPTION [facility] Comment on above: Order Comment: Speci men Type: TISSUE SPECIMEN Ordering Facility: [facility] Address: [address] [place] [address] Result Comment: A. A SCENDING COLON BIOPSY Received in formalin are multiple pieces of smith, soft tissue aggregating to 1.0 x 0.2 x 0.2 cm. Totally submitted in one cassette. B. HEPATIC FLEXURE POLYP Received in formalin is one smith polypoid segment of tissue measuring 0.4 x 0.4 x 0.3 cm. No stalk is present. The line of resection is noted. The specimen is bisected and totally submitted in one cassette. C. DESCENDING COLON BIOPSY Received in formalin are multiple pieces of smith, soft tissue aggregating to 1.1 x 0.2 x 0.1 cm. Totally submitted in one cassette. Gross examination performed at [facility], [address] [place] [address] 04/25/2023 9:53 PM Performed By: #### S #### [facility] CLIA [id number] [place] [address] [facility] CLIA [id number] [address] [place] [address] [id number] [place] [address] CNOVon 03-21-2023 CNOV Office Visit (GENSWS ) CARLOS MAHER ([id number]) 1975 M Date Time Provider Department 03/21/23 2:30 PM LEILANI ROSARIO During your visit today, we recorded the following information about you: Temperature Pulse Blood pressure Weight 97.9 degrees 119/minute 136/88 97.2 kg Height 1.702 m Leilani Rosario PA-C 03/22/2023 2:16 PM Signed HISTORY AND PHYSICAL Carlos Maher 1975 REFERRING PHYSICIAN: No ref. provider found CHIEF COMPLAINT: Consult (Colonoscopy consult.) HPI: The patient is a 47 year old male referred for endoscopy. Carlos notes a history of intermittent colitis episodes, most recently around a month ago. States will get some pelvic pressure and lower back discomfort when these episodes occur. Patient reports has also been diagnosed with pelvic floor dysfunction. Denies fever or chills. Denies history of diverticulitis. Notes episodes brought on more with stress. Notes multiple family members with colon cancer. Patient denies any blood in stools or black tarry stools. The patient notes no upper GI complaints. Denies any upper abdominal discomfort, nausea or vomiting. Carlos has undergone prior endoscopy, last in [address] Pitt with no concerning findings and no active colitis at that time. Patient has had prior procedures under both conscious sedation and Monitored Anesthetic Care and states has tolerated both without issue. PAST MEDICAL HISTORY Diagnosis Date Abdominal pain, unspecified site Diaphragmatic hernia without mention of obstruction or gangrene Esophagitis, unspecified Other forms of migraine Palpitations 12/23/2006 Panic disorder without agoraphobia 12/13/2006 Prediabetes PAST SURGICAL HISTORY Procedure Laterality Date COLONOSCOPY FLX DX W/COLLJ SPEC WHEN PFRMD 04/03/2008 Colonoscopy COLONOSCOPY FLX DX W/COLLJ SPEC WHEN PFRMD 07/02/14 Colonoscopy ESOPHAGOGASTRODUODENOSCOPY TRANSORAL DIAGNOSTIC 07/14/2011 EGD Current Outpatient Medications Medication Sig acetaminophen (TYLENOL) 500 mg tablet 500 mg as needed. No current facility-administered medications for this visit. ALLERGIES: Amoxicillin, Azithromycin, Bactrim [Sulfamethoxazole-Trimethop rim], Caffeine, Lorazepam, Prednisone, and Prilosec [Omeprazole Magnesium] PERSONAL HISTORY: Social History Tobacco Use Smoking status: Never Smokeless tobacco: Never Substance Use Topics Alcohol use: No Comment: every few months- couple times Drug use: No FAMILY HISTORY: FAMILY HISTORY Problem Relation Age of Onset Emphysema Father Heart Father 3 years ago at 58 yo (was a heavy smoker other (Panic disorder) Father Diabetes Mother Alzheimer's Disease Maternal Grandmother Cancer Maternal Grandmother Cancer Maternal Uncle Seizures Sister epileptic Heart Maternal Grandfather in his 50's from IN REVIEW OF SYMPTOMS: The review of systems data was entered by the nurse and reviewed by ct Nursing Notes: Micaela Cespedes RN 03/21/2023 2:45 PM Signed REVIEW OF SYSTEMS: General: The patient denies fatigue, denies weight loss, denies weight gain, denies feeling hot, and denies feelings of cold. Eyes: The patient denies glaucoma, denies eye injury/surgery, does not wear glasses or contacts. Ear/Nose/Throat: The patient NOTES allergies, denies hayfever, denies ear infections, and denies bloody noses. Cardiovascular: The patient denies chest pain, denies heart disease, NOTES high blood pressure,denies cardiac stent, denies prior heart attack, denies irregular heart beat, denies high cholesterol, denies poor circulation, denies heart failure, other cardiac issues, denies claudication, denies cold feet, denies peripheral arterial stent. Respiratory: The patient denies tuberculosis, denies pneumonia, denies frequent cough, denies pulmonary embolism, denies shortness of breath, and denies coughing up blood. Gastrointestinal: The patient denies difficulty swallowing, NOTES acid reflux, denies ulcers, denies vomiting, denies jaundice/hepatitis, denies gallbladder problems, denies black or tarry stools, NOTES hemorrhoids, NOTES bleeding from rectum, denies diverticulitis, denies constipation, denies diarrhea, denies loss of stool control, denies hernias and NOTES colitis. Kidney/Bladder: The patient denies kidney stones, denies urine infections, and denies bloody urine. Skin: The patient denies a history of skin cancer, denies bleeding/changing moles, and denies a history of skin rash. Neurologic: The patient denies a history of epilepsy/convulsions, NOTES headaches, denies head/spinal injuries, and denies stroke/TIA. Psychiatric: The patient denies psychiatric medications, denies depression, and denies voices, denies substance abuse. Endocrine: The patient denies thyroid disorders, denies diabetes, and denies hormonal problems. Hematologic: The patient den (more content not included)... [facility] CT SINUS WO CONTRASTon 10-14 CT SINUS WO CONTRAST Patient Name: CARLOS MAHER STUDY: CT SINUS WO CONTRAST; 10/14/2020 3:30 pm INDICATION: rhinnorhea. COMPARISON: MRI brain dated 08/17/2019. ACCESSION NUMBER(S): [id number] ORDERING CLINICIAN: NAY RASHID TECHNIQUE: Axial noncontrast CT images of the paranasal sinuses were obtained and reconstructed in the coronal plane. FINDINGS: Frontal sinuses: Clear. Ethmoid sinuses: Clear. Maxillary sinuses: Clear. Sphenoid sinuses: Clear. Frontoethmoidal recesses: Patent. Ostiomeatal complexes: Patent. Sphenoethmoid foramina: Patent. Nasal septum: Rightward deviated nasal septum. Mastoid Air Cells: Clear. Additional findings: Visualized portions of the brain demonstrates no acute intracranial process. No evidence of anterior skull base defect/encephalocele. IMPRESSION: Clear paranasal sinuses. Rightward deviated nasal septum. No evidence of anterior skull base defect/encephalocele. Electronically signed by: MARIANO WORKMAN MD [facility] CT Sinus without Contraston 10-14-2020 CT Sinuses WO contrast [facility] Office Visit (Neuro-General) on 08-19-2020 Follow-up visit Provider Impressions You have an unusual presentation: you have the intermittent sensation of fluid coming out from the right eye, and along the right forehead and faith, less often from the nose- which is clear colored. The fluid used to have a metallic taste. As discussed, I think a spinal fluid leak needs to be ruled out. I will contact a neurosurgeon in , and see if I can order a diagnostic test to rule out a spinal fluid leak, or if I need to refer you to a neurosurgeon. I will ask for copies of the MRI studies of the brain performed at [facility]- 1 and 3 years ago. Will be in touch with you and discuss results. Afterwards, will discuss any other possible treatments. 60 minutes was spent with the patient and his significant other, >50% of the time was spent counseling and/or coordination of care. Patient Discussion/Summary You have an unusual presentation: you have the intermittent sensation of fluid coming out from the right eye, and along the right forehead and faith, less often from the nose- which is clear colored. The fluid used to have a metallic taste. As discussed, I think a spinal fluid leak needs to be ruled out. I will contact a neurosurgeon in , and see if I can order a diagnostic test to rule out a spinal fluid leak, or if I need to refer you to a neurosurgeon. I will ask for copies of the MRI studies of the brain performed at [facility]- 1 and 3 years ago. Will be in touch with you and discuss results. Afterwards, will discuss any other possible treatments. Orders SocHx: Never a smoker Tobacco Use Screening; Status:Complete; Done: 19Aug2020 Chief Complaint Neurologic Evaluation. Referred for headaches History of Present Illness The patient is being seen for an initial evaluation of. Headache History: Current Headache Information: Currently the pain is behind eyes, brow and bridge of nose, radiates to the neck and radiates to the eye, but does not radiate to the ears, does not radiate to the jaw and does not radiate to the teeth. It is described as pressure, but not as a tight band, not throbbing, not aching, not stabbing, not burning and not increasing throughout the day and occurs daily during various time of the day and is continuously present. On a scale of 0-10, the pain severity is a 5. The preceding event to the onset of the headaches is stress and strenuous activity, but not drinking alcohol, not caffeine use, not eating certain foods, not chocolate and not cheese. Symptoms include blurred vision, but no vomiting, no nausea, no dizziness, no photophobia, no weakness and no numbness. Associated symptoms include vertigo, difficulty speaking, fatigue, tension, tinnitus and nasal congestion, but no unsteady gait, no anxiety, no depression, no myalgias, no diarrhea and no fever. The pain is made worse by bending over, exertion and stress, but not by noise, not by light, not by teeth clenching, not by chewing and not by changes in the weather and relieved by sleeping and lying down, but not by darkness, not by eating, not by caffeine, not by medications and not by massage. This is a 45 year old right handed man referred by Dr. Bigg Mcgee, Psychiatry, for headaches, with a 3 year history of pressure, feels like runs, like fluid lateral to the right eye, and faith. If he does not exert himself, speak, etc. then he has less severity and frequency. It has slowly improved. Please see the MORRISON history. He previously was evaluated at [facility]- perhaps 2-3 years ago, including by Dr. Cruz Armstrong. He has had normal MRI studies of the brain 3 and 1 year ago. He believes the test results were normal. He is working remotely from home. His prior occupation was at work, in a loud, stressful environment. He is not on any current prescription medications for his head pressures. He has had some episodes of clear fluid dripping from his nose. This seemed to resolve with steroid pulse treatment. He was seen by Dr. Bigg Mcgee, 07/11/20 for possible cognitive impairment. He had a normal MOCA screening (29/30 score), and he concluded that the patient did not have cognitive impairment. He was noted to have remote anxiety, which resolved by cutting out caffeine. He was felt to have medically unexplained symptoms. PMH and PSH are unremarkable SH: , lives with his , no alcohol use, non-smoker. FH: Only significant for fibromyalgia. Review of Systems Constitutional: no fever, no unexplained weight gain, no unexplained weight loss, not feeling tired, no chills and appetite is not poor. Eyes: blurred vision and eye pain, but no diplopia, no eyesight problems, no purulent discharge from the eyes, eyes not red, no dryness of the eyes and no itching of the eyes. ENT: tinnitus and vertigo, but no hearing loss, no earache, no sore throat, no hoarseness, no swollen glands in the neck and no nosebleeds. Cardiovascular: no chest pain, no shortness of breath, no palpitations, no lower extremity edema, no dyspnea at rest, no intermittent leg claudicat (more content not included)... Normal [employer] Chart Updateon 07-24-2020 Chart Update Chart Update Reviewed records from [facility]: Dr. 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 (Note to be scanned in chart). Signatures Electronically signed by : Bigg Mcgee MD; Jul 24 2020 2:29PM EST (Author) Normal [employer] Office Visit (Neuro-Cognitiv e)on 07-01-2020 Follow-up visit Provider Impressions Mr. Carlos Maher is a 45-year-old man who is here for evaluation of cognitive changes and unexplained physical symptoms. He was referred by his PCP Dr. Misty Thakur. Seen in office for an evaluation today. He has a history of onset of physical symptoms and sensations in his head/neck area which started after taking antibiotics and steroids. He also had, based on his report, severe cognitive impairment at that time, which has since improved significantly. He has had fairly extensive workup including general neurologist, neuro-ophthalmology, ENT, MRI/MRA brain, CT head without any clear etiology for his symptoms. He has a remote history of anxiety but apparently improved after stopping caffeine during the first episode and stopping prilosec during the second episode. Neurological exam today was normal. MoCA: 07/01/2020 - (1 point lost for abstraction). Diagnoses: Cognitive complaints Headache Medically unexplained symptoms. Plan: - He has intact cognitive performance and intact functioning from cognitive standpoint. No further workup indicated from cognitive standpoint. - His main focus currently is sense of pressure and pain in head and face area, currently on nasal bridge. Since he has not seen a headache specialist, I recommend that he see one for evaluation and management. He has not had CT myelogram. I defer to headache neurology regarding whether CT myelogram or an LP might be indicated to rule out CSF leak or increased intracranial pressure. - Discussed diagnoses like illness anxiety disorder and functional neurological disorder. I advised that even though these diagnoses can be difficult to ascertain, especially when the symptoms are subjective (like pain), it might be beneficial for him to review some information in this area. I provided online resource for this. - I will request his records and review previous evaluations. - No follow up with me needed unless there are any concerns for new cognitive problems. Patient Discussion/Summary Plan: - Recommend seeing a headache specialist. - You can find more information about managing neurological symptoms without clear cause at [email or web address]. - I will request records from [facility] and [facility]. I will let you know if I have any further recommendations after reviewing your records. - Follow up only as needed. - Call if you have any questions. Brain healthy lifestyle: - Make sure your medical conditions (if any) such as diabetes, high blood pressure, high cholesterol, thyroid disease sleep apnea are optimally controlled. - Use eyeglasses or hearing aids appropriately if needed. - Eat a heart healthy diet (like a Mediterranean diet; lots of fruits and vegetables, fish; low fat;) - Exercise regularly as tolerated. - Maintain good sleep hygiene; avoid daytime naps; try to get 7 to 8 hours of continuous sleep at night. - Stay mentally active - puzzles, word searches, books, playing cards. - Stay socially active and engaged. Diagnoses/Problems Assessed Headache (784.0) (R51.9) Orders Headache Neurology - Headache Referral Evaluation and Treatment Evaluate AND Treat. Chronic headaches and pressure in face/head area. Status: Hold For - Scheduling Requested for: [id number] Chief Complaint Cognitive evaluation Adult Risk Screening There are no spiritual/cultural practices/values/needs that are important to know Initial Fall Risk Screening: CARLOS has not fallen in the last 6 months. His fall did not result in injury. CARLOS does not have a fear of falling. He does not need assistance with sitting, standing or walking. Does not need assistance walking in his home. He does not need assistance in an unfamiliar setting. The patient is not using an assistive device. Please identify location of pain: forehead nose are. Pain Quality: pressure and makes it hard to speak. History of Present Illness Mr. Carlos Maher is a 45-year-old man who is here for evaluation of cognitive changes and unexplained physical symptoms. He was referred by his PCP Dr. Misty Thakur. Seen in office for an evaluation today. Seen with Eros. HPI: About 3 years ago, he was diagnosed with strep throat and flu. He was prescribed amoxicillin and steroid. After he took those medications, he started feeling a pressure in his head. Soon after that, his mental abilities started to decline, had pressure behind his eyes. He felt like he had a lot of drainage into his throat, out from his eyes. He says that in hindsight, the fluid had a metallic taste. He reports that during this time, he had severe cognitive difficulties - he was in bed, had difficulty recognizing his children. He says he slowly recovered from that. He has had pressure and pain in the bridge of his nose when speaking. He then started speaking less so he had to take another position at work. He even had to use apps to communicate. He did better w (more content not included)... Normal [employer] Office Visit (Social Work)on 07-01-2020 Follow-up visit Encounter Visit Type: This is a consult visit. Accompanied by: Family Member: , Eros. Reason for Referral: consult. Reference Documentation See scanned note GDS. Screening Screening data is being provided by the patient. Screening data is being provided by . Social History College graduate Assessed By: Frannie Stevenson; Last Assessed: 01 Jul 2020 Graduate of [employer] in [employer]. Employed Assessed By: Frannie Stevenson; Last Assessed: 01 Jul 2020 Works full-time for [employer], where he has worked for 16 yrs. 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 After he developed recent problems, he could not keep up and resigned, but [employer] wanted to retain him. 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 He feels better able lately to keep up with his workload and is glad they allowed him to keep his job. Lives with significant other Assessed By: Frannie Stevenson; Last Assessed: 01 Jul 2020 Lives in [facility] home for 11 yrs with , Eros and their 5 children: Moriah, age 18, Zeb, age 16, Josef, age 14, Manny, age 12 and Cruz, age 8. Kids are in school 4 days/week and home on Wednesdays. 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 They feel safe in their home. No formal supports. Patient has older and younger sisters and keeps in touch. His mother is 71 and has colon CA, but doing alright. Assessed By: Frannie Stevenson; Last Assessed: 01 Jul 2020 to , Eros, for 21 yrs. No advance directives (V49.89) (Z78.9) Assessed By: Frannie Stevenson; Last Assessed: 01 Jul 2020 No POA. Pt does the family finances without issues. Current Affect /Mental Health History Mental Health Status: Current Affect/Mood/Loss: Says mood has been alright, especially now that he is feeling a bit better. Said he has had anxiety in the past, but attributed it to drinking lots of caffeine and then to prilosec. Does not use either now. Does not drink alcohol. Was treated with lorazapam, which made him crazy, and then cytalopram, but not taking anything currently. Activity/Interests/Daily Routine: Works full-time and has 5 children at home, so very busy. Does keep in touch with his mother and 2 sisters. Has been very active in [employer], but since covid, just attending virtually. Energy (Changes?): Had problems falling asleep for a time, but better now and feels he has adequate energy. Suicidal Thoughts/Plan (?): none. Impression/Plan Assessment during this visit identified the following: adjustment to illness and advanced directives . appears to be very supportive. Seems to have positive relationships through work and with his sisters, mom and kids. No formal supports. works part-time, but very involved with kids and is helping with driving any longer distances. Patient still drives around town. Education Materials/ Community Resources: Did discuss and recommend POA. The history provided during this session was provided by patient and . Plan: Review of testing and impressions. Perhaps referral to appropriate specialty, to try to ascertain the nature of patient's symptoms. His cognitive testing was good and mood appears fairly stable. Offer any resources, prn, that may assist patient in coping with changes. Seems relatively stable, although some symptoms persist. Scores and Scales GDS [id number] 03:04PM Geriatric Depression Scale, Total Score1 Time Time Stamp_UH: Prep time on date of the patient encounter: 5 minutes minutes. Time spent directly with patient/family/caregiver: 50 minutes minutes. Patient Care Team Care Team MemberRoleSpecialtyOffice Number Blaze FLETCHER, Misty [phone] Signatures Electronically signed by : YADY Harp; Jul 01 2020 3:05PM EST (Author) Normal [employer] Vital Signs Date Time Vital Sign Value Performing Clinician Facility 12-02-2024 14:47-0400 Body temperature 98.1 [degF] Sejal Huggins MD Work Phone: [facility] 12-02-2024 14:47-0400 Diastolic blood pressure 81 mm[Hg] Sejal Huggins MD Work Phone: [facility] 12-02-2024 14:47-0400 Heart rate 95 /min Sejal Huggins MD Work Phone: [facility] 12-02-2024 14:47-0400 Respiratory rate 16 /min Sejal Huggins MD Work Phone: [facility] 12-02-2024 14:47-0400 SaO2% (BldA) [Mass fraction] 95 % Sejal Huggins MD Work Phone: [facility] 12-02-2024 14:47-0400 Systolic blood pressure 146 mm[Hg] Sejal Huggins MD Work Phone: [facility] 12-01-2024 20:50-0400 Body height 170.2 cm Sejal Huggins MD Work Phone: [facility] 12-01-2024 20:50-0400 Body mass index (BMI) [Ratio] 33.35 kg/m2 Sejal Huggins MD Work Phone: [facility] 12-01-2024 20:50-0400 Body weight 96.6 kg Sejal Huggins MD Work Phone: [facility] 04-25-2023 12:45-0500 Diastolic blood pressure 90 mm[Hg] Alana Nowak MD Work Phone: [facility] 04-25-2023 12:45-0500 Heart rate 100 /min Alana Nowak MD Work Phone: [facility] 04-25-2023 12:45-0500 Respiratory rate 16 /min Alana Nowak MD Work Phone: [facility] 04-25-2023 12:45-0500 SaO2% (BldA) [Mass fraction] 98 % Alana Nowak MD Work Phone: [facility] 04-25-2023 12:45-0500 Systolic blood pressure 135 mm[Hg] Alana Nowak MD Work Phone: [facility] 04-25-2023 10:11-0500 Body temperature 97.81 [degF] Alana Nowak MD Work Phone: [facility] 03-21-2023 14:28-0400 Body height 170.2 cm Leilani Rosario PA-C Work Phone: [facility] 03-21-2023 14:28-0400 Body temperature 97.9 [degF] Leilani Rosario PA-C Work Phone: [facility] 03-21-2023 14:28-0400 Body weight 97.16 kg Leilani Luciof PA-C Work Phone: [facility] 03-21-2023 14:28-0400 Diastolic blood pressure 88 mm[Hg] Leilaniangelic Luciof PA-C Work Phone: [facility] 03-21-2023 14:28-0400 Heart rate 119 /min Leilani Luciof PA-C Work Phone: [facility] 03-21-2023 14:28-0400 SaO2% (BldA) [Mass fraction] 96 % Leilani Luciof PA-C Work Phone: [facility] 03-21-2023 14:28-0400 Systolic blood pressure 136 mm[Hg] Leilani Luciof PA-C Work Phone: [facility] 07-01-2020 17:04-0500 1 1 [facility] Work Phone: Comment on above: Geriatric Depression Scale, Total Score 07-01-2020 14:01-0500 BMI (Body Mass Index) 33.42 kg/m2 [facility] Work Phone: 07-01-2020 14:01-0500 Body Temperature 95.7 [degF] [facility] Work Phone: 07-01-2020 14:01-0500 Body weight 96.8 kg [facility] Work Phone: 07-01-2020 14:01-0500 BSA (Body Surface Area) 2.08 m2 [facility] Work Phone: 07-01-2020 14:01-0500 diastolic 108 mm[Hg] [facility] Work Phone: Comment on above: Diastolic Sitting 07-01-2020 14:01-0500 Height 170.18 cm [facility] Work Phone: 07-01-2020 14:01-0500 Respiratory Rate 18 /min [facility] Work Phone: 07-01-2020 14:01-0500 systolic 157 mm[Hg] [facility] Work Phone: Comment on above: Systolic Sitting 07-01-2020 14:010500 78 1 [facility] Work Phone: Comment on above: Heart Rate Sitting 07-01-2020 14:01-0500 1 1 [facility] Work Phone: Comment on above: Pain Scale Encounters Encounter Date Encounter Type Care Provider Facility Start: 12-17-2024 ambulatory Tom Benton Facility:[facility] Start: 12-13-2024 ambulatory Misty Lowry lity:[facility] Start: 12-02-2024 End: 12-06-2024 ambulatory KACI MCCORD [facility] Start: 12-01-2024 End: 12-02-20[facility]: 12-01-2024 End: 12-02-2024 Evaluation and management of inpatient [facility] Work Phone: [facility] Start: 12-01-2024 End: 12-01-2024 Emergency department patient visit MIKE HARMON [facility] Start: 10-03-2024 End: 10-03-[address] Misty Thakur MD Work Phone: [facility] Work Phone: Start: 10-03-2024 End: 10-03-[address] Misty Thakur MD -Radiology, [facility] Work Phone: Start: 10-03-2024 End: 10-03-2024 ambulatory Misty Thakur Facility:[facility] Start: 09-04-2024 End: 09-04-[address] Misty Thakur MD Work Phone: [facility] Work Phone: Start: 09-04-2024 End: 09-04-[address] Misty Thakur MD -Laboratory, [facility] Start: 09-04-2024 End: 09-04-2024 ambulatory Misty Thakur Facility:[facility] Start: 04-28-2023 Telephone encounter Alana Nowak MD Work Phone: [place] Provider Adult Comment on above: Results Start: 04-25-2023 End: 04-25-2023 ambulatory [facility] Facility:[facility] Start: 04-25-2023 End: 04-25-2023 Subsequent hospital visit by physician Alana Nowak MD Work Phone: Ambulatory Surgery Comment on above: History of colitis [ Z87.19] Start: 03-21-2023 End: 03-22-2023 ambulatory [facility] Facility:[facility] Start: 03-21-2023 End: 03-21-2023 Patient encounter procedure Leilani Graf COLBERT Work Phone: General Surgery Comment on above: Family history of co barron cancer (Primary Dx); History of colitis Start: 11-08-2020 Chart Update Misty Thakur Work Phone: [facility] Work Phone: Start: 07-01-2020 Patient encounter procedure [facility] Work Phone: Procedures Date Procedure Procedure Detail Performing Clinician Start: 12-02-2024 TTE w or wo fol wcon,Doppler Tony Gerprateek DO Work Phone: Start: 12-02-2024 Complete blood count with white cell differential, manual Tony Galeana DO Work Phone: Start: 12-02-2024 Comprehensive metabo lic panel Tony Galeana DO Work Phone: Start: 12-01-2024 Assay of troponin quantitative Tony Galeana DO Work Phone: Start: 12-01-2024 Complete blood count with white cell differential, manual Tony Galeana DO Work Phone: Start: 12-01-2024 Comprehensive metabo lic panel Tony Galeana DO Work Phone: Start: 12-01-2024 Lipid panel Tony shankar DO Work Phone: Start: 10-03-2024 X-ray of esophagus w ith double contrast Dr. Misty Thakur MD Work Phone: Start: 09-04-2024 Prostate specific an tigen measurement Dr. Misty Thakur MD Work Phone: Comment on above: This test was perfor med using the [employer] tPSA method. Measured values of a patient sample can vary depending on the testing procedure used. PSA values determined on patient samples by different testing procedures cannot be used interchangeably. If there is a change in PSA assays while monitoring therapy, sequential testing should be performed to confirm baseline values. Start: 04-25-2023 Colonoscopy flx dx w /collj spec when pfrmd Leilani Rosario PA-C Work Phone: Start: 04-25-2023 Colonoscopy Alana andrew MD Work Phone: Start: 09-04-2017 Lipid 1996 panel - S matt or Plasma Leilani Rosario PA-C Work Phone: Start: 07-02-2014 Colonoscopy Leilani perry PA-C Work Phone: No history of surgery Usama Thakur Work Phone: Plan of Treatment Date Care Activity Detail Author Start: 04-25-2028 Colonoscopy Colonoscopy [facility] Start: 04-25-2028 Colorectal Cancer Screening Colorectal Cancer Screening [facility] Start: 12-09-2024 End: 12-02-2025 CT Heart and Coronary arteries for calcium scoring WO contrast CT CALCIUM SCORE SCREENING Imaging Routine Chest pain, unspecified type Expected: 12/09/2024, Expires: 12/02/2025 [facility] Work Phone: Comment on above: Expected: 12/09/2024 , Expires: 12/02/2025 Start: 12-09-2024 End: 02-02-2026 Stress test only, exercise Stress test only, exercise Cardiac Services Routine Chest pain, unspecified type Expected: 12/09/2024, Expires: 02/02/2026 [facility] Comment on above: Expected: 12/09/2024 , Expires: 02/02/2026 Start: 04-25-2024 Colonoscopy Colonoscopy [facility] Start: 04-25-2024 Colorectal Cancer Screening Colorectal Cancer Screening [facility] Start: 01-27-2023 Influenza vaccination Influenza Vacc ine (#1) [facility] Start: 09-04-2022 Lipid 1996 panel - S matt or Plasma Lipid Screening [facility] Start: 05-29-2022 Depression Assessment Depression Ass essment [facility] Start: 09-04-2020 Diabetes Screening Diabetes Screenin g [facility] Start: 2018 Cologuard (FIT-DNA) Cologuard (FIT-D NA) [facility] Start: 2018 Colonoscopy Colonoscopy [facility] Start: 2018 Colorectal Cancer Screening Colorectal Cancer Screening [facility] Start: [address] Colonography [facility] Start: 2018 Fecal Occult Blood Fecal Occult Bloo d [facility] Start: 2018 Sigmoidoscopy Sigmoidoscopy [facility] Start: 1991 Hepatitis C Screening Hepatitis C Sc reening [facility] Start: 1991 HIV Screening HIV Screening [facility] Start: 11-25-1987 Urine microalbumin profile DTaP,Tdap,Td Vaccine (6 - Tdap) [facility] Start: 1973 Covid-19 Vaccine (#1) Covid-19 Vacci ne (#1) [facility] Start: 1973 Hepatitis B Vaccine (1 of 3 - 3-dose series) Hepatitis B Vaccine (1 of 3 - 3-dose series) [facility] Ambulatory ECG Event Monitor Ambulatory ECG Event Monitor Cardiac Services Routine Chest pain, unspecified type Ordered: 12/02/2024 [facility] Comment on above: Ordered: 12/02/2024 SURGICAL PATHOLOGY [facility] Work Phone: Comment on above: Release Upon Jannette yap for 1 Occurrences starting 04/25/2023, 1 completed [facility] c Immunizations Immunization Date Immunization Notes Care Provider Mykel lei 10-12-1989 measles, mumps and rubella virus vaccine Leilani Hume PA-C Work Phone: [facility] Work Phone: 11-24-1987 tetanus and diphther ia toxoids, adsorbed, preservative free, for adult use (2 Lf of tetanus toxoid and 2 Lf of diphtheria toxoid) Leilani Charisse PA-C Work Phone: [facility] Work Phone: 02-02-1979 diphtheria, tetanus toxoids and pertussis vaccine Leilani Hume PA-C Work Phone: [facility] Work Phone: 02-02-1979 trivalent poliovirus vaccine, live, oral Leilani Hume PA-C Work Phone: [facility] Work Phone: 01-03-1975 diphtheria, tetanus toxoids and pertussis vaccine Leilani Hume PA-C Work Phone: [facility] Work Phone: 01-03-1975 trivalent poliovirus vaccine, live, oral Leilani Hume PA-C Work Phone: [facility] Work Phone: 08-17-1974 measles, mumps and rubella virus vaccine Leilani Charisse PA-C Work Phone: [facility] Work Phone: 1973 diphtheria, tetanus toxoids and pertussis vaccine Leilani Hume PA-C Work Phone: [facility] Work Phone: 1973 trivalent poliovirus vaccine, live, oral Leilani Charisse PA-C Work Phone: [facility] Work Phone: 1973 diphtheria, tetanus toxoids and pertussis vaccine Leilani Hume PA-C Work Phone: [facility] Work Phone: 1973 trivalent poliovirus vaccine, live, oral Leilani Hume PA-C Work Phone: [facility] Work Phone: 1973 diphtheria, tetanus toxoids and pertussis vaccine Leilani Rosario PA-C Work Phone: [facility] Work Phone: 1973 trivalent poliovirus vaccine, live, oral Leilani Rosario BETHANYSheri Work Phone: [facility] Work Phone: Payers Date Payer Category Payer Self-pay 2021 Managed Care PPO (unspecified) MED [facility] PPO .[id number] 2021 Unknown 2021 Unknown [id number] 1973 Unknown [id number] 1973 Unknown [id number] 1973 Unknown [id number] Self-pay SELF PAY INSURANCE [id number] Unknown [id number] Unknown [id number] Unknown [id number] Unknown [id number] Social History Date Type Detail Facility Assertion Tobacco smoking consumption unknown (finding) [facility] Work Phone: Start: 03-21-2023 End: 12-02-2024 College graduate College graduate [employer] Work Phone: Comment on above: Graduate of [employer] in [employer] sciences.; Lives in [place] [facility] for 11 yrs with , Eros and their 5 children: Moriah, age 18, Zeb, age 16, Josef, age 14, Manny, age 12 and Cruz, age 8. Kids are in school 4 days/week and home on Wednesdays. 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 They feel safe in their home. No formal supports. Patient has older and younger sisters and keeps in touch. His mother is 71 and has colon CA, but doing alright.; to , [employer], for 21 yrs.; Works full-time for [employer], where he has worked for 16 yrs. 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 After he developed recent problems, he could not keep up and resigned, but [facility] wanted to retain him. 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 He feels better able lately to keep up with his workload and is glad they allowed him to keep his job.; No POA. Pt does the family finances without issues.; Start: 11-22-2010 End: 12-02-2024 Tobacco smoking status NHIS Never smoked tobacco [facility] Work Phone: Start: 11-22-2010 End: 12-02-2024 Tobacco use and exposure Smokeless tobacco non-user [facility] Work Phone: Start: 03-21-2023 End: 04-25-2023 Alcohol intake Current non-drinker of alcohol (finding) [facility] Start: 03-21-2023 End: 12-02-2024 Tobacco use panel [facility] National Score (1-10 0), lower number is lower risk 53 [facility] Start: 06-27-2014 Alcohol Comment every few mayank hs- couple times [facility] Start: 1975 Sex Assigned At Male [facility] Start: 09-25-2019 Gender identity Identifies as male gender (finding) [facility] Start: 09-25-2019 Sexual orientation Heterosexual (katey carrizales) [facility] Start: 09-09-2024 Sex Male (finding) [facility] Start: 12-02-2024 Alcoholic beverage intake Lifetime non-drinker (finding) [facility] Has the [employer], [employer], or water [employer] threatened to shut off services in your home in past 12Mo No [facility] (I/We) worried wheth er (my/our) food would run out before (I/we) got money to buy more. Never true [facility] Start: 1975 [facility] Status Date Assessment Result Facility NEGATED: Highlighted row Functional performance Functional status health issues are not documented Disease [facility] Work Phone: Mental Status Date Assessment Result Facility NEGATED: Highlighted row Cognitive function [Interpretation] Cognitive status health issues are not documented Disease [facility] Work Phone: Clinical Notes 07-02-2014 to 12-02-2024 Kaci Adame CNP - 12/02/2024 3:14 PM EDTPlan of Danny Damico RN - 12/02/2024 11:18 AM EDTPlan of Danny Damico RN - 12/02/2024 11:18 AM EDT Note Date & Type Note Facility 12-02-2024 Hospital course Narrative [facility] [place] DISCHARGE SUMMARY -- [facility] Carlos Maher : 1975 Admitted: 12/01/2024 Discharge Date: 12/02/24 PCP Handoff Recommended Outpatient Testing 7 days of cardiac event monitor, cardiac CT, stress test, cardiology appt to review results, manage blood pressure Sleep apnea study for day time sleepiness, and apnea at night Results Pending At Discharge none Clinical Summary Carlos Maher is a 49 y.o. male patient of Misty Thakur MD with history of no significant past medical history presented to [facility] on 12/01/2024 with chest pain. Patient transferred from [place] ER. Acute chest pain, rule out ACS EKG reviewed showed sinus tachycardia with HR of 110, no significant ST or T wave normalities CXR nonacute Troponin negative x 2 Continue cardiac monitoring Trend troponin Echo : normal with EF of 67% Control pain with Tylenol and nitro as needed Check A1c 5.5 TSH 1.23 lipid panel Cholesterol 130, HDL 41, Chol/hdl ratio 3.2 Replete electrolyte as needed keep k>4, Phos > 3, Mag >2 BNP <50 Plan 7 days event monitor, stress test, cardiac ct, and follow up with cardiology to review results, discussed follow up plans with patient and spouse Sleep apnea Daytime drowsiness Snoring Recommend sleep study Follow up with PCP for referral Elevated blood pressure without diagnosis of hypertension BP was elevated 154/97, 176/97 No history of hypertension, patient is not taking medication Previously diagnosed with whitecoat syndrome by his PCP Will start amlodipine 10 mg Follow up with cardiology QUOC on top of CKD stage II resolved Creatinine admission 1.34 >1.28 Avoid nephrotoxic agent Better control of BP Discharge Medications Discharge Medications New Medications Details amLODIPine 10 MG tablet Commonly known as: NORVASC Start taking on: December 03, 2024 Take 1 (one) tablet (10 mg total) by mouth daily Start: 12/03/24. Quantity: 30 tablet Physician(s) Follow Up: No follow-up provider specified. Condition at Discharge: Stable Disposition: Home I reviewed discharge recommendations with the patient in person. Patient instructions, including activity, were given to the patient/family at discharge. On day of discharge I saw Carlos Maher and spent: > 30 minutes on discharge. Completed by: Kaci Adame CNP on 12/02/24, 3:14 PM documented in this encounter [facility] 12-02-2024 Note HMS DISCHARGE SUMMAR Y -- [facility] Carlos Maher : 1975 Admitted: 12/01/2024 Discharge Date: 12/02/24 PCP Handoff Recommended Outpatient Testing 7 days of cardiac event monitor, cardiac CT, stress test, cardiology appt to review results, manage blood pressure Sleep apnea study for day time sleepiness, and apnea at night Results Pending At Discharge none Clinical Summary Carlos Maher is a 49 y.o. male patient of Misty Thakur MD with history of no significant past medical history presented to [facility] on 12/01/2024 with chest pain. Patient transferred from [place] ER. Acute chest pain, rule out ACS EKG reviewed showed sinus tachycardia with HR of 110, no significant ST or T wave normalities CXR nonacute Troponin negative x 2 Continue cardiac monitoring Trend troponin Echo : normal with EF of 67% Control pain with Tylenol and nitro as needed Check A1c 5.5 TSH 1.23 lipid panel Cholesterol 130, HDL 41, Chol/hdl ratio 3.2 Replete electrolyte as needed keep k>4, Phos > 3, Mag >2 BNP <50 Plan 7 days event monitor, stress test, cardiac ct, and follow up with cardiology to review results, discussed follow up plans with patient and spouse Sleep apnea Daytime drowsiness Snoring Recommend sleep study Follow up with PCP for referral Elevated blood pressure without diagnosis of hypertension BP was elevated 154/97, 176/97 No history of hypertension, patient is not taking medication Previously diagnosed with whitecoat syndrome by his PCP Will start amlodipine 10 mg Follow up with cardiology QUOC on top of CKD stage II resolved Creatinine admission 1.34 >1.28 Avoid nephrotoxic agent Better control of BP Discharge Medications Discharge Medications New Medications Details amLODIPine 10 MG tablet Commonly known as: NORVASC Start taking on: December 03, 2024 Take 1 (one) tablet (10 mg total) by mouth daily Start: 12/03/24. Quantity: 30 tablet Physician(s) Follow Up: No follow-up provider specified. Condition at Discharge: Stable Disposition: Home I reviewed discharge recommendations with the patient in person. Patient instructions, including activity, were given to the patient/family at discharge. On day of discharge I saw Carlos Maher and spent: > 30 minutes on discharge. Completed by: Kaci Adame CNP on 12/02/24, 3:14 PM AUTHENTICATED BY KACI ADAME, ON 12/02/2024 15:25:34 [facility] 12-02-2024 Plan of care note POC reviewed and continued Problem: Actual or potential alteration in health Goal: Absence of healthcare acquired conditions Outcome: Partially Met Goal: Knowledge of Interdisciplinary Plan of Care Outcome: Partially Met Goal: Knowledge of Enviroment Outcome: Partially Met [facility] 12-02-2024 Miscellaneous Notes POC reviewed and continued Problem: Actual or potential alteration in health Goal: Absence of healthcare acquired conditions Outcome: Partially Met Goal: Knowledge of Interdisciplinary Plan of Care Outcome: Partially Met Goal: Knowledge of Enviroment Outcome: Partially Met POC initiated documented in this encounter [facility] 12-02-2024 Plan of care note POC initiated [facility] 12-01-2024 History and physical note [facility] [place] HISTORY AND PHYSICAL -- [facility] Patient Name: Carlos Maher : 1975 MR #: [id number] Admit Date: 12/01/2024 Physicians: Misty Thakur MD (Family); Mike Thompson (Referring) Carlos Maher is a 49 y.o. male patient of Misty Thakur MD with history of no significant past medical history presented to [facility] on 12/01/2024 with chest pain. Patient transferred from [place] ER. Acute chest pain, rule out ACS EKG reviewed showed sinus tachycardia with HR of 110, no significant ST or T wave normalities CXR nonacute Troponin negative x 1 Admit to [facility] with telemetry Continue cardiac monitoring Trend troponin Follow-up echo Control pain with Tylenol and nitro as needed May need stress test as an outpatient if chest pain did not improve Check A1c, lipid panel, TSH Replete electrolyte as needed keep k>4, Phos > 3, Mag >2 Elevated blood pressure without diagnosis of hypertension BP was elevated 154/97, 176/97 No history of hypertension, patient is not taking medication Previously diagnosed with whitecoat syndrome by his PCP Will start amlodipine 10 mg Trend BP QUOC on top of CKD stage II Creatinine admission 1.34, no baseline Avoid nephrotoxic agent Repeat BMP in the morning Better control of BP Residence prior to admission: house or apartment Was patient transferred from outlying hospital or ED yes -- care site [place] [facility] Quality Measures DVT Prophylaxis: heparin subcutaneous Yeager Catheter: absent Medication Reconciliation: Verified Admitted with these risk variables:None. Please see assessment and plan for further details. Estimated Date of Discharge less than 2 midnights Code Status Full Code; code status verified on 12/01/2024 with patient (capacity intact) Chief Complaint chest pain History of Present Illness Carlos Maher is a 49 y.o. male patient of Misty Thakur MD with history of no significant past medical history presented to [facility] on 12/01/2024 with chest pain. Patient transferred from [place] ER. Patient states that 2 weeks ago she had an intermittent episode of SOB and chest pressure radiating to the right jaw and left shoulder. She also endorsed that VEGA. Patient describes her pain as pressure on the chest. Denies any previous episode of similar pain. At baseline patient is eating healthy and exercising but recently started to have some exercise intolerance. She denied any fever chills headache dizziness abdominal pain diarrhea constipation lightheadedness syncope, cough, urinary symptoms recent travel or recent weight loss or sick contacts at home. In the ER in [place], blood pressure was elevated, troponin was negative, CXR nonsignificant, EKG showed sinus tachycardia with rate of 110, no significant ST or T wave abnormalities. Patient received aspirin 324 show while in the ED. And transferred to [place] for cardiac evaluation Bedside evaluation, patient was sitting in the chair comfortably with very mild SOB on exertion, denied any fever headache or dizziness. But he stated that he had SOB on exertion especially in the last 3 months. He drinks alcohol occasionally, no smoking or illicit drugs. He said that he was diagnosed with whitecoat syndrome by his PCP. But never started any medication for high blood pressure Past Medical History No past medical history on file. Past Surgical History No past surgical history on file. Family History No family history on file. Social History Tobacco Use History[1] Social History Substance and Sexual Activity Alcohol Use Not on file Social History Substance and Sexual Activity Drug Use Not on file Allergy Information I have reviewed the patient's allergies. Corticosteroids (glucocorticoids) and Sulfa (sulfonamide antibiotics) Home Medications Home medications were reviewed. Review Of Systems All relevant systems have been reviewed and are negative except as noted in HPI or below Physical Examination There were no vitals taken for this visit. General Appearance: alert; well appearing; in no acute distress HEENT: Head- normocephalic; Eyes- EOMI, sclera anicteric; Throat- mucous membranes moist Cardiovascular: regular rate and rhythm; normal S1, S2; no murmurs, rubs, clicks or gallops; peripheral edema absent Respiratory: lungs clear to auscultation; without wheezes, rales or rhonchi; on room air Abdomen: soft, non-tender, non-distended Neurological: oriented x 3; normal speech; no focal findings or movement disorder noted Musculoskeletal: no significant deformity or tenderness to palpation Skin: normal coloration Psych: normal mood and affect [1] Social History Tobacco Use Smoking Status Not on file Smokeless Tobacco Not on file [facility] 12-01-2024 Note HMS HISTORY AND PHYS ICAL -- [facility] Patient Name: Carlos Maher : 1975 MR #: [id number] Admit Date: 12/01/2024 Physicians: Misty Thakur MD (Family); Mike Thompson (Referring) Carlos Maher is a 49 y.o. male patient of Misty Thakur MD with history of no significant past medical history presented to [facility] on 12/01/2024 with chest pain. Patient transferred from [place] ER. Acute chest pain, rule out ACS EKG reviewed showed sinus tachycardia with HR of 110, no significant ST or T wave normalities CXR nonacute Troponin negative x 1 Admit to [facility] with telemetry Continue cardiac monitoring Trend troponin Follow-up echo Control pain with Tylenol and nitro as needed May need stress test as an outpatient if chest pain did not improve Check A1c, lipid panel, TSH Replete electrolyte as needed keep k>4, Phos > 3, Mag >2 Elevated blood pressure without diagnosis of hypertension BP was elevated 154/97, 176/97 No history of hypertension, patient is not taking medication Previously diagnosed with whitecoat syndrome by his PCP Will start amlodipine 10 mg Trend BP QUOC on top of CKD stage II Creatinine admission 1.34, no baseline Avoid nephrotoxic agent Repeat BMP in the morning Better control of BP Residence prior to admission: house or apartment Was patient transferred from outlying hospital or ED yes -- care site [place] [facility] Quality Measures DVT Prophylaxis: heparin subcutaneous Yeager Catheter: absent Medication Reconciliation: Verified Admitted with these risk variables:None. Please see assessment and plan for further details. Estimated Date of Discharge less than 2 midnights Code Status Full Code; code status verified on 12/01/2024 with patient (capacity intact) Chief Complaint chest pain History of Present Illness Carlos Maher is a 49 y.o. male patient of Misty Thakur MD with history of no significant past medical history presented to [facility] on 12/01/2024 with chest pain. Patient transferred from [place] ER. Patient states that 2 weeks ago she had an intermittent episode of SOB and chest pressure radiating to the right jaw and left shoulder. She also endorsed that VEGA. Patient describes her pain as pressure on the chest. Denies any previous episode of similar pain. At baseline patient is eating healthy and exercising but recently started to have some exercise intolerance. She denied any fever chills headache dizziness abdominal pain diarrhea constipation lightheadedness syncope, cough, urinary symptoms recent travel or recent weight loss or sick contacts at home. In the ER in [place], blood pressure was elevated, troponin was negative, CXR nonsignificant, EKG showed sinus tachycardia with rate of 110, no significant ST or T wave abnormalities. Patient received aspirin 324 show while in the ED. And transferred to [place] for cardiac evaluation Bedside evaluation, patient was sitting in the chair comfortably with very mild SOB on exertion, denied any fever headache or dizziness. But he stated that he had SOB on exertion especially in the last 3 months. He drinks alcohol occasionally, no smoking or illicit drugs. He said that he was diagnosed with whitecoat syndrome by his PCP. But never started any medication for high blood pressure Past Medical History No past medical history on file. Past Surgical History No past surgical history on file. Family History No family history on file. Social History Tobacco Use History[1] Social History Substance and Sexual Activity Alcohol Use Not on file Social History Substance and Sexual Activity Drug Use Not on file Allergy Information I have reviewed the patient's allergies. Corticosteroids (glucocorticoids) and Sulfa (sulfonamide antibiotics) Home Medications Home medications were reviewed. Review Of Systems All relevant systems have been reviewed and are negative except as noted in HPI or below Physical Examination There were no vitals taken for this visit. General Appearance: alert; well appearing; in no acute distress HEENT: Head- normocephalic; Eyes- EOMI, sclera anicteric; Throat- mucous membranes moist Cardiovascular: regular rate and rhythm; normal S1, S2; no murmurs, rubs, clicks or gallops; peripheral edema absent Respiratory: lungs clear to auscultation; without wheezes, rales or rhonchi; on room air Abdomen: soft, non-tender, non-distended Neurological: oriented x 3; normal speech; no focal findings or movement disorder noted Musculoskeletal: no significant deformity or tenderness to palpation Skin: normal coloration Psych: normal mood and affect [1] Social History Tobacco Use Smoking Status Not on file Smokeless Tobacco Not on file AUTHENTICATED BY TONY GALEANA ON 12/01/2024 22:02:16 [facility] 12-01-2024 History and physical note [facility] [place] HISTORY AND PHYSICAL -- [facility] Patient Name: Carlos Maher : 1975 MR #: [id number] Admit Date: 12/01/2024 Physicians: Misty Thakur MD (Family); Mike Thompson (Referring) Carlos Maher is a 49 y.o. male patient of Misty Thakur MD with history of no significant past medical history presented to [facility] on 12/01/2024 with chest pain. Patient transferred from [place] ER. Acute chest pain, rule out ACS EKG reviewed showed sinus tachycardia with HR of 110, no significant ST or T wave normalities CXR nonacute Troponin negative x 1 Admit to [facility] with telemetry Continue cardiac monitoring Trend troponin Follow-up echo Control pain with Tylenol and nitro as needed May need stress test as an outpatient if chest pain did not improve Check A1c, lipid panel, TSH Replete electrolyte as needed keep k>4, Phos > 3, Mag >2 Elevated blood pressure without diagnosis of hypertension BP was elevated 154/97, 176/97 No history of hypertension, patient is not taking medication Previously diagnosed with whitecoat syndrome by his PCP Will start amlodipine 10 mg Trend BP QUOC on top of CKD stage II Creatinine admission 1.34, no baseline Avoid nephrotoxic agent Repeat BMP in the morning Better control of BP Residence prior to admission: house or apartment Was patient transferred from outlying hospital or ED yes -- care site [place] [facility] Quality Measures DVT Prophylaxis: heparin subcutaneous Yeager Catheter: absent Medication Reconciliation: Verified Admitted with these risk variables:None. Please see assessment and plan for further details. Estimated Date of Discharge less than 2 midnights Code Status Full Code; code status verified on 12/01/2024 with patient (capacity intact) Chief Complaint chest pain History of Present Illness Carlos Maher is a 49 y.o. male patient of Misty Thakur MD with history of no significant past medical history presented to [facility] on 12/01/2024 with chest pain. Patient transferred from [place] ER. Patient states that 2 weeks ago she had an intermittent episode of SOB and chest pressure radiating to the right jaw and left shoulder. She also endorsed that VEGA. Patient describes her pain as pressure on the chest. Denies any previous episode of similar pain. At baseline patient is eating healthy and exercising but recently started to have some exercise intolerance. She denied any fever chills headache dizziness abdominal pain diarrhea constipation lightheadedness syncope, cough, urinary symptoms recent travel or recent weight loss or sick contacts at home. In the ER in [place], blood pressure was elevated, troponin was negative, CXR nonsignificant, EKG showed sinus tachycardia with rate of 110, no significant ST or T wave abnormalities. Patient received aspirin 324 show while in the ED. And transferred to [place] for cardiac evaluation Bedside evaluation, patient was sitting in the chair comfortably with very mild SOB on exertion, denied any fever headache or dizziness. But he stated that he had SOB on exertion especially in the last 3 months. He drinks alcohol occasionally, no smoking or illicit drugs. He said that he was diagnosed with whitecoat syndrome by his PCP. But never started any medication for high blood pressure Past Medical History No past medical history on file. Past Surgical History No past surgical history on file. Family History No family history on file. Social History Tobacco Use History[1] Social History Substance and Sexual Activity Alcohol Use Not on file Social History Substance and Sexual Activity Drug Use Not on file Allergy Information I have reviewed the patient's allergies. Corticosteroids (glucocorticoids) and Sulfa (sulfonamide antibiotics) Home Medications Home medications were reviewed. Review Of Systems All relevant systems have been reviewed and are negative except as noted in HPI or below Physical Examination There were no vitals taken for this visit. General Appearance: alert; well appearing; in no acute distress HEENT: Head- normocephalic; Eyes- EOMI, sclera anicteric; Throat- mucous membranes moist Cardiovascular: regular rate and rhythm; normal S1, S2; no murmurs, rubs, clicks or gallops; peripheral edema absent Respiratory: lungs clear to auscultation; without wheezes, rales or rhonchi; on room air Abdomen: soft, non-tender, non-distended Neurological: oriented x 3; normal speech; no focal findings or movement disorder noted Musculoskeletal: no significant deformity or tenderness to palpation Skin: normal coloration Psych: normal mood and affect [1] Social History Tobacco Use Smoking Status Not on file Smokeless Tobacco Not on file documented in this encounter [facility] 10-03-2024 Radiology Diagnostic study note [facility] [address] [place] [address] Esophagus Dual Contrast MR#: [id number] Acct: [id number] Name: CARLOS MAHER Rep #: [id number] : 1975 M 49 From: Jose Armando Gaviria MD PCP: Dr. Misty Thakur MD Status: REG CLI Study:Esophagus Dual Contrast Date of Exam: 10/03/24 Exam# [id number] Ordering Dr: Hermelinda Thakur MD EXAM: Single and double contrast esophagram: CLINICAL HISTORY: Dyspepsia, dysphagia. COMPARISON: None. TECHNIQUE: Single and double contrast esophagram. FINDINGS: A small sliding-type hiatal hernia is noted. No area of persistent narrowing of the esophagus is seen. A widely patent gastroesophageal junction is noted. Gastroesophageal reflux to at least the mid esophagus was noted. Also, intermittent mid to distal esophageal spasm was seen. Limited imaging of the stomach and duodenum demonstrates no abnormality. RAD/Esophagus Dual Contrast IMPRESSION: 1. Small sliding-type hiatal hernia. 2. Gastroesophageal reflux. 3. Intermittent mid to distal esophageal spasm. Reading Location: [place] [address] CC: Dr. Misty Thakur MD ~ Team Assembler: Signed [facility] 04-28-2023 Miscellaneous Notes FOLLOW UP ENDOSCOPY - RESULTS AND RECOMMENDATIONS NAME: Carlos Maher CLINIC NO.: [id number] : 1975 DATE: April 28, 2023 PRIMARY CARE PROVIDER: Jayy Grant MD REFERRING PHYSICIAN: Leilani Rosario Carlos Maher is a patient referred for endoscopy for a family history of colon cancer. I performed lower endoscopy on April 25, 2023. The patient was found to have: Lower Endoscopy Impression: - One 12 mm polyp at the hepatic flexure, removed with a cold snare. Resected and retrieved. - The entire examined colon is normal. Biopsied. - The examination was otherwise normal on direct and retroflexion views. Pathology demonstrated: FINAL DIAGNOSIS A. Colon, ascending, random, biopsy: -Colonic mucosa with no significant histologic abnormality -Negative for granulomas or dysplasia B. Colon, hepatic flexure, polypectomy: -Tubular adenoma C. Colon, descending, random, biopsy: -Colonic mucosa with no significant histologic abnormality -Negative for granulomas or dysplasia IMPRESSION: Solitary adenomatous polyp, negative random colon biopsies PLAN: INSTRUCTIONS FOLLOWING A POLYP FOUND AT COLONOSCOPY You were found to have an adenomatous colon polyp. I recommend you undergo repeat endoscopy in 5 years. If you note bleeding, change in bowel habits, or other suspicious colon related symptoms before that time, those symptoms should be evaluated as necessary. If you have any difficulties or concerns, you should contact our office immediately. The patient is instructed to follow-up with your primary care provider as needed I have instructed my staff to forward the above information to the patient and to the appropriate providers documented in this encounter [facility] 04-25-2023 Nurse Note Arrived in phase II via cart. Left lateral position. Sedated, but responds to verbal stimuli. Color normal; skin warm and dry. Respirations wnl and unlabored. Abdomen soft and with + bowel sounds in quads X 4. Patient resting comfortably. Family at bedside. Dr. Nowak at bedside to review procedure and recommendations. Peggy Eason RN documented in this encounter [facility] 04-25-2023 History and physical note UPDATED PROCEDURAL SEDATION HISTORY AND PHYSICAL EXAMINATION SERVICE DATE: 04/25/2023 SERVICE TIME: 11:23 AM PHYSICAL EXAM MUST BE COMPLETED ON ADMISSION PROCEDURE: Procedure Indications: The History and Physical (completed in the past 30 days) has been reviewed and the patient has been examined. The contents accurately reflect the patient's condition with the following additions or revisions since the H&P was completed. ASA Class: ASA Class:: Patient with mild systemic disease Examination indicates no changes. AIRWAY: Airway Visualization of Uvula: Yes Mouth opening greater than 2 fingerbreadths: Yes Neck Full Range of Motion: Yes LUNGS: Lungs clear to auscultation CARDIAC: Regular rhythm,Regular rate Provisional Diagnosis/Treatment Plan: family history of colon cancer, =/- history of colitis - Colonoscopy SEDATION GOAL: Moderate This H&P can be found in the attached. SIGNATURE: Alana Nowak MD PATIENT NAME: Carlos Maher DATE: April 25, 2023 TIME: 11:23 AM Source Note - Alana Nowak MD - 04/25/2023 10:30 AM EST HISTORY AND PHYSICAL Carlos Hernandezncer 1975 REFERRING PHYSICIAN: No ref. provider found CHIEF COMPLAINT: Consult (Colonoscopy consult.) HPI: The patient is a 47 year old male referred for endoscopy. Carlos notes a history of intermittent colitis episodes, most recently around a month ago. States will get some pelvic pressure and lower back discomfort when these episodes occur. Patient reports has also been diagnosed with pelvic floor dysfunction. Denies fever or chills. Denies history of diverticulitis. Notes episodes brought on more with stress. Notes multiple family members with colon cancer. Patient denies any blood in stools or black tarry stools. The patient notes no upper GI complaints. Denies any upper abdominal discomfort, nausea or vomiting. Carlos has undergone prior endoscopy, last in [address] Pitt with no concerning findings and no active colitis at that time. Patient has had prior procedures under both conscious sedation and Monitored Anesthetic Care and states has tolerated both without issue. PAST MEDICAL HISTORY PAST MEDICAL HISTORY Diagnosis Date Abdominal pain, unspecified site Diaphragmatic hernia without mention of obstruction or gangrene Esophagitis, unspecified Other forms of migraine Palpitations 12/23/2006 Panic disorder without agoraphobia 12/13/2006 Prediabetes PAST SURGICAL HISTORY PAST SURGICAL HISTORY Procedure Laterality Date COLONOSCOPY FLX DX W/COLLJ SPEC WHEN PFRMD 04/03/2008 Colonoscopy COLONOSCOPY FLX DX W/COLLJ SPEC WHEN PFRMD 07/02/14 Colonoscopy ESOPHAGOGASTRODUODENOSCOPY TRANSORAL DIAGNOSTIC 07/14/2011 EGD CURRENT MEDICATIONS Current Outpatient Medications Medication Sig acetaminophen (TYLENOL) 500 mg tablet 500 mg as needed. No current facility-administered medications for this visit. ALLERGIES: Amoxicillin, Azithromycin, Bactrim [Sulfamethoxazole-Trimethoprim], Caffeine, Lorazepam, Prednisone, and Prilosec [Omeprazole Magnesium] PERSONAL HISTORY: SOCIAL HISTORY Social History Tobacco Use Smoking status: Never Smokeless tobacco: Never Substance Use Topics Alcohol use: No Comment: every few months- couple times Drug use: No FAMILY HISTORY: FAMILY HISTORY FAMILY HISTORY Problem Relation Age of Onset Emphysema Father Heart Father 3 years ago at 58 yo (was a heavy smoker other (Panic disorder) Father Diabetes Mother Alzheimer's Disease Maternal Grandmother Cancer Maternal Grandmother Cancer Maternal Uncle Seizures Sister epileptic Heart Maternal Grandfather in his 50's from IN REVIEW OF SYMPTOMS: The review of systems data was entered by the nurse and reviewed by ct Nursing Notes: Micaela Cespedes RN 03/21/2023 2:45 PM Signed REVIEW OF SYSTEMS: General: The patient denies fatigue, denies weight loss, denies weight gain, denies feeling hot, and denies feelings of cold. Eyes: The patient denies glaucoma, denies eye injury/surgery, does not wear glasses or contacts. Ear/Nose/Throat: The patient NOTES allergies, denies hayfever, denies ear infections, and denies bloody noses. Cardiovascular: The patient denies chest pain, denies heart disease, NOTES high blood pressure,denies cardiac stent, denies prior heart attack, denies irregular heart beat, denies high cholesterol, denies poor circulation, denies heart failure, other cardiac issues, denies claudication, denies cold feet, denies peripheral arterial stent. Respiratory: The patient denies tuberculosis, denies pneumonia, denies frequent cough, denies pulmonary embolism, denies shortness of breath, and denies coughing up blood. Gastrointestinal: The patient denies difficulty swallowing, NOTES acid reflux, denies ulcers, denies vomiting, denies jaundice/hepatitis, denies gallbladder problems, denies black or tarry stools, NOTES hemorrhoids, NOTES bleeding from rectum, denies diverticulitis, denies constipation, denies diarrhea, denies loss of stool control, denies hernias and NOTES colitis. Kidney/Bladder: The patient denies kidney stones, denies urine infections, and denies bloody urine. Skin: The patient denies a history of skin cancer, denies bleeding/changing moles, and denies a history of skin rash. Neurologic: The patient denies a history of epilepsy/convulsions, NOTES headaches, denies head/spinal injuries, and denies stroke/TIA. Psychiatric: The patient denies psychiatric medications, denies depression, and denies voices, denies substance abuse. Endocrine: The patient denies thyroid disorders, denies diabetes, and denies hormonal problems. Hematologic: The patient denies a history of bruising, denies bleeding, and denies anemia, denies blood clots. Infections: The patient NOTES a history of measles and mumps, denies rheumatic fever, and denies sexually transmitted diseases. Musculoskeletal: The patient NOTES back pain/injury, denies back problems, denies sciatica, denies knee/foot trouble, denies arthritis, or denies gout. When was patient's last Mammogram screening? N/A Last Colonoscopy: 07/02/2014 Micaela Cespedes RN I have confirmed and edited as necessary, the PFSH and ROS obtained by others. Leilani Rosario PA-C PHYSICAL EXAMINATION: General: The patient is 47 year old male, well nourished, well hydrated in no acute distress. The patient is oriented to time, place, and person. VITALS: Blood pressure 136/88, pulse 119, temperature 36.6 C (97.9 F), height 170.2 cm (5' 7), weight 97.2 kg (214 lb 3.2 oz), SpO2 96 %. Body mass index is 33.55 kg/m . HEENT: Normal cephalic, ataumatic, pupils are equally round, sclera are anicteric, mucous membranes are moist, oropharynx is clear. Neck has no masses, asymmetry or lymphadenopathy. Respiratory: Clear to auscultation and percussion. Normal respiratory excursion and pattern. Cardiac: Examination is regular rate and rhythm. Normal S1/S2 Abdominal exam: Soft, nontender, with no palpable masses. No hepatosplenomegaly. No palpable hernias. Extremities: no clubbing, cyanosis or edema. No adenopathy. LABORATORY VALUES: As Noted RADIOLOGIC STUDIES: As Noted Assessment IMPRESSION: history of colitis, lower abdominal discomfort, family history of colon cancer PLAN: I have reviewed my findings with the surgeon. Will plan for lower endoscopy with biopsies. We discussed the risks and benefits of the planned endoscopy. I have informed the patient that complications can occur including failure to complete the endoscopy and perforation. The patient had the opportunity to ask questions concerning the planned endoscopy. My staff has also explained the procedure to the patient in understandable terms and has given the patient printed material concerning the procedure. The patient freely consents to surgery. I plan to use Golytely bowel preparation Diagnoses: No diagnosis found. I spent a total of 33 minutes on the date of the service which included preparing to see the patient, [id number] patient care, completing clinical documentation, obtaining and/or reviewing separately obtained history, performing a medically appropriate examination, counseling and educating the patient/family/caregiver, and ordering medications, tests, or procedures. Leilani Rosario PA-C HISTORY AND PHYSICAL Carlos Maher 1975 REFERRING PHYSICIAN: No ref. provider found CHIEF COMPLAINT: Consult (Colonoscopy consult.) HPI: The patient is a 47 year old male referred for endoscopy. Carlos notes a history of intermittent colitis episodes, most recently around a month ago. States will get some pelvic pressure and lower back discomfort when these episodes occur. Patient reports has also been diagnosed with pelvic floor dysfunction. Denies fever or chills. Denies history of diverticulitis. Notes episodes brought on more with stress. Notes multiple family members with colon cancer. Patient denies any blood in stools or black tarry stools. The patient notes no upper GI complaints. Denies any upper abdominal discomfort, nausea or vomiting. Carlos has undergone prior endoscopy, last in [address] Pitt with no concerning findings and no active colitis at that time. Patient has had prior procedures under both conscious sedation and Monitored Anesthetic Care and states has tolerated both without issue. PAST MEDICAL HISTORY PAST MEDICAL HISTORY Diagnosis Date Abdominal pain, unspecified site Diaphragmatic hernia without mention of obstruction or gangrene Esophagitis, unspecified Other forms of migraine Palpitations 12/23/2006 Panic disorder without agoraphobia 12/13/2006 Prediabetes PAST SURGICAL HISTORY PAST SURGICAL HISTORY Procedure Laterality Date COLONOSCOPY FLX DX W/COLLJ SPEC WHEN PFRMD 04/03/2008 Colonoscopy COLONOSCOPY FLX DX W/COLLJ SPEC WHEN PFRMD 07/02/14 Colonoscopy ESOPHAGOGASTRODUODENOSCOPY TRANSORAL DIAGNOSTIC 07/14/2011 EGD CURRENT MEDICATIONS Current Outpatient Medications Medication Sig acetaminophen (TYLENOL) 500 mg tablet 500 mg as needed. No current facility-administered medications for this visit. ALLERGIES: Amoxicillin, Azithromycin, Bactrim [Sulfamethoxazole-Trimethoprim], Caffeine, Lorazepam, Prednisone, and Prilosec [Omeprazole Magnesium] PERSONAL HISTORY: SOCIAL HISTORY Social History Tobacco Use Smoking status: Never Smokeless tobacco: Never Substance Use Topics Alcohol use: No Comment: every few months- couple times Drug use: No FAMILY HISTORY: FAMILY HISTORY FAMILY HISTORY Problem Relation Age of Onset Emphysema Father Heart Father 3 years ago at 58 yo (was a heavy smoker other (Panic disorder) Father Diabetes Mother Alzheimer's Disease Maternal Grandmother Cancer Maternal Grandmother Cancer Maternal Uncle Seizures Sister epileptic Heart Maternal Grandfather in his 50's from IN REVIEW OF SYMPTOMS: The review of systems data was entered by the nurse and reviewed by me Nursing Notes: Micaela Cespedes RN 03/21/2023 2:45 PM Signed REVIEW OF SYSTEMS: General: The patient denies fatigue, denies weight loss, denies weight gain, denies feeling hot, and denies feelings of cold. Eyes: The patient denies glaucoma, denies eye injury/surgery, does not wear glasses or contacts. Ear/Nose/Throat: The patient NOTES allergies, denies hayfever, denies ear infections, and denies bloody noses. Cardiovascular: The patient denies chest pain, denies heart disease, NOTES high blood pressure,denies cardiac stent, denies prior heart attack, denies irregular heart beat, denies high cholesterol, denies poor circulation, denies heart failure, other cardiac issues, denies claudication, denies cold feet, denies peripheral arterial stent. Respiratory: The patient denies tuberculosis, denies pneumonia, denies frequent cough, denies pulmonary embolism, denies shortness of breath, and denies coughing up blood. Gastrointestinal: The patient denies difficulty swallowing, NOTES acid reflux, denies ulcers, denies vomiting, denies jaundice/hepatitis, denies gallbladder problems, denies black or tarry stools, NOTES hemorrhoids, NOTES bleeding from rectum, denies diverticulitis, denies constipation, denies diarrhea, denies loss of stool control, denies hernias and NOTES colitis. Kidney/Bladder: The patient denies kidney stones, denies urine infections, and denies bloody urine. Skin: The patient denies a history of skin cancer, denies bleeding/changing moles, and denies a history of skin rash. Neurologic: The patient denies a history of epilepsy/convulsions, NOTES headaches, denies head/spinal injuries, and denies stroke/TIA. Psychiatric: The patient denies psychiatric medications, denies depression, and denies voices, denies substance abuse. Endocrine: The patient denies thyroid disorders, denies diabetes, and denies hormonal problems. Hematologic: The patient denies a history of bruising, denies bleeding, and denies anemia, denies blood clots. Infections: The patient NOTES a history of measles and mumps, denies rheumatic fever, and denies sexually transmitted diseases. Musculoskeletal: The patient NOTES back pain/injury, denies back problems, denies sciatica, denies knee/foot trouble, denies arthritis, or denies gout. When was patient's last Mammogram screening? N/A Last Colonoscopy: 07/02/2014 Micaela Cespedes RN I have confirmed and edited as necessary, the PFSH and ROS obtained by others. Leilani Rosario PA-C PHYSICAL EXAMINATION: General: The patient is 47 year old male, well nourished, well hydrated in no acute distress. The patient is oriented to time, place, and person. VITALS: Blood pressure 136/88, pulse 119, temperature 36.6 C (97.9 F), height 170.2 cm (5' 7), weight 97.2 kg (214 lb 3.2 oz), SpO2 96 %. Body mass index is 33.55 kg/m . HEENT: Normal cephalic, ataumatic, pupils are equally round, sclera are anicteric, mucous membranes are moist, oropharynx is clear. Neck has no masses, asymmetry or lymphadenopathy. Respiratory: Clear to auscultation and percussion. Normal respiratory excursion and pattern. Cardiac: Examination is regular rate and rhythm. Normal S1/S2 Abdominal exam: Soft, nontender, with no palpable masses. No hepatosplenomegaly. No palpable hernias. Extremities: no clubbing, cyanosis or edema. No adenopathy. LABORATORY VALUES: As Noted RADIOLOGIC STUDIES: As Noted Assessment IMPRESSION: history of colitis, lower abdominal discomfort, family history of colon cancer PLAN: I have reviewed my findings with the surgeon. Will plan for lower endoscopy with biopsies. We discussed the risks and benefits of the planned endoscopy. I have informed the patient that complications can occur including failure to complete the endoscopy and perforation. The patient had the opportunity to ask questions concerning the planned endoscopy. My staff has also explained the procedure to the patient in understandable terms and has given the patient printed material concerning the procedure. The patient freely consents to surgery. I plan to use Golytely bowel preparation Diagnoses: No diagnosis found. I spent a total of 33 minutes on the date of the service which included preparing to see the patient, [id number] patient care, completing clinical documentation, obtaining and/or reviewing separately obtained history, performing a medically appropriate examination, counseling and educating the patient/family/caregiver, and ordering medications, tests, or procedures. Leilani Rosario PA-C documented in this encounter [facility] 03-21-2023 Note HNO ID: [id number] Author: Leilani Rosario PA-C Service: ? Author Type: Physician Concrete Finisher Apprentice Type: Progress Notes Filed: 03/22/2023 2:16 PM Note Text: HISTORY AND PHYSICAL Carlos Maher 1975 REFERRING PHYSICIAN: No ref. provider found CHIEF COMPLAINT: Consult (Colonoscopy consult.) HPI: The patient is a 47 year old male referred for endoscopy. Carlos notes a history of intermittent colitis episodes, most recently around a month ago. States will get some pelvic pressure and lower back discomfort when these episodes occur. Patient reports has also been diagnosed with pelvic floor dysfunction. Denies fever or chills. Denies history of diverticulitis. Notes episodes brought on more with stress. Notes multiple family members with colon cancer. Patient denies any blood in stools or black tarry stools. The patient notes no upper GI complaints. Denies any upper abdominal discomfort, nausea or vomiting. Carlos has undergone prior endoscopy, last in [address] Pitt with no concerning findings and no active colitis at that time. Patient has had prior procedures under both conscious sedation and Monitored Anesthetic Care and states has tolerated both without issue. PAST MEDICAL HISTORY Diagnosis Date Abdominal pain, unspecified site Diaphragmatic hernia without mention of obstruction or gangrene Esophagitis, unspecified Other forms of migraine Palpitations 12/23/2006 Panic disorder without agoraphobia 12/13/2006 Prediabetes PAST SURGICAL HISTORY Procedure Laterality Date COLONOSCOPY FLX DX W/COLLJ SPEC WHEN PFRMD 04/03/2008 Colonoscopy COLONOSCOPY FLX DX W/COLLJ SPEC WHEN PFRMD 07/02/14 Colonoscopy ESOPHAGOGASTRODUODENOSCOPY TRANSORAL DIAGNOSTIC 07/14/2011 EGD Current Outpatient Medications Medication Sig acetaminophen (TYLENOL) 500 mg tablet 500 mg as needed. No current facility-administered medications for this visit. ALLERGIES: Amoxicillin, Azithromycin, Bactrim [Sulfamethoxazole-Trimethoprim], Caffeine, Lorazepam, Prednisone, and Prilosec [Omeprazole Magnesium] PERSONAL HISTORY: Social History Tobacco Use Smoking status: Never Smokeless tobacco: Never Substance Use Topics Alcohol use: No Comment: every few months- couple times Drug use: No FAMILY HISTORY: FAMILY HISTORY Problem Relation Age of Onset Emphysema Father Heart Father 3 years ago at 58 yo (was a heavy smoker other (Panic disorder) Father Diabetes Mother Alzheimer's Disease Maternal Grandmother Cancer Maternal Grandmother Cancer Maternal Uncle Seizures Sister epileptic Heart Maternal Grandfather in his 50's from IN REVIEW OF SYMPTOMS: The review of systems data was entered by the nurse and reviewed by ct Nursing Notes: Micaela Cespedes RN 03/21/2023 2:45 PM Signed REVIEW OF SYSTEMS: General: The patient denies fatigue, denies weight loss, denies weight gain, denies feeling hot, and denies feelings of cold. Eyes: The patient denies glaucoma, denies eye injury/surgery, does not wear glasses or contacts. Ear/Nose/Throat: The patient NOTES allergies, denies hayfever, denies ear infections, and denies bloody noses. Cardiovascular: The patient denies chest pain, denies heart disease, NOTES high blood pressure,denies cardiac stent, denies prior heart attack, denies irregular heart beat, denies high cholesterol, denies poor circulation, denies heart failure, other cardiac issues, denies claudication, denies cold feet, denies peripheral arterial stent. Respiratory: The patient denies tuberculosis, denies pneumonia, denies frequent cough, denies pulmonary embolism, denies shortness of breath, and denies coughing up blood. Gastrointestinal: The patient denies difficulty swallowing, NOTES acid reflux, denies ulcers, denies vomiting, denies jaundice/hepatitis, denies gallbladder problems, denies black or tarry stools, NOTES hemorrhoids, NOTES bleeding from rectum, denies diverticulitis, denies constipation, denies diarrhea, denies loss of stool control, denies hernias and NOTES colitis. Kidney/Bladder: The patient denies kidney stones, denies urine infections, and denies bloody urine. Skin: The patient denies a history of skin cancer, denies bleeding/changing moles, and denies a history of skin rash. Neurologic: The patient denies a history of epilepsy/convulsions, NOTES headaches, denies head/spinal injuries, and denies stroke/TIA. Psychiatric: The patient denies psychiatric medications, denies depression, and denies voices, denies substance abuse. Endocrine: The patient denies thyroid disorders, denies diabetes, and denies hormonal problems. Hematologic: The patient denies a history of bruising, denies bleeding, and denies anemia, denies blood clots. Infections: The patient NOTES a history of measles and mumps, denies rheumatic fever, and denies sexually transmitted diseases. Musculoskeletal: The patient NOTES back pain/injury, denie (more content not included)... [facility] 03-21-2023 Nurse Note REVIEW OF SYSTEMS: General: The patient denies fatigue, denies weight loss, denies weight gain, denies feeling hot, and denies feelings of cold. Eyes: The patient denies glaucoma, denies eye injury/surgery, does not wear glasses or contacts. Ear/Nose/Throat: The patient NOTES allergies, denies hayfever, denies ear infections, and denies bloody noses. Cardiovascular: The patient denies chest pain, denies heart disease, NOTES high blood pressure,denies cardiac stent, denies prior heart attack, denies irregular heart beat, denies high cholesterol, denies poor circulation, denies heart failure, other cardiac issues, denies claudication, denies cold feet, denies peripheral arterial stent. Respiratory: The patient denies tuberculosis, denies pneumonia, denies frequent cough, denies pulmonary embolism, denies shortness of breath, and denies coughing up blood. Gastrointestinal: The patient denies difficulty swallowing, NOTES acid reflux, denies ulcers, denies vomiting, denies jaundice/hepatitis, denies gallbladder problems, denies black or tarry stools, NOTES hemorrhoids, NOTES bleeding from rectum, denies diverticulitis, denies constipation, denies diarrhea, denies loss of stool control, denies hernias and NOTES colitis. Kidney/Bladder: The patient denies kidney stones, denies urine infections, and denies bloody urine. Skin: The patient denies a history of skin cancer, denies bleeding/changing moles, and denies a history of skin rash. Neurologic: The patient denies a history of epilepsy/convulsions, NOTES headaches, denies head/spinal injuries, and denies stroke/TIA. Psychiatric: The patient denies psychiatric medications, denies depression, and denies voices, denies substance abuse. Endocrine: The patient denies thyroid disorders, denies diabetes, and denies hormonal problems. Hematologic: The patient denies a history of bruising, denies bleeding, and denies anemia, denies blood clots. Infections: The patient NOTES a history of measles and mumps, denies rheumatic fever, and denies sexually transmitted diseases. Musculoskeletal: The patient NOTES back pain/injury, denies back problems, denies sciatica, denies knee/foot trouble, denies arthritis, or denies gout. When was patient's last Mammogram screening? N/A Last Colonoscopy: 07/02/2014 Micaela Cespedes RN documented in this encounter [facility] 03-21-2023 History of Present illness Narrative HISTORY AND PHYSICAL Carlos Shannon Pete 1975 REFERRING PHYSICIAN: No ref. provider found CHIEF COMPLAINT: Consult (Colonoscopy consult.) HPI: The patient is a 47 year old male referred for endoscopy. Carlos notes a history of intermittent colitis episodes, most recently around a month ago. States will get some pelvic pressure and lower back discomfort when these episodes occur. Patient reports has also been diagnosed with pelvic floor dysfunction. Denies fever or chills. Denies history of diverticulitis. Notes episodes brought on more with stress. Notes multiple family members with colon cancer. Patient denies any blood in stools or black tarry stools. The patient notes no upper GI complaints. Denies any upper abdominal discomfort, nausea or vomiting. Carlos has undergone prior endoscopy, last in [address] Pitt with no concerning findings and no active colitis at that time. Patient has had prior procedures under both conscious sedation and Monitored Anesthetic Care and states has tolerated both without issue. PAST MEDICAL HISTORY Diagnosis Date Abdominal pain, unspecified site Diaphragmatic hernia without mention of obstruction or gangrene Esophagitis, unspecified Other forms of migraine Palpitations 12/23/2006 Panic disorder without agoraphobia 12/13/2006 Prediabetes PAST SURGICAL HISTORY Procedure Laterality Date COLONOSCOPY FLX DX W/COLLJ SPEC WHEN PFRMD 04/03/2008 Colonoscopy COLONOSCOPY FLX DX W/COLLJ SPEC WHEN PFRMD 07/02/14 Colonoscopy ESOPHAGOGASTRODUODENOSCOPY TRANSORAL DIAGNOSTIC 07/14/2011 EGD Current Outpatient Medications Medication Sig acetaminophen (TYLENOL) 500 mg tablet 500 mg as needed. No current facility-administered medications for this visit. ALLERGIES: Amoxicillin, Azithromycin, Bactrim [Sulfamethoxazole-Trimethoprim], Caffeine, Lorazepam, Prednisone, and Prilosec [Omeprazole Magnesium] PERSONAL HISTORY: Social History Tobacco Use Smoking status: Never Smokeless tobacco: Never Substance Use Topics Alcohol use: No Comment: every few months- couple times Drug use: No FAMILY HISTORY: FAMILY HISTORY Problem Relation Age of Onset Emphysema Father Heart Father 3 years ago at 58 yo (was a heavy smoker other (Panic disorder) Father Diabetes Mother Alzheimer's Disease Maternal Grandmother Cancer Maternal Grandmother Cancer Maternal Uncle Seizures Sister epileptic Heart Maternal Grandfather in his 50's from IN REVIEW OF SYMPTOMS: The review of systems data was entered by the nurse and reviewed by ct Nursing Notes: Micaela Cespedes RN 03/21/2023 2:45 PM Signed REVIEW OF SYSTEMS: General: The patient denies fatigue, denies weight loss, denies weight gain, denies feeling hot, and denies feelings of cold. Eyes: The patient denies glaucoma, denies eye injury/surgery, does not wear glasses or contacts. Ear/Nose/Throat: The patient NOTES allergies, denies hayfever, denies ear infections, and denies bloody noses. Cardiovascular: The patient denies chest pain, denies heart disease, NOTES high blood pressure,denies cardiac stent, denies prior heart attack, denies irregular heart beat, denies high cholesterol, denies poor circulation, denies heart failure, other cardiac issues, denies claudication, denies cold feet, denies peripheral arterial stent. Respiratory: The patient denies tuberculosis, denies pneumonia, denies frequent cough, denies pulmonary embolism, denies shortness of breath, and denies coughing up blood. Gastrointestinal: The patient denies difficulty swallowing, NOTES acid reflux, denies ulcers, denies vomiting, denies jaundice/hepatitis, denies gallbladder problems, denies black or tarry stools, NOTES hemorrhoids, NOTES bleeding from rectum, denies diverticulitis, denies constipation, denies diarrhea, denies loss of stool control, denies hernias and NOTES colitis. Kidney/Bladder: The patient denies kidney stones, denies urine infections, and denies bloody urine. Skin: The patient denies a history of skin cancer, denies bleeding/changing moles, and denies a history of skin rash. Neurologic: The patient denies a history of epilepsy/convulsions, NOTES headaches, denies head/spinal injuries, and denies stroke/TIA. Psychiatric: The patient denies psychiatric medications, denies depression, and denies voices, denies substance abuse. Endocrine: The patient denies thyroid disorders, denies diabetes, and denies hormonal problems. Hematologic: The patient denies a history of bruising, denies bleeding, and denies anemia, denies blood clots. Infections: The patient NOTES a history of measles and mumps, denies rheumatic fever, and denies sexually transmitted diseases. Musculoskeletal: The patient NOTES back pain/injury, denies back problems, denies sciatica, denies knee/foot trouble, denies arthritis, or denies gout. When was patient's last Mammogram screening? N/A Last Colonoscopy: 07/02/2014 Micaela Cespedes RN I have confirmed and edited as necessary, the PFSH and ROS obtained by others. Leilani Rosario PA-C PHYSICAL EXAMINATION: General: The patient is 47 year old male, well nourished, well hydrated in no acute distress. The patient is oriented to time, place, and person. VITALS: Blood pressure 136/88, pulse 119, temperature 36.6 C (97.9 F), height 170.2 cm (5' 7), weight 97.2 kg (214 lb 3.2 oz), SpO2 96 %. Body mass index is 33.55 kg/m . HEENT: Normal cephalic, ataumatic, pupils are equally round, sclera are anicteric, mucous membranes are moist, oropharynx is clear. Neck has no masses, asymmetry or lymphadenopathy. Respiratory: Clear to auscultation and percussion. Normal respiratory excursion and pattern. Cardiac: Examination is regular rate and rhythm. Normal S1/S2 Abdominal exam: Soft, nontender, with no palpable masses. No hepatosplenomegaly. No palpable hernias. Extremities: no clubbing, cyanosis or edema. No adenopathy. LABORATORY VALUES: As Noted RADIOLOGIC STUDIES: As Noted Assessment IMPRESSION: history of colitis, lower abdominal discomfort, family history of colon cancer PLAN: I have reviewed my findings with the surgeon. Will plan for lower endoscopy with biopsies. We discussed the risks and benefits of the planned endoscopy. I have informed the patient that complications can occur including failure to complete the endoscopy and perforation. The patient had the opportunity to ask questions concerning the planned endoscopy. My staff has also explained the procedure to the patient in understandable terms and has given the patient printed material concerning the procedure. The patient freely consents to surgery. I plan to use Golytely bowel preparation Diagnoses: No diagnosis found. I spent a total of 33 minutes on the date of the service which included preparing to see the patient, [id number] patient care, completing clinical documentation, obtaining and/or reviewing separately obtained history, performing a medically appropriate examination, counseling and educating the patient/family/caregiver, and ordering medications, tests, or procedures. Leilani Rosario PA-C documented in this encounter [facility] 09-22-2020 Note Orders CSF (cerebrospinal rhinorrhea) Otolaryngology - General Referral Evaluation and Treatment Evaluate AND Treat Status: Hold For - Scheduling,Retrospective By Protocol Authorization Requested for: [id number] CT Sinus without Contrast; Status:Hold For - Scheduling,Retrospective Authorization; Requested for:[id number]; Patient taking Metformin or Derivatives? : Unknown Radiologist to Determine Optimal Study : Y What are the patient's signs and symptoms? : rhinnorhea Provider Impressions I personally reviewed MRI and MRA of the head which is grossly unremarkable without any evidence of ethmoid/sphenoid region encephalocele. I am encouraged by the fact that his symptoms have actually improved over the last year and he does not have any active CSF rhinorrhea. I ordered CT sinus and referred him to my colleague in rhinology, Dr. Larwence Gonzalez. I explained that we may have to do a CT cisternogram as well. Chief Complaint Mr. CARLOS MAHER is a 45 year old man here for Three year history of unusual symptoms right side of Head possible spinal fluid leak , referred by Mina Dodson . This HANDP is partly from review of the patient's previous chart. History of Present Illness Mr. MAHER is a very nice 45 year year old man with a history of headache and strange fluid flowing sensation in his periorbital and temporal regions for 3 years now after having the flu. He used to have clear rhinorrhea and metallic taste down the back of his throat. He has had beta-2 transferrin testing which was negative. Over the last year, this has actually gotten a little better. He will still have occasionally headache that is worse with stress and activity but actually gets better with this sense of release of fluid in the periorbital and temporal regions. He has had some mild drainage out of his right eye, but it is really more of a sensation than it is true drainage. Review of Systems All other systems have been reviewed and are negative for complaint other than what is already stated. Active Problems Headache (784.0) (R51.9) Surgical History No history of surgery Family History Family history of diabetes mellitus (V18.0) (Z83.3) Family history of fibromyalgia (V17.89) (Z82.69) Family history of malignant neoplasm of breast (V16.3) (Z80.3) Family history of malignant neoplasm of colon (V16.0) (Z80.0) Family history of chronic obstructive pulmonary disease (V17.6) (Z82.5) Social History College graduate Graduate of [employer] in [employer] sciences. Employed Works full-time for [employer], where he has worked for 16 yrs. 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 After he developed recent problems, he could not keep up and resigned, but [employer] wanted to retain him. 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 He feels better able lately to keep up with his workload and is glad they allowed him to keep his job. Lives with significant other Lives in [facility] home for 11 yrs with , Eros and their 5 children: Moriah, age 18, Zeb, age 16, Josef, age 14, Manny, age 12 and Cruz, age 8. Kids are in school 4 days/week and home on Wednesdays. 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 They feel safe in their home. No formal supports. Patient has older and younger sisters and keeps in touch. His mother is 71 and has colon CA, but doing alright. to , Eros, for 21 yrs. Never a smoker History of No advance directives (V49.89) (Z78.9) No POA. Pt does the family finances without issues. No alcohol use Allergies Ativan Recorded By: Josie Escobar; 07/01/2020 12:00:10 PM Caffeine Recorded By: Josie Escobar; 07/01/2020 12:00:10 PM Penicillins Recorded By: Josie Escobar; 07/01/2020 12:00:10 PM predniSONE Recorded By: Josie Escobar; 07/01/2020 12:00:10 PM PriLOSEC PACK Recorded By: Josie Escobar; 07/01/2020 12:00:10 PM Sulfa Drugs Recorded By: Josie Escobar; 07/01/2020 12:00:10 PM Current Meds Medication NameInstruction Vitamin B 12 500 MCG Oral TabletTAKE 1 TABLET DAILY. Vitamin C 500 MG Oral CapsuleTAKE 1 CAPSULE BY MOUTH DAILY. Vitals Vital Signs Recorded: 22Sep2020 11:55AM Heart Rate94 Mwhqmirstvq40 Qcuxejdt349 Ewcgqkvxy98 Height5 ft 7 in Ntbtot496 lb BMI Ltnyctkugt46.2 BSA Calculated2.07 Tobacco Useb) No Fall Screeninga) No falls within the last year Pain Scale0 Physical Exam no acute distress, well developed man appearing His stated age normal sclera moist mucus membranes no peripheral edema symmetric chest rise nondistended abdomen alert and oriented, pupils equal and round, extraocular movements intact, full strength in all extremities, normal sensation to light touch throughout, normal symmetric reflexes, no dysmetria normal mood Signatures Electronically signed by : Nay Rashid MD; Sep 25 2020 3:58PM EST (Author) Reviewed by : Mina Conrad MD; Sep 27 2020 12:16PM EST [facility] 07-02-2014 History of Past i llness Narrative Problem Noted Date Diagnosed Date Resolved Date Other and unspecified noninf ectious gastroenteritis and colitis(558.9) 07/02/201407/02 documented as of this encounter (statuses as of 03/22/2023) [facility] History of Past illness Narrative* Problem Noted Date Diagnosed Date Resolved Date Other and unspecified noninf ectious gastroenteritis and colitis(558.9) 07/02/201407/02 documented as of this encounter (statuses as of 04/26/2023) [facility] History of Past illness Narrative* Problem Noted Date Diagnosed Date Resolved Date Other and unspecified noninf ectious gastroenteritis and colitis(558.9) 07/02/201407/02 documented as of this encounter (statuses as of 04/28/2023) [facility] note* Diagnosis Family history of colon cancer- Primary Family history of malignant neoplasm of gastrointestinal tract History of colitis Personal history of other diseases of digestive system documented in this encounter [facility] note* Diagnosis Special screening for malignant neoplasms, colon- Primary History of colitis Personal history of other diseases of digestive system Change in bowel habits Other symptoms involving digestive system Lower abdominal pain Abdominal pain, other specified site documented in this encounter [facility] noteNo assessment information availableWMartins Ferry Hospital Work Phone: Evaluation note* Diagnosis Chest pain- Primary Unspecified chest pain Chest pain, unspecified type documented in this encounter [facility] Discharge instructions* Attachments The following attachments cannot be sent through Care Everywhere. * Chest [facility]) [facility] ([facility] Outpatient Procedure (Routine) - Closed Specialty Diagnoses / Procedures Referred By Haleigh blair Referred To Contact [facility] Diagnoses History of colitis Change in bowel habits Lower abdominal pain Procedures COLONOSCOPY DIAGNOSTIC COLONOSCOPY FLX DX W/COLLJ SPEC WHEN PFRMD Leilani Rosario PA-C [address] [place] [address] [facility] [address] [place] [address] Referral ID Status Reason Start Date Expiration Date V isits Requested Visits Authorized [id number] Closed Auto-Generate d Referral 03/22/2023 03/21/2024 1 [facility]No reason for referral information availableWMartins Ferry Hospital Work Phone: Reason for visit Narrative* Outpatient Procedure (Routine) - Closed Specialty Diagnoses / Procedures Referred By Haleigh blair Referred To Contact [facility] Diagnoses History of colitis Change in bowel habits Lower abdominal pain Procedures COLONOSCOPY DIAGNOSTIC COLONOSCOPY FLX DX W/COLLJ SPEC WHEN PFRMD Leilani Rosario PA-C [address] [place] [address] [facility] [address] [place] [address] Referral ID Status Reason Start Date Expiration Date V isits Requested Visits Authorized [id number] Closed Auto-Generate d Referral 03/22/2023 03/21/2024 1 1 [facility] Narrative* Auth/Cert (Routine) Specialty Diagnoses / Procedures Referred By Haleigh blair Referred To Contact Diagnoses Chest pain Chest pain Referral ID Status Reason Start Date Expiration Date Visits Re quested Visits Authorized [id number] 1 1 [facility] Summary Purpose Family History No Family History Records FoundUnknown Family Member Name Dates Details Family history of malignant neoplasm of breast: Mother(V16.3, Z80.3) Status:Active Family history of malignant neoplasm of colon: Mother(V16.0, Z80.0) Status:Active Family history of diabetes m ellitus: Mother(V18.0, Z83.3) Status:Active Family history of fibromyalg ia: Mother(V17.89, Z82.69) Status:Active Family history of chronic ob structive pulmonary disease: Father(V17.6, Z82.5) Status:Active Relationship Condition Age at Onset Recorded Date/T nilsa mother Malignant neoplasm of colon Unknown Coronary artery disease Unknown Hypertension Unknown Diabetes mellitus Unknown Malignant neoplasm of breast Unknown grandfather Coronary artery disease Unknown grandmother Malignant neoplasm of colon Unknown uncle Malignant neoplasm of colon Unknown Advance Directives No Advanced Directives Records Found Date Activated Date Inactivated Comments 12/01/2024 9:08 PM 12/02/2024 7:31 PM Medications Administered Section Inactive Administered Medications - up to 3 most recent administrations Medication Order MAR Action Action Date Dose Rate Site diphenhydrAMINE 12.5-50 mg injection (BENADRYL) 12.5-50 mg, INTRAVENOUS, DIRECTED, Starting on Mon04/25/23 at 1200, Until Mon04/25/23 at 1559, DOSING DIRECTED BY PHYSICIAN FOR PROCEDURAL SEDATION ONLY, Intraprocedure Given 04/25/2023 11:47 AM EST 50 mg fentaNYL 50 mcg/mL 25-100 mcg injection (SUBLIMAZE) 25-100 mcg, INTRAVENOUS, DIRECTED, Starting on Mon04/25/23 at 1200, Until Mon04/25/23 at 1559, DOSING DIRECTED BY PHYSICIAN FOR PROCEDURAL SEDATION ONLY, Intraprocedure Given by LIP 04/25/2023 11:44 AM EST 50 mcg Given by LIP 04/25/2023 11:42 AM EST 50 mcg lactated ringers iv infusion 30 mL/hr, INTRAVENOUS, CONTINUOUS, Starting on Mon04/25/23 at 1030, Until Mon04/25/23 at 1215, Preprocedure New Bag/Syringe/Bottle 04/25/2023 10:20 AM EST 30 mL/hr 30 mL/hr midazolam 1-5 mg injection (VERSED) 1-5 mg, INTRAVENOUS, DIRECTED, Starting on Mon04/25/23 at 1200, Until Mon04/25/23 at 1559, DOSING DIRECTED BY PHYSICIAN FOR PROCEDURAL SEDATION ONLY, Intraprocedure Given 04/25/2023 11:56 AM EST 1 mg Given 04/25/2023 11:52 AM EST 1 mg Given 04/25/2023 11:50 AM EST 1 mg Chief Complaint and Reason for Visit Chief Complaint Admit Date DYSPEPSIA, DYSPHAGIA October 03, 2024 9:41a m Additional Source Comments (unrecognized sect ion and content) No Status Records FoundNo Status Records FoundNo Status Records FoundNo Status Records FoundNo Status Records FoundNo Status Records FoundNo Status Records FoundNo Status Records Found INFORMATION SOURCE (unrecogn ized section and content) DATE CREATED AUTHOR 09/28/2020 [employer] DATE CREATED AUTHOR AUTHOR'S ORGANIZ ATION 10/21/2020 [facility] DATE CREATED AUTHOR AUTHOR'S ORGANIZ ATION 04/29/2023 [facility] DATE CREATED AUTHOR AUTHOR'S ORGANIZ ATION 05/01/2023 [facility] DATE CREATED AUTHOR AUTHOR'S ORGANIZ ATION 12/04/2024 [facility] DATE CREATED AUTHOR AUTHOR'S ORGANIZ ATION 12/06/2024 [facility] DATE CREATED AUTHOR AUTHOR'S ORGANIZ ATION 12/11/2024 [facility] DATE CREATED AUTHOR AUTHOR'S ORGANIZ ATION 12/13/2024 [facility] Source Comments (unrecognize d section and content) In the event this informatio n is protected by the Federal Confidentiality of Alcohol and Drug Abuse Patient Records regulations: The Federal rules restrict any use of the information to criminally investigate or prosecute any alcohol or drug abuse patient.[facility] the event this information is protected by the Federal Confidentiality of Alcohol and Drug Abuse Patient Records regulations: The Federal rules restrict any use of the information to criminally investigate or prosecute any alcohol or drug abuse patient.[facility] Center[facility] the event this information is protected by the Federal Confidentiality of Alcohol and Drug Abuse Patient Records regulations: The Federal rules restrict any use of the information to criminally investigate or prosecute any alcohol or drug abuse patient.[facility] Reason for Visit (unrecogniz ed section and content) Reason Comments Consult Colonoscopy consult. Reason Comments Results Care Teams (unrecognized sec tion and content) Bundle Shaker Relationship Specialty Start Date End Date Jayy Grant MD [address] [place] [address] PCP - General 12/22/06 Misty Thakur MD [address] [place] [address] [id number] Referring Family Medicine 09/02/19 Bundle Shaker Relationship Specialty Start Date End Date Jayy Grant MD [address] [facility], [place] [id number] PCP - General 12/22/06 Misty Thakur MD [address] [place] [address] [id number] Referring Family Medicine 09/02/19 Bundle Shaker Relationship Specialty Start Date End Date Jayy Grant MD [address] [facility], [place] [id number] PCP - General 12/22/06 Misty Thakur MD [address] [place] [address] [phone] Referring Family Medicine 09/02/19 Team Status: Active Member Role Status Dates Dr. Misty Thakur MD Primary Care Provider Acti ve Team Status: Inactive Member Role Status Dates Dr. Misty Thakur MD Primary Care Provider Acti ve Start: September 04, 2024 End: September 04, 2024 Dr. Misty Thakur MD Attending Provider Active Start: September 04, 2024 End: September 04, 2024 Dr. Misty Thakur MD Referring Provider Active Start: September 04, 2024 End: September 04, 2024 Team Status: Inactive Member Role Status Dates Dr. Misty Thakur MD Primary Care Provider Acti ve Start: October 03, 2024 End: October 03, 2024 Dr. Misty Thakur MD Attending Provider Active Start: October 03, 2024 End: October 03, 2024 Dr. Misty Thakur MD Referring Provider Active Start: October 03, 2024 End: October 03, 2024 Bundle Shaker Relationship Specialty Start Date End Date Misty Thakur MD [address] [facility] [address] [place] [address] PCP - General Family Medicine 12/01/24 Goals (unrecognized section and content) Goals may be documented in a n alternate sectionGoals may be documented in an alternate section Scheduled Active and Recently Administ ered Medications (unrecognized section and content) Medication Order 11/30/2024 12/01/2024 12/02/2024 amLODIPine (NORVASC) tablet 10 mg 10 mg, Oral, Daily, First dose on 12/01/24 at 2200 2206 (Given - Provider: Gisselle Keane RN) 0834 (Given - Provider: Danny Jaramillo, DEMARIO) heparin (porcine) injection 5,000 Units 5,000 Units, Subcutaneous, Every 8 hours scheduled, First dose on 12/01/24 at 2200, Notify physician if patient refuses. 2200 (Not Given - Provider: Gisselle Keane RN - Reason: Patient/family refused - Comment: pt getting up to ambulate in the hallway and room) 0600 (Not Given - Provider: Gisselle Keane RN - Reason: Patient/family refused)1400 (Not Given - Provider: Danny Jaramillo RN - Reason: Patient/family refused - Comment: pt is up walking in room and hallway.) PRN Medication Order 11/30/2024 12/01/2024 12/02/2024 acetaminophen (TYLENOL) tablet 650 mg 650 mg, Oral, Every 4 hours PRN, mild pain, fever 100.4 F or greater, headaches, Starting on 12/01/24 at 2108 aluminum-magnesium hydroxide-simethicone (MAALOX PLUS) 200-200-20 mg/5 mL suspension 30 mL 30 mL, Oral, Every 4 hours PRN, indigestion, Starting on 12/01/24 at 2108 calcium carbonate (TUMS) chewable tablet 500 mg 500 mg, Oral, Daily PRN, indigestion, heartburn, Starting on 12/01/24 at 2330, Give with Food 0021 (Given - Provid er: Gisselle Keane RN) perflutren lipid microspheres (DEFINITY) 0.143 mg/mL solution 0-10 mL of mixture 0-10 mL of mixture, Intravenous, Once in imaging, contrast, IF suboptimal echo, Starting on 12/01/24 at 2109, For 48 hours, Prepare syringe by withdrawing 1.3 mL of perflutren (DEFINITY) from the 2ml vial. Further dilute the 1.3 mL of perflutren with Sodium Chloride (NS) 0.9% to total volume of 10 ml. Chart total ML OF MIXTURE given to patient. 09 (Given - Provid er: Uday Sorenson) FOR RECORDS PERTAINING TO PATIENTS WHO ARE OR HAVE BEEN ENROLLED IN A CHEMICAL DEPENDENCY/SUBSTANCEABUSE PROGRAM, SOME INFORMATION MAY BE OMITTED. This clinical summary was aggregated from multiple sources. Caution should be exercised in using it in the provision of clinical care. This summary normalizes information from multiple sources, and as a consequence, information in this document may materially change the coding, format and clinical context of patient data. In addition, data may be omitted in some cases. CLINICAL DECISIONS SHOULD BE BASED ON THE PRIMARY CLINICAL RECORDS. [employer] provides no warranty or guarantee of the accuracy or completeness of information in this document.
== END 2024-12-13 15:31 | disposition home or self-care (01) ==
PROVIDERS: Emergency Provider Emergency Medicine; PCP Family Medicine; Visit Provider Emergency Medicine
DX: R07.9 Chest pain, unspecified (principal); G47.30 Sleep apnea, unspecified; F41.9 Anxiety disorder, unspecified; G47.00 Insomnia, unspecified; I10 Essential (primary) hypertension; K21.9 Gastro-esophageal reflux disease without esophagitis; Z79.899 Other long term (current) drug therapy
CPT/HCPCS: 71046; 80048; 80076; 83690; 84443; 84484; 85025; 85379; 93005; 99284; A4216

== ENCOUNTER → 2024-12-17 | Outpatient (CLI) | payer OTHER, SELFPAY ==
--- NOTE | 2024-12-17 12:54 | CT_ITS ---
PROCEDURE: LIMITED CHEST CT CARDIAC ONLY 12/17/2024 REASON FOR EXAM: DYSLIPIDEMIA, SHORTNESS OF BREATH TECHNIQUE: LIMITED CHEST CT CARDIAC ONLY. Axial CT images obtained from the aortic arch to the upper abdomen without the use of contrast.. One or more dose reduction techniques were used (e.g., Automated exposure control, adjustment of the mA and/or kV according to patient size, use of iterative reconstruction technique). RADIATION DOSE SUMMARY: CTDlvol: 12.19 mGy DLP: 195.04 mGycm COMPARISON: CTA Pulmonary w/ Contrast, 02/08/2021 FINDINGS: LUNGS: Scattered fibrotic-like changes bilaterally with thin parenchymal bands mainly at the periphery. No pulmonary mass. No focal airspace consolidation. PLEURAL SPACES: No pleural effusion. No pneumothorax. HEART: No cardiomegaly. No significant pericardial effusion. MEDIASTINUM/HILUM: No significant lymphadenopathy. AORTA: No aneurysm. ESOPHAGUS: Unremarkable. CHEST WALL: The chest wall is unremarkable. BONES: No acute osseous abnormality. UPPER ABDOMEN: The upper abdominal solid organs are unremarkable. CT/Limited Chest CT Cardiac Only IMPRESSION: 1. No acute intrathoracic abnormality. 2. Fibrotic-like lung changes bilaterally, suggesting interstitial lung diseas e. Consider post-COVID interstitial lung disease (ILD) with the appropriate past medical history. Reading Location: [id number]
--- NOTE | 2024-12-17 16:44 | CA.SCORE ---
Calcium Scoring Date of Study:: 12/17/24 Indications Indications: HLD Coronary Calcium Scoring: High-resolution Computed Tomographic imaging of the chest was performed on [ 12/17/24], with particular attention paid to the coronary arteries. Images from the examination were analyzed for the presence and extent of coronary artery calcification , using coronary calcium quantification software. The patient tolerated the procedure well and there were no complications. The results of the coronary calcification analysis are provided below. Findings Coronary Artery Left Main (LM): 0 Left Anterior Descending (LAD): 0 Left Circumflex (LCX): 0 Right Coronary Artery (RCA): 0 Total Agatston Score: 0 Percentile Rankin Calcium Scoring Interpretation: Different methods to categorize the overall amount of coronary plaque. Overall amount CAC SIS Visual of coronary plaque P1 Mild -100 <2 1-2 vessels with mild amount of plaque P2 Moderate 101-300 3-4 1-2 vessels with moderate amount, 3 vessels with mild amount of plaque P3 Severe 301-999 5-7 3 vessels with moderate amount, 1 vessel with severe amount of plaque P4 Extensive >1000 >8 2-3 vessels with severe amount of plaque Conclusion: No atherosclerotic plaque noted
== END | disposition home or self-care (01) ==
LOC: CT 12:46
PROVIDERS: PCP Family Medicine; Referring Provider Family Medicine; Visit Provider Family Medicine
DX: R06.02 Shortness of breath (principal); E78.5 Hyperlipidemia, unspecified
CPT/HCPCS: 75571; 76380

== ENCOUNTER → 2025-02-17 | Outpatient (CLI) | payer OTHER, SELFPAY ==
[2025-02-17 18:07] LABS: Hematocrit 44.2 % (40-54); Hemoglobin 14.7 g/dL (13.0-16.5); Mean Corp Hgb Conc 33.3 g/dL (32-36); Mean Corpuscular Volume 94.0 fL (80-94); Mean Platelet Vol. 10.7 fl (6.2-12.0); Platelet Count 166 K/mm3 (150-450); RBC Distribution Width CV 13.0 % (11.6-14.6); RBC Distribution Width SD 44.8 fl (35.1-43.9); Red Blood Count 4.70 M/mm3 (4.6-6.2); White Blood Count 6.8 K/mm3 (4.4-11.0)
--- OUTSIDE RECORDS SUMMARY | 2025-02-17 18:21 | XMS RPT_ITS | CCD ---
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 Misty Thakur MD Primary Care Provider Dr. Misty Thakur MD Attending Provider Dr. Misty Thakur MD Referring Provider Misty Thakur MD Primary Care Provide r Dr. Syeda Blake DO Emergency Provider Dr. Syeda Blake DO Attending Provider Dr. Tom Benton MD Attending Provider [phone] Dr. Tom Benton MD Referring Provider Dr. Tom Benton MD Other Provider [phone] Fritz Guerra MD Attending Provider MIKE THOMPSON Attending Unava ilable MISTY THAKUR Primary Care Unavail able KACI ADAME Referring Unavailable KACI ADAME Attending Unavailable [facility] Primary Care Unavail able [facility], [facility] Primary Care Unavail able MIKE THOMPSON Referring Unava ilable TONY GALEANA Admitting Unavailable SEJAL HUGGINS Attending Unavailab le Misty Thakur Referring Unavailable Blaze, Misty Attending Unavailable [facility], [facility] Primary [facility] Unavailable [facility] Referring Unavailable Ranpaul, Misty Attending Unavailable [facility] Primary Care Unavailable [facility], [facility] Primary Care Unavailable Syeda Blake Attending Unavailable [facility] Care Unavailable Fritz Guerra Attending Unavailable Tom Benton Referring Unavailable Tom Benton Consulting Unavailable [facility] Care Unavailable Tom Benton Referring Unavailable Tom Benton Attending Unavailable KACI ADAME Referring Unavailable KACI ADAME Admitting Unavailable [facility], [facility] Care Unavail able RAIZA MURRAY Attending Unavailable [facility], [facility] Primary Care Unavail able Allergies Allergy Classification Reported Allergen(s) Allergy Type Date of Onset Reaction(s) Facility Benzodiazepines (1 source) LORazepam; Translations: [Ativan] Drug Allergy [facility] Work Phone: Caffeine (1 source) Caffeine; Translations: [Caffeine] Drug Allergy [facility] Work Phone: Corticosteroids (1 source) predniSONE; Translations: [predniSONE] Drug Allergy [facility] Work Phone: Penicillins (antibiotic) (1 source) Penicillins; Translations: [Penicillins] Drug Allergy [facility] Work Phone: Proton Pump Inhibitors (1 source) Omeprazole; Translations: [PriLOSEC PACK] Drug Allergy [facility] Work Phone: Sulfonamides (antibiotic) (1 source) Sulfonamides (Antibiotic); Translations: [Sulfa Drugs] Drug Allergy [facility] Work Phone: (10 sources) Caffeine; Translations: [CAFFEINE] Drug Allergy 02-04-20 15 Other: See Comments [facility] Work Phone: (1 source) LORazepam Drug Allergy [facility] Work Phone: (5 sources) Omeprazole Drug Allergy 02-09-20 21 Other [facility] (1 source) Penicillins; Translations: [Penicillins] Allergy to drug (finding) [facility] Work Phone: (10 sources) predniSONE; Translations: [PREDNISONE] Drug Allergy 10-14-19 18 Other: See Comments [facility] (1 source) Sulfonamides (Antibiotic) Allergy to drug (finding) [facility] Work Phone: (8 sources) Amoxicillin; Translations: [AMOXICILLIN] Drug Allergy 04-01-20 15 Intolerance [facility] Work Phone: (8 sources) Azithromycin; Translations: [AZITHROMYCIN] Drug Allergy 07-10-19 18 Other: See Comments [facility] Work Phone: (8 sources) LORazepam; Translations: [LORAZEPAM] Drug Allergy 07-02-19 15 Mental Status Change [facility] Work Phone: (4 sources) Omeprazole; Translations: [OMEPRAZOLE MAGNESIUM] Drug Allergy 07-02-19 15 Mental Status Change [facility] Work Phone: (4 sources) Sulfamethoxazole / Trimethoprim; Translations: [SULFAMETHOXAZOLE-T RIMETHOPRIM] Drug Allergy 11-29-19 08 Rash [facility] Work Phone: (4 sources) Doxycycline Drug Allergy 02-09-20 21 Other [facility] (4 sources) Penicillins Allergy to substance 02-09-20 21 Other [facility] (7 sources) Sulfonamides (Antibiotic); Translations: [SULFA (SULFONAMIDE ANTIBIOTICS)] Allergy to substance 02-09-20 21 Rash [facility] (4 sources) Glucocorticoid preparation; Translations: [CORTICOSTEROIDS (GLUCOCORTICOIDS)] Propensity to adverse reactions to drug 12-02-19 25 Other (See Comments) [facility] (1 source) Sulfonamides (Antibiotic) Propensity to adverse reactions to drug 12-02-19 25 Other (See Comments) [facility] (1 source) Amoxicillin Drug Allergy 02-09-20 [facility] (1 source) Azithromycin Drug Allergy 02-09-20 [facility] (1 source) Doxycycline Drug Allergy 02-09-20 [facility] (1 source) LORazepam Drug Allergy 02-09-20 [facility] (1 source) Omeprazole Drug Allergy 02-09-20 [facility] (1 source) Penicillins Drug allergy (disorder) 02-09-20 [facility] (1 source) Sulfonamides (Antibiotic) Drug allergy (disorder) 02-09-20 [facility] Medications Current Medications Medication Drug [...] 2200 calcium ascorbate 500 mg oral tablet (4 sources) Start: 11-18-2020 take 1 tablet by mouth once daily Ascorbate Calcium (Vitamin C) 500 mg tablet Active 500 mg PO DAILY November 18, 2020 12:00am cholecalciferol 0.025 mg oral capsule (4 sources) Vitamin D Start: 11-18-2020 take 1 capsule by mouth once daily Cholecalciferol (Vitamin D3) 25 mcg (1,000 unit) capsule Active 25 ug PO DAILY November 18, 2020 12:00am dexamethasone 6 mg oral tablet (4 sources) Corticosteroid Start: 02-08-2021 take 1 tablet by mouth once daily Dexamethasone (Decadron) 6 mg tablet Active 6 mg PO DAILY 7 0 February 08, 2021 12:00am folic acid 0.4 mg / vitamin b12 0.5 mg oral tablet (4 sources) Vitamin B12 Start: 11-18-2020 Vitamin M39-Pdeob Acid 500-400 mcg tablet Active 1 {tbl} PO DAILY November 18, 2020 12:00am administer with a meal hydrOXYzine hydrochloride 25 mg oral tablet (2 sources) Antihistamine Start: 12-13-2024 take 1 tablet by mouth three times daily as needed for anxiety Hydroxyzine Hcl 25 mg tablet Active 25 mg PO THREE TIMES A DAY as needed for anxiety or sleep 20 0 December 13, 2024 12:00am Completed/Discontinued Medications Medication Drug Class(es) Dates Sig (Normalized) Sig (Original) acetaminophen 325 mg oral tablet (6 sources) Start: 12-01-2024 End: 12-02-2024 take 1 [...] 01-Jul-2020 Active azithromycin 500 mg oral tablet (4 sources) Macrolide Antimicrobial Start : 06-30 End: 11-18 take 1 tablet by mouth once daily Azithromycin 500 MG tablet Discontinued 500 mg PO DAILY 4 4 0 June 30, 2017 1:00am November 18, 2020 9:15am calcium carbonate 500 mg chewable tablet (1 source) Start : 12-01 End: 12-02 take 500 mg by mouth once daily as needed for gastroesophageal reflux disease 500 mg, Oral, Daily PRN, indigestion, heartburn, Starting on 12/01/24 at 2330, Give with Food diphenhydrAMINE hydrochloride 25 mg oral capsule (4 sources) Histamine-1 Receptor Antagonist Start : 06-30 [...] End: 12-02 oseltamivir 75 mg oral capsule (4 sources) Neuraminidase Inhibitor Start : 06-30 End: 11-18 take 1 capsule by mouth twice daily Oseltamivir 75 MG capsule Discontinued 75 mg PO TWICE A DAY 9 5 0 June 30, 2017 1:00am November 18, 2020 9:15am perflutren lipid microspheres (DEFINITY) 0.143 mg/mL solution 0-10 mL of mixture (1 source) Start : 12-01 End: 12-02 0-10 mL of mixture, Intravenous, Once in imaging, contrast, IF suboptimal echo, Starting on Mon12/01/24 at 2109, For 48 hours, Prepare syringe by withdrawing 1.3 mL of perflutren (DEFINITY) from the 2ml vial. Further dilute the 1.3 mL of perflutren with Sodium Chloride (NS) 0.9% to total volume of 10 ml. Chart total ML OF MIXTURE given to patient. polyethylene glycol 3350 441600 mg / potassium chloride 2970 mg / sodium bicarbonate 6740 mg / sodium chloride 5860 mg / sodium sulfate 91908 mg powder for oral solution (1 source) Osmotic Laxative Start : 03-21 End: 03-21 peg 3350-Electrolytes (GOLYTELY) 236-22.74-6.74 -5.86 gram suspension Take 4,000 mL by mouth one time only for 1 dose. 1 Each 0 03/21/2023 03/21/2023 Comment on above: Take 4,000 mL by ronan one time only for 1 dose. predniSONE 10 mg oral tablet (4 sources) Start : 06-30 End: 11-18 take 4 tablets by mouth once daily Prednisone 10 MG tablet Discontinued 40 mg PO DAILY 16 4 0 June 30, 2017 1:00am November 18, 2020 9:15am vitamin b12 0.5 mg oral tablet (2 sources) Vitamin B12 Start : 07-01 take 1 tablet by mouth once daily Vitamin B 12 500 MCG Oral Tablet TAKE 1 TABLET DAILY. Quantity: 0 Refills: 0 Ordered: 01-Jul-2020 DO Start : 01-Jul-2020 Active Problems Active Problems Problem Classification Problem Date Documented Da te Episodic/Chronic Abdominal pain (10 sources) Right lower quadrant pain; Translations: [Right lower quadrant pain] Onset: 8 04-03-2008 Episodic Anxiety disorders (3 sources) Panic disorder without agoraphobia; Translations: [Panic disorder [episodic paroxysmal anxiety]] Onset: 7 12-13-2006 Chronic Disorders of lipid metabolism (1 source) Hyperlipidemia, unspecified; Translations: [Hyperlipidemia, unspecified] Onset: 5 Chronic Esophageal disorders (3 sources) Gastroesophageal reflux disease; Translations: [Gastro-esophageal reflux disease without esophagitis] Onset: 9 03-04-2009 Chronic Essential hypertension (4 sources) Hypertensive disorder; Translations: [Essential (primary) hypertension] 11-18-2020 Chronic Headache; including migraine (6 sources) Headache; Translations: [Headache] 08-18-2019 Episodic Nonspecific chest pain (17 sources) Chest pain; Translations: [Chest pain, unspecified] [...] Onset: 5 Episodic Other lower respiratory disease (2 sources) Shortness of breath; Translations: [Shortness of breath] Onset: 5 Episodic Other nervous system disorders (1 source) Cerebrospinal fluid rhinorrhea; Translations: [Cerebrospinal fluid rhinorrhea] Episodic Other screening for suspected conditions (not mental disorders or infectious disease) (2 sources) Patient encounter status; Translations: [Encounter for screening for malignant neoplasm of colon] Onset: 3 04-25-2023 Episodic Residual codes; unclassified (4 sources) Sleep apnea; Translations: [Sleep apnea, unspecified] 11-18-2020 Chronic Residual codes; unclassified (1 source) Family history of cancer of colon; Translations: [Family history of malignant neoplasm of digestive organs] 03-22-2023 Episodic Residual codes; unclassified (1 source) Family history of malignant neoplasm of digestive organs; Translations: [Family history of colon cancer] Onset: Episodic Viral infection (4 sources) COVID-19; Translations: [Pneumonia due to COVID-19 [...] Test Name Value Interpretation Reference Range Facility STRESS TEST ONLY, EXERCISEon 12-27-2024 STRESS TEST ONLY, EXERCISE Patient Info Name: Carlos Maher Age: 49 years : 1975 Gender: Male Ht: 170 cm Wt: 97 kg BSA: 2.17 m2 HR: 86 bpm BP: 143 / 92 mmHg Heart Rhythm: Sinus Rhythm Exam Date: 12/27/2024 11:30 AM Patient Status: OUTPATIENT Site Location: Exam Location: [facility] [place] Exam Type: STRESS TEST ONLY, EXERCISE Study Info Indications R07.9 - Chest pain, unspecified [id number] BMI: 33.35 kg/m2 Ordering Physician: Kaci Adame Referring Physician: Kaci Adame Reading Physician: Kaci Victor MD Supervising Stress Physician: Kaci Victor MD Primary Nurse: Renuka Mcrae RN Summary 1. Normal exercise stress EKG. No inducible ischemia was identified at the achieved workload. 2. Above average exercise capacity for age and gender. 3. There was chest pain noted during exercise. 4. There were no ischemic EKG changes noted. 5. The blood pressure response was normal and the heart rate response was normal. 6. Overall low risk study based on Soto score. Stress Summary Normal stress electrocardiogram. History/Risk Factors Hypertension: No Dyslipidemia: No Diabetes Mellitus: No COPD: No Tobacco Use: Never History/Risk Factors PT TAKES NO MEDS. Report Signatures Finalized by Kaci Victor MD on 12/27/2024 01:39 PM Protocol: SUDARSHAN Stress ECG Details --- Stage: PRETEST SUPINE Duration (min): 1 min : 26 sec Speed (mph): 0.0 Grade (%): 0 HR (bpm): 109 SBP (mmHg): 143 DBP (mmHg): 92 METS: 1.0 Comments: BASELINE CHEST TIGHTNESS 06/07 --- Stage: PRETEST STANDING Duration (min): 1 min : 38 sec Speed (mph): 0.0 Grade (%): 0 HR (bpm): 96 SBP (mmHg): 138 DBP (mmHg): 94 METS: 1.0 --- Stage: EXERCISE STAGE 1 Duration (min): 3 min : 0 sec Speed (mph): 1.7 Grade (%): 10 HR (bpm): 109 SBP (mmHg): 162 DBP (mmHg): 100 METS: 4.6 Comments: RPE 110, BASELINE CHEST TIGHTNESS 1/0, CHEST TIGHT 110 --- Stage: EXERCISE STAGE 2 Duration (min): 3 min : 0 sec Speed (mph): 2.5 Grade (%): 12 HR (bpm): 129 SBP (mmHg): 164 DBP (mmHg): 90 METS: 7.0 Comments: RPE 310, TIGHTNESS 110 --- Stage: EXERCISE STAGE 3 Duration (min): 3 min : 0 sec Speed (mph): 3.4 Grade (%): 14 HR (bpm): 153 SBP (mmHg): 164 DBP (mmHg): 90 METS: 10.1 Comments: CH TIGHTNESS 110, RPE 4/10, CH TIGHTNESS 0/10 --- Stage: EXERCISE STAGE 4 Duration (min): 1 min : 1 sec Speed (mph): 4.1 Grade (%): 16 HR (bpm): 166 SBP (mmHg): 172 DBP (mmHg): 88 METS: 11.6 Comments: REP 11/05, NO CHEST TIGHTNESS --- Stage: RECOVERY Duration (min): 1 min : 0 sec Speed (mph): 0.0 Grade (%): 0 HR (bpm): 153 SBP (mmHg): 145 DBP (mmHg): 67 METS: 6.4 --- Stage: RECOVERY 1 min Duration (min): 1 min : 0 sec Speed (mph): 0.0 Grade (%): 0 HR (bpm): 139 SBP (mmHg): 156 DBP (mmHg): 74 METS: 3.8 --- Stage: RECOVERY 2 min Duration (min): 1 min : 0 sec Speed (mph): 0.0 Grade (%): 0 HR (bpm): 127 SBP (mmHg): 156 DBP (mmHg): 74 METS: 2.5 --- Stage: RECOVERY 3 min Duration (min): 1 min : 0 sec Speed (mph): 0.0 Grade (%): 0 HR (bpm): 123 SBP (mmHg): 138 DBP (mmHg): 90 METS: 1.8 --- Stage: RECOVERY 4 min Duration (min): 1 min : 0 sec Speed (mph): 0.0 Grade (%): 0 HR (bpm): 112 SBP (mmHg): 138 DBP (mmHg): 90 METS: 1.5 --- Stage: RECOVERY 5 min Duration (min): 1 min : 0 sec Speed (mph): 0.0 Grade (%): 0 HR (bpm): 116 SBP (mmHg): 139 DBP (mmHg): 91 METS: 1.3 --- Stage: RECOVERY 6 min Duration (min): 1 min : 0 sec Speed (mph): 0.0 Grade (%): 0 HR (bpm): 121 SBP (mmHg): 139 DBP (mmHg): 91 METS: 1.2 --- Stage: RECOVERY 7 min Duration (min): 1 min : 0 sec Speed (mph): 0.0 Grade (%): 0 HR (bpm): 116 SBP (mmHg): 137 DBP (mmHg): 90 METS: 1.2 --- Stage: RECOVERY 8 min Duration (min): 0 min : 9 sec Speed (mph): 0.0 Grade (%): 0 HR (bpm): 118 SBP (mmHg): 137 DBP (mmHg): 90 METS: 1.2 Rest HR: 86 bpm Peak HR: 166 bpm Rest Sys BP: 143 mmHg Peak Sys BP: 172 mmHg Max Pred HR: 169 bpm % Max Pred HR: 98 % Target HR: 144 bpm Max RPP: 28,552 bpm*mmHg Soto Score: 6 Target HR Summary: Patient's target heart rate was achieved BP Response: normal resting BP - appropriate response Termination Reason: FATIGUE Cardiac Symptoms: None Max ST Seg Deviation: 0.0 mm Total Time: 10 min : 0 sec Rest Macario BP: 92 mmHg Peak Macario BP: 88 mmHg Angina Score: Nonlimiting Total METS: 11.6 (more content not included)... Normal [facility] Coronary Angiography [facility] Coronary Angiography [facility] Imaging Services [address] [place] [address] 12/17/24 1644 MR#: [id number] Acct: [id number] Name: CARLOS MAHER Rep #: [id number] : 1975 49 From: Fritz Guerra MD PCP: Dr. Misty Thakur MD Status:REG CLI Y Location: CT Calcium Scoring Date of Study:: 12/17/24 Indications Indications: HLD Coronary Calcium Scoring: High-resolution Computed Tomographic imaging of the chest was performed on [ 12/17/24], with particular attention paid to the coronary arteries. Images from the examination were analyzed for the presence and extent of coronary artery calcification , using coronary calcium quantification software. The patient tolerated the procedure well and there were no complications. The results of the coronary calcification analysis are provided below. Findings Coronary Artery Left Main (LM): 0 Left Anterior Descending (LAD): 0 Left Circumflex (LCX): 0 Right Coronary Artery (RCA): 0 Total Agatston Score: 0 Percentile Rankin Calcium Scoring Interpretation: Different methods to categorize the overall amount of coronary plaque. Overall amount CAC SIS Visual of coronary plaque P1 Mild -100 <2 1-2 vessels with mild amount of plaque P2 Moderate 101-300 3-4 1-2 vessels with moderate amount, 3 vessels with mild amount of plaque P3 Severe 301-999 5-7 3 vessels with moderate amount, 1 vessel with severe amount of plaque P4 Extensive >1000 >8 2-3 vessels with severe amount of plaque Conclusion: No atherosclerotic plaque noted 12/17/24 1645 Date Fritz Guerra MD Cosigner Signature (if applicable): Date CC: Dr. Misty Thakur MD; Dr. Fritz Guerra MD; Dr. Tom Benton MD Signed Normal [facility] Limited Chest CT Cardiac Onl yon 12-17-[address] Cardiac Only [facility] Imaging Services [address] [place] [id number] Cardiac Only MR#: [id number] Acct: [id number] Name: CARLOS MAHER Rep #: [id number] : 1975 M Beth From: Lakshmi Yan MD PCP: Dr. Misty Thakur MD Status: [facility] Study: Limited Chest CT Cardiac Only Date of Exam: Exam# [id number] Ordering Dr: Misty Thakur PROCEDURE: LIMITED CHEST CT CARDIAC ONLY 12/17/2024 REASON FOR EXAM: DYSLIPIDEMIA, SHORTNESS OF BREATH TECHNIQUE: LIMITED CHEST CT CARDIAC ONLY. Axial CT images obtained from the aortic arch to the upper abdomen without the use of contrast.. One or more dose reduction techniques were used (e.g., Automated exposure control, adjustment of the mA and/or kV according to patient size, use of iterative reconstruction technique). RADIATION DOSE SUMMARY: CTDlvol: 12.19 mGy DLP: 195.04 mGycm COMPARISON: CTA Pulmonary w/ Contrast, 02/08/2021 FINDINGS: LUNGS: Scattered fibrotic-like changes bilaterally with thin parenchymal bands mainly at the periphery. No pulmonary mass. No focal airspace consolidation. PLEURAL SPACES: No pleural effusion. No pneumothorax. HEART: No cardiomegaly. No significant pericardial effusion. MEDIASTINUM/HILUM: No significant lymphadenopathy. AORTA: No aneurysm. ESOPHAGUS: Unremarkable. CHEST WALL: The chest wall is unremarkable. BONES: No acute osseous abnormality. UPPER ABDOMEN: The upper abdominal solid organs are unremarkable. CT/Limited Chest CT Cardiac Only IMPRESSION: 1. No acute intrathoracic abnormality. 2. Fibrotic-like lung changes bilaterally, suggesting interstitial lung disease. Consider post- COVID interstitial lung disease (ILD) with the appropriate past medical history. Reading Location: [facility] CC: Dr. Misty Thakur MD Scorer Helper: Signed Normal [facility] Absolute lymphocyte countOrd ered By: Syeda Blake on 12-13-2024 Lymphocytes Auto (Unsp spec) [#/Vol] 1.05 10*3/uL 0.83-4.51 [facility] Absolute neutrophil countOrd ered By: Syeda Blake on 12-13-2024 Neutrophils (Bld) [#/Vol] 4.4 10*3/uL 2.0-7.7 [facility] Anion gap in Serum or Plasma Ordered By: Syeda Blake on 12-13-2024 Anion gap [Moles/Vol] 14 mmol/L 5-15 [facility] Automated lymphocyte count a s percentage of total leukocytesOrdered By: Syeda Blake on 12-13-2024 Lymphocytes/100 WBC Auto (Unsp spec) 17.1 % Low 19-41 [facility] BUN/creatinine ratioOrdered By: Syeda Blake on 12-13-2024 Urea nitrogen/Creatinine [Mass ratio] 12.1 mg/mg 10-20 [facility] Basic Metabolic Profile (BMP )on 12-13-2024 BUN/CRE 12.1 RATIO Normal 10-20 [facility] Comment on above: Performed By: #### L 100.0500, L501.9910, L500.4050 #### [facility] [address] [place], [address] Calcium [Mass/Vol] 8.8 mg/dL Normal 7.6-11.0 [facility] Comment on above: Performed By: #### L 100.0500, L501.9910, L500.4050 #### [facility] [address] [place], [address] Chloride [Moles/Vol] 102 mmol/L Normal 98-108 [facility] Comment on above: Performed By: #### L 100.0500, L501.9910, L500.4050 #### [facility] [address] [place], [address] CO2 [Moles/Vol] 22.5 mmol/L Normal 21.0-32.0 [facility] Comment on above: Performed By: #### L 100.0500, L501.9910, L500.4050 #### [facility] [address] [place], [address] Creatinine [Mass/Vol] 1.29 mg/dL High 0.70-1.20 [facility] Comment on above: Performed By: #### L 100.0500, L501.9910, L500.4050 #### [facility] [address] [place], [address] ECRCL 72.88 ml/min Normal 50-250 [facility] Comment on above: Performed By: #### L 100.0500, L501.9910, L500.4050 #### [facility] [address] [place], [address] GAP 14 Normal 5-15 [facility] Comment on above: Performed By: #### L 100.0500, L501.9910, L500.4050 #### [facility] [address] [place], [address] GFR/1.73 sq M.predicted among non-blacks MDRD (S/P/Bld) [Vol rate/Area] 67 mL/min/{1.73_m2} Normal >60 [facility] Comment on above: Result Comment: mL/m in/1.73m2 CKD-EPI Creatinine Equation (2020) Performed By: #### L 100.0500, L501.9910, L500.4050 #### [facility] [address] [place], [address] Glucose [Mass/Vol] 113 mg/dL High 70-99 [facility] Comment on above: Performed By: #### L 100.0500, L501.9910, L500.4050 #### [facility] [address] [place], [address] Potassium [Moles/Vol] 3.9 mmol/L Normal 3.3-5.1 [facility] Comment on above: Result Comment: Hemo lysis present, Results??could be affected. ?? Performed By: #### L 100.0500, L501.9910, L500.4050 #### [facility] [address] [place], [address] Sodium [Moles/Vol] 139 mmol/L Normal 133-145 [facility] Comment on above: Performed By: #### L 100.0500, L501.9910, L500.4050 #### [facility] [address] [place], [address] Urea nitrogen [Mass/Vol] 16 mg/dL Normal 4-19 [facility] Comment on above: Performed By: #### L 100.0500, L501.9910, L500.4050 #### [facility] [address] [place], [address] Basophil percentageOrdered B y: Syedadulce Blake on 12-13-2024 Basophils/100 WBC (Bld) 0.2 % 0-1 [facility] Bilirubin directOrdered By: Syeda Blake on 12-13-2024 Bilirubin.direct [Mass/Vol] 0.17 mg/dL 0.00-0.30 [facility] Comment on above: Hemolysis present, R esults could be affected. Bilirubin, totalOrdered By: Syeda Lou on 12-13-2024 Bilirubin [Mass/Vol] 0.56 mg/dL 0.00-1.30 [facility] CBC W/Diff, Automatedon 11-26 Absolute Lymph 1.05 X10 3/uL Normal 0.83-4.51 [facility] Comment on above: Performed By: #### L 501.4021, L100.0100, L300.8000 #### [facility] [address] [place], [address] Absolute Neut 4.4 X10 3/uL Normal 2.0-7.7 [facility] Comment on above: Performed By: #### L 501.4021, L100.0100, L300.8000 #### [facility] [address] [place], [address] Basophils/100 WBC (Bld) 0.2 % Normal 0-1 [facility] Comment on above: Performed By: #### L 501.4021, L100.0100, L300.8000 #### [facility] [address] [place], [address] Eosinophils/100 WBC (Bld) 0.5 % Normal 0-5 [facility] Comment on above: Performed By: #### L 501.4021, L100.0100, L300.8000 #### [facility] [address] [place], [address] Erythrocyte distribution width (RBC) [Ratio] 12.2 % Normal 11.6-14.6 [facility] Comment on above: Performed By: #### L 501.4021, L100.0100, L300.8000 #### [facility] [address] [place], [address] Hematocrit (Bld) [Volume fraction] 44.9 % Normal 40-54 [facility] Comment on above: Performed By: #### L 501.4021, L100.0100, L300.8000 #### [facility] [address] [place], [address] Hemoglobin (Bld) [Mass/Vol] 15.8 g/dL Normal 13.0-16.5 [facility] Comment on above: Performed By: #### L 501.4021, L100.0100, L300.8000 #### [facility] [address] [place], [address] IG% 0.300 Normal 0.0-0.9 [facility] Comment on above: Result Comment: IG% - Immature Granulocytes (promyelocytes, myelocytes and metamyelocytes) > 1% indicates that a LEFT SHIFT is Present. Performed By: #### L 501.4021, L100.0100, L300.8000 #### [facility] [address] [place], [address] Lymphocytes/100 WBC (Bld) 17.1 % Low 19-41 [facility] Comment on above: Performed By: #### L 501.4021, L100.0100, L300.8000 #### [facility] [address] [place], [address] MCH (RBC) [Entitic mass] 31.8 pg Normal 27.0-32.0 [facility] Comment on above: Performed By: #### L 501.4021, L100.0100, L300.8000 #### [facility] [address] [place], [address] MCHC (RBC) [Mass/Vol] 35.2 g/dL Normal 32-36 [facility] Comment on above: Performed By: #### L 501.4021, L100.0100, L300.8000 #### [facility] [address] [place], [address] MCV (RBC) [Entitic vol] 90.3 fL Normal 80-94 [facility] Comment on above: Performed By: #### L 501.4021, L100.0100, L300.8000 #### [facility] [address] [place], [address] Monocytes/100 WBC (Bld) 10.4 % High 0-10 [facility] Comment on above: Performed By: #### L 501.4021, L100.0100, L300.8000 #### [facility] [address] [place], [address] Neutrophils/100 WBC (Bld) 71.5 % High 47-70 [facility] Comment on above: Performed By: #### L 501.4021, L100.0100, L300.8000 #### [facility] [address] [place], [address] Nucleated RBC (Bld) [#/Vol] 0 10*3/uL Normal 0-5 [facility] Comment on above: Performed By: #### L 501.4021, L100.0100, L300.8000 #### [facility] [address] [place], [address] Platelet mean volume (Bld) [Entitic vol] 11.1 fL Normal 6.2-12.0 [facility] Comment on above: Performed By: #### L 501.4021, L100.0100, L300.8000 #### [facility] [address] [place], [address] Platelets (Bld) [#/Vol] 152 10*3/uL Normal 150-450 [facility] Comment on above: Performed By: #### L 501.4021, L100.0100, L300.8000 #### [facility] [address] [place], [address] RBC (Bld) [#/Vol] 4.97 10*6/uL Normal 4.6-6.2 [facility] Comment on above: Performed By: #### L 501.4021, L100.0100, L300.8000 #### [facility] [address] [place], [address] RDW SD 40.2 fl Normal 35.1-43.9 [facility] Comment on above: Performed By: #### L 501.4021, L100.0100, L300.8000 #### [facility] [address] [place], [address] WBC (Bld) [#/Vol] 6.2 10*3/uL Normal 4.4-11.0 [facility] Comment on above: Performed By: #### L 501.4021, L100.0100, L300.8000 #### [facility] [address] [place], [address] Carbon dioxide, total [Moles /volume] in Central venous bloodOrdered By: Syeda Blake on 12-13-2024 CO2 [Moles/Vol] 22.5 mmol/L 21.0-32.0 [facility] Chest PA and Lateralon 12-13 Chest PA and Lateral [facility] [address] [place] [address] Chest PA and Lateral MR#: [id number] Acct: [id number] Name: CARLOS MAHER Rep #: [id number] : 1975 M 49 From: Mina Hurley MD PCP: Dr. Misty Thakur MD Status: [facility] ER Study: Chest PA and Lateral Date of Exam: 12/13/24 Exam# [id number] Ordering Dr: Syeda Blake DO EXAM: XR Chest, 2 Views CLINICAL INDICATION: CHEST PAIN TECHNIQUE: Frontal and lateral views of the chest. COMPARISON: No relevant prior studies available. FINDINGS: LUNGS AND PLEURAL SPACES: Unremarkable. No consolidation. No pneumothorax. HEART: Unremarkable. No cardiomegaly. MEDIASTINUM: Unremarkable. Normal mediastinal contour. BONES/JOINTS: Unremarkable. No acute fracture. RAD/Chest PA and Lateral IMPRESSION: No acute cardiopulmonary process. Reading [facility] CC: Dr. Misty Thakur MD; Dr. Syeda Blake DO Scorer Helper: Signed Normal [facility] Chloride assayOrdered By: Hema Blake on 12-13-2024 Chloride [Moles/Vol] 102 mmol/L 98-108 [facility] D-Dimer Quantitative (DVT/PE )on 12-13-2024 D-DIMER QUANT 0.27 FEU/ug/m Normal 0.27-0.49 [facility] Comment on above: Result Comment: NORM AL D-Dimer level (<0.50) indicates no DVT or PE. Performed By: #### L 100.0500, L501.9910, L500.4050 #### [facility] [address] [facility] [place], [address] Emergency Department Summary on 12-13-2024 Emergency Department Summary [facility] Medical Records Department [address] [place] [address] Emergency Department Summary 12/13/24 MR#: [id number] Acct: [id number] Name: CARLOS MAHER Rep #: [id number] : 1975 49 From: Syeda Blake DO PCP: Dr. Misty Thakur MD Status:DEP ER Location: ED HPI History of Present Illness Chief Complaint: Chest Pain Informant: patient Narrative Narrative: 49-year-old male with history of sleep apnea (previously treated with mouthguard and weight loss, white coat hypertension and reflux presenting for increasing anxiety, shortness of breath and insomnia. Patient notes for the past month that he has noticed that he is having a harder time sleeping and waking up short of breath. He had gained some weight and thought that his sleep apnea was coming back. He started exercising again. He has intermittently felt short of breath. He states about 2 weeks ago with his shortness of breath he was seen at [facility] and observed overnight. He had an echocardiogram which he states was largely normal with an EF of around 70% and EKG as well as cardiac markers trended. He states he has an outpatient stress test and tells like a coronary calcium score ordered. He states that he has not been able to sleep the last few nights and gets discomfort in his chest. Described as a burning sensation. He also notes his heart rate is elevated. He is sleeping with a home pulse oximeter and notes that his oxygen is dropping below 90% when he sleeping. He states he is getting more anxious about this and feels that he is just running on adrenaline at this point. He came in for further evaluation. He also notes that he had been started on Norvasc 10 mg at outside hospital and taking that his blood pressures dropped in the 90s he was getting lightheaded so he stopped taking it. He states he always has high blood pressures in healthcare settings but when he takes his blood pressure at home it is always normal around 120. He denies any swelling of his legs. He denies any history of DVT or PE. Came in for further evaluation. Notes remotely he did have some issues with anxiety and was on a short course of citalopram and that helped and then got off of it. [facility] Medical History HTN (hypertension) Sleep apnea Home Medications ???Medication ???Instructions ???Recorded ???Last Taken ???Type acetaminophen 500 mg tablet 500 mg PO Q6H PRN PRN Fever 02/06/21 History ascorbate calcium (vitamin C) 500 500 mg PO DAILY 11/18/20 02/07/21 History mg tablet cholecalciferol (vitamin D3) 25 25 mcg PO DAILY 11/18/20 02/06/21 History mcg (1,000 unit) capsule vitamin B12 500 mcg-folic acid 400 1 tab PO DAILY 06/23/21 09/11/21 History mcg tablet dexamethasone 6 mg tablet 6 mg PO DAILY #7 tabs 02/08/21 Unk nown Rx (Decadron) hydroxyzine HCl 25 mg tablet 25 mg PO TID PRN anxiety or sleep 12/13/24 Unknown Rx #20 tabs Allergy/AdvReac Type Severity Reaction Status Date / Time azithromycin Allergy Mild PT UNSURE Verified 02/08/21 10:21 OF REACTION lorazepam (From Ativan) Allergy Mild Other Verified 02/08/21 10:21 omeprazole (From Prilosec) Allergy Mild Other Verified 02/08/21 10:21 Penicillins Allergy Mild Other Verified 02/08/21 10:21 amoxicillin Allergy Other Verified 02/08/21 10:21 prednisone Allergy PT UNSURE Verified 02/08/21 10:21 OF REACTION Sulfa (Sulfonamide Allergy Rash Verified 02/08/21 10:21 Antibiotics) caffeine AdvReac Other Verified 02/08/21 10:21 doxycycline AdvReac Other Verified 02/08/21 10:21 Family History Mother Colon cancer CAD (coronary artery disease) Hypertension Diabetes Breast cancer Grandfather CAD (coronary artery disease) Grandmother Colon cancer Uncle Colon cancer Social History Smoking Status: Never smoker alcohol intake: never ROS ROS ED Constitutional Constitutional ED: Denies chills or fever(s) ENT ENT ED: Denies rhinorrhea or sore throat Cardiovascular Cardiovascular: Reports chest pain Respiratory/Chest Respiratory/Chest: Reports dyspnea; Denies cough or dyspnea on exertion Gastrointestinal Gastrointestinal: Denies abdominal pain, nausea or vomiting Musculoskeletal Musculoskeletal: Denies arthralgias or myalgias Integumentary Denies rash Neurologic Neurologic: Denies headache(s), paresthesias or weakness Psychiatric Psychiatric: Reports anxiety; Denies suicidal ideation or suicidal thoughts Hematologic/Lymphatic Hematologic/Lymphatic: Denies easy bleeding or easy bruising EXAM Physical Exam Const Vital Signs: 12/13/24 10:14 12/13/24 10:14 12/13/24 10:29 Tem (more content not included)... Normal [facility] Eosinophil percentageOrdered By: Syeda Blake on 12-13-2024 Eosinophils/100 WBC (Bld) 0.5 % 0-5 [facility] Erythrocyte distribution wid th ratioOrdered By: Syeda Blake on 12-13-2024 Erythrocyte distribution width (RBC) [Ratio] 12.2 % 11.6-14.6 [facility] Erythrocyte distribution wid th standard deviationOrdered By: Syeda Blake on 12-13-2024 Erythrocyte distribution width (RBC) [Ratio] 40.2 fl 35.1-43.9 [facility] Glomerular filtration rate ( GFR) estimation/1.73 sq m using serum, plasma, or whole bOrdered By: Syeda Blake on 12-13-2024 GFR/1.73 sq M.predicted among non-blacks MDRD (S/P/Bld) [Vol rate/Area] 67 mL/min/{1.73_m2} >60 [facility] Comment on above: mL/min/1.73m2 CKD-EP I Creatinine Equation (2020) Hematocrit Auto (Bld) [Volum e fraction]Ordered By: Syeda Blake on 12-13-2024 Hematocrit (Bld) [Volume fraction] 44.9 % 40-54 [facility] Hemoglobin measurementOrdere d By: Syeda Blake on 12-13-2024 Hemoglobin (Bld) [Mass/Vol] 15.8 g/dL 13.0-16.5 [facility] Immature granulocytes/100 WB C Auto (Bld)Ordered By: Syeda Blake on 12-13-2024 Immature granulocytes/100 WBC (Bld) 0.300 % 0.0-0.9 [facility] Comment on above: IG% - Immature Granu locytes (promyelocytes, myelocytes and metamyelocytes) > 1% indicates that a LEFT SHIFT is Present. L499.0042on 12-13-2024 Trop T High Sen 6 ng/L Normal <=22 [facility] Comment on above: Performed By: #### L 100.0500, L501.9910, L500.4050 #### [facility] [address] [place], [address] L499.0043on 12-13-2024 Trop T High Sen Normal <=22 [facility] Comment on above: Result Comment: [facility] DEPARTED ER. Performed By: #### L 499.0043 #### [facility] [address] [place], [address] L501.4021on 12-13-2024 Trop T High Sen < 6 Normal <=22 [facility] Comment on above: Performed By: #### L 100.0500, L501.9910, L500.4050 #### [facility] [address] [place], [address] Laboratory - Chemistry and C hemistry - challengeOrdered By: Syeda Blake on 12-13-2024 AST [Catalytic activity/Vol] 29 U/L <38 [facility] Comment on above: Hemolysis present, R esults could be affected. Lipaseon 12-13-2024 Lipase [Catalytic activity/Vol] 43 U/L Normal 13-75 [facility] Comment on above: Result Comment: Plea se note: LIPASE revised reference range effective 22. New Lipase methodology. Expected to produce lower values than the previous assay method. NEW Reference Range: 13 - 75 U/L Performed By: #### L 100.0500, L501.9910, L500.4050 #### [facility] [address] [place], [address] Lipase measurementOrdered By : Syeda Blake on 12-13-2024 Lipase [Catalytic activity/Vol] 43 U/L 13-75 [facility] Comment on above: Please note:LIPASE r evised reference range effective 22. New Lipase methodology. Expected to produce lower values than the previous assay method. NEW Reference Range: 13 - 75 U/L Liver Profileon 12-13-2024 Albumin [Mass/Vol] 4.4 g/dL Normal 3.5-5.0 [facility] Comment on above: Performed By: #### L 100.0500, L501.9910, L500.4050 #### [facility] [address] [place], [address] ALK PHOS 64 U/L Normal 40-129 [facility] Comment on above: Performed By: #### L 100.0500, L501.9910, L500.4050 #### [facility] [address] [place], [address] ALT [Catalytic activity/Vol] 27 U/L Normal <=46 [facility] Comment on above: Performed By: #### L 100.0500, L501.9910, L500.4050 #### [facility] [address] [place], [address] AST [Catalytic activity/Vol] 29 U/L Normal <=37 [facility] Comment on above: Result Comment: Hemo lysis present, Results??could be affected. ?? Performed By: #### L 100.0500, L501.9910, L500.4050 #### [facility] [address] [place], [address] Bilirubin [Mass/Vol] 0.56 mg/dL Normal 0.00-1.30 [facility] Comment on above: Performed By: #### L 100.0500, L501.9910, L500.4050 #### [facility] [address] [place], [address] Bilirubin.direct [Mass/Vol] 0.17 mg/dL Normal 0.00-0.30 [facility] Comment on above: Result Comment: Hemo lysis present, Results??could be affected. ?? Performed By: #### L 100.0500, L501.9910, L500.4050 #### [facility] [address] [place], [address] Globulin (S) [Mass/Vol] 3.3 g/dL Normal 2.2-4.2 [facility] Comment on above: Performed By: #### L 100.0500, L501.9910, L500.4050 #### [facility] [address] [place], [place], [address] T PROT 7.7 g/dL Normal 5.9-8.4 [facility] Comment on above: Performed By: #### L 100.0500, L501.9910, L500.4050 #### [facility] [address] [place], [place], [address] MCV (mean corpuscular volume ) determinationOrdered By: Syeda Blake on 12-13-2024 MCV (RBC) [Entitic vol] 90.3 fL 80-94 [facility] Mean corpuscular hemoglobin (MCH) determinationOrdered By: Syeda Blake on 12-13-2024 MCH (RBC) [Entitic mass] 31.8 pg 27.0-32.0 [facility] Mean corpuscular hemoglobin concentration (MCHC) determinationOrdered By: Syeda Blake on 12-13-2024 MCHC (RBC) [Mass/Vol] 35.2 g/dL 32-36 [facility] Mean platelet volume determi nationOrdered By: Syeda Blake on 12-13-2024 Platelet mean volume (Bld) [Entitic vol] 11.1 fL 6.2-12.0 [facility] Monocyte percentageOrdered B y: Syeda Blake on 12-13-2024 Monocytes/100 WBC (Bld) 10.4 % High 0-10 [facility] Neutrophil percentageOrdered By: Syeda Blake on 12-13-2024 Neutrophils/100 WBC (Bld) 71.5 % High 47-70 [facility] Nucleated red blood cell per centageOrdered By: Syeda Blake on 12-13-2024 Nucleated RBC/100 WBC (Bld) [Ratio] 0 % 0-5 [facility] Platelet countOrdered By: Hema Blake on 12-13-2024 Platelets (Bld) [#/Vol] 152 10*3/uL 150-450 [facility] Potassium measurement (mass/ volume)Ordered By: Syeda Blake on 12-13-2024 Potassium (Unsp spec) [Mass/Vol] 3.9 mmol/L 3.3-5.1 [facility] Comment on above: Hemolysis present, R esults could be affected. RBC Auto (Bld) [#/Vol]Ordere d By: Syeda Blake on 12-13-2024 RBC (Bld) [#/Vol] 4.97 10*6/uL 4.6-6.2 [facility] Serum creatinine measurement (mass/volume)Ordered By: Syeda Blake on 12-13-2024 Creatinine [Mass/Vol] 1.29 mg/dL High 0.70-1.20 [facility] Serum globulin measurementOr dered By: Syeda Blake on 12-13-2024 Globulin (S) [Mass/Vol] 3.3 g/dL 2.2-4.2 [facility] Serum glucose measurement (m ass/volume)Ordered By: Syeda Blake on 12-13-2024 Glucose [Mass/Vol] 113 mg/dL High 70-99 [facility] Serum or plasma alanine ayala otransferase (ALT) measurementOrdered By: Syeda Blake on 12-13-2024 ALT [Catalytic activity/Vol] 27 U/L <47 [facility] Serum or plasma albumin oralia urement (mass/volume)Ordered By: Syeda Blake on 12-13-2024 Albumin [Mass/Vol] 4.4 g/dL 3.5-5.0 [facility] Serum or plasma alkaline batsheva sphatase measurementOrdered By: Syeda Blake on 12-13-2024 ALP [Catalytic activity/Vol] 64 U/L 40-129 [facility] Serum or plasma calcium oralia urement (mass/volume)Ordered By: Syeda Blake on 12-13-2024 Calcium [Mass/Vol] 8.8 mg/dL 7.6-11.0 [facility] Serum or plasma urea nitroge n measurement (mass/volume)Ordered By: Syeda Blake on 12-13-2024 Urea nitrogen [Mass/Vol] 16 mg/dL 4-19 [facility] Sodium levelOrdered By: Jose Blake on 12-13-2024 Sodium [Moles/Vol] 139 mmol/L 133-145 [facility] TSH DL <= 0.005 mIU/L QnOrde red By: Syeda Blake on 12-13-2024 TSH Qn 1.550 uIU/mL 0.300-4.20 0 [facility] Thyroid Stim Hormone (TSH)on 12-13-2024 TSH 1.550 uIU/mL Normal 0.300-4.20 0 [facility] Comment on above: Performed By: #### L 100.0500, L501.9910, L500.4050 #### [facility] [place], [address] Total proteinOrdered By: Lu Blake on 12-13-2024 Protein [Mass/Vol] 7.7 g/dL 5.9-8.4 [facility] Troponin T.cardiac [Mass/vol ume] in Serum or Plasma by High sensitivity methodOrdered By: Syeda Blake on 12-13-2024 Troponin T.cardiac High sensitivity method [Mass/Vol] 6 ng/L <22 [facility] Troponin T.cardiac High sensitivity method [Mass/Vol] < 6 ng/L <22 [facility] White blood cell (WBC) count Ordered By: Syeda Blake on 12-13-2024 WBC (Bld) [#/Vol] 6.2 10*3/uL 4.4-11.0 [facility] CBC Auto Differentialon Basophils (Bld) [#/Vol] 0.02 10*3/uL [facility] Basophils/100 WBC (Bld) 0.3 % [facility] Eosinophils (Bld) [#/Vol] 0.07 10*3/uL [facility] Eosinophils/100 WBC (Bld) 1 % [facility] Erythrocyte distribution width (RBC) [Entitic vol] 12.5 % 11.6 - 14.8 % [facility] Hematocrit (Bld) [Volume fraction] 44.3 % 41.0 - 53.0 % [facility] Hemoglobin (Bld) [Mass/Vol] 14.8 g/dL 13.5 - 17.5 g/dL [facility] Immature granulocytes (Bld) [#/Vol] 0.01 10*3/uL [facility] Immature granulocytes/100 WBC (Bld) 0.1 % [facility] Comment on above: The IG parameter is the percentage of metamyelocytes, myelocytes and promyelocytes. An immature granulocyte count (IG) of 1% or more suggests the possibility of infection, an IG count of 3% is very likely related to an infection. Lymphocytes (Bld) [#/Vol] 1.6 10*3/uL [facility] Lymphocytes/100 WBC (Bld) 23.3 % [facility] MCH (RBC) [Entitic mass] 31.5 pg 26.0 - 34.0 pg [facility] MCHC (RBC) [Mass/Vol] 33.4 g/dL 31.0 - 37.0 g/dL [facility] MCV (RBC) [Entitic vol] 94.3 fL 80.0 - 100.0 fL [facility] Monocytes (Bld) [#/Vol] 0.84 10*3/uL [facility] Monocytes/100 WBC (Bld) 12.2 % [facility] Neutrophils (Bld) [#/Vol] 4.34 10*3/uL [facility] Neutrophils/100 WBC (Bld) 63.1 % [facility] Nucleated RBC (Bld) [#/Vol] 0 10*3/uL [facility] Nucleated RBC/100 WBC (Bld) [Ratio] 0 % [facility] Platelet mean volume (Bld) [Entitic vol] 11.6 fL 9.4 - 12.4 fL [facility] Platelets (Bld) [#/Vol] 158 10*3/uL [facility] RBC (Bld) [#/Vol] 4.7 10*6/uL [facility] alth WBC (Bld) [#/Vol] 6.88 10*3/uL [facility] WITH AUTO DIFFERENTIALon 12-02-2024 AUTO NRBC 0.0 % Normal [facility] Comment on above: Performed By: #### L [id number] #### [facility] [address] [place], [place] [address] Jaime Smith M.D. [id number] AUTO NRBC ABS COUNT 0.00 K/mcL Normal 0.00-0.00 [facility] Comment on above: Performed By: #### L [id number] #### [facility] [address] [place], [place] [address] Jaime Smith M.D. [id number] BASOPHILS ABSOLUTE COUNT 0.02 K/mcL Normal 0.00-0.30 [facility] Comment on above: Performed By: #### L [id number] #### LAB [address] [place] [address] Jaime Smith M.D. [id number] Basophils/100 WBC (Bld) 0.3 % Normal [facility] Comment on above: Performed By: #### L [id number] #### LAB [address] [place] [address] Jaime Smith M.D. [id number] Eosinophils (Bld) [#/Vol] 0.07 10*3/uL Normal 0.00-0.50 [facility] Comment on above: Performed By: #### L [id number] #### LAB [address] [place] [address] Jaime Smith M.D. [id number] Eosinophils/100 WBC (Bld) 1.0 % Normal [facility] Comment on above: Performed By: #### L [id number] #### LAB [address] [place] [address] Jaime Smith M.D. [id number] Erythrocyte distribution width (RBC) [Ratio] 12.5 % Normal 11.6-14.8 [facility] Comment on above: Performed By: #### L [id number] #### LAB [address] [address] Jaime Smith M.D. [id number] Hematocrit (Bld) [Volume fraction] 44.3 % Normal 41.0-53.0 [facility] Comment on above: Performed By: #### L [id number] #### LAB [address] [address] Jaime Smith M.D. [id number] Hemoglobin (Bld) [Mass/Vol] 14.8 g/dL Normal 13.5-17.5 [facility] Comment on above: Performed By: #### L [id number] #### LAB [address] [place] [address] Jaime Smith M.D. [id number] IG ABSOLUTE 0.01 K/mcL Normal 0.00-0.30 [facility] Comment on above: Performed By: #### L [id number] #### LAB [address] [place] [address] Jaime Smith M.D. [id number] IG PERCENT 0.10 % Normal [facility] Comment on above: Result Comment: The IG parameter is the percentage of metamyelocytes, myelocytes and promyelocytes. An immature granulocyte count (IG) of 1% or more suggests the possibility of infection, an IG count of 3% is very likely related to an infection. Performed By: #### L [id number] #### LAB [address] [place] [address] Jaime Smith M.D. [id number] Lymphocytes (Bld) [#/Vol] 1.60 10*3/uL Normal 0.90-4.00 [facility] Comment on above: Performed By: #### L [id number] #### LAB [address] [address] Jaime Smith M.D. [id number] Lymphocytes/100 WBC (Bld) 23.3 % Normal [facility] Comment on above: Performed By: #### L [id number] #### LAB [address] [place] [address] Jaime Smith M.D. [id number] MCH (RBC) [Entitic mass] 31.5 pg Normal 26.0-34.0 [facility] Comment on above: Performed By: #### L [id number] #### LAB [address] [address] Jaime Smith M.D. [id number] MCV (RBC) [Entitic vol] 94.3 fL Normal 80.0-100.0 [facility] Comment on above: Performed By: #### L [id number] #### LAB [address] [place] [address] Jaime Smith M.D. [id number] MEAN CORPUSCULAR HEMOGLOBIN CONC 33.4 g/dL Normal 31.0-37.0 [facility] Comment on above: Performed By: #### L [id number] #### LAB [address] [address] Jaime Smith M.D. [id number] Monocytes (Bld) [#/Vol] 0.84 10*3/uL Normal 0.30-0.90 [facility] Comment on above: Performed By: #### L [id number] #### LAB [address] [address] Jaime Smith M.D. [id number] Monocytes/100 WBC (Bld) 12.2 % Normal [facility] Comment on above: Performed By: #### L [id number] #### LAB [address] [address] Jaime Smith M.D. [id number] NEUTROPHILS ABSOLUTE COUNT 4.34 K/mcL Normal 1.70-7.00 [facility] Comment on above: Performed By: #### L [id number] #### LAB [address] [address] Jaime Smith M.D. [id number] Neutrophils/100 WBC (Bld) 63.1 % Normal [facility] Comment on above: Performed By: #### L [id number] #### LAB [address] [address] Jaime Smith M.D. [id number] Platelet mean volume (Bld) [Entitic vol] 11.6 fL Normal 9.4-12.4 [facility] Comment on above: Performed By: #### L [id number] #### LAB [address] [address] Jaime Smith M.D. [id number] Platelets (Bld) [#/Vol] 158 10*3/uL Normal 150-400 [facility] Comment on above: Performed By: #### L [id number] #### LAB [address] [place] [address] Jaime Smith M.D. [id number] RBC (Bld) [#/Vol] 4.70 10*6/uL Normal 4.50-5.90 [facility] Comment on above: Performed By: #### L [id number] #### MH LAB [address] [id number] Jaime Smith M.D. [id number] WBC (Bld) [#/Vol] 6.88 10*3/uL Normal 4.50-11.00 [facility] Comment on above: Performed By: #### L [id number] #### MH LAB [address] [address] Jaime Smith M.D. [id number] COMPREHENSIVE METABOLIC PANE Barron 12-02-2024 Albumin [Mass/Vol] 4.1 g/dL Normal 3.2-5.2 [facility] Comment on above: Order Comment: [facility] has implemented the eGFR calculation approach that does not have a coefficient for race that conforms to the NKF-ASN Task Force Recommendations. Performed By: #### 4 [id number] #### LAB [address] [address] Jaime Smith M.D. [id number] ALP [Catalytic activity/Vol] 54 U/L Normal 40-150 [facility] Comment on above: Order Comment: [facility] has implemented the eGFR calculation approach that does not have a coefficient for race that conforms to the NKF-ASN Task Force Recommendations. Performed By: #### 4 [id number] #### MH LAB [address] [address] Jaime Smith M.D. [id number] ALT [Catalytic activity/Vol] 19 U/L Normal 0-50 U/L [facility] Comment on above: Order Comment: [facility] has implemented the eGFR calculation approach that does not have a coefficient for race that conforms to the NKF-ASN Task Force Recommendations. Performed By: #### 4 [id number] #### MH LAB [address] [address] Jaime Smith M.D. [id number] Anion gap [Moles/Vol] 16 mmol/L Normal 10-20 [facility] Comment on above: Order Comment: [facility] has implemented the eGFR calculation approach that does not have a coefficient for race that conforms to the NKF-ASN Task Force Recommendations. Performed By: #### 4 [id number] #### LAB [address] [id number] Jaime Smith M.D. [id number] AST [Catalytic activity/Vol] 24 U/L Normal 0-50 U/L [facility] Comment on above: Order Comment: [facility] has implemented the eGFR calculation approach that does not have a coefficient for race that conforms to the NKF-ASN Task Force Recommendations. Performed By: #### 4 [id number] #### LAB [address] [address] Jaime Smith M.D. [id number] Bilirubin [Mass/Vol] 0.4 mg/dL Normal 0.0-1.3 [facility] Comment on above: Order Comment: [facility] has implemented the eGFR calculation approach that does not have a coefficient for race that conforms to the NKF-ASN Task Force Recommendations. Performed By: #### 4 [id number] #### LAB [address] [address] Jaime Smith M.D. [id number] Calcium [Mass/Vol] 9.0 mg/dL Normal 8.4-10.2 [facility] Comment on above: Order Comment: [facility] has implemented the eGFR calculation approach that does not have a coefficient for race that conforms to the NKF-ASN Task Force Recommendations. Performed By: #### 4 [id number] #### LAB [address] [address] Jaime Smith M.D. [id number] Chloride [Moles/Vol] 105 mmol/L Normal 98-108 [facility] Comment on above: Order Comment: [facility] has implemented the eGFR calculation approach that does not have a coefficient for race that conforms to the NKF-ASN Task Force Recommendations. Performed By: #### 4 [id number] #### LAB [address] [address] Jaime Smith M.D. [id number] Creatinine [Mass/Vol] 1.28 mg/dL Normal 0.50-1.30 [facility] Comment on above: Order Comment: [facility] has implemented the eGFR calculation approach that does not have a coefficient for race that conforms to the NKF-ASN Task Force Recommendations. Performed By: #### 4 [id number] #### LAB [address] [address] Jaime Smith M.D. [id number] EGFR 68 mL/min/1.73 m2 Normal >=60 [facility] Comment on above: Order Comment: [facility] has implemented the eGFR calculation approach that does not have a coefficient for race that conforms to the NKF-ASN Task Force Recommendations. Result Comment: Alison mated GFR was calculated using the 2020 CKD-EPI creatinine equation. Performed By: #### 4 [id number] #### LAB [address] [address] Jaime Smith M.D. [id number] Glucose [Mass/Vol] 96 mg/dL Normal 65-99 [facility] Comment on above: Order Comment: [facility] has implemented the eGFR calculation approach that does not have a coefficient for race that conforms to the NKF-ASN Task Force Recommendations. Performed By: #### 4 [id number] #### LAB [address] [address] Jaime Smith M.D. [id number] HCO3 (Bld) [Moles/Vol] 24 mmol/L Normal 21-32 [facility] Comment on above: Order Comment: [facility] has implemented the eGFR calculation approach that does not have a coefficient for race that conforms to the NKF-ASN Task Force Recommendations. Performed By: #### 4 6126 #### LAB [address] [address] Jaime Smith M.D. [id number] Potassium [Moles/Vol] 4.2 mmol/L Normal 3.5-5.1 [facility] Comment on above: Order Comment: [facility] has implemented the eGFR calculation approach that does not have a coefficient for race that conforms to the NKF-ASN Task Force Recommendations. Performed By: #### 4 6126 #### LAB [address] [address] Jaime Smith M.D. [id number] Protein [Mass/Vol] 7.1 g/dL Normal 6.0-8.0 [facility] Comment on above: Order Comment: [facility] has implemented the eGFR calculation approach that does not have a coefficient for race that conforms to the NKF-ASN Task Force Recommendations. Performed By: #### 4 [id number] #### LAB [address] [address] Jaime Smith M.D. [id number] Sodium [Moles/Vol] 141 mmol/L Normal 135-145 [facility] Comment on above: Order Comment: [facility] has implemented the eGFR calculation approach that does not have a coefficient for race that conforms to the NKF-ASN Task Force Recommendations. Performed By: #### 4 6126 #### LAB [address] [address] Jaime Smith M.D. [id number] Urea nitrogen [Mass/Vol] 13 mg/dL Normal 8-25 [facility] Comment on above: Order Comment: [facility] has implemented the eGFR calculation approach that does not have a coefficient for race that conforms to the NKF-ASN Task Force Recommendations. Performed By: #### 4 6126 #### LAB [address] [address] Jaime Smith M.D. [id number] Urea nitrogen/Creatinine [Mass ratio] 10.2 mg/mg Normal 10.0-20.0 [facility] Comment on above: Order Comment: [facility] has implemented the eGFR calculation approach that does not have a coefficient for race that conforms to the NKF-ASN Task Force Recommendations. Performed By: #### 4 6126 #### LAB [address] [address] Jaime Smith M.D. [id number] Comprehensive metabolic 2000 panelon 12-02-2024 Albumin [Mass/Vol] 4.1 g/dL 3.2 - 5.2 g/dL [facility] ALP [Catalytic activity/Vol] 54 U/L 40 - 150 U/L [facility] ALT [Catalytic activity/Vol] 19 U/L 0 - 50 U/L [facility] Anion gap [Moles/Vol] 16 mmol/L 10 - 2 0 mmol/L [facility] AST [Catalytic activity/Vol] 24 U/L 0 - 50 U/L [facility] Bilirubin [Mass/Vol] 0.4 mg/dL 0.0 - 1 .3 mg/dL [facility] Calcium [Mass/Vol] 9 mg/dL 8.4 - 10. 2 mg/dL [facility] Chloride [Moles/Vol] 105 mmol/L 98 - 10 8 mmol/L [facility] Creatinine [Mass/Vol] 1.28 mg/dL 0.50 - 1.30 mg/dL [facility] GFR/1.73 sq M.predicted CKD-EPI (S/P/Bld) [Vol rate/Area] 68 - PINF [facility] Comment on above: Estimated GFR was ca lculated using the 2020 CKD-EPI creatinine equation. Glucose [Mass/Vol] 96 mg/dL 65 - 99 mg/dL [facility] HCO3 [Moles/Vol] 24 mmol/L 21 - 32 mmol/L [facility] Potassium [Moles/Vol] 4.2 mmol/L 3.5 - 5.1 mmol/L [facility] Protein [Mass/Vol] 7.1 g/dL 6.0 - 8.0 g/dL [facility] Sodium [Moles/Vol] 141 mmol/L 135 - 145 mmol/L [facility] Urea nitrogen [Mass/Vol] 13 mg/dL 8 - 25 mg/dL [facility] Urea nitrogen/Creatinine [Mass ratio] 10.2 mg/mg 10.0 - 20.0 [facility] has implemented the eGFR calculation approach that does not have a coefficient for race that conforms to the NKF-ASN Task Force Recommendations. [facility] ECHOCARDIOGRAM COMPLETE W CO NTRASTon 12-02-2024 ECHOCARDIOGRAM COMPLETE W CONTRAST Patient Info Name: CARLOS MAHER Age: 49 years : 1975 Gender: Male Ht: 170 cm Wt: 96 kg BSA: 2.17 m2 HR: 96 bpm BP: 130 / 79 mmHg Heart Rhythm: Sinus Rhythm Technical Quality: Fair Exam Date: 12/02/2024 8:55 AM Patient Status: Inpatient Obgyn Nurse: Shadi Mahan RCDS Exam Type: ECHOCARDIOGRAM COMPLETE W CONTRAST Study Info Indications - Chest pain R07.9 - Chest pain, unspecified Referring Physician: MIKE THOMPSON ; [id number] BMI: 33.20 kg/m2 Summary 1. This study [...] mmHg MV VTI 22 cm MV Decel Dickey 332 cm/s2 MV PHT 49 ms MV [...] c (more content not included)... Normal [facility] Echocardiogram complete w co ntrastOrdered By: Kaci Victor on 12-02-2024 Aortic valve area 3.19582 cm [facility] Work Phone: AV mean gradient 2 mmHg [facility] Work Phone: [phone] AV peak gradient 3.15192 mmHg [facility] Work Phone: EF 67.4054 % [facility] Work Phone: [phone] [facility] Work Phone: Echocardiogram complete w co ntraston 12-02-2024 Patient Info Name: CARLOS MAHER Age: 49 years : 1975 Gender: Male Ht: 170 cm Wt: 96 kg BSA: 2.17 m2 HR: 96 bpm BP: 130 / 79 mmHg Heart Rhythm: Sinus Rhythm Technical Quality: Fair Exam Date: 12/02/2024 8:55 AM Patient Status: Inpatient Obgyn Nurse: Shadi Mahan RCDS Exam Type: ECHOCARDIOGRAM COMPLETE W CONTRAST Study Info Indications - Chest pain R07.9 - Chest pain, unspecified Referring Physician: MIKE THOMPSON ; [id number] BMI: 33.20 kg/m2 Summary 1. This study [...] Mitral Valve (more content not included)... FUJI Kaci Conn MD - 12/02/2024 Patient Info Name: CARLOS MAHER Age: 49 years : 1975 Gender: Male Ht: 170 cm Wt: 96 kg BSA: 2.17 m2 HR: 96 bpm BP: 130 / 79 mmHg Heart Rhythm: Sinus Rhythm Technical Quality: Fair Exam Date: 12/02/2024 8:55 AM Patient Status: Inpatient Obgyn Nurse: Shadi Mahan RCDS Exam Type: ECHOCARDIOGRAM COMPLETE W CONTRAST Study Info Indications - Chest pain R07.9 - Chest pain, unspecified Referring Physician: MIKE THOMPSON ; [id number] BMI: 33.20 kg/m2 Summary 1. This study [...] mmHg MV VTI 22 cm MV Decel Dickey 332 cm/s2 MV PHT 49 ms MV Area (PHT) 4.5 cm2 4.0-5.0 MV Area (Cont Eq VTI) 3.4 cm2 MV Area Index (Cont Eq VTI) 1.57 cm2/m2 MV DVI 1.39 MV Diastolic Function MV E Peak Velocity 0.72 m/s MV A Peak Velocity 0.92 m/s MV E/A 0.8 MV Decel Time (more content not included)... [facility] MAGNESIUM LEVELon 12-02-2024 Magnesium [Mass/Vol] 2.1 mg/dL Normal 1.6-2.4 [facility] Comment on above: Performed By: #### 4 [id number] #### LAB [address] [address] Jaime Smith M.D. [id number] Magnesiumon 12-02-2024 Magnesium [Mass/Vol] 2.1 mg/dL 1.6 - 2 .4 mg/dL [facility] NT PRO BNPon 12-02-2024 NT-PRO BNP < Normal 0-300 [facility] Comment on above: Order Comment: [facility] has implemented the eGFR calculation approach that does not have a coefficient for race that conforms to the NKF-ASN Task Force Recommendations. Performed By: #### 4 [id number] #### LAB [address] [address] Jaime Smith M.D. [id number] NT Pro BNPon 12-02-2024 Natriuretic peptide.B prohormone N-Terminal [Mass/Vol] pg/mL 0 - 300 pg/mL [facility] Natriuretic peptide.B prohor elisha N-Terminal [Mass/Vol]on 12-02-2024 Interpretation and review of laboratory results Normal [facility] Pride Study Cut-offs Rule In: < /= 50 Years >450 pg/mL 51 Years - 75 Years >900 pg/mL 76 Years - 99 Years >1800 pg/mL Rule Out: All patients <300 pg/mL [facility] No Panel Informationon 12-02 Interpretation and review of laboratory results Normal [facility] PHOSPHORUSon 12-02-2024 Phosphate [Mass/Vol] 4.4 mg/dL Normal 2.7-4.5 [facility] Comment on above: Performed By: #### 4 [id number] #### LAB [address] [address] Jaime Smith M.D. [id number] Phosphoruson 12-02-2024 Phosphate [Mass/Vol] 4.4 mg/dL 2.7 - 4 .5 mg/dL [facility] Troponin x 2 (Now and Repeat in 2 Hours)on 12-02-2024 Interp Troponin T Delta Change No biomarker evidence of cardiac injury. [facility] Troponin T.cardiac High sensitivity method [Mass/Vol] ng/L NINF - 22 ng/L [facility] CBC Auto Differentialon Basophils (Bld) [#/Vol] 0.01 10*3/uL [facility] Basophils/100 WBC (Bld) 0.2 % [facility] Eosinophils (Bld) [#/Vol] 0.01 10*3/uL [facility] Eosinophils/100 WBC (Bld) 0.2 % [facility] Erythrocyte distribution width (RBC) [Entitic vol] 12.7 % 11.6 - 14.8 % [facility] Hematocrit (Bld) [Volume fraction] 47.3 % 41.0 - 53.0 % [facility] Hemoglobin (Bld) [Mass/Vol] 15.7 g/dL 13.5 - 17.5 g/dL [facility] Immature granulocytes (Bld) [#/Vol] 0.03 10*3/uL [facility] Immature granulocytes/100 WBC (Bld) 0.5 % [facility] Comment on above: The IG parameter is the percentage of metamyelocytes, myelocytes and promyelocytes. An immature granulocyte count (IG) of 1% or more suggests the possibility of infection, an IG count of 3% is very likely related to an infection. Lymphocytes (Bld) [#/Vol] 0.9 10*3/uL [facility] Lymphocytes/100 WBC (Bld) 14.3 % [facility] MCH (RBC) [Entitic mass] 31.1 pg 26.0 - 34.0 pg [facility] MCHC (RBC) [Mass/Vol] 33.2 g/dL 31.0 - 37.0 g/dL [facility] MCV (RBC) [Entitic vol] 93.7 fL 80.0 - 100.0 fL [facility] Monocytes (Bld) [#/Vol] 0.56 10*3/uL [facility] Monocytes/100 WBC (Bld) 8.9 % [facility] Neutrophils (Bld) [#/Vol] 4.77 10*3/uL [facility] Neutrophils/100 WBC (Bld) 75.9 % [facility] Nucleated RBC (Bld) [#/Vol] 0 10*3/uL [facility] Nucleated RBC/100 WBC (Bld) [Ratio] 0 % [facility] Platelet mean volume (Bld) [Entitic vol] 11.1 fL 9.4 - 12.4 fL [facility] Platelets (Bld) [#/Vol] 162 10*3/uL [facility] RBC (Bld) [#/Vol] 5.05 10*6/uL [facility] WBC (Bld) [#/Vol] 6.28 10*3/uL [facility] CBC WITH AUTO DIFFERENTIALon 12-01-2024 AUTO NRBC 0.0 % [facility] Comment on above: Performed By: #### L [id number] #### LAB [address] [place] [address] Jaime Smith M.D. [id number] AUTO NRBC ABS COUNT 0.00 K/mcL Normal 0.00-0.00 [facility] Comment on above: Performed By: #### L [id number] #### LAB [address] [place] [address] Jaime Smith M.D. [id number] BASOPHILS ABSOLUTE COUNT 0.01 K/mcL Normal 0.00-0.30 [facility] Comment on above: Performed By: #### L [id number] #### LAB [address] [place] [address] Jaime Smith M.D. [id number] Basophils/100 WBC (Bld) 0.2 % [facility] Comment on above: Performed By: #### L [id number] #### LAB [address] [place] [address] Jaime Smith M.D. [id number] Eosinophils (Bld) [#/Vol] 0.01 10*3/uL Normal 0.00-0.50 [facility] Comment on above: Performed By: #### L [id number] #### LAB [address] [place] [address] Jaime Smith M.D. [id number] Eosinophils/100 WBC (Bld) 0.2 % [facility] Comment on above: Performed By: #### L [id number] #### LAB [address] [address] Jaime Smith M.D. [id number] Erythrocyte distribution width (RBC) [Ratio] 12.7 % Normal 11.6-14.8 [facility] Comment on above: Performed By: #### L [id number] #### LAB [address] [address] Jaime Smith M.D. [id number] Hematocrit (Bld) [Volume fraction] 47.3 % Normal 41.0-53.0 [facility] Comment on above: Performed By: #### L [id number] #### LAB [address] [address] Jaime Smith M.D. [id number] Hemoglobin (Bld) [Mass/Vol] 15.7 g/dL Normal 13.5-17.5 [facility] Comment on above: Performed By: #### L [id number] #### LAB [address] [place] [address] Jaime Smith M.D. [id number] IG ABSOLUTE 0.03 K/mcL Normal 0.00-0.30 [facility] Comment on above: Performed By: #### L [id number] #### LAB [address] [place] [address] Jaime Smith M.D. [id number] IG PERCENT 0.50 % Normal [facility] Comment on above: Result Comment: The IG parameter is the percentage of metamyelocytes, myelocytes and promyelocytes. An immature granulocyte count (IG) of 1% or more suggests the possibility of infection, an IG count of 3% is very likely related to an infection. Performed By: #### L [id number] #### LAB [address] [place] [address] Jaime Smith M.D. [id number] Lymphocytes (Bld) [#/Vol] 0.90 10*3/uL Normal 0.90-4.00 [facility] Comment on above: Performed By: #### L [id number] #### LAB [address] [address] Jaime Smith M.D. [id number] Lymphocytes/100 WBC (Bld) 14.3 % Normal [facility] Comment on above: Performed By: #### L [id number] #### LAB [address] [address] Jaime Smith M.D. [id number] MCH (RBC) [Entitic mass] 31.1 pg Normal 26.0-34.0 [facility] Comment on above: Performed By: #### L [id number] #### LAB [address] [address] Jaime Smith M.D. [id number] MCV (RBC) [Entitic vol] 93.7 fL Normal 80.0-100.0 [facility] Comment on above: Performed By: #### L [id number] #### LAB [address] [address] Jaime Smith M.D. [id number] MEAN CORPUSCULAR HEMOGLOBIN CONC 33.2 g/dL Normal 31.0-37.0 [facility] Comment on above: Performed By: #### L [id number] #### LAB [address] [address] Jaime Smith M.D. [id number] Monocytes (Bld) [#/Vol] 0.56 10*3/uL Normal 0.30-0.90 [facility] Comment on above: Performed By: #### L [id number] #### LAB [address] [address] Jaime Smith M.D. [id number] Monocytes/100 WBC (Bld) 8.9 % Normal [facility] Comment on above: Performed By: #### L [id number] #### LAB [address] [address] Jaime Smith M.D. [id number] NEUTROPHILS ABSOLUTE COUNT 4.77 K/mcL Normal 1.70-7.00 [facility] Comment on above: Performed By: #### L [id number] #### MH LAB [address] [address] Jaime Smith M.D. [id number] Neutrophils/100 WBC (Bld) 75.9 % Normal [facility] Comment on above: Performed By: #### L [id number] #### MH LAB [address] [address] Jaime Smith M.D. [id number] Platelet mean volume (Bld) [Entitic vol] 11.1 fL Normal 9.4-12.4 [facility] Comment on above: Performed By: #### L [id number] #### MH LAB [address] [address] Jaime Smith M.D. [id number] Platelets (Bld) [#/Vol] 162 10*3/uL Normal 150-400 [facility] Comment on above: Performed By: #### L [id number] #### MH LAB [address] [address] Jaime Smith M.D. [id number] RBC (Bld) [#/Vol] 5.05 10*6/uL Normal 4.50-5.90 [facility] Comment on above: Performed By: #### L [id number] #### MH LAB [address] [address] Jaime Smith M.D. [id number] WBC (Bld) [#/Vol] 6.28 10*3/uL Normal 4.50-11.00 [facility] Comment on above: Performed By: #### L [id number] #### MH LAB [address] [id number] Jaime Smith M.D. [id number] COMPREHENSIVE METABOLIC PANE [place]ron 12-01-2024 Albumin [Mass/Vol] 4.3 g/dL Normal 3.2-5.2 [facility] Comment on above: Order Comment: [facility] has implemented the eGFR calculation approach that does not have a coefficient for race that conforms to the NKF-ASN Task Force Recommendations. Performed By: #### 4 [id number] #### MH LAB [address] [address] Jaime Smith M.D. [id number] ALP [Catalytic activity/Vol] 59 U/L Normal 40-150 [facility] Comment on above: Order Comment: [facility] has implemented the eGFR calculation approach that does not have a coefficient for race that conforms to the NKF-ASN Task Force Recommendations. Performed By: #### 4 [id number] #### LAB [address] [address] Jaime Smith M.D. [id number] ALT [Catalytic activity/Vol] 21 U/L Normal 0-50 U/L [facility] Comment on above: Order Comment: [facility] has implemented the eGFR calculation approach that does not have a coefficient for race that conforms to the NKF-ASN Task Force Recommendations. Performed By: #### 4 [id number] #### LAB [address] [address] Jaime Smith M.D. [id number] Anion gap [Moles/Vol] 19 mmol/L Normal 10-20 [facility] Comment on above: Order Comment: [facility] has implemented the eGFR calculation approach that does not have a coefficient for race that conforms to the NKF-ASN Task Force Recommendations. Performed By: #### 4 [id number] #### LAB [address] [address] Jaime Smith M.D. [id number] AST [Catalytic activity/Vol] 27 U/L Normal 0-50 U/L [facility] Comment on above: Order Comment: [facility] has implemented the eGFR calculation approach that does not have a coefficient for race that conforms to the NKF-ASN Task Force Recommendations. Performed By: #### 4 [id number] #### LAB [address] [address] Jaime Smith M.D. [id number] Bilirubin [Mass/Vol] 0.4 mg/dL Normal 0.0-1.3 [facility] Comment on above: Order Comment: [facility] has implemented the eGFR calculation approach that does not have a coefficient for race that conforms to the NKF-ASN Task Force Recommendations. Performed By: #### 4 [id number] #### LAB [address] [id number] Jaime Smith M.D. [id number] Calcium [Mass/Vol] 9.3 mg/dL Normal 8.4-10.2 [facility] Comment on above: Order Comment: [facility] has implemented the eGFR calculation approach that does not have a coefficient for race that conforms to the NKF-ASN Task Force Recommendations. Performed By: #### 4 [id number] #### LAB [address] [id number] Jaime Smith M.D. [id number] Chloride [Moles/Vol] 102 mmol/L Normal 98-108 [facility] Comment on above: Order Comment: [facility] has implemented the eGFR calculation approach that does not have a coefficient for race that conforms to the NKF-ASN Task Force Recommendations. Performed By: #### 4 6126 #### LAB [address] [address] Jaime Smith M.D. [id number] Creatinine [Mass/Vol] 1.26 mg/dL Normal 0.50-1.30 [facility] Comment on above: Order Comment: [facility] has implemented the eGFR calculation approach that does not have a coefficient for race that conforms to the NKF-ASN Task Force Recommendations. Performed By: #### 4 6126 #### LAB [address] [address] Jaime Smith M.D. [id number] EGFR 69 mL/min/1.73 m2 Normal >=60 [facility] Comment on above: Order Comment: [facility] has implemented the eGFR calculation approach that does not have a coefficient for race that conforms to the NKF-ASN Task Force Recommendations. Result Comment: Alison mated GFR was calculated using the 2020 CKD-EPI creatinine equation. Performed By: #### 4 [id number] #### LAB [address] [address] Jaime Smith M.D. [id number] Glucose [Mass/Vol] 104 mg/dL High 65-99 [facility] Comment on above: Order Comment: [facility] has implemented the eGFR calculation approach that does not have a coefficient for race that conforms to the NKF-ASN Task Force Recommendations. Performed By: #### 4 6126 #### LAB [address] [address] Jaime Smith M.D. [id number] HCO3 (Bld) [Moles/Vol] 22 mmol/L Normal 21-32 [facility] Comment on above: Order Comment: [facility] has implemented the eGFR calculation approach that does not have a coefficient for race that conforms to the NKF-ASN Task Force Recommendations. Performed By: #### 4 6126 #### LAB [address] [address] Jaime Smith M.D. [id number] Potassium [Moles/Vol] 4.3 mmol/L Normal 3.5-5.1 [facility] Comment on above: Order Comment: [facility] has implemented the eGFR calculation approach that does not have a coefficient for race that conforms to the NKF-ASN Task Force Recommendations. Performed By: #### 4 6126 #### LAB [address] [address] Jaime Smith M.D. [id number] Protein [Mass/Vol] 7.6 g/dL Normal 6.0-8.0 [facility] Comment on above: Order Comment: [facility] has implemented the eGFR calculation approach that does not have a coefficient for race that conforms to the NKF-ASN Task Force Recommendations. Performed By: #### 4 6126 #### LAB [address] [address] Jaime Smith M.D. [id number] Sodium [Moles/Vol] 139 mmol/L Normal 135-145 [facility] Comment on above: Order Comment: [facility] has implemented the eGFR calculation approach that does not have a coefficient for race that conforms to the NKF-ASN Task Force Recommendations. Performed By: #### 4 6126 #### LAB [address] [place], [place] [address] Jaime Smith M.D. [id number] Urea nitrogen [Mass/Vol] 14 mg/dL Normal 8-25 [facility] Comment on above: Order Comment: [facility] has implemented the eGFR calculation approach that does not have a coefficient for race that conforms to the NKF-ASN Task Force Recommendations. Performed By: #### 4 6126 #### LAB [address] [place], [place] [address] Jaime Smith M.D. [id number] Urea nitrogen/Creatinine [Mass ratio] 11.1 mg/mg Normal 10.0-20.0 [facility] Comment on above: Order Comment: [facility] has implemented the eGFR calculation approach that does not have a coefficient for race that conforms to the NKF-ASN Task Force Recommendations. Performed By: #### 4 6126 #### LAB [address] [place], [place] [address] Jaime Smith M.D. [id number] Comprehensive metabolic 2000 panelon 12-01-2024 Albumin [Mass/Vol] 4.3 g/dL 3.2 - 5.2 g/dL [facility] ALP [Catalytic activity/Vol] 59 U/L 40 - 150 U/L [facility] ALT [Catalytic activity/Vol] 21 U/L 0 - 50 U/L [facility] Anion gap [Moles/Vol] 19 mmol/L 10 - 2 0 mmol/L [facility] AST [Catalytic activity/Vol] 27 U/L 0 - 50 U/L [facility] Bilirubin [Mass/Vol] 0.4 mg/dL 0.0 - 1 .3 mg/dL [facility] Calcium [Mass/Vol] 9.3 mg/dL 8.4 - 10. 2 mg/dL [facility] Chloride [Moles/Vol] 102 mmol/L 98 - 10 8 mmol/L [facility] Creatinine [Mass/Vol] 1.26 mg/dL 0.50 - 1.30 mg/dL [facility] GFR/1.73 sq M.predicted CKD-EPI (S/P/Bld) [Vol rate/Area] 69 - PINF [facility] Comment on above: Estimated GFR was ca lculated using the 2020 CKD-EPI creatinine equation. Glucose [Mass/Vol] 104 mg/dL High 65 - 99 mg/dL [facility] HCO3 [Moles/Vol] 22 mmol/L 21 - 32 mmol/L [facility] Interpretation and review of laboratory results Abnormal [facility] Potassium [Moles/Vol] 4.3 mmol/L 3.5 - 5.1 mmol/L [facility] Protein [Mass/Vol] 7.6 g/dL 6.0 - 8.0 g/dL [facility] Sodium [Moles/Vol] 139 mmol/L 135 - 145 mmol/L [facility] Urea nitrogen [Mass/Vol] 14 mg/dL 8 - 25 mg/dL [facility] Urea nitrogen/Creatinine [Mass ratio] 11.1 mg/mg 10.0 - 20.0 [facility] has implemented the eGFR calculation approach that does not have a coefficient for race that conforms to the NKF-ASN Task Force Recommendations. [facility] ED Prov Noteon 12-01-2024 ED Prov Note ED PROVIDER NOTE [facility] EM[facility] NAME: Carlos Maher AGE: 49 y.o. : 1975 VISIT DATE: 12/01/2024 CSN: [id number] PCP: Misty Thakur MD Chief Complaint Patient [...] previous history of heart failure, history of VT, history of DVT/PE, lightheadedness, dizziness or syncope. [...] [address] (more content not included)... Normal [facility] HEMOGLOBIN A1Con 12-01-2024 Glucose [Mass/Vol] 111 mg/dL Normal 74-114 [facility] Comment on above: Performed By: #### 4 3102 #### MH LAB [address] [place], [place] [address] Jaime Smith M.D. [id number] HbA1c (Bld) [Mass fraction] 5.5 % Normal 4.2-5.6 [facility] Comment on above: Performed By: #### 4 [id number] #### LAB [address] [address] Jaime Smith M.D. [id number] HbA1c (Bld) [Mass fraction]o n 12-01-2024 Average glucose Estimated from glycated hemoglobin (Bld) [Mass/Vol] 111 mg/dL 74 - 114 mg/dL [facility] Interpretation and review of laboratory results Normal [facility] Hemoglobin A1con 12-01-2024 HbA1c (Bld) [Mass fraction] 5.5 % 4.2 - 5.6 % [facility] LIPID PANELon 12-01-2024 Cholesterol [Mass/Vol] 130 mg/dL Normal 100-199 [facility] Comment on above: Performed By: #### 4 6087 #### MH LAB [address] [address] Jaime Smith M.D. [id number] Cholesterol in HDL [Mass/Vol] 41 mg/dL Normal 40-59 [facility] Comment on above: Performed By: #### 4 6087 #### LAB [address] [address] Jaime Smith M.D. [id number] Cholesterol.total/Chol esterol in HDL [Mass ratio] 3.2 {ratio} Normal [facility] Comment on above: Result Comment: Male s Cholesterol/HDL Ratio: Average risk: 5.0 1/2 average risk: 3.4 2 x average risk: 9.6 Performed By: #### 4 6087 #### LAB [address] [address] Jaime Smith M.D. [id number] LDL CHOLESTEROL CALCULATED 70 mg/dL Normal 10-130 [facility] Comment on above: Result Comment: [place] Cholesterol Education [employer] Guidelines: LDL Cholesterol Optimal: <100 mg/dL Near Optimal/above Optimal: 100-129 mg/dL Borderline High: 130-159 mg/dL High: 160-189 mg/dL Very High: greater than or equal to 190 mg/dL Performed By: #### 4 6087 #### LAB [address] [place], [place] [address] Jaime Smith M.D. [id number] NON HDL CHOL 89 mg/dL Normal [facility] Comment on above: Result Comment: [place] [employer] Guidelines: NON HDL Cholesterol Desirable: <130 mg/dL Borderline High: 130-159 mg/dL High: 160-189 mg/dL Very High: > or = 190 mg/dL Performed By: #### 4 [id number] #### LAB [address] [place], [place] [address] Jaime Smith M.D. [id number] Triglyceride [Mass/Vol] 94 mg/dL Normal 30-150 [facility] Comment on above: Performed By: #### 4 [id number] #### LAB [address] [place], [place] [address] Jaime Smith M.D. [id number] Lipid 1996 panelon Cholesterol [Mass/Vol] 130 mg/dL 100 - 199 mg/dL [facility] Cholesterol in HDL [Mass/Vol] 41 mg/dL 40 - 59 mg/dL [facility] Cholesterol in LDL [Mass/Vol] 70 mg/dL 10 - 130 mg/dL [facility] Comment on above: National Cholesterol Education Program Guidelines: LDL Cholesterol Optimal: <100 mg/dL Near Optimal/above Optimal: 100-129 mg/dL Borderline High: 130-159 mg/dL High: 160-189 mg/dL Very High: greater than or equal to 190 mg/dL Cholesterol non HDL [Mass/Vol] 89 mg/dL [facility] Comment on above: National Cholesterol Education Program Guidelines: NON HDL Cholesterol Desirable: <130 mg/dL Borderline High: 130-159 mg/dL High: 160-189 mg/dL Very High: > or = 190 mg/dL Cholesterol.total/Chol esterol in HDL [Mass ratio] 3.2 {ratio} ratio [facility] Comment on above: Males Cholesterol/HD L Ratio: Average risk: 5.0 1/2 average risk: 3.4 2 x average risk: 9.6 Triglyceride [Mass/Vol] 94 mg/dL 30 - 150 mg/dL [facility] MAGNESIUM LEVELon 12-01-2024 Magnesium [Mass/Vol] 1.9 mg/dL Normal 1.6-2.4 [facility] Comment on above: Performed By: #### 4 [id number] #### LAB [address] [place], [place] [address] Jaime Smith M.D. [id number] Magnesiumon 12-01-2024 Magnesium [Mass/Vol] 1.9 mg/dL 1.6 - 2 .4 mg/dL [facility] No Panel Informationon 12-01 Interpretation and review of laboratory results Normal [facility] PHOSPHORUSon 12-01-2024 Phosphate [Mass/Vol] 3.5 mg/dL Normal 2.7-4.5 [facility] Comment on above: Performed By: #### 4 [id number] #### LAB [address] [place], [place] [address] Jaime Smith M.D. [id number] POC BASIC METABOLIC PANEL - [facility] 12-01-2024 Chloride [Moles/Vol] 104 mmol/L Normal 98-108 [facility] Comment on above: Order Comment: [facility] has implemented the eGFR calculation approach that does not have a coefficient for race that conforms to the NKF-ASN Task Force Recommendations. CO2 [Moles/Vol] 25 mmol/L Normal 21-32 [facility] Comment on above: Order Comment: [facility] has implemented the eGFR calculation approach that does not have a coefficient for race that conforms to the NKF-ASN Task Force Recommendations. Creatinine [Mass/Vol] 1.34 mg/dL High 0.50-1.30 [facility] Comment on above: Order Comment: [facility] has implemented the eGFR calculation approach that does not have a coefficient for race that conforms to the NKF-ASN Task Force Recommendations. Glucose [Mass/Vol] 128 mg/dL High 65-99 [facility] Comment on above: Order Comment: [facility] has implemented the eGFR calculation approach that does not have a coefficient for race that conforms to the NKF-ASN Task Force Recommendations. POC GFR 64 mL/min/1.73 m2 Normal >=60 [facility] Comment on above: Order Comment: [facility] has implemented the eGFR calculation approach that does not have a coefficient for race that conforms to the NKF-ASN Task Force Recommendations. Result Comment: Alison mated GFR was calculated using the 2020 CKD-EPI creatinine equation. POC IONIZED CALCIUM 4.8 mg/dL Normal 4.5-5.3 [facility] Comment on above: Order Comment: [facility] has implemented the eGFR calculation approach that does not have a coefficient for race that conforms to the NKF-ASN Task Force Recommendations. Potassium [Moles/Vol] 3.6 mmol/L Normal 3.5-5.1 [facility] Comment on above: Order Comment: [facility] has implemented the eGFR calculation approach that does not have a coefficient for race that conforms to the NKF-ASN Task Force Recommendations. Sodium [Moles/Vol] 141 mmol/L Normal 135-145 [facility] Comment on above: Order Comment: [facility] has implemented the eGFR calculation approach that does not have a coefficient for race that conforms to the NKF-ASN Task Force Recommendations. Urea nitrogen [Mass/Vol] 15 mg/dL Normal 8-25 [facility] Comment on above: Order Comment: [facility] has implemented the eGFR calculation approach that does not have a coefficient for race that conforms to the NKF-ASN Task Force Recommendations. POC CBC AND DIFFERENTIALon 0 - BASOPHILS ABSOLUTE COUNT 0.01 K/mcL Normal 0.00-0.30 [facility] Basophils/100 WBC (Bld) 0.2 % Normal [facility] Eosinophils (Bld) [#/Vol] 0.04 10*3/uL Normal 0.00-0.50 [facility] Eosinophils/100 WBC (Bld) 0.7 % Normal [facility] Erythrocyte distribution width (RBC) [Ratio] 12.6 % Normal 11.6-14.8 [facility] Hematocrit (Bld) [Volume fraction] 45.2 % Normal 41.0-53.0 [facility] Hemoglobin (Bld) [Mass/Vol] 15.4 g/dL Normal 13.5-17.5 [facility] IG ABSOLUTE 0.01 K/mcL Normal 0.00-0.30 [facility] IG PERCENT 0.20 % Normal [facility] Comment on above: Result Comment: The IG parameter is the percentage of metamyelocytes, myelocytes and promyelocytes. An immature granulocyte count (IG) of 1% or more suggests the possibility of infection, an IG count of 3% is very likely related to an infection. Lymphocytes (Bld) [#/Vol] 1.77 10*3/uL Normal 0.90-4.00 [facility] Lymphocytes/100 WBC (Bld) 30.4 % Normal [facility] MCH (RBC) [Entitic mass] 31.5 pg Normal 26.0-34.0 [facility] MCV (RBC) [Entitic vol] 92.4 fL Normal 80.0-100.0 [facility] MEAN CORPUSCULAR HEMOGLOBIN CONC 34.1 g/dL Normal 31.0-37.0 [facility] Monocytes (Bld) [#/Vol] 0.79 10*3/uL Normal 0.30-0.90 [facility] Monocytes/100 WBC (Bld) 13.6 % Normal [facility] NEUTROPHILS ABSOLUTE COUNT 3.21 K/mcL Normal 1.70-7.00 [facility] Neutrophils/100 WBC (Bld) 54.9 % Normal [facility] Platelet mean volume (Bld) [Entitic vol] 11.1 fL Normal 9.4-12.4 [facility] Platelets (Bld) [#/Vol] 156 10*3/uL Normal 150-400 [facility] RBC (Bld) [#/Vol] 4.89 10*6/uL Normal 4.50-5.90 [facility] WBC (Bld) [#/Vol] 5.83 10*3/uL Normal 4.50-11.00 [facility] POC D-DIMER Rebecca 5 POC D-DIMER 166 ng/mL DDU Normal <350 [facility] Comment on above: Order Comment: A D-D [...] less than 400 ng/ml. [facility] I < Normal <0.05 [facility] Phosphoruson 12-01-2024 Phosphate [Mass/Vol] 3.5 mg/dL 2.7 - 4 .5 mg/dL [facility] TROPONIN X 2 (NOW AND REPEAT IN 2 HOURS)on 12-01-2024 TROPONIN T DELTA CHANGE INTERPRETATION No biomarker evidence of cardiac injury. Normal [facility] Comment on above: Performed By: #### 4 [id number] #### LAB [address] [address] Jaime Smith M.D. [id number] TROPONIN T NG/L < Normal <=22 [facility] Comment on above: Performed By: #### 4 6126 #### LAB [address] [address] Jaime Smith M.D. [id number] BASELINE TROPONIN T NG/L < Normal <=22 [facility] Comment on above: Performed By: #### 4 [id number] #### LAB [address] [address] Jaime Smith M.D. [id number] TROPONIN T INTERPRETATION Normal Normal [facility] Comment on above: Performed By: #### 4 6126 #### LAB [address] [address] Jaime Smith M.D. [id number] TSH DL <= 0.005 mIU/L Qnon 0 12-01-2024 TSH Qn 1.23 m[IU]/L [facility] TSH WITH REFLEX FREE T4on TSH Qn 1.23 m[IU]/L Normal 0.27-4.20 [facility] Comment on above: Performed By: #### 4 [id number] #### LAB [address] [address] Jaime Smith M.D. [id number] Troponin x 2 (Now and Repeat in 2 Hours)on 12-01-2024 Troponin T ng/L NINF - 22 ng/L [facility] Troponin T Interpretation Normal [facility] XR CHEST PA/APon 12-01-2024 XR CHEST PA/AP [...] ID: [id number] Dictated by: TOMMY VENTURA on Geraldine Dec 01, 2024 4:29:03 PM EDT Transcribed by: TOMMY VENTURA on Geraldine Dec 01, 2024 4:29:03 PM EDT Finalized by: TOMMY VENTURA on Geraldine Dec 01, 2024 4:29:03 PM EDT [facility] Comment on above: Order Comment: Injur y/Trauma or Illness?:Illness/Other How long have you had these symptoms (acute/chronic)?:Acute Reason for exam?:short of breath History of cancer?:n Surgeries, chemotherapy, or radiation?:n Type of Exam?:Initial Additional signs and symptoms?:none Esophagus Dual Contraston Esophagus Dual Contrast [facility] [address] [place] [id number] Esophagus Dual Contrast MR#: [id number] Acct: [id number] Name: CARLOS MAHER Rep #: [id number] : 1975 M 49 From: Tommy Owusu PCP: Dr. Misty Thakur MD Status: REG CLI Study: Esophagus Dual Contrast Date of Exam: 10/03/24 Exam# [id number] Ordering Dr: Misty Thakur EXAM: Single and [...] mid to distal esophageal spasm. Reading Location: [place] [address] CC: Dr. Misty Thakur MD Scorer Helper: Signed Normal [facility] Anion gap in Serum or Plasma Ordered By: Misty Thakur on 09-04-2024 Anion gap [Moles/Vol] 13 mmol/L 5-15 [facility] BUN/creatinine ratioOrdered By: Misty Thakur on 09-04-2024 Urea nitrogen/Creatinine [Mass ratio] 12.7 mg/mg 10- [facility] Bilirubin, totalOrdered By: Misty Thakur on 09-04-2024 Bilirubin [Mass/Vol] 0.48 mg/dL 0.00-1.30 [facility] CBC-Complete Blood Cnt No Di ffon 09-04-2024 Erythrocyte distribution width (RBC) [Ratio] 12.9 % Normal 11.6-14.6 [facility] Comment on above: Order Comment: Order Date: 09/04/24 Order Info: [id number] - CBC Performed By: #### L 100.0500, L501.9910, L500.4050 #### [facility] [address] [place], [address] Hematocrit (Bld) [Volume fraction] 45.3 % Normal 40-54 [facility] Comment on above: Order Comment: Order Date: 09/04/24 Order Info: [id number] - CBC Performed By: #### L 100.0500, L501.9910, L500.4050 #### [facility] [address] [place], [address] Hemoglobin (Bld) [Mass/Vol] 15.1 g/dL Normal 13.0-16.5 [facility] Comment on above: Order Comment: Order Date: 09/04/24 Order Info: [id number] - CBC Performed By: #### L 100.0500, L501.9910, L500.4050 #### [facility] [address] [place], [address] MCH (RBC) [Entitic mass] 31.5 pg Normal 27.0-32.0 [facility] Comment on above: Order Comment: Order Date: 09/04/24 Order Info: [id number] - CBC Performed By: #### L 100.0500, L501.9910, L500.4050 #### [facility] [address] [place], [address] MCHC (RBC) [Mass/Vol] 33.3 g/dL Normal 32-36 [facility] Comment on above: Order Comment: Order Date: 09/04/24 Order Info: [id number] - CBC Performed By: #### L 100.0500, L501.9910, L500.4050 #### [facility] [address] [place], [address] MCV (RBC) [Entitic vol] 94.6 fL High 80-94 [facility] Comment on above: Order Comment: Order Date: 09/04/24 Order Info: [id number] - CBC Performed By: #### L 100.0500, L501.9910, L500.4050 #### [facility] [address] [place], [address] Platelet mean volume (Bld) [Entitic vol] 11.5 fL Normal 6.2-12.0 [facility] Comment on above: Order Comment: Order Date: 09/04/24 Order Info: [id number] - CBC Performed By: #### L 100.0500, L501.9910, L500.4050 #### [facility] [address] [place], [address] Platelets (Bld) [#/Vol] 174 10*3/uL Normal 150-450 [facility] Comment on above: Order Comment: Order Date: 09/04/24 Order Info: [id number] - CBC Performed By: #### L 100.0500, L501.9910, L500.4050 #### [facility] [address] [place], [address] RBC (Bld) [#/Vol] 4.79 10*6/uL Normal 4.6-6.2 [facility] Comment on above: Order Comment: Order Date: 09/04/24 Order Info: [id number] - CBC Performed By: #### L 100.0500, L501.9910, L500.4050 #### [facility] [address] [place], [address] RDW SD 45.1 fl High 35.1-43.9 [facility] Comment on above: Order Comment: Order Date: 09/04/24 Order Info: [id number] - CBC Performed By: #### L 100.0500, L501.9910, L500.4050 #### [facility] [address] [place], [address] WBC (Bld) [#/Vol] 6.2 10*3/uL Normal 4.4-11.0 [facility] Comment on above: Order Comment: Order Date: 09/04/24 Order Info: [id number] - CBC Performed By: #### L 100.0500, L501.9910, L500.4050 #### [facility] [address] [place], [address] Carbon dioxide, total [Moles /volume] in Central venous bloodOrdered By: Misty Thakur on 09-04-2024 CO2 [Moles/Vol] 23.8 mmol/L 21.0-32.0 [facility] Chloride assayOrdered By: Sidney Thakur on 09-04-2024 Chloride [Moles/Vol] 99 mmol/L 98-108 [facility] Comprehensive Metabolic Prof ilon 09-04-2024 Albumin [Mass/Vol] 4.2 g/dL Normal 3.5-5.0 [facility] Comment on above: Order Comment: Order Date: 09/04/24 Order Info: [id number] - CMP Order Info: [id number] - PSA Performed By: #### L 100.0500, L501.9910, L500.4050 #### [facility] [address] [place], [address] Albumin/Globulin [Mass ratio] 1.2 {ratio} Normal 0.9-2.4 [facility] Comment on above: Order Comment: Order Date: 09/04/24 Order Info: [id number] - CMP Order Info: [id number] - PSA Performed By: #### L 100.0500, L501.9910, L500.4050 #### [facility] [address] [place], [address] ALK PHOS 70 U/L Normal 40-129 [facility] Comment on above: Order Comment: Order Date: 09/04/24 Order Info: [id number] - CMP Order Info: [id number] - PSA Performed By: #### L 100.0500, L501.9910, L500.4050 #### [facility] [address] [place], [address] ALT [Catalytic activity/Vol] 29 U/L Normal <=46 [facility] Comment on above: Order Comment: Order Date: 09/04/24 Order Info: [id number] - CMP Order Info: [id number] - PSA Performed By: #### L 100.0500, L501.9910, L500.4050 #### [facility] [address] [place], [address] AST [Catalytic activity/Vol] 26 U/L Normal <=37 [facility] Comment on above: Order Comment: Order Date: 09/04/24 Order Info: [id number] - CMP Order Info: [id number] - PSA Performed By: #### L 100.0500, L501.9910, L500.4050 #### [facility] [address] [place], [address] Bilirubin [Mass/Vol] 0.48 mg/dL Normal 0.00-1.30 [facility] Comment on above: Order Comment: Order Date: 09/04/24 Order Info: [id number] - CMP Order Info: [id number] - PSA Performed By: #### L 100.0500, L501.9910, L500.4050 #### [facility] [address] [place], [address] BUN/CRE 12.7 RATIO Normal 10-20 [facility] Comment on above: Order Comment: Order Date: 09/04/24 Order Info: 0786-1 - CMP Order Info: 285-1 - PSA Performed By: #### L 100.0500, L501.9910, L500.4050 #### [facility] [address] [place], [address] Calcium [Mass/Vol] 8.9 mg/dL Normal 7.6-11.0 [facility] Comment on above: Order Comment: Order Date: 09/04/24 Order Info: 0786-1 - CMP Order Info: 2851 - PSA Performed By: #### L 100.0500, L501.9910, L500.4050 #### [facility] [address] [place], [address] Chloride [Moles/Vol] 99 mmol/L Normal 98-108 [facility] Comment on above: Order Comment: Order Date: 09/04/24 Order Info: 0786-1 - CMP Order Info: 285-1 - PSA Performed By: #### L 100.0500, L501.9910, L500.4050 #### [facility] [address] [place], [address] CO2 [Moles/Vol] 23.8 mmol/L Normal 21.0-32.0 [facility] Comment on above: Order Comment: Order Date: 09/04/24 Order Info: 0786-1 - CMP Order Info: 285-1 - PSA Performed By: #### L 100.0500, L501.9910, L500.4050 #### [facility] [address] [place], [address] Creatinine [Mass/Vol] 1.26 mg/dL High 0.70-1.20 [facility] Comment on above: Order Comment: Order Date: 09/04/24 Order Info: 0786- - CMP Order Info: [id number] - PSA Performed By: #### L 100.0500, L501.9910, L500.4050 #### [facility] [address] [place], [address] GAP 13 Normal 5-15 [facility] Comment on above: Order Comment: Order Date: 09/04/24 Order Info: 0786 - CMP Order Info: 28511-26 - PSA Performed By: #### L 100.0500, L501.9910, L500.4050 #### [facility] [address] [place], [address] GFR/1.73 sq M.predicted among non-blacks MDRD (S/P/Bld) [Vol rate/Area] 69 mL/min/{1.73_m2} Normal >60 [facility] Comment on above: Order Comment: Order Date: 09/04/24 Order Info: 0786 - CMP Order Info: [id number] - PSA Result Comment: mL/m in/1.73m2 CKD-EPI Creatinine Equation (2020) Performed By: #### L 100.0500, L501.9910, L500.4050 #### [facility] [address] [place], [address] Globulin (S) [Mass/Vol] 3.4 g/dL Normal 2.2-4.2 [facility] Comment on above: Order Comment: Order Date: 09/04/24 Order Info: 0786- - CMP Order Info: 11-26 - PSA Performed By: #### L 100.0500, L501.9910, L500.4050 #### [facility] [address] [place], [address] Glucose [Mass/Vol] 99 mg/dL Normal 70-99 [facility] Comment on above: Order Comment: Order Date: 09/04/24 Order Info: 0786-1 - CMP Order Info: 2856-05 - PSA Performed By: #### L 100.0500, L501.9910, L500.4050 #### [facility] [address] [place], [address] Potassium [Moles/Vol] 3.6 mmol/L Normal 3.3-5.1 [facility] Comment on above: Order Comment: Order Date: 09/04/24 Order Info: 0786-1 - CMP Order Info: [id number] - PSA Performed By: #### L 100.0500, L501.9910, L500.4050 #### [facility] [address] [place], [address] Sodium [Moles/Vol] 136 mmol/L Normal 133-145 [facility] Comment on above: Order Comment: Order Date: 09/04/24 Order Info: 0786-1 - CMP Order Info: 2856-05 - PSA Performed By: #### L 100.0500, L501.9910, L500.4050 #### [facility] [address] [place], [address] T PROT 7.6 g/dL Normal 5.9-8.4 [facility] Comment on above: Order Comment: Order Date: 09/04/24 Order Info: 0786-1 - CMP Order Info: 28511-26 - PSA Performed By: #### L 100.0500, L501.9910, L500.4050 #### [facility] [address] [place], [address] Urea nitrogen [Mass/Vol] 16 mg/dL Normal 4-19 [facility] Comment on above: Order Comment: Order Date: 09/04/24 Order Info: 0786-1 - CMP Order Info: 2857-1 - PSA Performed By: #### L 100.0500, L501.9910, L500.4050 #### [facility] [place], [address] Erythrocyte distribution wid th (RBC) [Ratio]Ordered By: Misty Thakur on 09-04-2024 Erythrocyte distribution width (RBC) [Entitic vol] 45.1 fL High 35.1-43.9 [facility] Erythrocyte distribution wid th ratioOrdered By: Misty Thakur on 09-04-2024 Erythrocyte distribution width (RBC) [Ratio] 12.9 % 11.6-14.6 [facility] Erythrocyte distribution wid th standard deviationOrdered By: Misty Thakur on 09-04-2024 Erythrocyte distribution width (RBC) [Ratio] 45.1 fl High 35.1-43.9 [facility] GFR/1.73 sq M.predicted abraham g non-blacks MDRD (S/P/Bld) [Vol rate/Area]Ordered By: Misty Thakur on 09-04-2024 Estimated GFR (MDRD) Non-Af Amer 69 >60 [facility] Comment on above: mL/min/1.73m2 CKD-EP I Creatinine Equation (2020) Glomerular filtration rate ( GFR) estimation/1.73 sq m using serum, plasma, or whole bOrdered By: Misty Thakur on 09-04-2024 GFR/1.73 sq M.predicted among non-blacks MDRD (S/P/Bld) [Vol rate/Area] 69 mL/min/{1.73_m2} >60 [facility] Comment on above: mL/min/1.73m2 CKD-EP I Creatinine Equation (2020) Hematocrit Auto (Bld) [Volum e fraction]Ordered By: Misty Thakur on 09-04-2024 Hematocrit (Bld) [Volume fraction] 45.3 % 40-54 [facility] Hemoglobin measurementOrdere d By: Misty Thakur on 09-04-2024 Hemoglobin (Bld) [Mass/Vol] 15.1 g/dL 13.0-16.5 [facility] - Chemistry and C hemistry - challengeOrdered By: Misty Thakur on 09-04-2024 AST [Catalytic activity/Vol] 26 U/L <38 [facility] MCV (mean corpuscular volume ) determinationOrdered By: Misty Thakur on 09-04-2024 MCV (RBC) [Entitic vol] 94.6 fL High 80-94 [facility] Mean corpuscular hemoglobin (MCH) determinationOrdered By: Misty Thakur on 09-04-2024 MCH (RBC) [Entitic mass] 31.5 pg 27.0-32.0 [facility] Mean corpuscular hemoglobin concentration (MCHC) determinationOrdered By: [facility] Th[facility] on 09-04-2024 MCHC (RBC) [Mass/Vol] 33.3 g/dL 32-36 [facility] Mean platelet volume determi nationOrdered By: Misty Thakur on 09-04-2024 Platelet mean volume (Bld) [Entitic vol] 11.5 fL 6.2-12.0 [facility] PSA, total screeningOrdered By: Misty Thakur on 09-04-2024 Prostate Specific Antigen Screen 1.08 ng/mL 0.02-4.00 [facility] Comment on above: This test was [...] 09-04-2024 PSA,TOT SCREEN 1.08 ng/mL Normal 0.02-4.00 [facility] Comment on above: Order Comment: Order [...] confirm baseline values. Performed By: #### L 100.0500, L501.9910, L500.4050 #### [facility] [address] [place], [address] Platelet countOrdered By: Sidney Thakur on 09-04-2024 Platelets (Bld) [#/Vol] 174 10*3/uL 150-450 [facility] Potassium (Unsp spec) [Mass/ Vol]Ordered By: Misty Thakur on 09-04-2024 Potassium [Moles/Vol] 3.6 mmol/L 3.3-5.1 [facility] Potassium measurement (mass/ volume)Ordered By: Misty Thakur on 09-04-2024 Potassium (Unsp spec) [Mass/Vol] 3.6 mmol/L 3.3-5.1 [facility] RBC Auto (Bld) [#/Vol]Ordere d By: Misty Thakur on 09-04-2024 RBC (Bld) [#/Vol] 4.79 10*6/uL 4.6-6.2 [facility] Serum creatinine measurement (mass/volume)Ordered By: Misty Thakur on 09-04-2024 Creatinine [Mass/Vol] 1.26 mg/dL High 0.70-1.20 [facility] Serum globulin measurementOr dered By: Misty Thakur on 09-04-2024 Globulin (S) [Mass/Vol] 3.4 g/dL 2.2-4.2 [facility] Serum glucose measurement (m ass/volume)Ordered By: Misty Thakur on 09-04-2024 Glucose [Mass/Vol] 99 mg/dL 70-99 [facility] Serum or plasma alanine ayala otransferase (ALT) measurementOrdered By: Misty Thakur on 09-04-2024 ALT [Catalytic activity/Vol] 29 U/L <47 [facility] Serum or plasma albumin oralia urement (mass/volume)Ordered By: Misty Thakur on 09-04-2024 Albumin [Mass/Vol] 4.2 g/dL 3.5-5.0 [facility] Serum or plasma albumin/glob ulin mass ratioOrdered By: Misty Thakur on 09-04-2024 Albumin/Globulin [Mass ratio] 1.2 {ratio} 0.9-2.4 [facility] Serum or plasma alkaline batsheva sphatase measurementOrdered By: Misty Thakur on 09-04-2024 ALP [Catalytic activity/Vol] 70 U/L 40-129 [facility] Serum or plasma calcium oralia urement (mass/volume)Ordered By: Misty Thakur on 09-04-2024 Calcium [Mass/Vol] 8.9 mg/dL 7.6-11.0 [facility] Serum or plasma urea nitroge n measurement (mass/volume)Ordered By: Misty Thakur on 09-04-2024 Urea nitrogen [Mass/Vol] 16 mg/dL 4-19 [facility] Sodium levelOrdered By: Regisludy ridley Blaze on 09-04-2024 Sodium [Moles/Vol] 136 mmol/L 133-145 [facility] Total proteinOrdered By: Regis istop Blaze on 09-04-2024 Protein [Mass/Vol] 7.6 g/dL 5.9-8.4 [facility] White blood cell (WBC) count Ordered By: Misty Thakur on 09-04-2024 WBC (Bld) [#/Vol] 6.2 10*3/uL 4.4-11.0 [facility] CNPNon 04-28-2023 JOSEMANUELN Telephone (EB) CARLOS MAHER ([id number]) 1975 M Date Time Provider Department 04/28/23 ALANA NOWAK During your visit today, we recorded the following information about you: Alana Nowak MD 04/28/2023 4:01 PM Signed FOLLOW UP ENDOSCOPY - RESULTS AND RECOMMENDATIONS NAME: Carlos Maher [facility] NO.: [id number] : 1975 DATE: April 28, 2023 PRIMARY [...] 05/01/2023 12:04 PM Signed Patient updated via [employer] History, HM and recall letter done. Lanny [...] Encounter Status:Closed by ALANA NOWAK on 04/28/23 [facility] COLONOSCOPY DIAGNOSTICon [facility] Colonoscopyon 04-25-2023 Colonoscopy [place] [facility] Gastrointestinal Endoscopy Patient Name: Carlos Maher Procedure [...] ago. Referring Physician: Leilani Rosario (pa) (Referring ) Dr Sauer Medicines: Midazolam 8 mg IV, [...] the patient. Procedure Code(s): --- Professional --- 57964, Colonoscopy, flexible; with removal of tumor(s), polyp(s), or other lesion(s) by snare technique 00721, 59, Colonoscopy, flexible; with biopsy, single or multiple 37648, Moderate sedation; each additional 15 minutes intraservice time G0500, Moderate sedation services provided by the same physician or other qualified health career services coordinator performing a gastrointestinal endoscopic service that sedation supports, requiring the presence of an independent trained observer to assist in the monitoring of the patient's level of consciousness and physiological (more content not included)... Normal [facility] HISTORY PHYSICALon HISTORY PHYSICAL HNO ID: [id number] Author: Alana Nowak MD Service: General Surgery [...] Heart Maternal Grandfather in his 50's from [place] REVIEW OF SYMPTOMS: The review of systems data was entered by the nurse and reviewed by or Nursing Notes: Micaela Cespedes RN 03/21/2023 2:45 [...] rheumatic fever, (more content not included)... Normal [facility] NURSING PROGon 04-25-2023 NURSING PROG HNO ID: [id number] Author: Peggy Eason RN Service: ? Author [...] procedure and recommendations. Peggy Eason RN Normal [facility] SURGICAL PATHOLOGYon 023 CASE REPORT Normal [facility] Comment on above: Order Comment: Speci men Type: TISSUE SPECIMEN Ordering Facility: [facility] Address: [address] [place] [address] Result Comment: Surg [facility] Pathology Report Case: [id number] Authorizing Provider: Alana Nowak MD Collected: 04/25/2023 12:02 PM Ordering Location: Ambulatory Surgery Received: 04/25/2023 01:24 PM Pathologist: Kris Regalado MD Specimens: A) - ASCENDING COLON BIOPSY, RANDOM bx's of the ascending colon B) - HEPATIC FLEXURE POLYP C) - DESCENDING COLON BIOPSY, RANDOM bx's of the descending colon Performed By: #### S #### [facility] CLIA [id number] [address] [place] [address] [place] [facility] CLIA [id number] [address] [place] FINAL DIAGNOSIS Normal [facility] Comment on above: Order Comment: Speci men Type: TISSUE SPECIMEN Ordering Facility: [facility] Address: [address] [place] [address] Result Comment: A. C olon, ascending, random, biopsy: -Colonic mucosa with no significant histologic abnormality -Negative for granulomas or dysplasia B. Colon, hepatic flexure, polypectomy: -Tubular adenoma C. Colon, descending, random, biopsy: -Colonic mucosa with no significant histologic abnormality -Negative for granulomas or dysplasia Performed By: #### S #### [facility] CLIA [id number] [address] [place] [address] [place] [facility] CLIA [id number] [facility] [place] FIN[facility] PERFORMING LAB Normal [facility] Comment on above: Order Comment: Speci men Type: TISSUE SPECIMEN Ordering Facility: [facility] Address: [address] [place] [address] Result Comment: Diag nostic interpretation performed at [facility], [address] [place] [address] CLIA# [id number] Optician: Carisa Fernando M.D. Performed By: #### S #### [facility] CLIA [id number] [address] [place] [address] [place] [facility] CLIA [id number] [address] [place] [address] GROSS DESCRIPTION [facility] Comment on above: Order Comment: Speci men Type: TISSUE SPECIMEN Ordering Facility: [facility] Address: [place] [address] Result Comment: A. A SCENDING COLON BIOPSY [...] in one cassette. 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 Normal [facility] CT SINUS WO CONTRASTon 10-14 CT SINUS WO CONTRAST Patient Name: CARLOS MAHER STUDY: CT SINUS WO CONTRAST; 10/14/2020 3:30 pm INDICATION: rhinnorhea. COMPARISON: MRI brain dated 08/17/2019. ACCESSION NUMBER(S): [id number] ORDERING CLINICIAN: NAY RASHID TECHNIQUE: Axial noncontrast [...] Electronically signed by: MARIANO WORKMAN MD Normal [facility] CT Sinus without Contraston 10-14-2020 CT Sinuses WO contrast Normal -Neurosur [facility] Work Phone: Office Visit (Neuro-General) on 08-19-2020 Follow-up visit Provider Impressions You have an unusual presentation: you have the intermittent sensation of fluid coming out from the right eye, and along the right forehead and nondenominational, less often from the nose- which is [...] MRI studies of the brain performed at [facility]- 1 and 3 years ago. Will be [...] eye, and along the right forehead and nondenominational, less often from the nose- which is [...] MRI studies of the brain performed at [facility]- 1 and 3 years ago. Will be [...] fluid lateral to the right eye, and nondenominational. If he does not exert himself, speak, etc. then he has less severity and frequency. It has slowly improved. Please see the MORRISON history. He previously was evaluated at [facility]- perhaps 2-3 years ago, including by Dr. [...] leg claudicat (more content not included)... Normal [facility] Chart Updateon 07-24-2020 Chart Update Chart Update Reviewed records from [facility]: Dr. 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 (Note to be scanned in chart). Signatures Electronically signed by : Bigg Mcgee MD; Jul 24 2020 2:29PM EST (Author) Normal [facility] Office Visit (Neuro-Cognitiv e)on 07-01-2020 Follow-up visit [...] [email or web address]. - I will request records from [facility] and [facility]. I will let you know if I [...] Status: Hold For - Scheduling Requested for: [id number] Chief Complaint Cognitive evaluation Adult Risk Screening [...] better w (more content not included)... Normal [facility] Office Visit (Social Work)on 07-01-2020 Follow-up visit [...] Jul 2020 Graduate of [employer] in [employer]. Employed Assessed By: Frannie Stevenson; Last Assessed: 01 Jul 2020 Works full-time for [employer], where he has worked for 16 yrs. 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 After he developed recent problems, he could not keep up and resigned, but [employer] wanted to retain him. 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 He feels better able lately to keep up with his workload and is glad they allowed him to keep his job. Lives with significant other Assessed By: Frannie Stevenson; Last Assessed: 01 Jul 2020 Lives in [facility] home for 11 yrs with , Eros [...] 2 sisters. Has been very active in [employer], but since covid, just attending virtually. Energy [...] some symptoms persist. Scores and Scales GDS [id number] 03:04PM Geriatric Depression Scale, Total Score1 Time Time Stamp_: Prep time on date of the patient encounter: 5 minutes minutes. Time spent directly with patient/family/caregiver: 50 minutes minutes. Patient Care Team Care Team MemberRoleSpecialtyOffice Number Blaze FLETCHER, iMsty [facility] hospit[facility]isha Care ProviderMem[phone] Signatures Electronically signed by : YADY Harp; Jul 01 2020 3:05PM EST (Author) Normal [facility] Vital Signs Date Time Vital Sign Value Performing Clinician Facility 12-13-2024 15:06-0400 Body temperature 98 [degF] Dr. Misty Thakur MD Work Phone: [facility] 12-13-2024 15:06-0400 Diastolic blood pressure 94 mm[Hg] Dr. Misty Thakur MD Work Phone: [facility] 12-13-2024 15:06-0400 Heart rate 53 /min Dr. Misty Thakur MD Work Phone: [facility] 12-13-2024 15:06-0400 Respiratory rate 18 /min Dr. Misty Thakur MD Work Phone: [facility] 12-13-2024 15:06-0400 SaO2% (BldA) [Mass fraction] 97 % Dr. Misty Thakur MD Work Phone: [facility] 12-13-2024 15:06-0400 Systolic blood pressure 124 mm[Hg] Dr. Misty Thakur MD Work Phone: [facility] 12-13-2024 10:14-0400 Body height 170.[address] Misty Thakur MD Work Phone: [facility] 12-13-2024 10:14-0400 Body mass index (BMI) [Ratio] 31.4 kg/m2 Dr. Misty Thakur MD Work Phone: [facility] 12-13-2024 10:14-0400 Body weight [address] Misty Thakur MD Work Phone: [facility] 12-02-2024 14:47-0400 Body temperature 98.1 [degF] Sejal Huggins MD Work Phone: [facility] 12-02-2024 14:47-0400 Diastolic blood pressure 81 mm[Hg] Sejal Huggins MD Work Phone: [facility] 12-02-2024 14:47-0400 Heart rate 95 /min Sejal Huggins MD Work Phone: [facility] 12-02-2024 14:47-0400 Respiratory rate 16 /min Sejal Huggins MD Work Phone: [facility] 12-02-2024 14:47-0400 SaO2% (BldA) [Mass fraction] 95 % Sejal Huggins MD Work Phone: [facility] 12-02-2024 14:47-0400 Systolic blood pressure 146 mm[Hg] Sejal Huggins MD Work Phone: [facility] 12-01-2024 20:50-0400 Body height 170.2 cm Sejal Huggins MD Work Phone: [facility] 12-01-2024 20:50-0400 Body mass index (BMI) [Ratio] 33.35 kg/m2 Sejal Huggins MD Work Phone: [facility] 12-01-2024 20:50-0400 Body weight 96.6 kg Sejal Huggins MD Work Phone: [facility] 04-25-2023 12:45-0500 Diastolic blood pressure 90 mm[Hg] Alana Nowak MD Work Phone: [facility] 04-25-2023 12:45-0500 Heart rate 100 /min Alana Nowak MD Work Phone: [facility] 04-25-2023 12:45-0500 Respiratory rate 16 /min Alana Nowak MD Work Phone: [facility] 04-25-2023 12:45-0500 SaO2% (BldA) [Mass fraction] 98 % Alana Nowak MD Work Phone: [facility] 04-25-2023 12:45-0500 Systolic blood pressure 135 mm[Hg] Alana Nowak MD Work Phone: [facility] 04-25-2023 10:11-0500 Body temperature 97.81 [degF] Alana Nowak MD Work Phone: [facility] 03-21-2023 14:28-0400 Body height 170.2 cm Leilani Abraham PA-C Work Phone: [facility] 03-21-2023 14:28-0400 Body temperature 97.9 [degF] Leilani Abraham PA-C Work Phone: [facility] 03-21-2023 14:28-0400 Body weight 97.16 kg Leilani Abraham PA-C Work Phone: [facility] 03-21-2023 14:28-0400 Diastolic blood pressure 88 mm[Hg] Leilani Rosario PA-C Work Phone: [facility] 03-21-2023 14:28-0400 Heart rate 119 /min Leilani Rosario PA-C Work Phone: [facility] 03-21-2023 14:28-0400 SaO2% (BldA) [Mass fraction] 96 % Leilani Rosario PA-C Work Phone: [facility] 03-21-2023 14:28-0400 Systolic blood pressure 136 mm[Hg] Leilani Rosario PA-C Work Phone: [facility] 07-01-2020 17:04-0500 1 1 [facility] [employer] Work Phone: Comment on above: Geriatric Depression Scale, Total Score 07-01-2020 14:01-0500 BMI (Body Mass Index) 33.42 kg/m2 [facility] [employer] Work Phone: 07-01-2020 14:01-0500 Body Temperature 95.7 [degF] [facility] [employer] Work Phone: 07-01-2020 14:01-0500 Body weight 96.8 kg [facility] [employer] Work Phone: 07-01-2020 14:01-0500 BSA (Body Surface Area) 2.08 m2 [facility] [employer] Work Phone: 07-01-2020 14:01-0500 diastolic 108 mm[Hg] [facility] [employer] Work Phone: Comment on above: Diastolic Sitting 07-01-2020 14:01-0500 Height 170.18 cm [facility] [employer] Work Phone: 07-01-2020 14:01-0500 Respiratory Rate 18 /min [facility] [employer] Work Phone: 07-01-2020 14:01-0500 systolic 157 mm[Hg] [facility] [employer] Work Phone: Comment on above: Systolic Sitting 07-01-2020 14:01-0500 78 1 [facility] [employer] Work Phone: Comment on above: Heart Rate Sitting 07-01-2020 14:01-0500 1 1 [facility] [employer] Work Phone: Comment on above: Pain Scale Encounters Encounter Date Encounter Type Care Provider Facility Start: 12-27-2024 End: 12-27-2024 ambulatory [facility] Start: 12-17-2024 ambulatory Misty Thakur Facludy lity:[facility] Start: 12-17-2024 Non-patient / Non-visit Dr. Fritz Guerra MD -[facility] Start: 12-17-2024 End: 12-17-[address] Misty Thakur MD Work Phone: -[facility] Start: 12-17-2024 End: 12-17-[address] Tom Benton MD -[facility] Work Phone: Start: 12-17-2024 End: 12-17-2024 ambulatory Misty Thakur Facility:[facility] Start: 12-13-2024 End: 12-13-2024 Emergency department patient visit Dr. Misty Thakur MD Work Phone: -Emergency Department Work Phone: Start: 12-10-2024 ambulatory RAIZA MURRAY [facility] Start: 12-02-2024 End: 12-06-2024 ambulatory KACI MCCORD [facility] Ambulatory Start: 12-01-2024 End: 12-02-2024 [facility] Start: 12-01-2024 End: 12-02-2024 Evaluation and management of inpatient [facility] Work Phone: [facility] Start: 12-01-2024 End: 12-01-2024 [facility] Start: 10-03-2024 End: 10-03-[address] Misty Thakur MD Work Phone: [facility] Work Phone: Start: 10-03-2024 End: 10-03-[address] Misty Thakur MD -Radiology, [facility] Work Phone: Start: 10-03-2024 End: 10-03-2024 ambulatory Misty Thakur Facility:[facility] Start: 09-04-2024 End: 09-04-[address] Misty Thakur MD Work Phone: [facility] Work Phone: Start: 09-04-2024 End: 09-04-[address] Misty Thakur MD -Laboratory, [facility] Start: 09-04-2024 End: 09-04-2024 ambulatory Misty Thakur Facility:[facility] Start: 04-28-2023 Telephone encounter Alana Nowak MD Work Phone: [place] Provider Adult Comment on above: Results Start: 04-25-2023 End: 04-25-2023 ambulatory LEILANI ABRAHAM Facility:[facility] Start: 04-25-2023 End: 04-25-2023 Subsequent hospital visit by physician Alana Nowak MD Work Phone: Ambulatory Surgery Comment on above: History of colitis [ Z87.19] Start: 03-21-2023 End: 03-22-2023 ambulatory LEILANI ROSARIO Facility:[facility] Start: 03-21-2023 End: 03-21-2023 Patient encounter procedure Leilani Rosario PA-C Work Phone: General Surgery Comment on above: Family history of co barron cancer (Primary Dx); History of colitis Start: 11-08-2020 Chart Update Misty Thakur Work Phone: [facility] Work Phone: Start: 07-01-2020 Patient encounter procedure [facility] Work Phone: Procedures Date Procedure Procedure Detail Performing Clinician Start: 12-17-2024 CT angiography of co ronary arteries Dr. Misty Thakur MD Work Phone: Start: 12-13-2024 X-ray of chest, PA a nd lateral views Dr. Misty Thakur MD Work Phone: Start: 12-13-2024 D-dimer assay, quantitative Dr. Misty Thakur MD Work Phone: Comment on above: NORMAL D-Dimer level (<0.50) indicates no DVT or PE. Start: 12-13-[address] Misty Thakur MD Work Phone: Start: 12-02-2024 TTE w or wo fol wcon,Doppler Tony Galeana DO Work Phone: Start: 12-02-2024 Complete blood count with white cell differential, manual Tony Geris DO Work Phone: Start: 12-02-2024 Comprehensive metabo lic panel Shadenton Geris DO Work Phone: Start: 12-01-2024 Assay of troponin quantitative Toyn Geris DO Work Phone: Start: 12-01-2024 Complete blood count with white cell differential, manual Tony Geris DO Work Phone: Start: 12-01-2024 Comprehensive metabo lic panel Shady Geris DO Work Phone: Start: 12-01-2024 Lipid panel Tony Areli s DO Work Phone: Start: 10-03-2024 X-ray of [...] 1996 panel - S matt or Plasma Leilain SIMSBityotaHermelinda Work Phone: Start: 07-02-2014 Colonoscopy Leilani SIMSBityotaHermelinda Work Phone: No history of surgery Usama Thakur Work Phone: Plan of Treatment Date Care Activity Detail Author Start: 04-25-2028 Colonoscopy Colonoscopy [facility] Start: 04-25-2028 Colorectal Cancer Screening Colorectal Cancer Screening [facility] Start: 12-13-2024 [facility] Start: 12-13-2024 [facility] Start: 12-09-2024 End: 12-02-2025 CT Heart and Coronary arteries for calcium scoring WO contrast CT CALCIUM SCORE SCREENING Imaging Routine Chest pain, unspecified type Expected: 12/09/2024, Expires: 12/02/2025 [facility] Work Phone: Comment on above: Expected: 12/09/2024 , Expires: 12/02/2025 Start: 12-09-2024 End: 02-02-2026 Stress test only, exercise Stress test only, exercise Cardiac Services Routine Chest pain, unspecified type Expected: 12/09/2024, Expires: 02/02/2026 [facility] Comment on above: Expected: 12/09/2024 , Expires: 02/02/2026 Start: 04-25-2024 Colonoscopy Colonoscopy [facility] Start: 04-25-2024 Colorectal Cancer Screening Colorectal Cancer Screening [facility] Start: 01-27-2023 Influenza vaccination Influenza Vacc ine (#1) [facility] Start: 09-04-2022 Lipid 1996 panel - S matt or Plasma Lipid Screening [facility] Start: 05-29-2022 Depression Assessment Depression Ass essment [facility] Start: 09-04-2020 Diabetes Screening Diabetes Screenin g [facility] Start: 2018 Cologuard (FIT-DNA) Cologuard (FIT-D NA) [facility] Start: 2018 Colonoscopy Colonoscopy [facility] Start: 2018 Colorectal Cancer Screening Colorectal Cancer Screening [facility] Start: [address] Colonography [facility] Start: 2018 Fecal Occult Blood Fecal Occult Bloo d [facility] Start: 2018 Sigmoidoscopy Sigmoidoscopy [facility] Start: 1991 Hepatitis C Screening Hepatitis C Sc reening [facility] Start: 1991 HIV Screening HIV Screening [facility] Start: 11-25-1987 Urine microalbumin profile DTaP,Tdap,Td Vaccine (6 - Tdap) [facility] Start: 1973 Covid-19 Vaccine (#1) Covid-19 Vacci ne (#1) [facility] Start: 1973 Hepatitis B Vaccine (1 of 3 - 3-dose series) Hepatitis B Vaccine (1 of 3 - 3-dose series) [facility] Ambulatory ECG Event Monitor Ambulatory ECG Event Monitor Cardiac Services Routine Chest pain, unspecified type Ordered: 12/02/2024 [facility] Comment on above: Ordered: 12/02/2024 Patient Education ED Chest Pain, Uncertain Cause ED Dyspnea ED Sleep Apnea, Obstructive [facility] Work Phone: SURGICAL PATHOLOGY [facility] Work Phone: Comment on above: Release Upon Jannette yap for 1 Occurrences starting 04/25/2023, 1 completed Troponin T.cardiac [Mass/volume] in Serum or Plasma by High sensitivity method [facility] Immunizations Immunization Date Immunization Notes Care Provider Mykel lei 10-12-1989 measles, mumps and rubella virus vaccine Leilani Rosario PA-C Work Phone: [facility] Work Phone: 11-24-1987 tetanus and diphther ia toxoids, adsorbed, preservative free, for adult use (2 Lf of tetanus toxoid and 2 Lf of diphtheria toxoid) Leilani Martinsville PA-C Work Phone: [facility] Work Phone: 02-02-1979 diphtheria, tetanus toxoids and pertussis vaccine Leilani Martinsville PA-C Work Phone: [facility] Work Phone: 02-02-1979 trivalent poliovirus vaccine, live, oral Leilani Martinsville PA-C Work Phone: [facility] Work Phone: 01-03-1975 diphtheria, tetanus toxoids and pertussis vaccine Leilani Abraham PA-C Work Phone: [facility] Work Phone: 01-03-1975 trivalent poliovirus vaccine, live, oral Leilani Abraham PA-C Work Phone: [facility] Work Phone: 08-17-1974 measles, mumps and rubella virus vaccine Leilani Martinsville PA-C Work Phone: [facility] Work Phone: 1973 diphtheria, tetanus toxoids and pertussis vaccine Leilani Abraham PA-C Work Phone: [facility] Work Phone: 1973 trivalent poliovirus vaccine, live, oral Leilani Abraham PA-C Work Phone: [facility] Work Phone: 1973 diphtheria, tetanus toxoids and pertussis vaccine Leilani [place]insville PA-C Work Phone: [facility] Work Phone: 1975 trivalent poliovirus vaccine, live, oral Leilani [place]insville PA-C Work Phone: [facility] Work Phone: 1973 diphtheria, tetanus toxoids and pertussis vaccine Leilani [place]insville PA-C Work Phone: [facility] Work Phone: 1975 trivalent poliovirus vaccine, live, oral Leilani Rosario PA-C Work Phone: [facility] Work Phone: Payers Date Payer Category Payer Self-pay [id number] 2024 Self-pay 2021 Managed Care PPO (unspecified) [employer] PPO [id number] 2021 Unknown 2021 Unknown [id number] 1973 Unknown [id number] 1973 Unknown [id number] 1973 Unknown [id number] 1973 Unknown [id number] 1973 Unknown [id number] Self-pay [id number] Unknown [id number] Unknown [id number] Unknown [id number] 462 Unknown [id number] Unknown [id number] 462 Social History Date Type Detail Facility Assertion Tobacco smoking consumption unknown (finding) [facility] Work Phone: Start: 03-21-2023 End: 12-02-2024 College graduate College graduate [employer] Work Phone: Comment on above: Graduate of [employer] in [employer].; Lives in [place] for 11 yrs with , Eros and [...] jorge, for 21 yrs.; Works full-time for [employer], where he has worked for 16 yrs. 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 After he developed recent problems, he could not keep up and resigned, but [employer] wanted to retain him. 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 He feels better able lately to keep up with his workload and is glad they allowed him to keep his job.; No POA. Pt does the family finances without issues.; Start: 11-22-2010 End: 12-13-2024 Tobacco smoking status NHIS Never smoked tobacco [facility] Work Phone: Start: 11-22-2010 End: 12-02-2024 Tobacco use and exposure Smokeless tobacco non-user [facility] Work Phone: Start: 03-21-2023 End: 04-25-2023 Alcohol intake Current non-drinker of alcohol (finding) [facility] Start: 03-21-2023 End: 12-02-2024 Tobacco use panel [facility] National Score (1-10 0), lower number is lower risk 53 [facility] Start: 06-27-2014 Alcohol Comment every few mayank hs- couple times [facility] Start: 1975 Sex Assigned At Male C [facility] Start: 09-25-2019 Gender identity Identifies as male gender (finding) [facility] Start: 09-25-2019 Sexual orientation Heterosexual (fin ding) [facility] Start: 09-09-2024 Sex Male (finding) [facility] Start: 12-02-2024 Alcoholic beverage intake Lifetime non-drinker (finding) [facility] Has the electric, [employer], oil, or water company threatened to shut off services in your home in past 12Mo No [facility] (I/We) worried wheth er (my/our) food would run out before (I/we) got money to buy more. Never true [facility] Start: 1975 Sex assigned at Not on file [facility] Functional Status Date Assessment Result Facility NEGATED: Highlighted row Functional performance Functional status health issues are not documented Disease [facility] [employer] Work Phone: Mental Status Date Assessment Result Facility 12-13-2024 Cognitive function Voice/Name [facility] Work Phone: NEGATED: Highlighted row Cognitive function [Interpretation] Cognitive status health issues are not documented Disease [facility] [employer] Work Phone: Clinical Notes 07-02-2014 to 12-20-2024 Kaci Adame, JOSEMANUEL - 12/02/2024 3:14 PM EDTPlan of Danny Damico RN - 12/02/2024 11:18 AM EDTPlan of Danny Damico RN - 12/02/2024 11:18 AM EDT Note Date & Type Note Facility 12-20-2024 Radiology Diagnostic study note [facility] Imaging Services [address] [place], [place] [address] Limited Chest CT Cardiac Only MR#: [id number] Acct: [id number] Name: CARLOS MAHER Rep #: [id number] : 1975 M 49 From: Cecilia Yan MD PCP: Dr. Misty Thakur MD Status: REG CLI Study:Limited Chest CT Cardiac Only Date of E xam: 12/17/24 Exam# [id number] Ordering Dr: Hermelinda Thakur MD PROCEDURE: LIMITED CHEST CT CARDIAC ONLY 12/17/2024 REASON FOR EXAM: DYSLIPIDEMIA, SHORTNESS OF BREATH TECHNIQUE: LIMITED CHEST CT CARDIAC ONLY. Axial CT images obtained from the aortic arch to the upper abdomen without the use of contrast.. One or more dose reduction techniques were used (e.g., Automated exposure control, adjustment of the mA and/or kV according to patient size, use of iterative reconstruction technique). RADIATION DOSE SUMMARY: CTDlvol: 12.19 mGy DLP: 195.04 mGycm COMPARISON: CTA Pulmonary w/ Contrast, 02/08/2021 FINDINGS: LUNGS: Scattered fibrotic-like changes bilaterally with thin parenchymal bands mainly at the periphery. No pulmonary mass. No focal airspace consolidation. PLEURAL SPACES: No pleural effusion. No pneumothorax. HEART: No cardiomegaly. No significant pericardial effusion. MEDIASTINUM/HILUM: No significant lymphadenopathy. AORTA: No aneurysm. ESOPHAGUS: Unremarkable. CHEST WALL: The chest wall is unremarkable. BONES: No acute osseous abnormality. UPPER ABDOMEN: The upper abdominal solid organs are unremarkable. CT/Limited Chest CT Cardiac Only IMPRESSION: 1. No acute intrathoracic abnormality. 2. Fibrotic-like lung changes bilaterally, suggesting interstitial lung disease. Consider post-COVID interstitial lung disease (ILD) with the appropriate past medical history. Reading Location: [facility] CC: Dr. Misty Thakur MD ~ Scorer Helper: Signed [facility] 12-17-2024 Radiology Diagnostic study note [facility] Imaging Services [address] [place] [address] 12/17/24 1644 MR#: [id number] Acct: [id number] Name: CARLOS MAHER Rep #:[id number] : 1975 49 From: Fritz Guerra MD PCP: Dr. Misty Thakur MD Status :REG CLI Y Location: CT Calcium Scoring Date of Study:: 12/17/24 Indications Indications: HLD Coronary Calcium Scoring: High-resolution Computed Tomographic imaging of the chest was performed on [ 12/17/24], with particular attention paid to the coronary arteries. Images from the examination were analyzed for the presence and extent of coronary artery calcification , using coronary calcium quantification software. The patient tolerated the procedure well and there were no complications. The results of thecoronary calcification analysis are provided below. Findings Coronary Artery Left Main (LM): 0 Left Anterior Descending (LAD): 0 Left Circumflex (LCX): 0 Right Coronary Artery (RCA): 0 Total Agatston Score: 0 Percentile Rankin Calcium Scoring Interpretation: Different methods to categorize the overall amount of coronary plaque. Overall amount CAC SIS Visual of coronary plaque P1 Mild -100 <2 1-2 vessels with mild amount of plaque P2 Moderate 101-300 3-4 1-2 vessels with moderate amount, 3 vessels with mild amount of plaque P3 Severe 301-999 5-7 3 vessels with moderate amount, 1 vessel withsevere amount of plaque P4 Extensive >1000 >8 2-3 vessels with severe amount of plaque Conclusion: No atherosclerotic plaque noted 12/17/24 1645 Date __ _ Fritz Guerra MD Cosigner Signature (if applicable): Date CC: Dr. Misty Thakur MD; Dr. Fritz Guerra MD; Dr. Tom Benton MD ~ Signed [facility] Work Phone: 12-13-2024 Radiology Diagnostic study note [facility] Imaging Services [address] [place], [place] [address] Chest PA and Lateral MR#: [id number] Acct: [id number] Name: CARLOS MAHER Rep #: [id number] : 1975 M 49 From: She Hurley MD PCP: Dr. Misty Thakur MD Status: REG ER Study:Chest PA and Lateral Date of Exam: 12/13/24 Exam# [id number] Ordering Dr: Hermelinda Blake DO EXAM: XR Chest, 2 Views CLINICAL INDICATION: CHEST PAIN TECHNIQUE: Frontal and lateral views of the chest. COMPARISON: No relevant prior studies available. FINDINGS: LUNGS AND PLEURAL SPACES: Unremarkable. No consolidation. No pneumothorax. HEART: Unremarkable. No cardiomegaly. MEDIASTINUM: Unremarkable. Normal mediastinal contour. BONES/JOINTS: Unremarkable. No acute fracture. RAD/Chest PA and Lateral IMPRESSION: No acute cardiopulmonary process. Reading Location[facility] CC: Dr. Misty Thakur MD; Dr. Syeda Blake DO ~ Scorer Helper: Signed [facility] 12-02-2024 Hospital course Narrative [facility] DISCHARGE SUMMARY -- [facility] Carlos Maher : 1975 Admitted: 12/01/2024 [...] significant past medical history presented to [facility] on 12/01/2024 with chest pain. Patient transferred from [place] [facility]. Acute chest pain, rule out ACS [...] 12/02/24, 3:14 PM documented in this encounter [facility] 12-02-2024 Note HMS DISCHARGE SUMMAR Y -- [facility] Carlos Maher : 1975 Admitted: 12/01/2024 [...] significant past medical history presented to [facility] on 12/01/2024 with chest pain. Patient transferred from [place] [facility]. Acute chest pain, rule out ACS [...] BY KACI ADAME, ON 12/02/2024 15:25:34 [facility] 12-02-2024 Plan of care note POC reviewed and continued Problem: Actual or potential alteration in health Goal: Absence of healthcare acquired conditions Outcome: Partially Met Goal: Knowledge of Interdisciplinary Plan of Care Outcome: Partially Met Goal: Knowledge of Enviroment Outcome: Partially Met [facility] 12-02-2024 Miscellaneous Notes POC reviewed and continued Problem: Actual or potential alteration in health Goal: Absence of healthcare acquired conditions Outcome: Partially Met Goal: Knowledge of Interdisciplinary Plan of Care Outcome: Partially Met Goal: Knowledge of Enviroment Outcome: Partially Met POC initiated documented in this encounter [facility] 12-02-2024 Plan of care note POC initiated [facility] 12-01-2024 History and physical note [facility] HISTORY AND PHYSICAL -- [facility] Patient Name: Carlos Maher : 1975 MR #: [id number] Admit Date: 12/01/2024 Physicians: Misty Thakur MD (Family); Mike Thompson (Referring) Carlos Maher is a 49 y.o. male patient of Misty Thakur MD with history of no significant past medical history presented to [facility] on 12/01/2024 with chest pain. Patient transferred from [place] [facility]. Acute chest pain, rule out ACS EKG reviewed showed sinus tachycardia with HR of 110, no significant ST or T wave normalities CXR nonacute Troponin negative x 1 Admit to [facility] with telemetry Continue cardiac monitoring Trend troponin [...] hospital or ED yes -- care site [facility] Quality Measures DVT Prophylaxis: heparin subcutaneous Yeager [...] significant past medical history presented to [facility] on 12/01/2024 with chest pain. Patient transferred from [place] [facility]. Patient states that 2 weeks ago [...] contacts at home. In the ER in [place], blood pressure was elevated, troponin was negative, CXR nonsignificant, EKG showed sinus tachycardia with rate of 110, no significant ST or T wave abnormalities. Patient received aspirin 324 show while in the ED. And transferred to [place] for cardiac evaluation Bedside evaluation, patient was [...] on file Smokeless Tobacco Not on file [facility] 12-01-2024 Note HMS HISTORY AND PHYS ICAL -- [facility] Patient Name: Carlos Maher : 1975 MR #: [id number] Admit Date: 12/01/2024 Physicians: Misty Thakur MD (Family); Mike Thompson (Referring) Carlos Maher is a 49 y.o. male patient of Misty Thakur MD with history of no significant past medical history presented to [facility] on 12/01/2024 with chest pain. Patient transferred from [place] [facility]. Acute chest pain, rule out ACS EKG reviewed showed sinus tachycardia with HR of 110, no significant ST or T wave normalities CXR nonacute Troponin negative x 1 Admit to [facility] with telemetry Continue cardiac monitoring Trend troponin [...] hospital or ED yes -- care site [facility] Quality Measures DVT Prophylaxis: heparin subcutaneous Yeager [...] significant past medical history presented to [facility] on 12/01/2024 with chest pain. Patient transferred from [place] [facility]. Patient states that 2 weeks ago [...] contacts at home. In the ER in [place], blood pressure was elevated, troponin was negative, CXR nonsignificant, EKG showed sinus tachycardia with rate of 110, no significant ST or T wave abnormalities. Patient received aspirin 324 show while in the ED. And transferred to [place] for cardiac evaluation Bedside evaluation, patient was [...] BY TONY GALEANA ON 12/01/2024 22:02:16 [facility] 12-01-2024 History and physical note [facility] HISTORY AND PHYSICAL -- [facility] Patient Name: Carlos Maher : 1975 MR #: [id number] Admit Date: 12/01/2024 Physicians: Misty Thakur MD (Family); Mike Thompson (Referring) Carlos Maher is a 49 y.o. male patient of Misty Thakur MD with history of no significant past medical history presented to [facility] on 12/01/2024 with chest pain. Patient transferred from [facility]. Acute chest pain, rule out ACS EKG reviewed showed sinus tachycardia with HR of 110, no significant ST or T wave normalities CXR nonacute Troponin negative x 1 Admit to [facility] with telemetry Continue cardiac monitoring Trend troponin [...] [facility] or [facility] care site [facility] Quality Measures DVT Prophylaxis: heparin subcutaneous [...] significant past medical history presented to [facility] on 12/01/2024 with chest pain. Patient transferred from [place] [facility]. Patient states that 2 weeks ago [...] contacts at home. In the ER in [place], blood pressure was elevated, troponin was negative, CXR nonsignificant, EKG showed sinus tachycardia with rate of 110, no significant ST or T wave abnormalities. Patient received aspirin 324 show while in the ED. And transferred to [place] for cardiac evaluation Bedside evaluation, patient was [...] Not on file documented in this encounter [facility] 10-03-2024 Radiology Diagnostic study note [facility] Imaging Services [address] [place] [address] Esophagus Dual Contrast MR#: [id number] Acct: [id number] Name: CARLOS MAHER Rep #: [id number] : 1975 M 49 From: Jose Armando Gaviria MD PCP: Dr. Misty Thakur MD Status: REG CLI Study:Esophagus Dual Contrast Date of Exam: 10/03/24 Exam# [id number] Ordering Dr: Hermelinda Thakur MD EXAM: Single [...] mid to distal esophageal spasm. Reading Location: [place] [address] CC: Dr. Misty Thakur MD ~ Scorer Helper: Signed [facility] 04-28-2023 Miscellaneous Notes FOLLOW UP ENDOSCOPY - RESULTS AND RECOMMENDATIONS NAME: Carlos [facility] NO.: [id number] : 1975 DATE: April 28, 2023 PRIMARY CARE PROVIDER: Jayy Grant MD REFERRING PHYSICIAN: Leilani [place] Carlos Maher is a patient referred for [...] the appropriate providers documented in this encounter [facility] 04-25-2023 Nurse Note Arrived in phase II via cart. Left lateral position. Sedated, but responds to verbal stimuli. Color normal; skin warm and dry. Respirations wnl and unlabored. Abdomen soft and with + bowel sounds in quads X 4. Patient resting comfortably. Family at bedside. Dr. Nowak at bedside to review procedure and recommendations. Peggy Eason RN documented in this encounter [facility] 04-25-2023 History and physical note UPDATED PROCEDURAL [...] 10:30 AM EST HISTORY AND PHYSICAL Carlos Maher 1975 REFERRING [...] Heart Maternal Grandfather in his 50's from [place] REVIEW OF SYMPTOMS: The review of systems data was entered by the nurse and reviewed by or Nursing Notes: Micaela Cespedes RN 03/21/2023 2:45 [...] which included preparing to see the patient, nxsb-qz-ldhc patient care, completing clinical documentation, obtaining and/or reviewing separately obtained history, performing a medically appropriate examination, counseling and educating the patient/family/caregiver, and ordering medications, tests, or procedures. Leilani Rosario PA-C HISTORY AND PHYSICAL Carlos Shiva Nika 1975 REFERRING PHYSICIAN: No ref. provider found [...] Heart Maternal Grandfather in his 50's from [place] REVIEW OF SYMPTOMS: The review of systems data was entered by the nurse and reviewed by or Nursing Notes: Micaela Cespedes RN 03/21/2023 2:45 [...] which included preparing to see the patient, aell-pl-yqkl patient care, completing clinical documentation, obtaining and/or reviewing separately obtained history, performing a medically appropriate examination, counseling and educating the patient/family/caregiver, and ordering medications, tests, or procedures. Leilani Rosario PA-C documented in this encounter [facility] 03-21-2023 Note HNO ID: [id number] Author: Leilani Rosario PA-C Service: ? 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 [facility] 03-21-2023 Nurse Note REVIEW OF SYSTEMS: [...] Micaela Cespedes RN documented in this encounter [facility] 03-21-2023 History of Present illness Narrative HISTORY AND PHYSICAL Carlos Maher 1975 REFERRING [...] Heart Maternal Grandfather in his 50's from [place] REVIEW OF SYMPTOMS: The review of systems [...] which included preparing to see the patient, aarb-js-rxua patient care, completing clinical documentation, obtaining and/or reviewing separately obtained history, performing a medically appropriate examination, counseling and educating the patient/family/caregiver, and ordering medications, tests, or procedures. Leilani Rosario PA-C documented in this encounter [facility] 09-22-2020 Note Orders CSF (cerebrospinal rhinorrhea) Otolaryngology - General Referral Evaluation and Treatment Evaluate AND Treat Status: Hold For - Scheduling,Retrospective By Protocol Authorization Requested for: [id number] CT Sinus without Contrast; Status:Hold For - Scheduling,Retrospective Authorization; Requested for:[id number]; Patient taking Metformin or Derivatives? : Unknown [...] him to my colleague in rhinology, Dr. Lawrence Gonzalez. I explained that we may have [...] College graduate Graduate of [employer] in [employer] sciences. Employed Works full-time for [employer], where he has worked for 16 yrs. 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 After he developed recent problems, he could not keep up and resigned, but [employer] wanted to retain him. 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 He feels better able lately to keep up with his workload and is glad they allowed him to keep his job. Lives with significant other Lives in [facility] home for 11 yrs with , Eros [...] Vital Signs Recorded: 22Sep2020 11:55AM Heart Rate94 Ymnvqwxdvhn53 Bdqtivqr151 Drhordcwd74 Height5 ft 7 in Nybvvg658 lb BMI Dmjcddceic08.2 BSA Calculated2.07 Tobacco Useb) No Fall Screeninga) [...] Conrad MD; Sep 27 2020 12:16PM EST [employer] 07-02-2014 History of Past i llness Narrative Problem Noted Date Diagnosed Date Resolved Date Other and unspecified noninf ectious gastroenteritis and colitis(558.9) 07/02/201407/02 documented as of this encounter (statuses as of 03/22/2023) [facility] History of Past illness Narrative* Problem Noted Date Diagnosed Date Resolved Date Other and unspecified noninf ectious gastroenteritis and colitis(558.9) 07/02/201407/02 documented as of this encounter (statuses as of 04/26/2023) [facility] History of Past illness Narrative* Problem Noted Date Diagnosed Date Resolved Date Other and unspecified noninf ectious gastroenteritis and colitis(558.9) 07/02/201407/02 documented as of this encounter (statuses as of 04/28/2023) [facility] Diagnosis Family history of colon cancer- Primary Family history of malignant neoplasm of gastrointestinal tract History of colitis Personal history of other diseases of digestive system documented in this encounter [facility] note* Diagnosis Special screening for malignant neoplasms, colon- Primary History of colitis Personal history of other diseases of digestive system Change in bowel habits Other symptoms involving digestive system Lower abdominal pain Abdominal pain, other specified site documented in this encounter [facility] noteNo assessment information availableWAkron Children's Hospital Work Phone: Evaluation note* Diagnosis Chest pain- Primary Unspecified chest pain Chest pain, unspecified type [facility]* Attachments The following attachments cannot be sent through Care Everywhere. * Chest Pain (Liberian) [facility] instructionsAdditional Instructions Your workup today was largely normal and reassuring. There is no signs of any acute cardiac abnormalities on your EKG or troponin. Your D-dimer was normal several low special for pulmonary emboli. The exact cause of your symptoms is not clear but this time I do think it safe for you to continue to follow-up outpatient with your primary care doctor for further outpatient testing. Please discuss your associated insomnia and anxiety with them as well. You were given a prescription for hydroxyzine to take as needed for anxiety and at night before bed. The maximum dose is 50 mg. These, is a 25 mg tablet. If you do not have a good effect with the first pill you may take a second pill or 1 dose of 25 mg Benadryl. Hydroxyzine and Benadryl. You may take are similar medications melatonin as well. You may also try ZzzQuil if you do not want to take the hydroxyzine to help with your sleep. Do not recommend mixing ZzzQuil with Benadryl/hydroxyzine.[facility] Work Phone: Reason for referral (narrative)* Outpatient Procedure (Routine) - Closed Specialty Diagnoses / Procedures Referred By Contjennie t Referred To Contact [facility] Diagnoses History of colitis Change in bowel habits Lower abdominal pain Procedures COLONOSCOPY DIAGNOSTIC COLONOSCOPY FLX DX W/COLLJ SPEC WHEN PFRMD Leilani Rosario PA-C [address] [place] [address] [facility] [address] [place] [address] Referral ID Status Reason Start Date Expiration Date V isits Requested Visits Authorized [id number] Closed Auto-Generate d Referral 03/22/2023 03/21/2024 1 1 [facility] for referral (narrative)No reason for referral information availableWAkron Children's Hospital Work Phone: Reason for visit Narrative* Outpatient Procedure (Routine) - Closed Specialty Diagnoses / Procedures Referred By Contjennie t Referred To Contact [facility] Diagnoses History of colitis Change in bowel habits Lower abdominal pain Procedures COLONOSCOPY DIAGNOSTIC COLONOSCOPY FLX DX W/COLLJ SPEC WHEN PFRMD Leilani Rosario PA-C [address] [place] [address] [facility] [address] [place] [address] Referral ID Status Reason Start Date Expiration Date V isits Requested Visits Authorized [id number] Closed Auto-Generate d Referral 03/22/2023 03/21/2024 1 1 [facility] for visit Narrative* Auth/Cert (Routine) Specialty Diagnoses / Procedures Referred By Haleigh blair Referred To Contact Diagnoses Chest pain Chest pain Referral ID Status Reason Start Date Expiration Date Visits Re quested Visits Authorized [id number] 1 1 [facility] Summary Purpose Family History No Family History [...] Comments 12/01/2024 9:08 PM 12/02/2024 7:31 PM Advance Directive Response Recorded Date/ Time Do you have a Healthcare Power of Engineering Specialist? No December 13, 2024 10:53am Medications Administered Section Inactive Administered Medications - [...] DYSPEPSIA, DYSPHAGIA October 03, 2024 9:41a m Chief Complaint Admit Date DYSPEPSIA, DYSPHAGIA October 03, 2024 9:41a m INSOMNIA December 13, 2024 10:1 4am Chief Complaint Admit Date DYSPEPSIA, DYSPHAGIA October 03, 2024 9:41a m INSOMNIA December 13, 2024 10:1 4am Hyperlipidemia, unspecified December 17 12:41pm Hyperlipidemia, unspecified December 17 4:44pm Additional Source Comments (unrecognized sect ion and content) No Status Records FoundNo Status Records FoundNo Status Records FoundNo Status Records FoundNo Status Records FoundNo Status Records FoundNo Status Records FoundNo Status Records Found INFORMATION SOURCE (unrecogn ized section and content) DATE CREATED AUTHOR 09/28/2020 [employer] DATE CREATED AUTHOR AUTHOR'S ORGANIZ ATION 10/21/2020 [facility] DATE CREATED AUTHOR AUTHOR'S ORGANIZ ATION 04/29/2023 [facility] DATE CREATED AUTHOR AUTHOR'S ORGANIZ ATION 05/01/2023 [facility] DATE CREATED AUTHOR AUTHOR'S ORGANIZ ATION 12/28/2024 [facility] DATE CREATED AUTHOR AUTHOR'S ORGANIZ ATION 12/28/2024 [facility] DATE CREATED AUTHOR AUTHOR'S ORGANIZ ATION 12/29/2024 [facility] DATE CREATED AUTHOR AUTHOR'S ORGANIZ ATION 01/11/2025 [facility] Source Comments (unrecognize d section and content) In the event this informatio n is protected by the Federal Confidentiality of Alcohol and Drug Abuse Patient Records regulations: The Federal rules restrict any use of the information to criminally investigate or prosecute any alcohol or drug abuse patient.[facility] the event this information is protected by the Federal Confidentiality of Alcohol and Drug Abuse Patient Records regulations: The Federal rules restrict any use of the information to criminally investigate or prosecute any alcohol or drug abuse patient.[facility] the event this information is protected by the Federal Confidentiality of Alcohol and Drug Abuse Patient Records regulations: The Federal rules restrict any use of the information to criminally investigate or prosecute any alcohol or drug abuse patient.[facility] Reason for Visit (unrecogniz ed section and content) Reason Comments Consult Colonoscopy consult. 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 [address] [place], [place] [address] PCP - General Family Medicine 12/01/24 Team Status: Active Member Role/Relationship Status Dates Dr. Misty Thakur MD Primary Care Provider Acti ve Team Status: Inactive Member Role/Relationship Status Dates Dr. Misty Thakur MD Primary Care Provider Acti ve Start: September 04, 2024 End: September 04, 2024 Dr. Misty Thakur MD Attending Provider Active Start: September 04, 2024 End: September 04, 2024 Dr. Misty Thakur MD Referring Provider Active Start: September 04, 2024 End: September 04, 2024 Team Status: Inactive Member Role/Relationship Status Dates Dr. Misty Thakur MD Primary Care Provider Acti ve Start: October 03, 2024 End: October 03, 2024 Dr. Misty Thakur MD Attending Provider Active Start: October 03, 2024 End: October 03, 2024 Dr. Misty Thakur MD Referring Provider Active Start: October 03, 2024 End: October 03, 2024 Team Status: Inactive Member Role/Relationship Status Dates Dr. Misty Thakur MD Primary Care Provider Acti ve Start: December 13, 2024 End: December 13, 2024 Dr. Syeda Blake DO Emergency Provider Active Start: December 13, 2024 End: December 13, 2024 Team Status: Inactive Member Role/Relationship Status Dates Dr. Misty Thakur MD Primary Care Provider Acti ve Start: December 13, 2024 End: December 13, 2024 Dr. Syeda Blake DO Attending Provider Active Start: December 13, 2024 End: December 13, 2024 Dr. Syeda Blake DO Emergency Provider Active Start: December 13, 2024 End: December 13, 2024 Team Status: Inactive Member Role/Relationship Status Dates Dr. Misty Thakur MD Primary Care Provider Acti ve Start: December 17, 2024 End: December 17, 2024 Dr. Tom Benton MD Attending Provider Active St art: December 17, 2024 End: December 17, 2024 Dr. Tom Benton MD Referring Provider Active St art: December 17, 2024 End: December 17, 2024 Team Status: Active Member Role/Relationship Status Dates Dr. Misty Thakur MD Primary Care Provider Acti ve Start: December 17, 2024 Dr. Tom Benton MD Referring Provider Active St art: December 17, 2024 Dr. Tom Benton MD Other Provider Active Start: December 17, 2024 Dr. Fritz Guerra MD Attending Provider Active S tart: December 17, 2024 Goals (unrecognized section and content) Goals may be documented in a n alternate sectionGoals may be documented in an alternate sectionGoals may be documented in an alternate sectionGoals may be documented in an alternate section Scheduled Active and Recently Administ ered Medications (unrecognized section and content) Medication Order 11/30/2024 12/01/2024 12/02/2024 amLODIPine (NORVASC) tablet 10 mg 10 mg, Oral, Daily, First dose on 7/6/25 at 2200 2206 (Given - Provider: Gisselle [...] total ML OF MIXTURE given to patient. 0926 (Given - Provid er: Uday Sorenson) FOR [...] BE BASED ON THE PRIMARY CLINICAL RECORDS. [facility]. provides no warranty or guarantee of the accuracy or completeness of information in this document.
[2025-02-17 18:36] LABS: AST(SGOT) 25 U/L (<=37); Alanine Aminotransfer ALT/SGPT 30 U/L (<=46); Albumin, Serum 4.4 g/dL (3.5-5.0); Alkaline Phosphatase 61 U/L (40-129); Anion Gap 13 (5-15); BUN 22 mg/dL (4-19); BUN/Creat Ratio 18.7 RATIO (10-20); CORTISOL PM 9.60 ug/dL (2.68-10.50); Calcium,Total 8.9 mg/dL (7.6-11.0); Carbon Dioxide 24.0 mmol/L (21.0-32.0); Chloride 102 mmol/L (98-108); Globulin 3.1 g/dL (2.2-4.2); Glucose 99 mg/dL (70-99); Iron 73 ug/dL (65-175); Potassium 4.1 mmol/L (3.3-5.1); Vitamin B12 907 pg/mL (180-914); Vitamin D,25 Hydroxy 27.0 ng/mL (30-100)
== END | disposition home or self-care (01) ==
LOC: MFPLAB 16:02
PROVIDERS: PCP Family Medicine; Visit Provider Family Medicine
DX: R20.2 Paresthesia of skin (principal)
CPT/HCPCS: 80053; 82306; 82533; 82607; 83540; 84403; 84443; 85027